=== PATIENT | female | born 1960 | race Caucasian/White ===

== ENCOUNTER 2020-08-17 12:16 | Outpatient (CLI) | payer MEDICARE, SELFPAY ==
--- NOTE | ~2020-08-17 | XR_ITS ---
XR knee LT 2V 08/17/2020 12:45 Indication: Chronic knee pain Procedure: 2 views left knee Comparison: No prior studies for comparison. Findings: There is mild-moderate osteoarthritis of the left knee. No fracture, subluxation or disloca tion. No significant joint effusion. No foreign bodies. Impression: 1: Mild-moderate osteoarthritis of the left knee. Reviewed, dictated and finalized at location B. Impression: 1: Mild-moderate osteoarthritis of the left knee.
--- NOTE | ~2020-08-17 | XR_ITS ---
XR knee RT 2V 08/17/2020 12:45 Indication: Chronic knee pain Procedure: 2 views right knee Comparison: No prior studies for comparison. Findings: There is moderate tricompartment osteoarthritis of the right knee. No fracture or traumatic malalignment. No significant joint effusion. No foreign bodies. Impression: 1: Moderate osteoarthritis of the right knee. Reviewed, dictated and finalized at location B. Impression: 1: Moderate osteoarthritis of the right knee.
== END 2020-08-17 12:17 | disposition home or self-care (01) ==
DX: M17.0 Bilateral primary osteoarthritis of knee (principal)
CPT/HCPCS: 73560

== ENCOUNTER 2021-12-29 22:39 | Inpatient (IN) | payer MEDICARE, MEDICAID, SELFPAY ==
[2021-12-29] VITALS (9 sets, daily range): BP systolic 130–132; BP diastolic 105–108; PULSE 108–115; RESP 20–24; TEMP 36.3; O2SAT 75–100
--- NOTE | ~2021-12-29 | US_ITS ---
EXAMINATION: US abdomen limited DATE: 12/30/2021 10:53 INDICATION: Abnormal liver function tests. TECHNIQUE: Multiple grayscale and Doppler ultrasound images of the abdomen were obtained. COMPARISON: CT abdomen and pelvis 12/29/2021 FINDINGS: The visualized portions of the head and body of the pancreas are normal. The liver is janell l without focal lesion. No liver surface nodularity. There is normal flow in main portal vein. The ga llbladder is absent. The common duct is normal and measures 4 mm. IMPRESSION: 1. No etiology for abnormal liver function tests. Reviewed, dictated and finalized at location A.
--- NOTE | ~2021-12-29 | CT_ITS ---
EXAMINATION: CTA chest PE protocol DATE: 01/09/2022 12:52 INDICATION: Shortness of breath. Suspected pulmonary embolism. TECHNIQUE: Computed tomography angiography (CTA) of the chest was performed with 100 mL Omnipaque-350 intravenous contrast timed to evaluate the pulmonary arteries. Coronal maximum intensity projection 3D-reconstructions were created by the technologist. Automated exposure control and iterative reconst ruction technique were employed. Exam dose: 754.51 mGy-cm total exam DLP. COMPARISON: 01/08/2022 2 view chest FINDINGS: The pulmonary arteries are moderately opacified with contrast material, without evidence of pulmonary embolism. Cardiomegaly. There is trace pericardial fluid. There is aortic and great vessel and coronary artery calcification. No thoracic aortic aneurysm or di ssection. There is mild right hilar and mediastinal lymph node prominence, likely reactive. Scattered small focal right upper lobe infiltrates and more prominent patchy infiltrate and atelectas is in the right lower lobe. Prominent discoid atelectasis, left lower lobe. No pleural effusion. Status post lower anterior cervical spine surgical fusion. There is degenerative change of the thorac ic spine including diffuse idiopathic skeletal hyperostosis. No suspicious osteolytic or osteoblastic lesions are noted. IMPRESSION: Right upper lobe and more prominent right lower lobe infiltrate, bilateral predominantly lower lobe atelectasis, right greater than left No evidence of pulmonary embolism Cardiomegaly Reviewed, dictated and finalized at Location A. Reviewed, dictated and finalized at location A. K MANAGER IMPRESSION: Right upper lobe and more prominent right lower lobe infiltrate, b ilateral predominantly lower lobe atelectasis, right greater than left No evidence of pulmonary embolism Cardiomegaly
--- NOTE | ~2021-12-29 | US_ITS ---
EXAMINATION: US renal BI DATE: 01/17/2022 17:20 INDICATION: Back pain /hematuria TECHNIQUE: Multiple grayscale and Doppler ultrasound images of the kidneys were obtained. COMPARISON: CT abdomen and pelvis 12/29/2021 FINDINGS: The right kidney measures 9.3 x 5.1 x 5.7 cm. The left kidney measures 8.9 x 4.1 x 4.4 cm. The kidney s demonstrate normal parenchymal echogenicity. There is no hydronephrosis. The bladder is decompresse d. IMPRESSION: Unremarkable renal sonogram findings. Reviewed, dictated and finalized at location K. IMPREGNATOR
--- NOTE | ~2021-12-29 | US_ITS ---
EXAMINATION: US right upper quadrant DATE: 01/12/2022 11:05 INDICATION: Abnormal liver function tests. TECHNIQUE: Multiple grayscale and Doppler ultrasound images of the abdomen were obtained. COMPARISON: Chest CT 01/09/2022 FINDINGS: Sensitivity is decreased by obesity. The visualized portion of the pancreas is normal. The liver is normal without focal lesion. No liver surface nodularity. There is normal flow in main heath l vein. The gallbladder is absent. The common duct is normal and measures 8 mm. IMPRESSION: 1. Normal right upper quadrant ultrasound status post cholecystectomy. Reviewed, dictated and finalized at location A. EY CLEANER
--- NOTE | ~2021-12-29 | XR_ITS ---
EXAMINATION: XR chest 1V portable DATE: 12/30/2021 00:12 INDICATION: Shortness of breath. TECHNIQUE: A single frontal view of the chest was obtained. COMPARISON: CT abdomen and pelvis 12/29/2021 FINDINGS: There is mild atelectasis in the lower lung zones. No pleural effusion or pneumothorax. Car diomegaly is noted. There are changes of anterior fusion procedure in cervical spine. IMPRESSION: 1. Mild atelectasis in the lower lung zones. 2. Cardiomegaly. Reviewed, dictated and finalized at location A.
--- NOTE | ~2021-12-29 | XR_ITS ---
EXAM: XR abdomen/kub 1V DATE: 01/01/2022 13:29 HISTORY: Right renal stones . COMPARISON: None available. FINDINGS: Bibasilar atelectasis with possible trace effusion on the right. Cholecystectomy clips. Ri ght nephroureteral stent, proximal coil over the region of the renal pelvis, distal coil over the reg ion of the bladder. Normal bowel gas pattern. No organomegaly. 17 mm right renal pelvis stone. Cluste r of calcifications overlying the right inferior pole measuring up to 8 mm. Degenerative change in th e bilateral hips and spine. IMPRESSION: Right nephroureteral stent, in good position. 17 mm right renal pelvis stone. Additional right inferior pole calculi. Reviewed, dictated and finalized at location K. VERY AGENT IMPRESSION: Right nephroureteral stent, in good position. 17 mm right renal pel vis stone. Additional right inferior pole calculi.
--- NOTE | ~2021-12-29 | XR_ITS ---
EXAMINATION: XR chest 1V portable INDICATION: Shortness of breath TECHNIQUE: Portable AP chest at 0538 hours COMPARISON: 01/03/2022 FINDINGS: Bibasilar airspace opacities persist without significant change. Cardiomegaly is noted. The re is no pneumothorax. Small pleural effusions are suggested. Surgical changes are noted in the lower cervical spine. IMPRESSION: 1. Stable bibasilar airspace opacities, consistent with atelectasis and/or pneumonia and/or small eff usions. 2. Cardiomegaly. Reviewed, dictated and finalized at location B. ICAL MEDICINE TEACHER IMPRESSION: 1. Stable bibasilar airspace opacities, consistent with atelectasis and/or pneu monia and/or small effusions. 2. Cardiomegaly.
--- NOTE | ~2021-12-29 | US_ITS ---
EXAMINATION: US renal BI DATE: 12/30/2021 10:53 INDICATION: Acute renal insufficiency TECHNIQUE: Multiple ultrasound grayscale images of the kidneys were obtained. COMPARISON: CT abdomen and pelvis dated 12/29/2021 FINDINGS: The right kidney measures 10.7 x 5.5 x 6.0 cm. The left kidney measures 10.2 x 5.9 x 5.7 cm. The kidn eys demonstrate normal echogenicity. There is no hydronephrosis in either kidney. No shadowing renal stones identified likely due to patient body habitus as stones were evident in the right kidney on t he prior CT. The bladder is visualized, likely decompressed with Vale catheter reportedly in place.. IMPRESSION: 1. Normal kidneys without hydronephrosis. Of note the right renal stones were present on PET CT from one day prior and which may be obscured in the current study due to body habitus. Reviewed, dictated and finalized at location B. IMPRESSION: 1. Normal kidneys without hydronephrosis. Of note the right renal stones were present on PET CT from one day prior and which may be obscured in the current s tudy due to body habitus.
--- NOTE | ~2021-12-29 | US_ITS ---
EXAMINATION: US venous doppler UE DATE: 01/03/2022 17:28 INDICATION: Edema TECHNIQUE: Grayscale ultrasound images without and with compression and Doppler ultrasound images of the bilateral upper extremity veins were obtained. COMPARISON: None. FINDINGS: The visualized portions of the left internal jugular vein, subclavian vein, axillary vein, brachial v eins, basilic vein, cephalic vein, radial vein, and ulnar vein are patent. Acute thrombus in the right cephalic radial and ulnar veins. The visualized portions of the right int ernal jugular vein, subclavian vein, axillary vein, brachial veins, and basilic vein are patent. IMPRESSION: 1. Acute thrombus in the right cephalic, radial, and ulnar veins Results reported telephonically to Tere Arango RN by Dr. Keller at 5:39 PM on 01/03/2022. Reviewed, dictated and finalized at location K. NERY OPERATOR [employer]OV[employer]
--- NOTE | ~2021-12-29 | XR_ITS ---
EXAMINATION: XR chest 1V portable DATE: 01/03/2022 06:19 INDICATION: Shortness of breath TECHNIQUE: frontal view of the chest was obtained. COMPARISON: Chest radiograph dated 12/30/2021 FINDINGS: Hazy opacities in the right lower lung zone with blunting at the costophrenic angle consistent with s mall posterior layering pleural effusion. More dense opacities at the medial right lower lung zone an d bandlike opacity left lower lung zone most likely associated atelectasis although differential incl udes pneumonia. Mild increased interstitial pattern with bronchial wall thickening which could repres ent pulmonary edema or bronchitis. No pneumothorax or left-sided pleural effusion. Cardiomegaly. Plat e-screw fixation for lower cervical anterior spinal fusion. IMPRESSION: 1. Opacities in the lower lung zones consistent with atelectasis and/or pneumonia and small right ple ural effusion. 2. Cardiomegaly. Reviewed, dictated and finalized at location A. FOUNDER & CEO IMPRESSION: 1. Opacities in the lower lung zones consistent with atelectasis and/or pneumon ia and small right pleural effusion. 2. Cardiomegaly.
--- NOTE | ~2021-12-29 | US_ITS ---
EXAMINATION: US venous doppler [facility] DATE: 01/03/2022 17:28 INDICATION: edema . TECHNIQUE: Grayscale images without and with compression and Doppler images of the bilateral lower ex tremity veins were obtained. COMPARISON: None FINDINGS: The right common femoral vein, profunda (deep) femoral vein, femoral vein, popliteal vein, peroneal v ein, and posterior tibial veins are patent. Acute thrombus in the left posterior tibial and peroneal veins. The left common femoral vein, profund a femoral vein, femoral vein, and popliteal vein are patent. IMPRESSION: 1. Acute DVT in the left posterior tibial and peroneal veins. Results reported telephonically to Tere Arango RN by Dr. Keller at 5:39 PM on 01/03/2022. Reviewed, dictated and finalized at location K. ICAL CODER
--- NOTE | ~2021-12-29 | US_ITS ---
EXAMINATION: US soft tissue abdomen DATE: 01/18/2022 12:38 INDICATION: Right lower quadrant hematoma versus cyst with pain TECHNIQUE: Multiple grayscale and Doppler ultrasound images of the right lower quadrant anterior abdo reginald wall at the region of concern were obtained. COMPARISON: CT abdomen and pelvis dated 12/29/2021 FINDINGS: There is a new 3.7 x 3.2 x 2.0 cm complex mixed anechoic and hypoechoic cystic lesion at the region o f concern. No internal vascular flow or surrounding hyperemia on color Doppler. IMPRESSION: 1. 3.7 x 3.2 x 2.0 cm complex cystic lesion in the subcutaneous tissues at the region of concern. Giv en appearance, recent development within the last 20 days, provided history of Lovenox injection in t his region and lack of surrounding hyperemia or erythema at the overlying skin surface to suggest inf ection would favor a hematoma over abscess. Reviewed, dictated and finalized at location A. MBLER BODY IMPRESSION: 1. 3.7 x 3.2 x 2.0 cm complex cystic lesion in the subcutaneous tissues at the region of concern. Given appearance, recent development within the last 20 days , provided history of Lovenox injection in this region and lack of surrounding hyperemia or erythema at the overlying skin surface to suggest infection would favor a hematoma over abscess.
--- NOTE | ~2021-12-29 | XR_ITS ---
EXAMINATION: XR chest 1V portable DATE: 01/15/2022 05:29 INDICATION: Congestive heart failure TECHNIQUE: frontal view of the chest was obtained. COMPARISON: Chest radiograph dated 01/08/2022 FINDINGS: Cardiomegaly with enlargement of the central pulmonary arteries which can be seen with pulmonary angelic rial hypertension. Persistent mild bilateral perihilar and lower lung predominant airspace opacities which could represent some edema or pneumonia. Linear band of discoid atelectasis in the left lower l oliver zone. No pleural effusion or pneumothorax. Anterior plate-screw fixation for lower cervical anter ior spinal fusion. IMPRESSION: 1. Perihilar and lower lung predominant opacities consistent with pulmonary edema or pneumonia. 2. Cardiomegaly with enlargement of the central pulmonary arteries consistent with pulmonary arterial hypertension. Reviewed, dictated and finalized at location A. PAY REPRESENTATIVE IMPRESSION: 1. Perihilar and lower lung predominant opacities consistent with pulmonary robert ma or pneumonia. 2. Cardiomegaly with enlargement of the central pulmonary arteries consistent w ith pulmonary arterial hypertension.
--- NOTE | ~2021-12-29 | XR_ITS ---
XR chest 2V DATE: 01/08/2022 14:51 INDICATION: Shortness of breath TECHNIQUE: AP and lateral views on 01/08/2022 at 1444 1448 hours COMPARISON: 01/05/2022 portable AP chest FINDINGS: There is cardiomegaly. Is aortic arch calcification, mild aortic unfolding. There is mild pulmonary vascular congestion and redistribution but the pulmonary vascular congestion is diminished since 01/05/2022. Bilateral lower lung infiltrate and/or atelectasis, also improved sin ce 01/05/2022. There is slight blunting of the costophrenic angles which may indicate minimal residua l pleural effusion. No pneumothorax. Osteopenia. Status post anterior cervical spine surgical fusion. Degenerative changes of the thoracic and lumbar spine. Surgical clips, right upper quadrant, probably due to cholecystectomy. IMPRESSION: Cardiomegaly, pulmonary vascular redistribution; the pulmonary vascular congestion and bi lateral infiltrates are improved since 01/05/2022 Reviewed, dictated and finalized at location A. RAL INTERNAL MEDICINE DOCTOR IMPRESSION: Cardiomegaly, pulmonary vascular redistribution; the pulmonary vasc ular congestion and bilateral infiltrates are improved since 01/05/2022
--- NOTE | ~2021-12-29 | CT_ITS ---
EXAMINATION: CT abdomen pelvis wo con DATE: 12/29/2021 23:56 INDICATION: Right abdominal pain. TECHNIQUE: Computed tomography (CT) of the abdomen and pelvis was performed without intravenous contr ast. Automated exposure control and iterative reconstruction technique were employed. The dose-length product was 1619.57 mGy-cm. COMPARISON: None. FINDINGS: The visualized portions of the lung bases demonstrates mild atelectasis. No pleural effusio n. Cardiomegaly is noted. No pericardial effusion. There is a small sliding hiatal hernia. There is d iffuse hepatic steatosis. There is periportal edema in the liver. There are changes of cholecystectom y. The spleen, pancreas, adrenal glands, and left kidney are normal. There are least 3 stones in righ t kidney including an 11 mm stone in the renal pelvis. There is mild right hydronephrosis. There are no dilated loops of bowel. The colon is decompressed. The appendix is not visualized. There is intra- abdominal fat stranding including adjacent to ascending colon. There is body wall fat stranding. Ther e is trace ascites. There is mild periportal lymphadenopathy. There is severe lower lumbar spondylosi s. IMPRESSION: 1. 11 mm stone in right renal pelvis with mild right hydronephrosis. 2. Nonobstructing right kidney stones. 3. Diffuse hepatic steatosis. 4. Periportal edema in the liver. Intra-abdominal and body wall fat stranding is likely edema. Reviewed, dictated and finalized at location A. IMPRESSION: 1. 11 mm stone in right renal pelvis with mild right hydronephrosis. 2. Nonobstructing right kidney stones. 3. Diffuse hepatic steatosis. 4. Periportal edema in the liver. Intra-abdominal and body wall fat stranding i s likely edema.
--- NOTE | ~2021-12-29 | XR_ITS ---
EXAMINATION: XR retrograde pyelo w/stent RT DATE: 12/31/2021 11:30 CDT INDICATION: right stent placement, right RPG . TECHNIQUE: 4 fluoroscopic images of the abdomen and pelvis were obtained during right retrograde pyel ography with stent placement performed by the surgeon. I was not present in the operating room. Fluor oscopy exposure time was 41.8 seconds. DAP 1.31 mGym2. COMPARISON: CT abdomen and pelvis 12/29/2021 FINDINGS: : Cystectomy clips. Contrast fills a moderately dilated right collecting system. Renal ectopy on the right. Proximal stent coil in the renal pelvis and distal coil over the bladder. IMPRESSION: Fluoroscopic documentation of right retrograde pyelography with stent placement. Please refer to the operative note for complete procedural details . Reviewed, dictated and finalized at location K. IMPRESSION: Fluoroscopic documentation of right retrograde pyelography with stent placement . Please refer to the operative note for complete procedural details .
--- NOTE | 2021-12-29 22:43 | ECG_ITS ---
Measurements Intervals [place] Rate: 108 P: 41 IA: 137 QRS: 69 QRSD: 88 T: -17 QT: 308 QTc: 414 Interpretive Statements SINUS TACHYCARDIA POSSIBLE LEFT ATRIAL ENLARGEMENT NONSPECIFIC ST & T-WAVE ABNORMALITY- INFERIOR LEADS BASELINE ARTIFACT- I, II, III, AVR, AVL, AVF, V1-V3 ABNORMAL ECG NO PREVIOUS ECG AVAILABLE FOR COMPARISON Electronically Signed On 12-30-2021 7:02:31 CDT by Fransico Rader D.O.
--- NOTE | 2021-12-29 22:48 | ED.GENADULT ---
HPI - General Adult General Chief complaint: Shortness of Breath/Dyspnea Stated complaint: SOB. HX COPD History of Present Illness HPI narrative: 61-year-old female presenting to the emergency department for evaluation of worsening shortness of breath. Patient states for the last week she has had a worsening generalized fatigue. Patient states that today she developed some right-sided abdominal pain and then tonight she developed some shortness of breath. Patient does have a prior history of COPD. Patient called EMS for the symptoms. EMS did treat the patient with an albuterol nebulizer and patient states that her shortness of breath did not improve. Related Data Allergies Allergy/AdvReac Type Severity Reaction Status Date / Time No Known Allergies Allergy Verified 12/29/21 23:07 Review of Systems Review of Systems: CONSTITUTIONAL: Denies fever, chills, or sweats. EYES: Denies visual changes, redness, or discharge. ENT: Denies rhinorrhea, congestion, sore throat, or otalgia. CARDIOVASCULAR: Denies chest pain, palpitations, or edema. RESPIRATORY: See HPI GASTROINTESTINAL: See HPI GENITOURINARY: Denies dysuria or hematuria. SKIN: Denies rash or itching. MUSCULOSKELETAL: Denies back pain, joint pain, or myalgia. NEUROLOGIC: Denies headache, numbness, or weakness. Exam Narrative: APPEARANCE: Well appearing, no pain, no distress, well-nourished. HEAD: normocephalic, atraumatic. EYES: PERRLA/EOMI, conjunctivae clear. NOSE: Normal no drainage EARS:TMS clear with good light reflex. THROAT: Pharynx clear, no exudate. NECK: Supple. No adenopathy, no masses. RESPIRATORY: Airway patent, respirations nonlabored. Mild expiratory wheeze CARDIOVASCULAR: Regular rate and rhythm without murmurs rubs or gallops. ABDOMINAL: Soft, nondistended, normal bowel sounds, right-sided abdominal pain MUSCULOSKELETAL: Moves all extremities. Strength/ROM intact, No edema, No calf tenderness. NEURO: Alert. Cranial nerves II through XII intact. Grossly intact SKIN: Warm, dry. Normal Color Course Course Emergency Course: Patient was having increased respiratory difficulty on room air and requiring a nonrebreather to maintain oxygenation. Patient was placed on BiPAP and had significant improvement in respiratory status. Patient was hyperkalemic and was treated with Lokelma, albuterol, insulin/dextrose. Patient's x-ray showed pulmonary vascular congestion, patient's BNP was elevated at 17,000 and patient does have lower extremity edema. Patient's transaminases were elevated. CT scan showed evidence of a pancolitis. Patient was started on Levaquin and Flagyl. Case was discussed with the hospitalist and patient was accepted to the IMU. Vital Signs Vital signs: Vital Signs Pulse Oximetry 75 L 12/29/21 22:44 Oxygen Delivery Room Air 12/29/21 22:44 Temperature 97.3 F L 12/29/21 22:45 Pulse Rate 105 H 12/30/21 01:01 Respiratory Rate 18 12/30/21 01:01 Blood Pressure 134/76 12/30/21 01:01 Pulse Oximetry 100 12/30/21 01:01 Oxygen Delivery BiPAP 12/29/21 23:13 Medical Decision Making Vital Signs Vital Signs: Vital Signs Pulse Oximetry 75 L 12/29/21 22:44 Oxygen Delivery Room Air 12/29/21 22:44 Temperature 97.3 F L 12/29/21 22:45 Pulse Rate 105 H 12/30/21 01:01 Respiratory Rate 18 12/30/21 01:01 Blood Pressure 134/76 12/30/21 01:01 Pulse Oximetry 100 12/30/21 01:01 Oxygen Delivery BiPAP 12/29/21 23:13 Lab Data Lab results reviewed: Yes I reviewed the patient's lab results. Result diagrams: 12/29/21 22:54 12/29/21 22:54 Labs: Lab Results 12/29/21 12/29/21 12/29/21 Range/Units 22:54 22:54 22:54 WBC 15.6 H (4.5-10.0) K/mm3 RBC 4.74 (4.2-5.4) M/mm3 Hgb 11.9 L (12.0-15.0) g/dL Hct 41.6 (37.0-47.0) % MCV 87.8 (80-100) fl MCH 25.1 L (26-34) pg MCHC 28.6 L (32-36) g/dl RDW 18.0 H (11.5-14.5) % Plt Count 271
[2021-12-29 23:02] LABS: Hematocrit 41.6 % (37.0-47.0); Hemoglobin 11.9 g/dL (12.0-15.0); Mean Corpuscular HGB Conc 28.6 g/dl (32-36); Mean Corpuscular Hemoglobin 25.1 pg (26-34); Mean Corpuscular Volume 87.8 fl (80-100); Mean Platelet Volume 10.6 fl (7.4-10.4); Platelet Count Result 271 k/mm3 (150-375); Red Blood Count 4.74 M/mm3 (4.2-5.4); White Blood Count 15.6 K/mm3 (4.5-10.0)
[2021-12-29] MEDS: methylPREDNISolone SOD SUCC 125 MG VIAL IV PUSH (23:08)
[2021-12-29] MEDS: ALBUTEROL SULFATE NEB 2.5 MG/3 ML INH 5 MG INHALATION (23:11)
[2021-12-29 23:14] LABS: INR 1.5; Prothrombin Time 17.7 Seconds (11.1-14.7)
[2021-12-29 23:15] LABS: Partial Thromboplastin Time 31.3 SECONDS (22.3-36.8)
[2021-12-29 23:16] LABS: Alveolar/Arterial O2 Gradient 573.6 mmHg; Base Excess ABG 2.1 mEq/l (+/-2.0); Device NON-REBREATHER MASK; Fractional Inspired Oxygen 100 %; HCO3 ABG 27.6 mEq/l (22.0-26.0); Modified Allen's Test Pass; Oxygen Content ABG 17.3 %vol (16.0-22.0); Oxyhemoglobin 94.1 % THb (90.0-100.0); PCO2 ABG 46.7 mmHg (35.0-45.0); PO2 ABG 92.7 mmHg (80.0-100.0); PO2 FiO2 Ratio Arterial Blood 0.93 %; Site Drawn RIGHT RADIAL
[2021-12-29 23:21] LABS: NT Pro B Type Natriuretic Pept 17000 pg/mL (5-100)
[2021-12-29 23:22] LABS: Albumin Level 3.8 g/dL (3.5-5.1); Alkaline Phosphatase 100 U/L (38-126); Anion Gap 11 mmol/L (8-16); Bilirubin,Total 2.4 mg/dL (0.2-1.3); Blood Urea Nitrogen 26 mg/dL (7-17); Calcium 7.9 mg/dL (8.4-10.2); Carbon Dioxide 28 mmol/L (22-30); Chloride 93 mmol/L (98-107); Estimated Glomerular Filt Rate 21; Glucose 137 mg/dL (65-110); Potassium 5.6 mmol/L (3.4-5.0); Sodium 132 mmol/L (137-145)
[2021-12-29 23:33] LABS: Band Neutrophils Percent 6 % (0-6); Eosinophils Absolute Manual 0.31 K/mm3 (0.02-0.5); Eosinophils Percent Manual 2 % (0-4); Hypochromasia 1+ (NORMAL); Lymphocytes Absolute Manual 0.62 K/mm3 (1.1-4.5); Metamyelocytes Percent 2 %; Monocytes Absolute Manual 0.46 K/mm3 (0.1-0.90); Monocytes Percent Manual 3 % (3-9); Myelocytes Percent 1 %; Neutrophils Absolute Manual 13.72 K/mm3 (1.7-7.2); Neutrophils Percent Manual 82 % (46-73); Nucleated Red Blood Cells 4 %; Schistocytes None Seen (NORMAL); Total Cells Counted 100
[2021-12-29 23:34] LABS: Anisocytosis 1+ (NORMAL); Macrocytosis 1+ (NORMAL); Spherocytes 1+ (NORMAL)
[2021-12-29 23:37] LABS: Alanine Aminotransferase 1026 U/L (6-35); Aspartate Amino Transferase 1751 U/L (14-36)
[2021-12-29] MEDS: DEXTROSE 50% 25 GM/50 ML SYRINGE IV PUSH (23:37)
[2021-12-29] MEDS: FUROSEMIDE INJ 40 MG/4 ML VIAL IV PUSH (23:38)
[2021-12-29] MEDS: INSULIN HUMAN REGULAR (*BKC) 100 UNITS/ML IV PUSH (23:38)
[2021-12-29 23:48] LABS: Influenza A QL RT-PCR Negative (Negative); Influenza B QL RT-PCR Negative (Negative); SARS-CoV-2 RNA PCR Negative
--- NOTE | 2021-12-29 23:54 | PC.NURSE ---
Talked to Richard in lab at 23:53 to add on Lip
[2021-12-30] VITALS (74 sets, daily range): BP systolic 78–190; BP diastolic 54–163; PULSE 85–124; RESP 16–29; TEMP 35.8–36.6; O2SAT 90–100; BMI 62.1; BMI 61.9
--- NOTE | 2021-12-30 | ECHO_ITS ---
Patient Info Name: Desiree Castorena Age: 61 years : 1960 Gender: Female Ht: 64 in Wt: 330 lbs BSA: 2.70 m2 HR: 91 bpm BP: 111 / 73 mmHg Heart Rhythm: Sinus Rhythm Technical Quality: Poor Exam Date: 12/30/2021 11:49 AM Exam Location: [facility] Pul[facility] Patient Status: Inpatient Admit Date: 12/30/2021 Staff Ordering Physician: Bill Clark MD Net Trainer: Arielle Mcdowell RDCS Attending Provider: Bill Clark MD Referring Physician: Amber DOOLEY; Exam Type: CA echo dop color flow w con Study Info Indications - CHF Complete two-dimensional, color flow and Doppler transthoracic echocardiogram is performed with contrast to opacify the left ventricle and to improve the deliniation of the left ventricle endocardial borders. Contrast/Agitated Saline Contrast/Ag. Saline: Definity Amount: 3.00 ml Administered By: Arielle Mcdowell RDCS Existing IV Access: Yes IV Access Condition: patent with no signs of infiltration Summary 1. Poor image quality due to obesity / Definity contrast used. 2. Left ventricular systolic function is hyperdynamic, estimated at >70%. 3. The left ventricular diastolic function is grade I diastolic dysfunction. 4. Right ventricular chamber dimension is moderately enlarged. 5. No significant valve dysfunction. Left Ventricle Left ventricular chamber dimension is normal. Left ventricular systolic function is hyperdynamic, estimated at >70%. The left ventricular diastolic function is grade I diastolic dysfunction. Right Ventricle Right ventricular chamber dimension is moderately enlarged. Right ventricular systolic function is reduced. Left Atria Left atrial chamber dimension is normal. Right Atria Right atrial chamber dimension is mildly enlarged. Aortic Valve The aortic valve is not well visualized. There is mild aortic valve sclerosis. Pulmonic Valve The pulmonic valve is not well visualized. Mitral Valve The mitral valve has normal leaflets. Tricuspid Valve The tricuspid valve leaflets are not well visualized. There is mild tricuspid valve regurgitation. Pericardium/Pleural The pericardium appears normal. Aorta The aortic root size at the sinus of Valsalva is normal. Left Ventricular Outflow Tract Name Value Normal LVOT 2D LVOT Diameter 1.76 cm LVOT Doppler LVOT Peak Gradient 4 mmHg LVOT Mean Gradient 2 mmHg LVOT VTI 15.82 cm LVOT VTI/AV VTI Ratio 0.95 LVOT Stroke Volume 38.57 ml LVOT CO 3.24 l/min LVOT CI 1.20 L/min/m2 Pulmonic Valve Name Value Normal RVOT Doppler RVOT Peak Gradient 1 mmHg
[2021-12-30 00:05] LABS: Lipase 17 U/L (23-300)
--- NOTE | 2021-12-30 01:08 | PM.IMHP ---
H&P: HPI History of Present Illness Date/Time: 12/30/21 01:08 Chief Complaint: shortness of breath Meds Home Medications and Allergies Allergies Allergy/AdvReac Type Severity Reaction Status Date / Time No Known Allergies Allergy Verified 12/29/21 23:07 Vital Signs Vital Signs - 24 hr 12/29/21 22:44 12/29/21 22:44 12/29/21 22:45 Temperature 97.3 F L Pulse Rate 115 H Respiratory Rate 24 H Blood Pressure 130/105 H Pulse Oximetry 75 L 75 L Oxygen Delivery Room Air Room Air Room Air 12/29/21 23:11 12/29/21 23:13 12/29/21 23:10 Temperature Pulse Rate 108 H 108 H Respiratory Rate 24 H 24 H 20 Blood Pressure Pulse Oximetry 100 99 Oxygen Delivery BiPAP 12/29/21 23:22 12/29/21 23:30 12/29/21 23:31 Temperature Pulse Rate 109 H 110 H 109 H Respiratory Rate 21 H 21 H 20 Blood Pressure 132/108 H Pulse Oximetry 100 99 98 Oxygen Delivery 12/30/21 00:00 12/30/21 00:01 12/30/21 00:17 Temperature Pulse Rate 112 H 112 H 107 H Respiratory Rate 29 H 26 H 23 H Blood Pressure 115/69 Pulse Oximetry 100 100 99 Oxygen Delivery 12/30/21 00:30 12/30/21 00:31 12/30/21 00:32 Temperature Pulse Rate 104 H 104 H 105 H Respiratory Rate 21 H 20 20 Blood Pressure 127/67 Pulse Oximetry 99 100 99 Oxygen Delivery 12/30/21 00:45 12/30/21 00:47 12/30/21 01:00 Temperature Pulse Rate 104 H 103 H 106 H Respiratory Rate 18 19 18 Blood Pressure 128/74 Pulse Oximetry 98 98 100 Oxygen Delivery 12/30/21 01:01 Temperature Pulse Rate 105 H Respiratory Rate 18 Blood Pressure 134/76 Pulse Oximetry 100 Oxygen Delivery H&P: Results Labs Labs: Short CBC 12/29/21 Range/Units 22:54 WBC 15.6 H (4.5-10.0) K/mm3 Hgb 11.9 L (12.0-15.0) g/dL Hct 41.6 (37.0-47.0) % Plt Count 271 (150-375) k/mm3 BMP 12/29/21 22:54 Sodium 132 L Potassium 5.6 H Chloride 93 L Carbon Dioxide 28 BUN 26 H Creatinine 2.40 H Glucose 137 H Calcium 7.9 L Liver Function 12/29/21 Range/Units 22:54 Total Bilirubin 2.4 H (0.2-1.3) mg/dL AST 1751 H (14-36) U/L ALT 1026 H (6-35) U/L Alkaline Phosphatase 100 (38-126) U/L Albumin 3.8 (3.5-5.1) g/dL Assessment and Plan Assessment and plan (1) Congestive heart failure: Code(s): I50.9 - Heart failure, unspecified Status: Acute Assessment and Plan: admit to IMU fluid restriction to 1500 cc daily aggressive diuresis daily intake and output daily weights Vale in echocardiogram in a.m. daily BMP replace electrolytes as needed cardiology consult (2) Acute hyperkalemia: Code(s): E87.5 - Hyperkalemia Status: Acute Assessment and Plan: patient received sodium zirconium continue to monitor will hold losartan (3) Hypoxia: Code(s): R09.02 - Hypoxemia Status: Acute Assessment and Plan: currently on BiPAP continue to monitor ABG reviewed (4) Pancolitis: Code(s): K51.00 - Ulcerative (chronic) pancolitis without complications Status: Acute Assessment and Plan: started on levofloxacin and Flagyl (5) Transaminitis: Code(s): R74.01 - Elevation of levels of liver transaminase levels Status: Acute Assessment and Plan: likely a combination of fatty liver and congestive liver continue to trend transaminases GI consult right upper quadrant ultrasound in a.m. (6) UTI (urinary tract infection): Code(s): N39.0 - Urinary tract infection, site not specified Status: Acute Assessment and Plan: patient on levofloxacin await cultures (7) Morbid obesity: Code(s): E66.01 - Morbid (severe) obesity due to excess calories Status: Acute Assessment and Plan: lifestyle and diet modifications 1800 calorie consistent diet (8) JT (acute kidney injury): Code(s): N17.9 - Acute kidney failure, unspecified Status: A
[2021-12-30 01:10] LABS: Add Urine Microscopic? YES; Appearance Urine Turbid (Clear); Bilirubin Urine 3+ (Negative); Blood Urine 2+ (Negative); Color Urine Red (Yellow); Glucose Urine UA Trace mg/dL (Negative); Ketones Urine 1+ mg/dL (Negative); Leukocyte Esterase Ur 3+ LEU/UL (Negative); Nitrate Urine Positive (Negative); Protein Urine 3+ mg/dL (Negative)
[2021-12-30 01:13] LABS: Bacteria Urine Trace /hpf; Mucus Urine Heavy /lpf; RBC Urine 21-50 /hpf (0-2); Squamous Epithelial Cell Urine Many /hpf (Few); WBC Urine 51-75 /hpf
[2021-12-30] MEDS: SODIUM ZIRCONIUM CYCLOSILICATE 10 GM POWD.PACK PO (01:35)
[2021-12-30 02:10] LABS: Hepatitis B Surface Antigen Negative (Negative)
[2021-12-30] MEDS: levoFLOXacin 500 MG/D5W 100 ML 500 MG/100 ML BAG 100 MG IVPB (02:11)
[2021-12-30 02:16] LABS: HAV RESULT Negative (Negative); Hepatitis B Core IgM Result Negative (Negative)
[2021-12-30 02:28] LABS: Hepatitis C Virus Antibody Negative (Negative)
[2021-12-30] MEDS: LORazepam INJ (*CRX) 2 MG/ML VIAL 1 MG IV PUSH (03:08)
[2021-12-30] MEDS: metroNIDAZOLE 500 MG/ISO 100ML 500 MG/100 ML BAG 100 MG IVPB ×2 (03:12→17:58)
[2021-12-30] MEDS: ALBUTEROL SULFATE NEB 2.5 MG/3 ML INH INHALATION ×4 (05:22→21:04)
[2021-12-30] MEDS: IPRATROPIUM BR 0.02% INH SOLN 0.5 MG/2.5 ML VIAL INHALATION ×4 (05:22→21:03)
[2021-12-30 06:15] LABS: Glucose Point of Care 150 mg/dl (65-105)
--- NOTE | 2021-12-30 06:16 | PC.NURSE ---
Dr. Clark aware of urine output of 30ML since 129 with last dose of lasix. No orders at this time, plan is to consult Nephrology.
[2021-12-30 06:17] LABS: Basophils Percent Auto 0.1 % (0.2-1.2); Hematocrit 38.6 % (37.0-47.0); Hemoglobin 11.1 g/dL (12.0-15.0); Immature Granulocyte Percent A 0.7 % (0-0.5); Lymphocytes Absolute Auto 0.47 K/mm3 (0.9-3.2); Lymphocytes Percent Auto 3.2 % (18.3-44.2); Mean Corpuscular HGB Conc 28.8 g/dl (32-36); Mean Corpuscular Volume 86.9 fl (80-100); Mean Platelet Volume 10.2 fl (7.4-10.4); Monocytes Absolute Auto 0.3 K/mm3 (0.1-0.6); Monocytes Percent Auto 1.7 % (2.6-8.5); Neutrophils Absolute Auto 13.9 K/mm3 (1.3-6.7); Neutrophils Percent Auto 94.3 % (45.5-73.1); Nucleated Red Blood Cells Absolute Auto 0.1 K/mm3 (0.0-0.012); Nucleated Red Blood Cells Perc 0.8 % (0.0-0.2); Platelet Count Result 180 k/mm3 (150-375); Red Blood Count 4.44 M/mm3 (4.2-5.4); White Blood Count 14.8 K/mm3 (4.5-10.0)
[2021-12-30 06:36] LABS: Anisocytosis 1+ (NORMAL); Hypochromasia 1+ (NORMAL); Platelet Estimate Adequate (Adequate); Poikilocytosis 1+ (NORMAL)
[2021-12-30 07:24] LABS: Albumin Level 3.5 g/dL (3.5-5.1); Alkaline Phosphatase 78 U/L (38-126); Anion Gap 10 mmol/L (8-16); Bilirubin,Total 1.5 mg/dL (0.2-1.3); Blood Urea Nitrogen 30 mg/dL (7-17); Calcium 7.7 mg/dL (8.4-10.2); Carbon Dioxide 31 mmol/L (22-30); Chloride 94 mmol/L (98-107); Estimated Glomerular Filt Rate 21; Glucose 146 mg/dL (65-110); Schistocytes None Seen (NORMAL); Sodium 135 mmol/L (137-145)
[2021-12-30 07:32] LABS: Alanine Aminotransferase 1322 U/L (6-35); Aspartate Amino Transferase 1548 U/L (14-36)
--- NOTE | 2021-12-30 08:30 | P.PNIM_ITS ---
Progress Note: A&P Assessment and Plan (1) Acute respiratory failure with hypoxia and hypercapnia: Code(s): J96.01 - Acute respiratory failure with hypoxia; J96.02 - Acute respiratory failure with hypercapnia Status: Acute Assessment and Plan: * Noted to have a SPO2 of 87 by EMS on 2LNC * Presented wheezy, tripoding, unable to complete sentences, labored breathing * Albuterol treatments given * ABG showed compensated respiratory acidosis on 15L NRB upon arrival * Continued to desat in ED, placed on bipap * Repeat ABG 12/30/21 on 4L showed compensated respiratory acidosis with hypoxia * Could be related to COPD or CHF * Supplemental oxygen, wean to maintain saturation >90% * Apnea link this evening (2) Congestive heart failure: Code(s): I50.9 - Heart failure, unspecified Status: Acute Assessment and Plan: * Presented with shortness of breath * Daily weights * Furosemide 40mg IV BID * 4+ pitting edema bilaterally * Probably an acute on chronic diastolic heart failure * Trend urine output * Urinary catheter for accurate I&Os * BNP 82794 * Echo pending read * Fluid restriction * Trend CMP * Cardiology and nephrology consult thank you for your help * Adjust therapy as indicate (3) COPD (chronic obstructive pulmonary disease): Code(s): J44.9 - Chronic obstructive pulmonary disease, unspecified Status: Acute Assessment and Plan: * Does currently smoke * Chest xray indicates atelectasis * Neb treatments ordered * Supplemental oxygen * Appears to have recently been treated for an exacerbation * CHF could be contributing to cause a COPD exacerbation * IS and pep therapy * Sputum culture * Levaquin and flagyl on board (4) JT (acute kidney injury): Code(s): N17.9 - Acute kidney failure, unspecified Status: Acute Assessment and Plan: * BUN/Cr 30/2.40 * Unknown baseline * Nephro on board * Urine electrolytes ordered and pending * urinary catheter for I&Os * Urine is reddish orange * Trend output * Check a CK (5) Transaminitis: Code(s): R74.01 - Elevation of levels of liver transaminase levels Status: Acute Assessment and Plan: * AST/ALT 1548/1322 * Continue to trend labs * RUQ ultrasound negative, but indicated edema * Hep panel negative * Could be related to fatty liver or congestion (6) Acute hyperkalemia: Code(s): E87.5 - Hyperkalemia Status: Acute Assessment and Plan: * K was 5.6 upon arrival, currently 5.0 * Received one dose of Lokelma in the ed * Continue to trend * Probably related to JT * Hold losartan for now (7) Renal calculi: Code(s): N20.0 - Calculus of kidney Status: Acute Assessment and Plan: * Complaints of right CVA pain * Urology consulted * Renal ultrasound does not show any hydronephrosis * CT did show stone with hydronephrosis * Await further recommendation (8) Pancolitis: Code(s): K51.00 - Ulcerative (chronic) pancolitis without complications Status: Acute Assessment and Plan: * CT of the abd/pelvis indicated fat stranding in the abdomen * Continue Levaquin and Flagyl * Start low fat diet * WBC elevated at 14.8 * Bili elevated at 1.5
--- NOTE | 2021-12-30 08:30 | PM.IMPN ---
Progress Note: A&P Assessment and Plan (1) Acute respiratory failure with hypoxia and hypercapnia: Code(s): J96.01 - Acute respiratory failure with hypoxia; J96.02 - Acute respiratory failure with hypercapnia Status: Acute Assessment and Plan: Noted to have a SPO2 of 87 by EMS on 2LNC Presented wheezy, tripoding, unable to complete sentences, labored breathing Albuterol treatments given ABG showed compensated respiratory acidosis on 15L NRB upon arrival Continued to desat in ED, placed on bipap Repeat ABG 12/30/21 on 4L showed compensated respiratory acidosis with hypoxia Could be related to COPD or CHF Supplemental oxygen, wean to maintain saturation >90% Apnea link this evening (2) Congestive heart failure: Code(s): I50.9 - Heart failure, unspecified Status: Acute Assessment and Plan: Presented with shortness of breath Daily weights Furosemide 40mg IV BID 4+ pitting edema bilaterally Probably an acute on chronic diastolic heart failure Trend urine output Urinary catheter for accurate I&Os BNP 31005 Echo pending read Fluid restriction Trend CMP Cardiology and nephrology consult thank you for your help Adjust therapy as indicate (3) COPD (chronic obstructive pulmonary disease): Code(s): J44.9 - Chronic obstructive pulmonary disease, unspecified Status: Acute Assessment and Plan: Does currently smoke Chest xray indicates atelectasis Neb treatments ordered Supplemental oxygen Appears to have recently been treated for an exacerbation CHF could be contributing to cause a COPD exacerbation IS and pep therapy Sputum culture Levaquin and flagyl on board (4) JT (acute kidney injury): Code(s): N17.9 - Acute kidney failure, unspecified Status: Acute Assessment and Plan: BUN/Cr 30/2.40 Unknown baseline Nephro on board Urine electrolytes ordered and pending urinary catheter for I&Os Urine is reddish orange Trend output Check a CK (5) Transaminitis: Code(s): R74.01 - Elevation of levels of liver transaminase levels Status: Acute Assessment and Plan: AST/ALT 1548/1322 Continue to trend labs RUQ ultrasound negative, but indicated edema Hep panel negative Could be related to fatty liver or congestion (6) Acute hyperkalemia: Code(s): E87.5 - Hyperkalemia Status: Acute Assessment and Plan: K was 5.6 upon arrival, currently 5.0 Received one dose of Lokelma in the ed Continue to trend Probably related to JT Hold losartan for now (7) Renal calculi: Code(s): N20.0 - Calculus of kidney Status: Acute Assessment and Plan: Complaints of right CVA pain Urology consulted Renal ultrasound does not show any hydronephrosis CT did show stone with hydronephrosis Await further recommendation (8) Pancolitis: Code(s): K51.00 - Ulcerative (chronic) pancolitis without complications Status: Acute Assessment and Plan: CT of the abd/pelvis indicated fat stranding in the abdomen Continue Levaquin and Flagyl Start low fat diet WBC elevated at 14.8 Bili elevated at 1.5 Continue to trend labs (9) UTI (urinary tract infection): Code(s): N39.0 - Urinary tract infection, site not specified Status: Acute Assessment and Plan: UA does appear to be highly infectious Continue Levaquin Await urine culture Trend labs WBC elevated at 14.8 Trend urine output (10) Morbid obesity: Code(s): E66.01 - Morbid (severe) obesity due to excess calories Status: Acute Assessment and Plan: Life style changes 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
[2021-12-30] MEDS: FUROSEMIDE INJ 40 MG/4 ML VIAL IV PUSH ×2 (09:14→20:43)
--- NOTE | 2021-12-30 09:20 | PC.NURSE ---
patient placed on 4L NC and taken off bipap machine per Dr. Benavidez. Updated ABG ordered and respiratory called.
[2021-12-30 09:42] LABS: Alveolar/Arterial O2 Gradient 137.2 mmHg; Base Excess ABG 1.8 mEq/l (+/-2.0); Carboxyhemoglobin 0.8 % THb (0-2.0); Fractional Inspired Oxygen 36 %; HCO3 ABG 27.6 mEq/l (22.0-26.0); Methemoglobin ABG 0.2 %THb (0-1.5); Oxygen Content ABG 15.4 %vol (16.0-22.0); Oxygen Saturation ABG 91.8 % (95.0-100.0); Oxyhemoglobin 88.9 % THb (90.0-100.0); PCO2 ABG 47.9 mmHg (35.0-45.0); PO2 ABG 63.9 mmHg (80.0-100.0); PO2 FiO2 Ratio Arterial Blood 1.78 %; Reduced Hemoglobin 10.1 %THb (0-5.0); Total Hemoglobin 12.3 g/dL (12.0-18.0); pH ABG 7.378 (7.350-7.450)
[2021-12-30 09:43] LABS: Device NASAL CANNULA; Modified Allen's Test Pass; Site Drawn RIGHT RADIAL
[2021-12-30] MEDS: PERFLUTREN LIPID MICROSPHERES 1.5 ML VIAL DILUTED TO 10 ML TOTAL VOLUME IV PUSH (12:10)
--- NOTE | 2021-12-30 12:11 | IVDEFINITY ---
Prior to administration of IV Definity the patient was educated on the risks and benefits of the imaging enhancing agent including potential adverse side effects. The patient verbalized understanding. Allergies were verified. No exclusion criteria were identified and at least one of the following inclusion criteria were met: 1) physician request, 2) patient technically difficult to image (per the [place] [employer] guidelines of two or more segments not discernable within the apical view), or 3) questionable left ventricular function. ?
--- NOTE | 2021-12-30 13:15 | PM.CNCAR ---
Assessment and Plan Assessment and plan (1) Morbid obesity: Code(s): E66.01 - Morbid (severe) obesity due to excess calories Status: Acute (2) Hypoxia: Code(s): R09.02 - Hypoxemia Status: Acute Plan This is a massively obese 61-year-old woman with a history of hypertension chronic cigarette smoking and COPD admitted to the hospital with respiratory distress her oxygen saturations were low upon arrival she has been doing much better following BiPAP and bronchodilator treatment. She reports a history of what sounds like sick concern regarding the valvular injury that might have been related to Fen-Phen. She says this was identified or at least discussed on an echocardiogram many years ago. Obviously we have none of the records. Cardiac physical exam while limited and difficult because of obesity is essentially unremarkable. Currently the findings are most consistent with COPD with wheezing and prolonged expiratory phase although she is in much less distress than she was last evening. Will review her echocardiogram and leave any recommendations that would be appropriate with those findings I do not expect this to be a high quality exam given her body habitus. The principal problem here I believe was a COPD exacerbation will defer treatment of this to the primary team Abdifatah Gaytan MD [facility] History of Present Illness History of Present Illness Consult date/time: 12/30/21 13:15 Reason For Visit: Heart failure,hypoxia,hyperkalemia,pancolitis Narrative: This is a 61-year-old woman I am seeing in the emergency room who has been admitted with a variety of complaints the principal which is shortness of breath. She is unknown to me prior to this admission and I do not believe has previously been seen here at this hospital. She is a lady with a prior history of morbid obesity, COPD, chronic cigarette smoking and and unclear history of valvular heart problems. She states that for about 2 weeks or so she has become progressively more and more short of breath was in respiratory extremis and came to the emergency room last evening where her oxygen saturations were in the mid 70s and she was placed on a BiPAP noninvasive ventilator and received bronchodilator treatment in the emergency room. She was sleeping with the head of the bed elevated at about 30? breathing room air when I came in to see her. Upon awakening she is not in any distress at this time. She says that she moved here recently from [place]. When she was in [place] years ago she states she was evaluated by cosmetic surgeon and was told that she might have had a valvular injury to her heart because of Fen-Phen exposure. She was participating in a lawsuit against the manufacture of this medication. She be more than that. She is massively obese and is a chronic cigarette smoker. He does not know of any history of diabetes or dyslipidemia. She says that she does have hypertension. Patient's EKG on arrival shows sinus rhythm with some nonspecific ST segment and T-wave abnormalities. Her chest x-ray is a poor quality image because of her obesity grossly normal cardiac silhouette. An echocardiogram apparently has been done this morning in the emergency room the results of that are unknown to me at the time of this dictation. Her laboratory data demonstrates evidence of some renal insufficiency the chronicity of which is unknown to us as she has no prior records here. According to the ER note she was also having some abdominal pain but she says that was not her principal reason for coming to the hospital. Review of Systems Constitutional: Constitutional: Reports lethargy Eyes: Eyes: Reports no additional eye complaints ENT: Reports system reviewed and no additional complaints, except as documented Cardiovascular: Cardiovascular: Reports no additional cardiovascular complaints Respiratory: Respiratory: Reports dyspnea Gastrointestinal: Gastrointestinal: Report
[2021-12-30 14:07] LABS: Complement C3 73 mg/dL (88-165)
--- NOTE | 2021-12-30 14:20 | PC.NURSE ---
This patient, Desiree Castorena, was received from ED on 12/30/21 at 1350. Patient/family oriented to unit policies and routines
--- NOTE | 2021-12-30 14:47 | PM.CNNEP ---
Assessment and Plan Assessment and plan (1) Abnormal results of kidney function studies: Code(s): R94.4 - Abnormal results of kidney function studies Status: Acute Plan 1. Desiree has an elevated creatinine. It was the same both yesterday and today. Is not clear whether this is an acute issue or if this is chronic. She apparently had a normal creatinine the urine half ago but we will need to get records. She does have hypertension and probably some vascular disease that might lead to chronic kidney disease. She has high body mass index. Consider sleep apnea? If the chronic kidney disease progressed, it might lead to swelling and shortness of breath. On the other hand the patient could have some sort of acute or subacute kidney issue as well. her renal ultrasound does show right hydronephrosis. perhaps she passed stone lodged in the renal pelvis causing her creatinine to rise to 2.0. She does have red cells and white cells in her urine consistent with a UTI and so could have infection behind the stone as well. Will need to have Urology see the patient. The patient has elevated transaminases. This could be indicative of rhabdomyolysis. Will check a CPK The patient could have cardiomyopathy and low ejection fraction causing low blood pressure and elevated creatinine along with fluid overload. the patient could have a glomerulonephritis. This is less likely in this clinical scenario and we need to treat infection 1st anyway. Will start antibiotics. We can get serology in case. Allergic interstitial nephritis would be unlikely because she is not on any new medications. the patient had low blood pressures in the emergency room. She could have ATN from low blood pressure. At this point will get urine electrolytes, CPK, will get urology on board, we will hold the irbesartan, and start antibiotics. 2. The patient has hypertension. She is on 2 medications for this. Her irbesartan has been held. Blood pressure is under pretty good control. 3. The patient has a high body mass index. her pCO2 is elevated. Consider Pickwickian syndrome or Sleep apnea? 4. Pyuria the patient has cultures pending. Will start antibiotics 5. the patient has anemia. Has multiple issues that could contribute to this including elevated creatinine, infection 6. the patient has hyponatremia. We will see how this is tomorrow. It seemed to be correcting. 7. The patient has elevated liver enzymes. Ultrasound the liver was okay. Will check hepatitis studies. History of Present Illness Reason for Consult Consult date: 12/31/21 Chief Complaint Chief complaint: Heart failure,hypoxia,hyperkalemia,pancolitis History of Present Illness Narrative: Desiree is a very pleasant 61-year-old lady who has multiple medical problems including hypertension, arthritis, back pain, reversible airways disease. The patient says that she has been gradually more short of breath for the last couple of months. She has not reached out any doctors about this. The reading is worse with exertion better with sitting. She has a little bit of a cough but not much. No chest pain. The patient also has developed swelling over the last week or so. This used to come and go but is been more consistently there and worse during the week. yesterday the patient was even more short of breath so came to the emergency room. She was evaluated. She was found to be volume overloaded on exam. X-ray showed mild atelectasis in the lower zones plus cardiomegaly. CT showed a kidney stone in the right pelvis with mild right hydro and also other kidney stones nonobstructing on the right, periportal edema, intra-abdominal and body wall fat stranding likely edema, liver ultrasound was okay, renal ultrasound showed normal kidneys. Her liver enzymes are elevated and her creatinine is elevated so renal consultation was requested. She says that she was told sita
--- NOTE | 2021-12-30 15:19 | WPDGICN ---
Assessment and Plan Assessment and plan (1) Transaminitis: Code(s): R74.01 - Elevation of levels of liver transaminase levels Status: Acute Assessment and Plan: AST is 752 ALT 1000. Alkaline phosphatase slightly elevated at 148 and bilirubin is 4.3. She denies any prior history of liver disease, yellow jaundice, hepatitis. She knows what jaundice is because she states her sister suffers from hepatitis C. she has not noticed her urine being darker except for today, after admission. She does not drink alcohol regularly. My guess is that the marked liver enzyme elevation is acute, and probably related primarily to passive congestion and/or ischemic hepatopathy. I do not think she has had any hypotensive episodes though, therefore I would favor the a former scenario. We will monitor her LFTs and liver function such as bilirubin, protime. (2) Pancolitis: Code(s): K51.00 - Ulcerative (chronic) pancolitis without complications Status: Acute Assessment and Plan: I truly do not believe that she has colitis. She has had no diarrhea. Her colon does not look edematous on her CT scan. I do not think she needs any specific antibiotics for colitis. (3) Morbid obesity: Code(s): E66.01 - Morbid (severe) obesity due to excess calories Status: Acute Assessment and Plan: In addition to being chronically overweight, she apparently has developed quite a bit of edema over the last couple weeks. (4) Congestive heart failure: Code(s): I50.9 - Heart failure, unspecified Status: Acute Assessment and Plan: She has been placed on a fluid restriction and is being given diuretics. BNP was over 17,000. (5) Acute respiratory failure with hypoxia and hypercapnia: Code(s): J96.01 - Acute respiratory failure with hypoxia; J96.02 - Acute respiratory failure with hypercapnia Status: Acute Assessment and Plan: she states that her breathing is much better now than it was initially. She is no longer on BiPAP. GI Consult Note Consult date/time: 12/30/21 15:19 HPI: Desiree Castorena is a 61 year old female Who presented to the emergency room with respiratory distress and low oxygen saturations. Was initially treated with bronchodilator and BiPAP. She is also noted to have a great deal of edema. She is extremely obese. I have been asked to see her regarding elevation of her liver enzymes. They are in fact very elevated. There is no prior history of liver disease to her knowledge. She also has been found to have stranding on CT scan that is suggestive of possible colitis a my own examination of that I do not really see what I would call colitis. Review of Systems Review of Systems: All systems reviewed & are unremarkable except as noted in HPI and below [facility] Social History Social History Social History: Patient lives at home with her Smoking packs per day: 1 Smoking cigarettes per day: 20.0 Years smoked: 45 Smoking pack-years: 45.00 Smoking status: Heavy tobacco smoker Alcohol intake: former Drinks per week: 84 Substance use: never Other substance usage details: stopped drinking approx 30 years ago Has the Lack of Transportation Kept You From Medical Appointments or From Getting Medications?: No Within the Past 12 Months, Were You Worried Whether Your Food Would Run Out Before You Got Money to Buy More?: Never True What is Your Housing Situation Today?: I Have Housing Are You Worried That in the Next 2 Months, You May Not Have Your Own Housing to Live In?: No Do You Have Trouble Paying Your Heating Or Electricity Bill?: No Do You Have Trouble Paying For Medicines?: No Are You Currently Unemployed and Looking for Work?: No Highest Level of Education Completed: Trade/Vocational Certificate Do You Have Trouble With Childcare or the Care of a Family Member?: No S
[2021-12-30 15:25] LABS: Basophils Percent Auto 0.1 % (0.2-1.2); Eosinophils Percent Auto 0.1 % (0-4.4); Hematocrit 38.6 % (37.0-47.0); Hemoglobin 11.1 g/dL (12.0-15.0); Immature Granulocyte Absolute 0.15 K/mm3 (0.00-0.031); Immature Granulocyte Percent A 1.1 % (0-0.5); Lymphocytes Absolute Auto 0.33 K/mm3 (0.9-3.2); Lymphocytes Percent Auto 2.3 % (18.3-44.2); Mean Corpuscular HGB Conc 28.8 g/dl (32-36); Mean Corpuscular Hemoglobin 25.1 pg (26-34); Mean Corpuscular Volume 87.1 fl (80-100); Mean Platelet Volume 10.8 fl (7.4-10.4); Monocytes Absolute Auto 0.3 K/mm3 (0.1-0.6); Monocytes Percent Auto 1.8 % (2.6-8.5); Neutrophils Absolute Auto 13.3 K/mm3 (1.3-6.7); Neutrophils Percent Auto 94.6 % (45.5-73.1); Nucleated Red Blood Cells Absolute Auto 0.2 K/mm3 (0.0-0.012); Nucleated Red Blood Cells Perc 1.3 % (0.0-0.2); Platelet Count Result 168 k/mm3 (150-375); Red Blood Count 4.43 M/mm3 (4.2-5.4); Red Cell Distribution Width 17.8 % (11.5-14.5); White Blood Count 14.1 K/mm3 (4.5-10.0)
[2021-12-30 15:39] LABS: Creatine Kinase 34 U/L (30-135)
[2021-12-30 15:52] LABS: Albumin Level 3.6 g/dL (3.5-5.1); Alkaline Phosphatase 82 U/L (38-126); Anion Gap 10 mmol/L (8-16); Aspartate Amino Transferase 699 U/L (14-36); Bilirubin,Total 1.3 mg/dL (0.2-1.3); Blood Urea Nitrogen 36 mg/dL (7-17); Calcium 7.8 mg/dL (8.4-10.2); Carbon Dioxide 30 mmol/L (22-30); Chloride 93 mmol/L (98-107); Estimated CRCL calculation 30 ml/min; Estimated Glomerular Filt Rate 17; Glucose 140 mg/dL (65-110); Potassium 4.8 mmol/L (3.4-5.0); Sodium 133 mmol/L (137-145)
[2021-12-30 15:54] LABS: Magnesium 2.1 mg/dL (1.6-2.3)
[2021-12-30 16:03] LABS: Anisocytosis 1+ (NORMAL); Platelet Estimate Adequate (Adequate); Polychromasia 1+ (NORMAL); Schistocytes None Seen (NORMAL)
[2021-12-30] MEDS: amLODIPine BESYLATE 5 MG TABLET 10 MG PO (16:03)
[2021-12-30 16:04] LABS: Hypochromasia 1+ (NORMAL)
[2021-12-30 16:07] LABS: Alanine Aminotransferase 1164 U/L (6-35)
[2021-12-30 16:24] LABS: Complement C3 68 mg/dL (88-165)
[2021-12-30 16:32] LABS: Erythrocyte Sedimentation Rate 1 mm/hr (0-20)
--- NOTE | 2021-12-30 16:42 | WPDURCON ---
Assessment and Plan Assessment and plan (1) Morbid obesity: Code(s): E66.01 - Morbid (severe) obesity due to excess calories Status: Acute (2) Congestive heart failure: Code(s): I50.9 - Heart failure, unspecified Status: Acute (3) JT (acute kidney injury): Code(s): N17.9 - Acute kidney failure, unspecified Status: Acute (4) Renal calculi: Code(s): N20.0 - Calculus of kidney Status: Acute Assessment and Plan: Patient with incidental findings of 2 right renal calculi which sound like they have been there for several years. These stones appear to be causing no obstruction or, at worst, mild intermittent right obstruction at the UPJ. Given patient's significant cardiopulmonary issues I would prefer not to intervene until things have been optimized. Preferably, at some point we would do elective right ESWL with simultaneous stent placement. If her renal function deteriorates in the immediate future we consider emergent stent placement but, again, I would prefer not to add a 2nd urological procedure if avoidable. Urology Consult Note HPI Date Seen: 12/30/21 Requesting Physician: Bill Clark MD Primary Care Provider: [facility]LE[facility] PHYSICIAN Consult Narrative Narrative: Desiree Castorena is a 61 year old female who is unknown to our practice and has no history of formal urological problems in the past. She does have recollection of incidentally being found to have stones in her right kidney on plain x-rays for other reasons. She never followed up for intervention for those stones. She now presents with acute shortness of breath. She has incidentally been found to have acute kidney injury. Initial CT scan the abdomen pelvis without contrast shows stone in the right lower pole calyx and 1 in her right renal pelvis. On initial CT imaging there was suggestion of scant hydronephrosis but follow-up abdominal and renal ultrasonography fail to show signs of ureteral obstruction. She denies recent fevers chills gross hematuria or significant renal colic like pain. Review of Systems Cardiovascular: Cardiovascular: Denies chest pain, Denies lightheadedness, Denies palpitations and Denies dyspnea Respiratory: Respiratory: Reports dyspnea Gastrointestinal: Gastrointestinal: Denies diarrhea, Denies nausea and Denies vomiting Genitourinary: Genitourinary: Denies hematuria and Denies dysuria Endocrine: Endocrine: Denies palpitations [facility] Social History Social History (Updated 12/30/21 @ 15:38 by KAILA Fregoso) Social History: Patient lives at home with her Smoking packs per day: 1 Smoking cigarettes per day: 20.0 Years smoked: 45 Smoking pack-years: 45.00 Smoking status: Heavy tobacco smoker Alcohol intake: former Drinks per week: 84 Substance use: never Other substance usage details: stopped drinking approx 30 years ago Has the Lack of Transportation Kept You From Medical Appointments or From Getting Medications?: No Within the Past 12 Months, Were You Worried Whether Your Food Would Run Out Before You Got Money to Buy More?: Never True What is Your Housing Situation Today?: I Have Housing Are You Worried That in the Next 2 Months, You May Not Have Your Own Housing to Live In?: No Do You Have Trouble Paying Your Heating Or Electricity Bill?: No Do You Have Trouble Paying For Medicines?: No Are You Currently Unemployed and Looking for Work?: No Highest Level of Education Completed: Trade/Vocational Certificate Do You Have Trouble With Childcare or the Care of a Family Member?: No Spiritual care concerns: No Meds Home Medications and Allergies Home Medications Medication Instructions Recorded Confirmed Type amlodipine 10 mg tablet 10 mg PO DAILY 12/30/21 12/30/21 History gabapentin 300 mg capsule 300 mg PO TID 12/30/21 12/30/21 History hydrocodone 10 mg-acetaminophen 1 tablet PO BID 12/30/21 12/30/21 History
[2021-12-30] MEDS: GABAPENTIN 300 MG CAPSULE PO ×2 (17:22→22:18)
[2021-12-30 17:41] LABS: Hepatitis B Surface Antigen Negative (Negative)
[2021-12-30 17:51] LABS: Creatinine Urine 123.2 mg/dL
[2021-12-30 17:52] LABS: Sodium Urine Random 12 meq/L
[2021-12-30 17:54] LABS: Creatinine Urine 130.4 mg/dL; Total Protein Urine Random 36 mg/dL; Ur Ttl Prot Creatinine Ratio 0.28 mg/mg (0-0.20)
[2021-12-30 17:58] LABS: Hepatitis B Surface Anti Res Negative; Hepatitis C Virus Antibody Negative (Negative)
[2021-12-30] MEDS: ALPRAZolam (*CRX) 0.125 MG TABLET PO (18:14)
--- NOTE | 2021-12-30 23:57 | PCRCNOTE ---
pt on 6 liters NC, apnea link will be done once we titrate oxygen down.
[2021-12-31] VITALS (33 sets, daily range): BP systolic 107–140; BP diastolic 48–69; PULSE 80–95; RESP 13–22; TEMP 35.3–36.8; O2SAT 88–100
[2021-12-31] MEDS: metroNIDAZOLE 500 MG/ISO 100ML 500 MG/100 ML BAG 100 MG IVPB ×3 (00:29→16:57)
[2021-12-31] MEDS: IPRATROPIUM BR 0.02% INH SOLN 0.5 MG/2.5 ML VIAL INHALATION ×5 (01:06→22:10)
[2021-12-31] MEDS: ALBUTEROL SULFATE NEB 2.5 MG/3 ML INH INHALATION ×6 (01:07→22:11)
[2021-12-31] MEDS: ALPRAZolam (*CRX) 0.125 MG TABLET PO ×3 (02:03→09:22)
[2021-12-31 05:12] LABS: INR 1.3; Prothrombin Time 15.7 Seconds (11.1-14.7)
[2021-12-31 05:14] LABS: Albumin Level 3.4 g/dL (3.5-5.1); Anion Gap 11 mmol/L (8-16); Blood Urea Nitrogen 46 mg/dL (7-17); Calcium 7.7 mg/dL (8.4-10.2); Carbon Dioxide 27 mmol/L (22-30); Chloride 94 mmol/L (98-107); Estimated CRCL calculation 29 ml/min; Estimated Glomerular Filt Rate 16; Glucose 141 mg/dL (65-110); Phosphorus 5.8 mg/dL (2.5-4.5); Potassium 5.1 mmol/L (3.4-5.0); Sodium 132 mmol/L (137-145)
[2021-12-31 05:22] LABS: Transferrin 266 mg/dL (206-381)
[2021-12-31 06:35] LABS: Folic Acid 4.3 ng/mL (2.76->20)
[2021-12-31 07:59] LABS: Iron 24 ug/dL (37-170)
[2021-12-31] MEDS: FUROSEMIDE INJ 40 MG/4 ML VIAL IV PUSH (08:08)
[2021-12-31] MEDS: amLODIPine BESYLATE 5 MG TABLET 10 MG PO (08:08)
[2021-12-31 08:09] LABS: Percent Iron Saturation 7 % (20-50)
[2021-12-31] MEDS: GABAPENTIN 300 MG CAPSULE PO ×3 (08:09→16:53)
[2021-12-31 08:30] LABS: Thyroid Stimulating Hormone Reflex 0.552 uIU/mL (0.465-4.68)
--- NOTE | 2021-12-31 08:30 | PM.IMPN ---
Progress Note: A&P Assessment and Plan (1) Acute respiratory failure with hypoxia and hypercapnia: Code(s): J96.01 - Acute respiratory failure with hypoxia; J96.02 - Acute respiratory failure with hypercapnia Status: Acute Assessment and Plan: Noted to have a SPO2 of 87 by EMS on 2LNC Presented wheezy, tripoding, unable to complete sentences, labored breathing Albuterol treatments given ABG showed compensated respiratory acidosis on 15L NRB upon arrival Continued to desat in ED, placed on bipap, Bipap DC'd at this time Repeat ABG 12/30/21 on 4L showed compensated respiratory acidosis with hypoxia Could be related to COPD or CHF Supplemental oxygen, wean to maintain saturation >90% Apnea link ordered and pending Appears to be maintaining on 5LNC (2) Congestive heart failure: Code(s): I50.9 - Heart failure, unspecified Status: Acute Assessment and Plan: Presented with shortness of breath Daily weights Furosemide 40mg IV BID, DC'd for now due to worsening renal function 4+ pitting edema bilaterally Probably an acute on chronic diastolic heart failure Trend urine output Urinary catheter for accurate I&Os BNP 96206 Echo EF of >70% with a grade 1 diastolic dysfunction Fluid restriction 1500ml Daily Trend CMP Cardiology and nephrology consult thank you for your help Adjust therapy as indicate (3) COPD (chronic obstructive pulmonary disease): Code(s): J44.9 - Chronic obstructive pulmonary disease, unspecified Status: Acute Assessment and Plan: Does currently smoke Chest xray indicates atelectasis Neb treatments ordered Supplemental oxygen Appears to have recently been treated for an exacerbation outpatient CHF could be contributing to cause a COPD exacerbation IS and pep therapy Sputum culture ordered Levmartínez and flagyl on board (4) JT (acute kidney injury): Code(s): N17.9 - Acute kidney failure, unspecified Status: Acute Assessment and Plan: BUN/Cr trending up currently 46/2.90 Unknown baseline Nephro on board Urine electrolytes Na 12, Creatinine 130.4, Urea 392 FeUrea 15.9% indicating pre-renal Start IV fluids for now urinary catheter for I&Os Appears judy today Trend output CK 34 (5) Transaminitis: Code(s): R74.01 - Elevation of levels of liver transaminase levels Status: Acute Assessment and Plan: AST/ALT 699/1164 from 12/30/21 Continue to trend labs RUQ ultrasound negative, but indicated edema Hep panel negative Could be related to fatty liver or congestion (6) Acute hyperkalemia: Code(s): E87.5 - Hyperkalemia Status: Acute Assessment and Plan: K was 5.6 upon arrival, currently 5.1 Received one dose of Lokelma in the ed Continue to trend Probably related to JT Hold losartan for now (7) Renal calculi: Code(s): N20.0 - Calculus of kidney Status: Acute Assessment and Plan: Complaints of right CVA pain Urology consulted Renal ultrasound does not show any hydronephrosis CT did show stone with hydronephrosis Stent placement scheduled for today Await further recommendation (8) Pancolitis: Code(s): K51.00 - Ulcerative (chronic) pancolitis without complications Status: Acute Assessment and Plan: CT of the abd/pelvis indicated fat stranding in the abdomen Continue Levaquin and Flagyl NPO for now WBC elevated at and trending up current 15.1 Bili elevated at 1.3 as of 12/30/21 Continue to trend labs (9) UTI (urinary tract infection): Code(s): N39.0 - Urinary tract infection, site not specified Status: Acute Assessment and Plan: UA does appear to be highly infectious Continue Levaquin, ceftriaxone added Await urine culture
--- NOTE | 2021-12-31 08:30 | P.PNIM_ITS ---
Progress Note: A&P Assessment and Plan (1) Acute respiratory failure with hypoxia and hypercapnia: Code(s): J96.01 - Acute respiratory failure with hypoxia; J96.02 - Acute respiratory failure with hypercapnia Status: Acute Assessment and Plan: * Noted to have a SPO2 of 87 by EMS on 2LNC * Presented wheezy, tripoding, unable to complete sentences, labored breathing * Albuterol treatments given * ABG showed compensated respiratory acidosis on 15L NRB upon arrival * Continued to desat in ED, placed on bipap, Bipap DC'd at this time * Repeat ABG 12/30/21 on 4L showed compensated respiratory acidosis with hypoxia * Could be related to COPD or CHF * Supplemental oxygen, wean to maintain saturation >90% * Apnea link ordered and pending * Appears to be maintaining on 5LNC (2) Congestive heart failure: Code(s): I50.9 - Heart failure, unspecified Status: Acute Assessment and Plan: * Presented with shortness of breath * Daily weights * Furosemide 40mg IV BID, DC'd for now due to worsening renal function * 4+ pitting edema bilaterally * Probably an acute on chronic diastolic heart failure * Trend urine output * Urinary catheter for accurate I&Os * BNP 93427 * Echo EF of >70% with a grade 1 diastolic dysfunction * Fluid restriction 1500ml Daily * Trend CMP * Cardiology and nephrology consult thank you for your help * Adjust therapy as indicate (3) COPD (chronic obstructive pulmonary disease): Code(s): J44.9 - Chronic obstructive pulmonary disease, unspecified Status: Acute Assessment and Plan: * Does currently smoke * Chest xray indicates atelectasis * Neb treatments ordered * Supplemental oxygen * Appears to have recently been treated for an exacerbation outpatient * CHF could be contributing to cause a COPD exacerbation * IS and pep therapy * Sputum culture ordered * Levaquin and flagyl on board (4) JT (acute kidney injury): Code(s): N17.9 - Acute kidney failure, unspecified Status: Acute Assessment and Plan: * BUN/Cr trending up currently 46/2.90 * Unknown baseline * Nephro on board * Urine electrolytes Na 12, Creatinine 130.4, Urea 392 * FeUrea 15.9% indicating pre-renal * Start IV fluids for now * urinary catheter for I&Os * Appears judy today * Trend output * CK 34 (5) Transaminitis: Code(s): R74.01 - Elevation of levels of liver transaminase levels Status: Acute Assessment and Plan: * AST/ALT 699/1164 from 12/30/21 * Continue to trend labs * RUQ ultrasound negative, but indicated edema * Hep panel negative * Could be related to fatty liver or congestion (6) Acute hyperkalemia: Code(s): E87.5 - Hyperkalemia Status: Acute Assessment and Plan: * K was 5.6 upon arrival, currently 5.1 * Received one dose of Lokelma in the ed * Continue to trend * Probably related to JT * Hold losartan for now (7) Renal calculi: Code(s): N20.0 - Calculus of kidney Status: Acute Assessment and Plan: * Complaints of right CVA pain * Urology consulted * Renal ultrasound does not show any hydronephrosis * CT did show stone with hydronephrosis * Stent placement scheduled for today * Await further recommendation (8) Ravinder
[2021-12-31 08:46] LABS: Cholesterol 118 mg/dL (0-200); HDL Direct 46 mg/dL; Triglycerides 94 mg/dL (<150)
[2021-12-31 08:53] LABS: LDL Cholesterol Direct 52 mg/dL
[2021-12-31 08:54] LABS: Basophils Percent Auto 0.1 % (0.2-1.2); Hematocrit 37.9 % (37.0-47.0); Hemoglobin 10.8 g/dL (12.0-15.0); Immature Granulocyte Absolute 0.29 K/mm3 (0.00-0.031); Immature Granulocyte Percent A 1.9 % (0-0.5); Lymphocytes Percent Auto 2.7 % (18.3-44.2); Mean Corpuscular HGB Conc 28.5 g/dl (32-36); Mean Corpuscular Hemoglobin 25.7 pg (26-34); Mean Corpuscular Volume 90.2 fl (80-100); Mean Platelet Volume 11.1 fl (7.4-10.4); Monocytes Absolute Auto 0.4 K/mm3 (0.1-0.6); Monocytes Percent Auto 2.5 % (2.6-8.5); Neutrophils Percent Auto 92.8 % (45.5-73.1); Nucleated Red Blood Cells Absolute Auto 0.2 K/mm3 (0.0-0.012); Platelet Count Result 173 k/mm3 (150-375); Red Cell Distribution Width 18.1 % (11.5-14.5); White Blood Count 15.1 K/mm3 (4.5-10.0)
[2021-12-31 09:13] LABS: Urea Random Urine 392 MG/DL
[2021-12-31] MEDS: FERROUS SULFATE 324 MG TABLET PO ×2 (09:22→16:54)
--- NOTE | 2021-12-31 10:26 | WPDGIPROGNO ---
Progress Note: A&P Assessment and Plan (1) Congestive heart failure: Code(s): I50.9 - Heart failure, unspecified Status: Acute Assessment and Plan: Patient admitted with congestive heart failure. markedly elevated BNP. It appears that elevated LFTs are likely on this basis. Continued treatment directed toward CHF advised. (2) Transaminitis: Code(s): R74.01 - Elevation of levels of liver transaminase levels Status: Acute Assessment and Plan: Liver transaminase elevated most likely secondary to passive congestion of the liver. Ischemic liver can cause the same pattern but unlikely in her circumstance. LFTs currently improving with treatment congestive heart failure. Plan to continue monitor LFTs. Follow conservatively at this point. (3) Morbid obesity: Code(s): E66.01 - Morbid (severe) obesity due to excess calories Status: Acute (4) Renal calculi: Code(s): N20.0 - Calculus of kidney Status: Acute Assessment and Plan: Urology service following. It appears patient may have a UTI. (5) Iron deficiency anemia: Code(s): D50.9 - Iron deficiency anemia, unspecified Status: Acute Assessment and Plan: Patient with mild anemia iron deficient indices. Anemia likely has a multifactorial component. Would monitor conservatively at this point. No signs of bleeding. Subjective Date/time seen: 12/31/21 10:26 Patient alert. Remains somewhat short of breath in general does not feel well today. Admitted with congestive heart failure. Increase LFTs identified. These appear to be declining. Review of Systems Review of Systems: Review of systems noncontributory. Exam Narrative: Physical exam reveals patient lying in bed short of breath on supplemental oxygen. HEENT exam reveals no icterus. Lungs reveal bilateral rhonchi. Heart without murmur. Abdomen is obese. Bowel sounds present soft nontender no palpable organomegaly. Objective Data Vital Signs Vital Signs: Vital Signs - 24 hr 12/30/21 11:16 12/30/21 12:53 12/30/21 14:28 Temperature 97.8 F Pulse Rate 96 89 94 Respiratory Rate 20 19 24 H Blood Pressure 149/89 H 143/76 H 143/67 H Pulse Oximetry 96 94 94 Oxygen Delivery Oxygen Flow Rate 12/30/21 15:30 12/30/21 15:40 12/30/21 16:51 Temperature 96.4 F L Pulse Rate 92 92 99 Respiratory Rate 20 20 22 H Blood Pressure 139/69 Pulse Oximetry 94 Oxygen Delivery Oxygen Flow Rate 12/30/21 15:04 12/30/21 16:00 12/30/21 18:00 Temperature Pulse Rate 124 H 97 94 Respiratory Rate Blood Pressure Pulse Oximetry Oxygen Delivery Oxygen Flow Rate 12/30/21 20:00 12/30/21 20:00 12/30/21 23:15 Temperature 97.6 F Pulse Rate 95 95 87 Respiratory Rate 20 20 Blood Pressure 132/74 Pulse Oximetry 95 95 95 Oxygen Delivery Nasal Cannula High Flow Nasal Cannula Oxygen Flow Rate 6 12/30/21 21:04 12/30/21 20:00 12/30/21 22:00 Temperature Pulse Rate 85 97 93 Respiratory Rate 16 Blood Pressure Pulse Oximetry Oxygen Delivery Oxygen Flow Rate 12/31/21 00:00 12/31/21 00:00 12/31/21 01:11 Temperature 97.8 F Pulse Rate 88 88 84 Respiratory Rate 20 20 18 Blood Pressure 126/68 Pulse Oximetry 96 96 Oxygen Delivery Nasal Cannula Oxygen Flow Rate 6 12/31/21 00:00 12/31/21 01:43 12/31/21 04:03 Temperature Pulse Rate 83 91 80 Respiratory Rate 17 Blood Pressure Pulse Oximetry Oxygen Delivery Oxygen Flow Rate 12/31/21 04:00 12/31/21 05:34 12/31/21 04:00 Temperature 97.6 F Pulse Rate 83 83 85 Respiratory Rate 20 Blood Pressure 128/56 L Pulse Oximetry 95 Oxygen Delivery Oxygen Flow Rate 12/31/21 04:00 12/31/21 07:38 12/31/21 08:02 Temperature 96.9 F L Pulse Rate 85 85 85 Respiratory Rate 20 18 20 Blood Pressure 135/69 Pulse Oximetry 95 100 Oxygen Delivery Nasal Cannula Oxygen Flow Rat
--- NOTE | 2021-12-31 10:40 | PC.NURSE ---
Pt to OR via bed
--- NOTE | 2021-12-31 10:49 | WPDANESEPPF ---
Anes - Initial Pre Proc Eval Procedure: Operation Date: 12/31/21 11:00 Proposed Procedures p Cystoscopy, Right Stent Placement, Right Retrograde Pyelogram(Right) - Fred Guzamn MD Date/Time: 12/31/21 10:49 Surgeon: Bill Clark MD Pre Op Diagnosis: Heart failure,hypoxia,hyperkalemia,pancolitis Patient Data Age: 61 Gender: F Height: 1.63 m Weight: 196.1 kg Last Vital Signs Temp 36.1 C L 12/31/21 08:02 Pulse 86 12/31/21 10:00 Resp 20 12/31/21 08:02 BP 135/69 12/31/21 08:02 Pulse Ox 95 12/31/21 10:32 O2 Del Method Nasal Cannula 12/31/21 10:32 O2 Flow Rate 5 12/31/21 10:32 Allergies Allergy/AdvReac Type Severity Reaction Status Date / Time No Known Allergies Allergy Verified 12/29/21 23:07 Home Medications Medication Instructions Recorded Confirmed Type amlodipine 10 mg tablet 10 mg PO DAILY 12/30/21 12/30/21 History gabapentin 300 mg capsule 300 mg PO TID 12/30/21 12/30/21 History hydrocodone 10 mg-acetaminophen 1 tablet PO BID 12/30/21 12/30/21 History 325 mg tablet ipratropium 0.5 mg-albuterol 3 mg 3 ml inhalation QID PRN Shortness 12/30/21 12/30/21 History (2.5 mg base)/3 mL nebulization Of Breath Or Wheezing soln irbesartan 300 mg tablet 300 mg PO DAILY 12/30/21 12/30/21 History Laboratory Tests 12/30/21 12/30/21 12/30/21 06:12 15:15 15:15 WBC 14.1 K/mm3 H K/mm3 (4.5-10.0) RBC 4.43 M/mm3 M/mm3 (4.2-5.4) Hgb 11.1 g/dL L g/dL (12.0-15.0) Hct 38.6 % % (37.0-47.0) MCV 87.1 fl fl (80-100) MCH 25.1 pg L pg (26-34) MCHC 28.8 g/dl L g/dl (32-36) RDW 17.8 % H % (11.5-14.5) Plt Count 168 k/mm3 k/mm3 (150-375) MPV 10.8 fl H fl (7.4-10.4) Immature Gran % (Auto) 1.1 % H % (0-0.5) Neut % (Auto) 94.6 % H % (45.5-73.1) Lymph % (Auto) 2.3 % L % (18.3-44.2) Schuyler % (Auto) 1.8 % L % (2.6-8.5) Eos % (Auto) 0.1 % % (0-4.4) Baso % (Auto) 0.1 % L % (0.2-1.2) Lymph # (Auto) 0.33 K/mm3 L K/mm3 (0.9-3.2) Schuyler # (Auto) 0.3 K/mm3 K/mm3 (0.1-0.6) Eos # (Auto) 0.0 K/mm3 K/mm3 (0-0.3) Baso # (Auto) 0.0 K/mm3 K/mm3 (0.0-0.1) Abs Immat Gran (auto) 0.15 K/mm3 H K/mm3 (0.00-0.031) Absolute Neuts (auto) 13.3 K/mm3 H K/mm3 (1.3-6.7) Absolute Nucleated RBC 0.2 K/mm3 H K/mm3 (0.0-0.012) Nucleated RBC % 1.3 % H % (0.0-0.2) Platelet Estimate Adequate (Adequate) Polychromasia 1+ (NORMAL) Hypochromasia 1+ (NORMAL) Anisocytosis 1+ (NORMAL) Schistocytes None seen (NORMAL) ESR PT INR Sodium 133 mmol/L L mmol/L (137-145) Potassium 4.8 mmol/L mmol/L (3.4-5.0) Chloride 93 mmol/L L mmol/L (98-107) Carbon Dioxide 30 mmol/L mmol/L (22-30) Anion Gap 10 mmol/L mmol/L (8-16) BUN 36 mg/dL H mg/dL (7-17) Creatinine 2.80 mg/dL H mg/dL (0.7-1.0) Estim Creat Clear Calc 30 ml/min ml/min Estimated GFR 17 L (59 - ) Glucose 140 mg/dL H mg/dL (65-110) Calcium 7.8 mg/dL L mg/dL (8.4-10.2) Phosphorus Magnesium Iron TIBC % Saturation Transferrin Ferritin Total Bilirubin 1.3 mg/dL mg/dL (0.2-1.3) AST 699 U/L H U/L (14-36) ALT 1164 U/L H U/L (6-35) Alkaline Phosphatase 82 U/L U/L (38-126) Total Creatine Kinase Total Protein 6.0 g/dL L g/dL (6.3-8.2) Albumin 3.6 g/dL g/dL (3.5-5.1) Triglycerides Cholesterol LDL Cholesterol Direct HDL Direct Vitamin B12 Folate
--- NOTE | 2021-12-31 11:04 | WPDUROPN2 ---
Progress Note: A&P Assessment and Plan (1) Renal calculi: Code(s): N20.0 - Calculus of kidney Status: Acute (2) JT (acute kidney injury): Code(s): N17.9 - Acute kidney failure, unspecified Status: Acute Assessment and Plan: Again, renal function unimproved overnight. I am skeptical that obstructive uropathy is playing much of a role but will go ahead and place a right ureteral stent the eliminate any possibility. She will need a 2nd procedure (either ESWL or ureteroscopy with laser lithotripsy). in the future as definitive management for her to right renal calculi Subjective Subjective Date/Time Seen: 12/31/21 11:04 Anxious but no pain Review of Systems Cardiovascular: Cardiovascular: Denies chest pain, Denies lightheadedness, Denies palpitations and Denies dyspnea Respiratory: Respiratory: Reports dyspnea Gastrointestinal: Gastrointestinal: Denies diarrhea, Denies nausea and Denies vomiting Genitourinary: Genitourinary: Denies hematuria and Denies dysuria Endocrine: Endocrine: Denies palpitations Exam Const: General: no acute distress Resp: Effort & Inspection: normal respiratory effort GI: Inspection: non-distended GI Palp: No abdominal tenderness and No Guarding due to palpation present (GI) Auscultation: normal bowel sounds Objective Data Vital Signs Vital Signs: Vital Signs - 24 hr 12/30/21 11:16 12/30/21 12:53 12/30/21 14:28 Temperature 97.8 F Pulse Rate 96 89 94 Respiratory Rate 20 19 24 H Blood Pressure 149/89 H 143/76 H 143/67 H Pulse Oximetry 96 94 94 Oxygen Delivery Oxygen Flow Rate 12/30/21 15:30 12/30/21 15:40 12/30/21 16:51 Temperature 96.4 F L Pulse Rate 92 92 99 Respiratory Rate 20 20 22 H Blood Pressure 139/69 Pulse Oximetry 94 Oxygen Delivery Oxygen Flow Rate 12/30/21 15:04 12/30/21 16:00 12/30/21 18:00 Temperature Pulse Rate 124 H 97 94 Respiratory Rate Blood Pressure Pulse Oximetry Oxygen Delivery Oxygen Flow Rate 12/30/21 20:00 12/30/21 20:00 12/30/21 23:15 Temperature 97.6 F Pulse Rate 95 95 87 Respiratory Rate 20 20 Blood Pressure 132/74 Pulse Oximetry 95 95 95 Oxygen Delivery Nasal Cannula High Flow Nasal Cannula Oxygen Flow Rate 6 12/30/21 21:04 12/30/21 20:00 12/30/21 22:00 Temperature Pulse Rate 85 97 93 Respiratory Rate 16 Blood Pressure Pulse Oximetry Oxygen Delivery Oxygen Flow Rate 12/31/21 00:00 12/31/21 00:00 12/31/21 01:11 Temperature 97.8 F Pulse Rate 88 88 84 Respiratory Rate 20 20 18 Blood Pressure 126/68 Pulse Oximetry 96 96 Oxygen Delivery Nasal Cannula Oxygen Flow Rate 6 12/31/21 00:00 12/31/21 01:43 12/31/21 04:03 Temperature Pulse Rate 83 91 80 Respiratory Rate 17 Blood Pressure Pulse Oximetry Oxygen Delivery Oxygen Flow Rate 12/31/21 04:00 12/31/21 05:34 12/31/21 04:00 Temperature 97.6 F Pulse Rate 83 83 85 Respiratory Rate 20 Blood Pressure 128/56 L Pulse Oximetry 95 Oxygen Delivery Oxygen Flow Rate 12/31/21 04:00 12/31/21 07:38 12/31/21 08:02 Temperature 96.9 F L Pulse Rate 85 85 85 Respiratory Rate 20 18 20 Blood Pressure 135/69 Pulse Oximetry 95 100 Oxygen Delivery Nasal Cannula Oxygen Flow Rate 6 12/31/21 08:00 12/31/21 08:30 12/31/21 08:00 Temperature Pulse Rate 87 Respiratory Rate Blood Pressure Pulse Oximetry 96 95 Oxygen Delivery Nasal Cannula High Flow Nasal Cannula Oxygen Flow Rate 6 5 12/31/21 10:00 12/31/21 09:00 12/31/21 07:48 Temperature Pulse Rate 86 90 Respiratory Rate 18 Blood Pressure Pulse Oximetry 94 Oxygen Delivery High Flow Nasal Cannula Oxygen Flow Rate 4 12/31/21 10:32 Temperature Pulse Rate Respiratory Rate Blood Pressure Pulse Oximetry 95 Oxygen Delivery Nasal Cannula Oxygen Flow Rate 5 Intake/Output Intake/Output: Intake & Output
--- NOTE | 2021-12-31 11:07 | WPDHPUPDATE1 ---
History and Physical Update Update Date/Time: 12/31/21 11:07 History and Physical has been reviewed, including an updated exam of the patient. There are NO changes in the patient's condition. Risks, benefits, and alternatives have been discussed and questions answered. Patient agrees to proceed with procedure.
[2021-12-31] MEDS: LACTATED RINGERS 1,000 ML 30 ML IV CONT (11:29)
--- NOTE | 2021-12-31 11:57 | W.PM.PROC2 ---
Procedure Note - Detailed Date of Procedure 12/31/21 Pre-op Diagnosis Heart failure,hypoxia,hyperkalemia,pancolitis, right renal calculi Post-op Diagnosis Same Procedure Performed Cystoscopy, right retrograde pyelography and right ureteral stent placement Surgeon Fred Guzman MD Anesthesia General Description of Procedure Patient is brought to the operative suite where she has prepped draped in routine sterile fashion while in a dorsal lithotomy position. Cystoscopy is undertaken with a 19 F rigid cystoscope. Her bladder neck and urethra endoscopically normal, as is her bladder. There was no intravesical foreign body or neoplasm in the mucosa is without hyperemia or neoplasm. She has a single orthotopic ureteral orifice bilaterally. An angiographic catheter was used to obtain a right retrograde pyelogram. Initially I thought there might be a filling defect in the right mid ureter but this turns out to just be an air bubble. With aspiration the defect resolves in the ureter collecting system were otherwise normal with the exception of filling defects in the renal pelvis consistent with her known right renal stones. A 0.035 in glidewire was advanced in the right renal pelvis and a 4.8 F variable length ureteral stent position with the proximal coil in the renal pelvis and distal coil in the bladder. Scopes and wires removed and a 16F urethral catheter was replaced to drainage. Drains Yes Packing No Pathology None sent Complications No immediate complications Condition Stable
[2021-12-31] MEDS: fentaNYL CITRATE INJ (*CRX) 100 MCG/2 ML VIAL 25 MCG IV PUSH ×4 (12:16→12:28)
--- NOTE | 2021-12-31 13:25 | PC.NURSE ---
Pt returned from OR
[2021-12-31] MEDS: SODIUM CHLORIDE 0.9% IV 1,000 ML 75 ML IV CONT (14:52)
--- NOTE | 2021-12-31 17:44 | PC.NURSE ---
This patient, Desiree Castorena, was transferred to [ [id number]] on 12/31/21 at 1744. Personal belongings sent with patient. Report given to [JOSÉ MIGUEL [place] @ [phone] ]. Appropriate documentation sent with patient.
[2021-12-31] MEDS: ALPRAZolam (*CRX) 0.25 MG TABLET PO (20:18)
[2022-01-01] VITALS (18 sets, daily range): BP systolic 102–140; BP diastolic 57–65; PULSE 73–97; RESP 16–20; TEMP 36.2–36.6; O2SAT 91–97
[2022-01-01] MEDS: metroNIDAZOLE 500 MG/ISO 100ML 500 MG/100 ML BAG 100 MG IVPB ×3 (00:53→17:53)
[2022-01-01] MEDS: IPRATROPIUM BR 0.02% INH SOLN 0.5 MG/2.5 ML VIAL INHALATION ×6 (00:53→20:31)
[2022-01-01] MEDS: ALBUTEROL SULFATE NEB 2.5 MG/3 ML INH INHALATION ×5 (00:55→20:31)
[2022-01-01] MEDS: SODIUM CHLORIDE 0.9% IV 1,000 ML 75 ML IV CONT ×2 (05:34→21:11)
[2022-01-01] MEDS: ALPRAZolam (*CRX) 0.25 MG TABLET PO (05:38)
[2022-01-01 06:35] LABS: Basophils Percent Auto 0.1 % (0.2-1.2); Hematocrit 37.4 % (37.0-47.0); Hemoglobin 10.5 g/dL (12.0-15.0); Immature Granulocyte Absolute 0.14 K/mm3 (0.00-0.031); Immature Granulocyte Percent A 1.1 % (0-0.5); Lymphocytes Absolute Auto 0.46 K/mm3 (0.9-3.2); Lymphocytes Percent Auto 3.7 % (18.3-44.2); Mean Corpuscular HGB Conc 28.1 g/dl (32-36); Mean Platelet Volume 11.3 fl (7.4-10.4); Monocytes Absolute Auto 0.5 K/mm3 (0.1-0.6); Monocytes Percent Auto 4.1 % (2.6-8.5); Neutrophils Absolute Auto 11.4 K/mm3 (1.3-6.7); Nucleated Red Blood Cells Absolute Auto 0.2 K/mm3 (0.0-0.012); Nucleated Red Blood Cells Perc 1.2 % (0.0-0.2); Platelet Count Result 160 k/mm3 (150-375); Red Cell Distribution Width 17.7 % (11.5-14.5); White Blood Count 12.6 K/mm3 (4.5-10.0)
[2022-01-01 06:45] LABS: INR 1.3; Prothrombin Time 15.9 Seconds (11.1-14.7)
[2022-01-01 06:48] LABS: Alanine Aminotransferase 625 U/L (6-35); Albumin Level 3.3 g/dL (3.5-5.1); Alkaline Phosphatase 66 U/L (38-126); Anion Gap 12 mmol/L (8-16); Aspartate Amino Transferase 68 U/L (14-36); Bilirubin,Total 0.7 mg/dL (0.2-1.3); Blood Urea Nitrogen 53 mg/dL (7-17); Calcium 7.4 mg/dL (8.4-10.2); Carbon Dioxide 27 mmol/L (22-30); Chloride 94 mmol/L (98-107); Estimated CRCL calculation 34 ml/min; Estimated Glomerular Filt Rate 17; Glucose 100 mg/dL (65-110); Magnesium 2.3 mg/dL (1.6-2.3); Phosphorus 6.2 mg/dL (2.5-4.5); Potassium 4.9 mmol/L (3.4-5.0); Sodium 133 mmol/L (137-145)
--- NOTE | 2022-01-01 08:06 | WPDGIPROGNO ---
Progress Note: A&P Assessment and Plan (1) Transaminitis: Code(s): R74.01 - Elevation of levels of liver transaminase levels Status: Acute Assessment and Plan: LFTs continue to improve. This appears to correlate with treatment of her congestive heart failure. Passive congestion of the liver appears to be etiology for her elevated LFTs at presentation. Continue observation. Monitor LFTs conservatively at this point. (2) Congestive heart failure: Code(s): I50.9 - Heart failure, unspecified Status: Acute (3) Morbid obesity: Code(s): E66.01 - Morbid (severe) obesity due to excess calories Status: Acute Assessment and Plan: Weight loss with calorie restriction increase activity are encouraged. (4) Renal calculi: Code(s): N20.0 - Calculus of kidney Status: Acute Assessment and Plan: Patient admitted with UTI. Ureteral stent placed by Urology yesterday. Subjective Date/time seen: 01/01/22 08:06 Patient continues to denies significant abdominal pain. Had ureteral stents placed yesterday because of kidney stones. Review of Systems Review of Systems: Review of systems noncontributory. Exam Narrative: Physical exam reveals patient relatively comfortable lying in bed. HEENT exam reveals no icterus. Lungs are clear. Heart without murmur. Abdomen is obese soft no localized tenderness. Objective Data Vital Signs Vital Signs: Vital Signs - 24 hr 12/31/21 10:00 12/31/21 10:32 12/31/21 12:06 Temperature 97.6 F Pulse Rate 86 94 Respiratory Rate 21 H Blood Pressure 122/63 Pulse Oximetry 95 94 Oxygen Delivery Nasal Cannula Simple Face Mask Oxygen Flow Rate 5 10 12/31/21 12:20 12/31/21 12:35 12/31/21 12:50 Temperature Pulse Rate 84 84 83 Respiratory Rate 20 16 Blood Pressure 114/63 115/65 107/48 L Pulse Oximetry 93 88 L 90 Oxygen Delivery Simple Face Mask High Flow Therapy with Na High Flow Therapy with Na Oxygen Flow Rate 10 4 5 12/31/21 13:05 12/31/21 13:30 12/31/21 13:54 Temperature 97.9 F 98.2 F Pulse Rate 86 81 81 Respiratory Rate 13 20 16 Blood Pressure 123/60 126/60 140/65 Pulse Oximetry 90 94 99 Oxygen Delivery High Flow Therapy with Na Oxygen Flow Rate 5 12/31/21 14:01 12/31/21 14:00 12/31/21 13:45 Temperature 96.4 F L Pulse Rate 83 83 Respiratory Rate 16 Blood Pressure 130/59 L Pulse Oximetry 88 L 91 Oxygen Delivery High Flow Nasal Cannula Oxygen Flow Rate 5 12/31/21 14:00 12/31/21 14:15 12/31/21 14:30 Temperature 96.3 F L 96.7 F L 96.0 F L Pulse Rate 80 85 86 Respiratory Rate 16 20 20 Blood Pressure 123/58 L 140/60 127/61 Pulse Oximetry 92 93 Oxygen Delivery Oxygen Flow Rate 12/31/21 15:00 12/31/21 16:45 12/31/21 13:45 Temperature 96.6 F L 95.5 F L Pulse Rate 88 86 82 Respiratory Rate 18 22 H 18 Blood Pressure 139/64 128/59 L Pulse Oximetry 91 92 Oxygen Delivery Oxygen Flow Rate 12/31/21 16:00 12/31/21 13:55 12/31/21 22:11 Temperature Pulse Rate 85 86 86 Respiratory Rate 18 20 Blood Pressure Pulse Oximetry 93 Oxygen Delivery Nasal Cannula Oxygen Flow Rate 5 12/31/21 22:11 12/31/21 23:30 01/01/22 00:00 Temperature 97.0 F L Pulse Rate 86 95 82 Respiratory Rate 20 16 Blood Pressure 113/54 L Pulse Oximetry 94 Oxygen Delivery Oxygen Flow Rate 01/01/22 04:00 01/01/22 04:41 12/31/21 22:25 Temperature Pulse Rate 80 81 86 Respiratory Rate 20 18 Blood Pressure Pulse Oximetry Oxygen Delivery Oxygen Flow Rate 01/01/22 01:07 [employer] 01/01/22 00:00 01/01/22 06:00 Temperature 97.8 F 97.4 F L Pulse Rate 84 73 83 Respiratory Rate 18 18 16 Blood Pressure 140/65 130/58 L Pulse Oximetry 97 94 Oxygen Delivery Oxygen Flow Rate Intake/Output Intake/Output: Intake & Output 12/29/21 12/30/21 12/31/21 01/01/22 23:59 23:59 23:59 22:59 Intake Total 470 3978 1550 Outpu
[2022-01-01 08:29] LABS: Platelet Estimate Adequate (Adequate)
[2022-01-01 08:30] LABS: Anisocytosis 1+ (NORMAL); Basophilic Stippling 1+ (NORMAL); Hypochromasia 1+ (NORMAL)
[2022-01-01 08:31] LABS: Schistocytes None Seen (NORMAL)
[2022-01-01] MEDS: amLODIPine BESYLATE 5 MG TABLET 10 MG PO (08:55)
[2022-01-01] MEDS: GABAPENTIN 300 MG CAPSULE PO ×3 (08:55→17:54)
[2022-01-01] MEDS: FERROUS SULFATE 324 MG TABLET PO ×2 (08:55→17:54)
--- NOTE | 2022-01-01 09:30 | PM.IMPN ---
Progress Note: A&P Assessment and Plan (1) Acute respiratory failure with hypoxia and hypercapnia: Code(s): J96.01 - Acute respiratory failure with hypoxia; J96.02 - Acute respiratory failure with hypercapnia Status: Acute Assessment and Plan: Noted to have a SPO2 of 87 by EMS on 2LNC Presented wheezy, tripoding, unable to complete sentences, labored breathing Albuterol treatments given ABG showed compensated respiratory acidosis on 15L NRB upon arrival Continued to desat in ED, placed on bipap, Bipap DC'd at this time Repeat ABG 12/30/21 on 4L showed compensated respiratory acidosis with hypoxia Could be related to COPD or CHF Supplemental oxygen, wean to maintain saturation >90% Apnea link ordered and pending Appears to be maintaining on 5LNC Remains stable (2) Congestive heart failure: Code(s): I50.9 - Heart failure, unspecified Status: Acute Assessment and Plan: Presented with shortness of breath Daily weights, remains stable Furosemide 40mg IV BID, DC'd for now due to worsening renal function 4+ pitting edema bilaterally up to the knee Probably an acute on chronic diastolic heart failure Trend urine output Urinary catheter for accurate I&Os BNP 20836 Echo EF of >70% with a grade 1 diastolic dysfunction Fluid restriction 1500ml Daily Trend CMP Cardiology and nephrology consult thank you for your help Adjust therapy as indicate (3) COPD (chronic obstructive pulmonary disease): Code(s): J44.9 - Chronic obstructive pulmonary disease, unspecified Status: Acute Assessment and Plan: Does currently smoke Chest xray indicates atelectasis Neb treatments ordered Supplemental oxygen, wean to maintain saturations greater than 90% Appears to have recently been treated for an exacerbation outpatient CHF could be contributing to cause a COPD exacerbation IS and pep therapy Sputum culture ordered Levaquin and flagyl on board (4) JT (acute kidney injury): Code(s): N17.9 - Acute kidney failure, unspecified Status: Acute Assessment and Plan: BUN/Cr trending up currently 53/2.80 Unknown baseline Nephro on board Urine electrolytes Na 12, Creatinine 130.4, Urea 392 FeUrea 15.9% indicating pre-renal Continue IV fluids for now urinary catheter for I&Os Appears judy today Trend output CK 34 (5) Transaminitis: Code(s): R74.01 - Elevation of levels of liver transaminase levels Status: Acute Assessment and Plan: AST/ALT 68/625 Continue to trend labs RUQ ultrasound negative, but indicated edema Hep panel negative Could be related to fatty liver or congestion (6) Acute hyperkalemia: Code(s): E87.5 - Hyperkalemia Status: Acute Assessment and Plan: K was 5.6 upon arrival, currently 4.9 Received one dose of Lokelma in the ed Continue to trend Probably related to JT Hold losartan for now (7) Renal calculi: Code(s): N20.0 - Calculus of kidney Status: Acute Assessment and Plan: POD 1 Complaints of right CVA pain Urology consulted Renal ultrasound does not show any hydronephrosis CT did show stone with hydronephrosis Stent placement placed 12/31/21 Await further recommendation (8) Pancolitis: Code(s): K51.00 - Ulcerative (chronic) pancolitis without complications Status: Acute Assessment and Plan: CT of the abd/pelvis indicated fat stranding in the abdomen Continue Levaquin and Flagyl Heart healthy diet WBC elevated at and trending up current Bili elevated at 0.7 Continue to trend labs (9) UTI (urinary tract infection): Code(s): N39.0 - Urinary tract infection, site not specified Status: Acute Assessment and Plan: UA does appear to be highly i
--- NOTE | 2022-01-01 09:30 | P.PNIM_ITS ---
Progress Note: A&P Assessment and Plan (1) Acute respiratory failure with hypoxia and hypercapnia: Code(s): J96.01 - Acute respiratory failure with hypoxia; J96.02 - Acute respiratory failure with hypercapnia Status: Acute Assessment and Plan: * Noted to have a SPO2 of 87 by EMS on 2LNC * Presented wheezy, tripoding, unable to complete sentences, labored breathing * Albuterol treatments given * ABG showed compensated respiratory acidosis on 15L NRB upon arrival * Continued to desat in ED, placed on bipap, Bipap DC'd at this time * Repeat ABG 12/30/21 on 4L showed compensated respiratory acidosis with hypoxia * Could be related to COPD or CHF * Supplemental oxygen, wean to maintain saturation >90% * Apnea link ordered and pending * Appears to be maintaining on 5LNC * Remains stable (2) Congestive heart failure: Code(s): I50.9 - Heart failure, unspecified Status: Acute Assessment and Plan: * Presented with shortness of breath * Daily weights, remains stable * Furosemide 40mg IV BID, DC'd for now due to worsening renal function * 4+ pitting edema bilaterally up to the knee * Probably an acute on chronic diastolic heart failure * Trend urine output * Urinary catheter for accurate I&Os * BNP 12451 * Echo EF of >70% with a grade 1 diastolic dysfunction * Fluid restriction 1500ml Daily * Trend CMP * Cardiology and nephrology consult thank you for your help * Adjust therapy as indicate (3) COPD (chronic obstructive pulmonary disease): Code(s): J44.9 - Chronic obstructive pulmonary disease, unspecified Status: Acute Assessment and Plan: * Does currently smoke * Chest xray indicates atelectasis * Neb treatments ordered * Supplemental oxygen, wean to maintain saturations greater than 90% * Appears to have recently been treated for an exacerbation outpatient * CHF could be contributing to cause a COPD exacerbation * IS and pep therapy * Sputum culture ordered * Levaquin and flagyl on board (4) JT (acute kidney injury): Code(s): N17.9 - Acute kidney failure, unspecified Status: Acute Assessment and Plan: * BUN/Cr trending up currently 53/2.80 * Unknown baseline * Nephro on board * Urine electrolytes Na 12, Creatinine 130.4, Urea 392 * FeUrea 15.9% indicating pre-renal * Continue IV fluids for now * urinary catheter for I&Os * Appears judy today * Trend output * CK 34 (5) Transaminitis: Code(s): R74.01 - Elevation of levels of liver transaminase levels Status: Acute Assessment and Plan: * AST/ALT 68/625 * Continue to trend labs * RUQ ultrasound negative, but indicated edema * Hep panel negative * Could be related to fatty liver or congestion (6) Acute hyperkalemia: Code(s): E87.5 - Hyperkalemia Status: Acute Assessment and Plan: * K was 5.6 upon arrival, currently 4.9 * Received one dose of Lokelma in the ed * Continue to trend * Probably related to JT * Hold losartan for now (7) Renal calculi: Code(s): N20.0 - Calculus of kidney Status: Acute Assessment and Plan: * POD 1 * Complaints of right CVA pain * Urology consulted * Renal ultrasound does not show any hydronephrosis * CT did show stone with hydronephrosis * Stent placement placed 12/31/21 * Aw
[2022-01-01] MEDS: HYDROcodone/acetaminophen (*CRX) 10-325 MG TABLET 1 TAB PO ×2 (10:25→17:53)
--- NOTE | 2022-01-01 10:31 | PM.PNNEP ---
Progress Note: A&P Assessment and Plan (1) Abnormal results of kidney function studies: Code(s): R94.4 - Abnormal results of kidney function studies Status: Acute Assessment and Plan: Desiree has an elevated creatinine. this is stable. She did come in and go with a creatinine of 2.4 then billy to 2.8 on day 1 of admission and has stayed there since. CT showed right hydro. Ultrasound showed no hydro. saw the patient and placed a stent. Urine electrolytes are pre renal. She has 280mg of protein per g of creatinine in the urine UA shows blood and white cells. Urine culture is negative. Blood cultures are negative as well. Echo shows good LV and it is also hyperdynamic. Chest x-ray shows no fluid. Is not clear whether this is an acute issue or if this is chronic. She apparently had a normal creatinine the urine half ago but we will need to get records. She does have hypertension and probably some vascular disease that might lead to chronic kidney disease. She has high body mass index. Consider sleep apnea? Apnea link has been ordered. If the chronic kidney disease progressed, it might lead to swelling and shortness of breath. On the other hand the patient could have some sort of acute or subacute kidney issue as well. UTI could do this. However cultures are negative. She is on antibiotics. Obstruction could do this. A stent has been placed but the creatinine is about the same. The patient has elevated transaminases. Her CK is normal. Echocardiogram shows normal LV function. the patient could have a glomerulonephritis. I looked at the patient's urine. She has ATN casts. He has a granular sediment. No dysmorphic red cells and no RBC casts. This makes him glomerulonephritis less likely. However her complements are low. The rest of the serology is pending. We can wait another day or 2. If she is not improving by then or specially if her creatinine worsens then perhaps a renal biopsy might be warranted. the patient had low blood pressures in the emergency room. She could have ATN from low blood pressure. She does have Shelby brown casts consistent with ATN. Her blood pressure is better since admission. I am going to stop the amlodipine to let it come up a little bit more.. At this point abdomen is stop her amlodipine, recheck her creatinine tomorrow and Sunday. If not better or if worse then consider renal biopsy at that point. (2) Pyuria: Code(s): R82.81 - Pyuria Status: Acute Assessment and Plan: The patient has pyuria and hematuria but cultures are negative. (3) Hypertension: Code(s): I10 - Essential (primary) hypertension Status: Acute Assessment and Plan: The patient has good control the blood pressure. I think we will let the systolic be a little bit higher for better perfusion. (4) High body mass index: Status: Acute Assessment and Plan: Apnea link is pending (5) Iron deficiency anemia: Code(s): D50.9 - Iron deficiency anemia, unspecified Status: Acute Assessment and Plan: she is on iron sulfate (6) Renal calculi: Code(s): N20.0 - Calculus of kidney Status: Acute Assessment and Plan: stent in place. (7) COPD (chronic obstructive pulmonary disease): Code(s): J44.9 - Chronic obstructive pulmonary disease, unspecified Status: Acute Assessment and Plan: Getting supportive care (8) Acute hyperkalemia: Code(s): E87.5 - Hyperkalemia Status: Acute Assessment and Plan: resolved (9) Transaminitis: Code(s): R74.01 - Elevation of levels of liver transaminase levels Status: Acute Assessment and Plan: enzymes improving. Plan .. Subjective Date/time seen: 01/01/22 10:31 Interval history: Patient had a stent placed yesterday. He was an internal stent and she has a Vale cath
[2022-01-01] MEDS: LORazepam (*CRX) 0.5 MG TABLET PO ×2 (11:14→18:45)
--- NOTE | 2022-01-01 12:45 | WPDUROPN2 ---
Progress Note: A&P Assessment and Plan (1) Abnormal results of kidney function studies: Code(s): R94.4 - Abnormal results of kidney function studies Status: Acute (2) Renal calculi: Code(s): N20.0 - Calculus of kidney Status: Acute Assessment and Plan: Tolerating stent well - no much change in creatinine. Eventually, needs either ESWL or URS/LL for right renal stones. Subjective Subjective Date/Time Seen: 01/01/22 12:45 Tolerating stent well Review of Systems Cardiovascular: Cardiovascular: Denies chest pain, Denies lightheadedness, Denies palpitations and Denies dyspnea Respiratory: Respiratory: Denies dyspnea Gastrointestinal: Gastrointestinal: Denies diarrhea, Denies nausea and Denies vomiting Genitourinary: Genitourinary: Denies hematuria and Denies dysuria Endocrine: Endocrine: Denies palpitations Exam Const: General: no acute distress Resp: Effort & Inspection: normal respiratory effort GI: Inspection: non-distended GI Palp: No abdominal tenderness and No Guarding due to palpation present (GI) Auscultation: normal bowel sounds Objective Data Vital Signs Vital Signs: Vital Signs - 24 hr 12/31/21 13:54 12/31/21 14:01 12/31/21 14:00 Temperature 98.2 F Pulse Rate 81 83 Respiratory Rate 16 Blood Pressure 140/65 Pulse Oximetry 99 88 L Oxygen Delivery High Flow Nasal Cannula Oxygen Flow Rate 5 12/31/21 14:00 12/31/21 14:15 12/31/21 14:30 Temperature 96.3 F L 96.7 F L 96.0 F L Pulse Rate 80 85 86 Respiratory Rate 16 20 20 Blood Pressure 123/58 L 140/60 127/61 Pulse Oximetry 92 93 Oxygen Delivery Oxygen Flow Rate 12/31/21 15:00 12/31/21 16:45 12/31/21 16:00 Temperature 96.6 F L 95.5 F L Pulse Rate 88 86 85 Respiratory Rate 18 22 H Blood Pressure 139/64 128/59 L Pulse Oximetry 91 92 Oxygen Delivery Oxygen Flow Rate 12/31/21 13:55 12/31/21 22:11 12/31/21 22:11 Temperature Pulse Rate 86 86 86 Respiratory Rate 18 20 20 Blood Pressure Pulse Oximetry 93 Oxygen Delivery Nasal Cannula Oxygen Flow Rate 5 12/31/21 23:30 01/01/22 00:00 01/01/22 04:00 Temperature 97.0 F L Pulse Rate 95 82 80 Respiratory Rate 16 Blood Pressure 113/54 L Pulse Oximetry 94 Oxygen Delivery Oxygen Flow Rate 01/01/22 04:41 12/31/21 22:25 01/01/22 01:07 [employer] Temperature Pulse Rate 81 86 84 Respiratory Rate 20 18 18 Blood Pressure Pulse Oximetry Oxygen Delivery Oxygen Flow Rate 01/01/22 00:00 01/01/22 06:00 01/01/22 08:05 Temperature 97.8 F 97.4 F L Pulse Rate 73 83 77 Respiratory Rate 18 16 20 Blood Pressure 140/65 130/58 L Pulse Oximetry 97 94 Oxygen Delivery Oxygen Flow Rate 01/01/22 08:15 Temperature Pulse Rate 82 Respiratory Rate 18 Blood Pressure Pulse Oximetry Oxygen Delivery Oxygen Flow Rate Intake/Output Intake/Output: Intake & Output 12/29/21 12/30/21 12/31/21 01/01/22 23:59 23:59 23:59 22:59 Intake Total 470 1850 1890 Output Total 255 400 Balance 215 1450 1890 Meds/Results Medications: Active Medications Generic Name Dose Route Start Last Admin Trade Name Freq PRN Reason Stop Dose Admin Hydrocodone Bitart/Acetaminophen 1 tab 01/01/22 09:51 01/01/22 10:25 Hydrocodone/Acetaminophen (*Crx) 10-325 Mg Tablet PO 1 tab Q6H PRN Administration Pain Rated 4-6 Albuterol 2.5 mg 12/30/21 04:00 01/01/22 08:19 Albuterol Sulfate Neb 2.5 Mg/3 Ml Inh INHALATION 2.5 mg Q4HRT ALENA Administration Fentanyl Citrate 25 mcg 12/31/21 10:53 12/31/21 12:28 Fentanyl Citrate Inj (*Crx) 100 Mcg/2 Ml Vial IV PUSH 25 mcg Q2M PRN Administration Pain Ferrous Sulfate 324 mg 12/31/21 08:00 01/01/22 08:55 Ferrous Sulfate 324 Mg Tablet PO 324 mg BIDWM ALENA Administration Gabapentin 300 mg 12/30/21 17:00 01/01/22 08:55 Gabapentin 300 Mg Capsule PO 300 mg TID ALENA Administration Levofloxacin
--- NOTE | 2022-01-01 14:46 | PC.NURSE ---
providers are aware of sepsis risk and are following case
[2022-01-02] VITALS (26 sets, daily range): BP systolic 101–135; BP diastolic 52–77; PULSE 64–106; RESP 19–20; TEMP 36.1–36.5; O2SAT 77–97
[2022-01-02] MEDS: HYDROcodone/acetaminophen (*CRX) 10-325 MG TABLET 1 TAB PO ×3 (00:22→18:28)
[2022-01-02] MEDS: LORazepam (*CRX) 0.5 MG TABLET PO ×3 (00:22→19:46)
[2022-01-02] MEDS: metroNIDAZOLE 500 MG/ISO 100ML 500 MG/100 ML BAG 100 MG IVPB ×3 (00:26→16:14)
[2022-01-02] MEDS: ALBUTEROL SULFATE NEB 2.5 MG/3 ML INH INHALATION ×6 (04:21→23:45)
[2022-01-02] MEDS: IPRATROPIUM BR 0.02% INH SOLN 0.5 MG/2.5 ML VIAL INHALATION ×6 (04:22→23:45)
[2022-01-02 05:56] LABS: Basophils Percent Auto 0.2 % (0.2-1.2); Eosinophils Percent Auto 0.2 % (0-4.4); Hematocrit 39.4 % (37.0-47.0); Hemoglobin 11.2 g/dL (12.0-15.0); Immature Granulocyte Absolute 0.32 K/mm3 (0.00-0.031); Immature Granulocyte Percent A 2.5 % (0-0.5); Lymphocytes Absolute Auto 0.96 K/mm3 (0.9-3.2); Lymphocytes Percent Auto 7.4 % (18.3-44.2); Mean Corpuscular HGB Conc 28.4 g/dl (32-36); Mean Corpuscular Hemoglobin 25.5 pg (26-34); Mean Corpuscular Volume 89.7 fl (80-100); Mean Platelet Volume 10.3 fl (7.4-10.4); Monocytes Absolute Auto 0.6 K/mm3 (0.1-0.6); Monocytes Percent Auto 4.6 % (2.6-8.5); Neutrophils Absolute Auto 11.1 K/mm3 (1.3-6.7); Neutrophils Percent Auto 85.1 % (45.5-73.1); Nucleated Red Blood Cells Absolute Auto 0.1 K/mm3 (0.0-0.012); Nucleated Red Blood Cells Perc 1.1 % (0.0-0.2); Platelet Count Result 156 k/mm3 (150-375); Red Blood Count 4.39 M/mm3 (4.2-5.4); Red Cell Distribution Width 18.5 % (11.5-14.5)
[2022-01-02 06:35] LABS: Alanine Aminotransferase 473 U/L (6-35); Albumin Level 3.4 g/dL (3.5-5.1); Alkaline Phosphatase 66 U/L (38-126); Anion Gap 13 mmol/L (8-16); Aspartate Amino Transferase 56 U/L (14-36); Blood Urea Nitrogen 59 mg/dL (7-17); Calcium 7.6 mg/dL (8.4-10.2); Carbon Dioxide 26 mmol/L (22-30); Chloride 94 mmol/L (98-107); Estimated CRCL calculation 35 ml/min; Estimated Glomerular Filt Rate 20; Glucose 81 mg/dL (65-110); Magnesium 2.2 mg/dL (1.6-2.3); Phosphorus 6.2 mg/dL (2.5-4.5); Sodium 133 mmol/L (137-145)
[2022-01-02] MEDS: GABAPENTIN 300 MG CAPSULE PO ×3 (08:12→16:11)
[2022-01-02] MEDS: FERROUS SULFATE 324 MG TABLET PO ×2 (08:12→16:11)
--- NOTE | 2022-01-02 09:15 | P.PNIM_ITS ---
Progress Note: A&P Assessment and Plan (1) Acute respiratory failure with hypoxia and hypercapnia: Code(s): J96.01 - Acute respiratory failure with hypoxia; J96.02 - Acute respiratory failure with hypercapnia Status: Acute Assessment and Plan: * Noted to have a SPO2 of 87 by EMS on 2LNC * Presented wheezy, tripoding, unable to complete sentences, labored breathing * Albuterol treatments given * ABG showed compensated respiratory acidosis on 15L NRB upon arrival * Continued to desat in ED, placed on bipap, Bipap DC'd at this time * Repeat ABG 12/30/21 on 4L showed compensated respiratory acidosis with hypoxia * Could be related to COPD or CHF * Supplemental oxygen, wean to maintain saturation >90% * Apnea link ordered and pending, still not done hopefully will get it tonight * Continues on the 5LNC, saturation are upper 90s can probably be turned down * Remains stable (2) Congestive heart failure: Code(s): I50.9 - Heart failure, unspecified Status: Acute Assessment and Plan: * Presented with shortness of breath * Daily weights, remains stable * Consider a trial of Lasix * 4+ pitting edema bilaterally up to the knee * Acute on chronic diastolic heart failure with exacerbation * Trend urine output * Urinary catheter for accurate I&Os * BNP 99763 * Echo EF of >70% with a grade 1 diastolic dysfunction * Fluid restriction 1500ml Daily * Trend CMP * Cardiology and nephrology consult thank you for your help * Adjust therapy as indicate (3) COPD (chronic obstructive pulmonary disease): Code(s): J44.9 - Chronic obstructive pulmonary disease, unspecified Status: Acute Assessment and Plan: * Does currently smoke * Chest xray indicates atelectasis * Neb treatments ordered * Supplemental oxygen, wean to maintain saturations greater than 90% * Appears to have recently been treated for an exacerbation outpatient * CHF could be contributing to cause a COPD exacerbation * IS and pep therapy * Sputum culture ordered * Levaquin and flagyl on board (4) JT (acute kidney injury): Code(s): N17.9 - Acute kidney failure, unspecified Status: Acute Assessment and Plan: * BUN/Cr trending up currently 59/2.50 * Unknown baseline * Nephro on board * Urine electrolytes Na 12, Creatinine 130.4, Urea 392 * FeUrea 15.9% indicating pre-renal * Continue IV fluids for now * urinary catheter for I&Os * Appears judy today * Trend output * CK 34 (5) Transaminitis: Code(s): R74.01 - Elevation of levels of liver transaminase levels Status: Acute Assessment and Plan: * AST/ALT 56/473 * Continue to trend labs * RUQ ultrasound negative, but indicated edema * Hep panel negative * Could be related to fatty liver or congestion (6) Acute hyperkalemia: Code(s): E87.5 - Hyperkalemia Status: Acute Assessment and Plan: * K was 5.6 upon arrival, currently 5.0 * Received one dose of Lokelma in the ed * Continue to trend * Probably related to JT * Hold losartan for now (7) Renal calculi: Code(s): N20.0 - Calculus of kidney Status: Acute Assessment and Plan: * POD 2 * Complaints of right CVA pain * Urology consulted * Renal ultrasound does not show any hydronephrosis * CT did show stone with hydronephr
--- NOTE | 2022-01-02 09:15 | PM.IMPN ---
Progress Note: A&P Assessment and Plan (1) Acute respiratory failure with hypoxia and hypercapnia: Code(s): J96.01 - Acute respiratory failure with hypoxia; J96.02 - Acute respiratory failure with hypercapnia Status: Acute Assessment and Plan: Noted to have a SPO2 of 87 by EMS on 2LNC Presented wheezy, tripoding, unable to complete sentences, labored breathing Albuterol treatments given ABG showed compensated respiratory acidosis on 15L NRB upon arrival Continued to desat in ED, placed on bipap, Bipap DC'd at this time Repeat ABG 12/30/21 on 4L showed compensated respiratory acidosis with hypoxia Could be related to COPD or CHF Supplemental oxygen, wean to maintain saturation >90% Apnea link ordered and pending, still not done hopefully will get it tonight Continues on the 5LNC, saturation are upper 90s can probably be turned down Remains stable (2) Congestive heart failure: Code(s): I50.9 - Heart failure, unspecified Status: Acute Assessment and Plan: Presented with shortness of breath Daily weights, remains stable Consider a trial of Lasix 4+ pitting edema bilaterally up to the knee Acute on chronic diastolic heart failure with exacerbation Trend urine output Urinary catheter for accurate I&Os BNP 69850 Echo EF of >70% with a grade 1 diastolic dysfunction Fluid restriction 1500ml Daily Trend CMP Cardiology and nephrology consult thank you for your help Adjust therapy as indicate (3) COPD (chronic obstructive pulmonary disease): Code(s): J44.9 - Chronic obstructive pulmonary disease, unspecified Status: Acute Assessment and Plan: Does currently smoke Chest xray indicates atelectasis Neb treatments ordered Supplemental oxygen, wean to maintain saturations greater than 90% Appears to have recently been treated for an exacerbation outpatient CHF could be contributing to cause a COPD exacerbation IS and pep therapy Sputum culture ordered Levaquin and flagyl on board (4) JT (acute kidney injury): Code(s): N17.9 - Acute kidney failure, unspecified Status: Acute Assessment and Plan: BUN/Cr trending up currently 59/2.50 Unknown baseline Nephro on board Urine electrolytes Na 12, Creatinine 130.4, Urea 392 FeUrea 15.9% indicating pre-renal Continue IV fluids for now urinary catheter for I&Os Appears judy today Trend output CK 34 (5) Transaminitis: Code(s): R74.01 - Elevation of levels of liver transaminase levels Status: Acute Assessment and Plan: AST/ALT 56/473 Continue to trend labs RUQ ultrasound negative, but indicated edema Hep panel negative Could be related to fatty liver or congestion (6) Acute hyperkalemia: Code(s): E87.5 - Hyperkalemia Status: Acute Assessment and Plan: K was 5.6 upon arrival, currently 5.0 Received one dose of Lokelma in the ed Continue to trend Probably related to JT Hold losartan for now (7) Renal calculi: Code(s): N20.0 - Calculus of kidney Status: Acute Assessment and Plan: POD 2 Complaints of right CVA pain Urology consulted Renal ultrasound does not show any hydronephrosis CT did show stone with hydronephrosis Stent placement placed 12/31/21 Await further recommendation (8) Pancolitis: Code(s): K51.00 - Ulcerative (chronic) pancolitis without complications Status: Acute Assessment and Plan: CT of the abd/pelvis indicated fat stranding in the abdomen Continue Levaquin and Flagyl Heart healthy diet WBC elevated at and trending up current Bili elevated at 1.0 Continue to trend labs (9) UTI (urinary tract infection): Code(s): N39.0 - Urinary tract infection, site not specified Status: Acute
[2022-01-02] MEDS: SODIUM CHLORIDE 0.9% IV 1,000 ML 75 ML IV CONT (12:35)
--- NOTE | 2022-01-02 12:42 | PM.PNNEP ---
Progress Note: A&P Assessment and Plan (1) Abnormal results of kidney function studies: Code(s): R94.4 - Abnormal results of kidney function studies Status: Acute Assessment and Plan: acute versus chronic versus acute on chronic(?) has been relatively stable if not better in the last few days evaluation to date: CT showed right hydronephrosis ultrasound showed no hydronephrosis s/p stent placement by Urology urine electrolytes are pre renal ~ 280mg of proteinuria UA with blood and white cells urine culture as well as blood cultures negative echo shows good LV and it is also hyperdynamic complements low risk factors for kidney disease include hypertension and probably some vascular disease +/- REGINA s/p stent placement by Urology urine sediment (as noted by Dr. Shannon) with muddy brown casts (c/w ATN) with no RBC casts or dysmorphic red cells hence, less likely that a glomerulonephritis is present (but low complements are concerning) follow pending serology -- consider renal biopsy if no improvement in the next few days hold BP medications to allow higher BP (in the hopes this will help with better renal blood flow) follow repeat labs and UOP given breathing today, IV bumex x 1 today (2) Hypertension: Code(s): I10 - Essential (primary) hypertension Status: Acute Assessment and Plan: BP well controlled -- perhaps too well controlled holding BP medications to allow for a higher systolic BP follow trend of hemodynamics (3) Iron deficiency anemia: Code(s): D50.9 - Iron deficiency anemia, unspecified Status: Acute Assessment and Plan: on oral supplementation follow H/H (4) Renal calculi: Code(s): N20.0 - Calculus of kidney Status: Acute Assessment and Plan: seen by Urology stent in place (5) Transaminitis: Code(s): R74.01 - Elevation of levels of liver transaminase levels Status: Acute Assessment and Plan: LFTs seem to be improving follow trend related to previous/relative hypotension? Will continue to follow Subjective Date/time seen: 01/02/22 12:42 Chart reviewed -- assuming care from Dr. Shannon; she states she feels a bit swollen at the time of my visit; denies any shortness of breath but seems to have some conversational dyspnea when seen; renal function stable if not better by AM; no acute distress voiced. Exam Narrative: General: WD/WN female in NAD Heart: normal S1 and S2; no rub Lungs: decreased at bases Abdomen: soft, nontender, nondistended, positive bowel sounds Extremities: no cyanosis or clubbing; trace edema Skin: warm and dry Objective Data Vital Signs Vital Signs: Vital Signs Temp Pulse Resp BP Pulse Ox O2 Del Method O2 Flow Rate 01/02/22 12:42 92 High Flow Nasal Cannula 8 01/02/22 12:41 94 20 01/02/22 11:12 High Flow Therapy with Na 8 01/02/22 08:18 91 High Flow Nasal Cannula 5 01/02/22 09:50 98 20 01/02/22 09:35 91 High Flow Nasal Cannula 8 01/02/22 09:34 84 L High Flow Nasal Cannula 5 01/02/22 09:34 91 20 01/02/22 04:26 36.1 C L 93 20 101/63 97 01/02/22 04:32 81 20 01/02/22 04:22 77 20 01/02/22 04:00 92 01/02/22 00:00 83 01/01/22 20:00 88 01/01/22 20:44 79 20 01/01/22 20:34 94 Nasal Cannula 5 01/01/22 20:33 77 20 01/01/22 19:35 36.2 C L 91 20 102/60 91 Intake/Output Intake/Output: Intake & Output 12/31/21 01/01/22 01/01/22 01/02/22 00:59 00:59 23:59 23:59 Intake Total 2270 Output Total 1125 Balance 1145 Meds/Results Medications: Active Medications Generic Name Dose Route Start Last Admin Trade Name Freq PRN Reason Stop Dose Admin Hydrocodone Bitart/Acetaminophen 1 tab 01/01/22 09:51 01/02/22 18:28 Hydrocodone/Acetaminophen (*Crx) 10-325 Mg Tablet PO 1 tab
--- NOTE | 2022-01-02 12:42 | P.PNNP_ITS ---
Progress Note: A&P Assessment and Plan (1) Abnormal results of kidney function studies: Code(s): R94.4 - Abnormal results of kidney function studies Status: Acute Assessment and Plan: * acute versus chronic versus acute on chronic(?) * has been relatively stable if not better in the last few days * evaluation to date: * CT showed right hydronephrosis * ultrasound showed no hydronephrosis * s/p stent placement by Urology * urine electrolytes are pre renal * ~ 280mg of proteinuria * UA with blood and white cells * urine culture as well as blood cultures negative * echo shows good LV and it is also hyperdynamic * complements low * risk factors for kidney disease include hypertension and probably some vascul ar disease +/- REGINA * s/p stent placement by Urology * urine sediment (as noted by Dr. Shannon) with muddy brown casts (c/w ATN) with no RBC casts or dysmorphic red cells * hence, less likely that a glomerulonephritis is present (but low complements are concerning) * follow pending serology -- consider renal biopsy if no improvement in the next few days * hold BP medications to allow higher BP (in the hopes this will help with better renal blood flow) * follow repeat labs and UOP * given breathing today, IV bumex x 1 today (2) Hypertension: Code(s): I10 - Essential (primary) hypertension Status: Acute Assessment and Plan: * BP well controlled -- perhaps too well controlled * holding BP medications to allow for a higher systolic BP * follow trend of hemodynamics (3) Iron deficiency anemia: Code(s): D50.9 - Iron deficiency anemia, unspecified Status: Acute Assessment and Plan: * on oral supplementation * follow H/H (4) Renal calculi: Code(s): N20.0 - Calculus of kidney Status: Acute Assessment and Plan: * seen by Urology * stent in place (5) Transaminitis: Code(s): R74.01 - Elevation of levels of liver transaminase levels Status: Acute Assessment and Plan: * LFTs seem to be improving * follow trend * related to previous/relative hypotension? Will continue to follow Subjective Date/time seen: 01/02/22 12:42 Chart reviewed -- assuming care from Dr. Shannon; she states she feels a bit swollen at the time of my visit; denies any shortness of breath but seems to have some conversational dyspnea when seen; renal function stable if not better by AM; no acute distress voiced. Exam Narrative: General: WD/WN female in NAD Heart: normal S1 and S2; no rub Lungs: decreased at bases Abdomen: soft, nontender, nondistended, positive bowel sounds Extremities: no cyanosis or clubbing; trace edema Skin: warm and dry Objective Data Vital Signs Vital Signs: Vital Signs Temp Pulse Resp BP Pulse Ox O2 Del Method O2 Flow Rate 01/02/22 12:42 92 High Flow Nasal Cannula 8 01/02/22 12:41 94 20 01/02/22 11:12 High Flow Therapy with Na 8 01/02/22 08:18 91 High Flow Nasal Cannula 5 01/02/22 09:50 98 20 01/02/22 09:35 91 High Flow Nasal Cannula 8 01/02/22 09:34 84 L High Flow Nasal Cannula 5 01/02/22 09:34 91 20 01/02/22 04:26 36.1 C L 93 20 101/63 97 01/02/22 04:32 81 20 01/02/22 04:22 77 20 01/02/22 04
--- NOTE | 2022-01-02 13:17 | PCPTNOTE ---
Attempted PT evaluation, pt refused stating I just don't have enough in me.' Despite PT encouragement pt refused. RN aware.
[2022-01-02 16:19] LABS: Osmolality, Urine 319 mOsm/kg (50-1200)
[2022-01-02] MEDS: BUMETANIDE INJ 2.5 MG/10 ML VIAL 1.5 MG IV PUSH (19:46)
[2022-01-02 23:52] LABS: Alveolar/Arterial O2 Gradient 303.6 mmHg; Base Excess ABG 0.9 mEq/l (+/-2.0); Fractional Inspired Oxygen 60 %; HCO3 ABG 29.9 mEq/l (22.0-26.0); Oxygen Content ABG 14.4 %vol (16.0-22.0); PO2 FiO2 Ratio Arterial Blood 0.78 %; Total Hemoglobin 12.8 g/dL (12.0-18.0)
[2022-01-02 23:53] LABS: pH ABG 7.246 (7.350-7.450)
[2022-01-02 23:55] LABS: Oxygen Saturation ABG 74.1 % (95.0-100.0); PCO2 ABG 70.5 mmHg (35.0-45.0); PO2 ABG 46.7 mmHg (80.0-100.0)
[2022-01-02 23:56] LABS: Device HIGH FLOW NASAL CANN; Modified Allen's Test Pass; Oxyhemoglobin 80.1 % THb (90.0-100.0); Site Drawn RIGHT RADIAL
[2022-01-03] VITALS (28 sets, daily range): BP systolic 115–186; BP diastolic 52–64; PULSE 81–105; RESP 14–91; TEMP 36.3–37.1; O2SAT 90–100
--- NOTE | 2022-01-03 | PCRCNOTE ---
RT called from RN due to pt desat. RN found pt in the 70's, cold, with blue fingers. RT arrived and micah ABG, placed on BIPAP with UPD treatment in line. Dr. Clark called to evaluate pt.
[2022-01-03] MEDS: FUROSEMIDE INJ 40 MG/4 ML VIAL IV PUSH ×3 (00:09→17:09)
[2022-01-03] MEDS: metroNIDAZOLE 500 MG/ISO 100ML 500 MG/100 ML BAG 100 MG IVPB ×2 (00:43→08:15)
--- NOTE | 2022-01-03 01:21 | PC.NURSE ---
This patient, Desiree Castorena, was received from [[id number] ] on 01/03/22 at 0030. Patient/family oriented to unit policies and routines
[2022-01-03] MEDS: traZODone HCL 50 MG TABLET PO (04:13)
[2022-01-03 04:55] LABS: Hematocrit 35.8 % (37.0-47.0); Hemoglobin 10.5 g/dL (12.0-15.0); Immature Platelet Fraction Pct 4.8 % (0.9-11.2); Mean Corpuscular HGB Conc 29.3 g/dl (32-36); Mean Corpuscular Hemoglobin 25.2 pg (26-34); Mean Corpuscular Volume 86.1 fl (80-100); Mean Platelet Volume 10.6 fl (7.4-10.4); Platelet Count Result 125 k/mm3 (150-375); Red Blood Count 4.16 M/mm3 (4.2-5.4); Red Cell Distribution Width 18.2 % (11.5-14.5); White Blood Count 10.7 K/mm3 (4.5-10.0)
[2022-01-03 05:28] LABS: Band Neutrophils Percent 6 % (0-6); Eosinophils Absolute Manual 0.21 K/mm3 (0.02-0.5); Eosinophils Percent Manual 2 % (0-4); Lymphocytes Absolute Manual 1.07 K/mm3 (1.1-4.5); Neutrophils Absolute Manual 9.41 K/mm3 (1.7-7.2); Neutrophils Percent Manual 82 % (46-73); Nucleated Red Blood Cells 1 %; Total Cells Counted 100
[2022-01-03 05:30] LABS: Hypochromasia 1+ (NORMAL); Poikilocytosis 1+ (NORMAL); Schistocytes 1+ (NORMAL)
[2022-01-03 05:31] LABS: Crenated RBC 1+ (NORMAL); Smudge Cells FEW
[2022-01-03 06:37] LABS: Alanine Aminotransferase 301 U/L (6-35); Albumin Level 2.8 g/dL (3.5-5.1); Alkaline Phosphatase 61 U/L (38-126); Anion Gap 7 mmol/L (8-16); Aspartate Amino Transferase 37 U/L (14-36); Bilirubin,Total 0.8 mg/dL (0.2-1.3); Blood Urea Nitrogen 55 mg/dL (7-17); Calcium 7.3 mg/dL (8.4-10.2); Carbon Dioxide 29 mmol/L (22-30); Chloride 96 mmol/L (98-107); Estimated CRCL calculation 41 ml/min; Estimated Glomerular Filt Rate 24; Glucose 90 mg/dL (65-110); Potassium 4.8 mmol/L (3.4-5.0); Sodium 132 mmol/L (137-145)
[2022-01-03] MEDS: ENOXAPARIN 40 MG/0.4 ML SYRINGE SUB-Q (08:14)
[2022-01-03] MEDS: FERROUS SULFATE 324 MG TABLET PO ×2 (08:14→17:08)
[2022-01-03] MEDS: GABAPENTIN 300 MG CAPSULE PO ×2 (08:14→17:09)
--- NOTE | 2022-01-03 08:30 | P.PNIM_ITS ---
Progress Note: A&P Assessment and Plan (1) Acute respiratory failure with hypoxia and hypercapnia: Code(s): J96.01 - Acute respiratory failure with hypoxia; J96.02 - Acute respiratory failure with hypercapnia Status: Acute Assessment and Plan: * Noted to have a SPO2 of 87 by EMS on 2LNC * Presented wheezy, tripoding, unable to complete sentences, labored breathing * Albuterol treatments given * ABG showed compensated respiratory acidosis on 15L NRB upon arrival * Continued to desat in ED, placed on bipap, Bipap resume due to decreased oxygenation increased CO2 * Could be related to COPD or CHF * Supplemental oxygen, wean to maintain saturation >90% * Apnea link ordered and pending, still not done hopefully will get it tonight * Saturation noted to be 77 on 01/02/2022 at 11:00 p.m. * patient placed in IMU for BiPAP support * repeat ABG shows respiratory acidosis with a CO2 of 70.5 and O2 of 46.7 01/02/2022 * repeat ABG ordered * currently on 10 L nasal cannula * Pulmonary consulted * Changed Bipap to AVAPS (2) Congestive heart failure: Code(s): I50.9 - Heart failure, unspecified Status: Acute Assessment and Plan: * Presented with shortness of breath * Daily weights, remains stable * 1 dose of Lasix given last night with good return, 40 mg IV Lasix started b.i.d. * 4+ pitting edema bilaterally up to the knee * Acute on chronic diastolic heart failure with exacerbation * Trend urine output * Urinary catheter for accurate I&Os * BNP 92443 12/30/2021 * Echo EF of >70% with a grade 1 diastolic dysfunction * Fluid restriction 1500ml Daily * Trend CMP * Cardiology and nephrology consult thank you for your help * Adjust therapy as indicate (3) COPD (chronic obstructive pulmonary disease): Code(s): J44.9 - Chronic obstructive pulmonary disease, unspecified Status: Acute Assessment and Plan: * Does currently smoke * Chest xray indicates atelectasis * Neb treatments ordered * Supplemental oxygen, wean to maintain saturations greater than 90% * Appears to have recently been treated for an exacerbation outpatient * CHF could be contributing to cause a COPD exacerbation * IS and pep therapy * Sputum culture ordered * Levaquin and flagyl on board (4) JT (acute kidney injury): Code(s): N17.9 - Acute kidney failure, unspecified Status: Acute Assessment and Plan: * BUN/Cr trending down at 55/2.10 * Unknown baseline * Nephro on board * Urine electrolytes Na 12, Creatinine 130.4, Urea 392 * FeUrea 15.9% indicating pre-renal * IV fluids DC did * urinary catheter for I&Os * Appears judy today * Trend output * CK 34 (5) Transaminitis: Code(s): R74.01 - Elevation of levels of liver transaminase levels Status: Acute Assessment and Plan: * AST/ALT 37/301 * Continue to trend labs * RUQ ultrasound negative, but indicated edema * Hep panel negative * Could be related to fatty liver or congestion * appears to be resolving (6) Acute hyperkalemia: Code(s): E87.5 - Hyperkalemia Status: Acute Assessment and Plan: * K was 5.6 upon arrival, currently 4.8 * Received one dose of Lokelma in the ed * Continue to trend * Probably related to JT * Hold losartan for now (7) Renal calculi: Code(s):
--- NOTE | 2022-01-03 08:30 | PM.IMPN ---
Progress Note: A&P Assessment and Plan (1) Acute respiratory failure with hypoxia and hypercapnia: Code(s): J96.01 - Acute respiratory failure with hypoxia; J96.02 - Acute respiratory failure with hypercapnia Status: Acute Assessment and Plan: Noted to have a SPO2 of 87 by EMS on 2LNC Presented wheezy, tripoding, unable to complete sentences, labored breathing Albuterol treatments given ABG showed compensated respiratory acidosis on 15L NRB upon arrival Continued to desat in ED, placed on bipap, Bipap resume due to decreased oxygenation increased CO2 Could be related to COPD or CHF Supplemental oxygen, wean to maintain saturation >90% Apnea link ordered and pending, still not done hopefully will get it tonight Saturation noted to be 77 on 01/02/2022 at 11:00 p.m. patient placed in IMU for BiPAP support repeat ABG shows respiratory acidosis with a CO2 of 70.5 and O2 of 46.7 01/02/2022 repeat ABG ordered currently on 10 L nasal cannula Pulmonary consulted Changed Bipap to AVAPS (2) Congestive heart failure: Code(s): I50.9 - Heart failure, unspecified Status: Acute Assessment and Plan: Presented with shortness of breath Daily weights, remains stable 1 dose of Lasix given last night with good return, 40 mg IV Lasix started b.i.d. 4+ pitting edema bilaterally up to the knee Acute on chronic diastolic heart failure with exacerbation Trend urine output Urinary catheter for accurate I&Os BNP 63767 12/30/2021 Echo EF of >70% with a grade 1 diastolic dysfunction Fluid restriction 1500ml Daily Trend CMP Cardiology and nephrology consult thank you for your help Adjust therapy as indicate (3) COPD (chronic obstructive pulmonary disease): Code(s): J44.9 - Chronic obstructive pulmonary disease, unspecified Status: Acute Assessment and Plan: Does currently smoke Chest xray indicates atelectasis Neb treatments ordered Supplemental oxygen, wean to maintain saturations greater than 90% Appears to have recently been treated for an exacerbation outpatient CHF could be contributing to cause a COPD exacerbation IS and pep therapy Sputum culture ordered Levaquin and flagyl on board (4) JT (acute kidney injury): Code(s): N17.9 - Acute kidney failure, unspecified Status: Acute Assessment and Plan: BUN/Cr trending down at 55/2.10 Unknown baseline Nephro on board Urine electrolytes Na 12, Creatinine 130.4, Urea 392 FeUrea 15.9% indicating pre-renal IV fluids DC did urinary catheter for I&Os Appears judy today Trend output CK 34 (5) Transaminitis: Code(s): R74.01 - Elevation of levels of liver transaminase levels Status: Acute Assessment and Plan: AST/ALT 37/301 Continue to trend labs RUQ ultrasound negative, but indicated edema Hep panel negative Could be related to fatty liver or congestion appears to be resolving (6) Acute hyperkalemia: Code(s): E87.5 - Hyperkalemia Status: Acute Assessment and Plan: K was 5.6 upon arrival, currently 4.8 Received one dose of Lokelma in the ed Continue to trend Probably related to JT Hold losartan for now (7) Renal calculi: Code(s): N20.0 - Calculus of kidney Status: Acute Assessment and Plan: POD 3 Complaints of right CVA pain Urology consulted Renal ultrasound does not show any hydronephrosis CT did show stone with hydronephrosis Stent placement placed 12/31/21 Await further recommendation (8) Pancolitis: Code(s): K51.00 - Ulcerative (chronic) pancolitis without complications Status: Acute Assessment and Plan: CT of the abd/pelvis indicated fat stranding in the abdomen Continue Levaquin and Flagyl Heart healthy diet WBC elevated at an
[2022-01-03] MEDS: IPRATROPIUM BR 0.02% INH SOLN 0.5 MG/2.5 ML VIAL INHALATION ×4 (08:46→19:36)
[2022-01-03] MEDS: ALBUTEROL SULFATE NEB 2.5 MG/3 ML INH INHALATION ×4 (08:46→19:36)
--- NOTE | 2022-01-03 09:37 | P.PNNP_ITS ---
Progress Note: A&P Assessment and Plan (1) Abnormal results of kidney function studies: Code(s): R94.4 - Abnormal results of kidney function studies Status: Acute Assessment and Plan: * acute versus chronic versus acute on chronic(?) * has been relatively stable if not better in the last few days * evaluation to date: * CT showed right hydronephrosis * ultrasound showed no hydronephrosis * s/p stent placement by Urology * urine electrolytes are pre renal * ~ 280mg of proteinuria * UA with blood and white cells * urine culture as well as blood cultures negative * echo shows good LV and it is also hyperdynamic * complements low * risk factors for kidney disease include hypertension and probably some vascul ar disease +/- REGINA * s/p stent placement by Urology * urine sediment (as noted by Dr. Shannon) with muddy brown casts (c/w ATN) with no RBC casts or dysmorphic red cells * hence, less likely that a glomerulonephritis is present (but low complements are concerning) * follow pending serology * holding BP medications to allow higher BP (in the hopes this will help with better renal blood flow) * seems reasonable to start scheduled diuretics * follow repeat labs and UOP (2) Hypertension: Code(s): I10 - Essential (primary) hypertension Status: Acute Assessment and Plan: * BP well controlled -- perhaps too well controlled (when running in the 100s systolic range) * holding BP medications to allow for a higher systolic BP * follow trend of hemodynamics (3) Iron deficiency anemia: Code(s): D50.9 - Iron deficiency anemia, unspecified Status: Acute Assessment and Plan: * on oral supplementation * follow H/H (4) Renal calculi: Code(s): N20.0 - Calculus of kidney Status: Acute Assessment and Plan: * seen by Urology * stent in place (5) Transaminitis: Code(s): R74.01 - Elevation of levels of liver transaminase levels Status: Acute Assessment and Plan: * LFTs seem to be improving * follow trend * related to previous/relative hypotension? Will continue to follow Subjective Date/time seen: 01/03/22 09:37 Reasonable urine output with IV bumex yesterday with stability if not improvement in renal function/creatinine by AM labs; does not voice shortness of breath but still requiring/needing significant oxygen support; started on scheduled IV lasix today with results of AM CXR noted; overall, states she feels a bit better. Exam Narrative: General: WD/WN female in NAD Heart: normal S1 and S2; no rub Lungs: decreased at bases Abdomen: soft, nontender, nondistended, positive bowel sounds Extremities: no cyanosis or clubbing; 2+ edema Skin: warm and dry Objective Data Vital Signs Vital Signs: Vital Signs Temp Pulse Resp BP Pulse Ox O2 Del Method O2 Flow Rate 01/03/22 08:59 93 18 01/03/22 08:56 91 90 01/03/22 08:55 91 90 High Flow Nasal Cannula 10 01/03/22 08:54 92 20 01/03/22 08:16 37.0 C 90 17 115/58 L 99 01/03/22 05:31 94 22 H 100 BiPAP 01/03/22 05:41 96 01/03/22 04:00 36.3 C L 100 24 H 119/56 L 100 01/03/22 03:58 98 21 H 100 BiPAP 01/03/22 03:58 98 01/03/22 02:00 105 H 01/03/22 00:30 102 H
--- NOTE | 2022-01-03 09:37 | PM.PNNEP ---
Progress Note: A&P Assessment and Plan (1) Abnormal results of kidney function studies: Code(s): R94.4 - Abnormal results of kidney function studies Status: Acute Assessment and Plan: acute versus chronic versus acute on chronic(?) has been relatively stable if not better in the last few days evaluation to date: CT showed right hydronephrosis ultrasound showed no hydronephrosis s/p stent placement by Urology urine electrolytes are pre renal ~ 280mg of proteinuria UA with blood and white cells urine culture as well as blood cultures negative echo shows good LV and it is also hyperdynamic complements low risk factors for kidney disease include hypertension and probably some vascular disease +/- REGINA s/p stent placement by Urology urine sediment (as noted by Dr. Shannon) with muddy brown casts (c/w ATN) with no RBC casts or dysmorphic red cells hence, less likely that a glomerulonephritis is present (but low complements are concerning) follow pending serology holding BP medications to allow higher BP (in the hopes this will help with better renal blood flow) seems reasonable to start scheduled diuretics follow repeat labs and UOP (2) Hypertension: Code(s): I10 - Essential (primary) hypertension Status: Acute Assessment and Plan: BP well controlled -- perhaps too well controlled (when running in the 100s systolic range) holding BP medications to allow for a higher systolic BP follow trend of hemodynamics (3) Iron deficiency anemia: Code(s): D50.9 - Iron deficiency anemia, unspecified Status: Acute Assessment and Plan: on oral supplementation follow H/H (4) Renal calculi: Code(s): N20.0 - Calculus of kidney Status: Acute Assessment and Plan: seen by Urology stent in place (5) Transaminitis: Code(s): R74.01 - Elevation of levels of liver transaminase levels Status: Acute Assessment and Plan: LFTs seem to be improving follow trend related to previous/relative hypotension? Will continue to follow Subjective Date/time seen: 01/03/22 09:37 Reasonable urine output with IV bumex yesterday with stability if not improvement in renal function/creatinine by AM labs; does not voice shortness of breath but still requiring/needing significant oxygen support; started on scheduled IV lasix today with results of AM CXR noted; overall, states she feels a bit better. Exam Narrative: General: WD/WN female in NAD Heart: normal S1 and S2; no rub Lungs: decreased at bases Abdomen: soft, nontender, nondistended, positive bowel sounds Extremities: no cyanosis or clubbing; 2+ edema Skin: warm and dry Objective Data Vital Signs Vital Signs: Vital Signs Temp Pulse Resp BP Pulse Ox O2 Del Method O2 Flow Rate 01/03/22 08:59 93 18 01/03/22 08:56 91 90 01/03/22 08:55 91 90 High Flow Nasal Cannula 10 01/03/22 08:54 92 20 01/03/22 08:16 37.0 C 90 17 115/58 L 99 01/03/22 05:31 94 22 H 100 BiPAP 01/03/22 05:41 96 01/03/22 04:00 36.3 C L 100 24 H 119/56 L 100 01/03/22 03:58 98 21 H 100 BiPAP 01/03/22 03:58 98 01/03/22 02:00 105 H 01/03/22 00:30 102 H 01/03/22 00:00 102 H 21 H 100 BiPAP 01/03/22 00:37 36.9 C 102 H 21 H 121/64 100 01/03/22 00:00 105 H 01/03/22 00:37 104 H 24 H 100 BiPAP 01/02/22 23:45 106 H 19 96 BiPAP 01/02/22 23:45 106 H 19 01/02/22 23:19 36.4 C 91 20 111/59 L 77 L 01/02/22 20:00 91 High Flow Nasal Cannula 8 01/02/22 20:00 99 01/02/22 20:11 97 20 01/02/22 19:55 91 High Flow Nasal Cannula 9 01/02/22 19:55 101 H 20 01/02/22 19:38 36.5 C 102 H 20 135/52 L 91 01/02/22 18:40 92 High Flow Nasal Cannula 8 01/02/22 16:00 100 01/02/22 16:09 100 20 01/02/22 14:00
[2022-01-03 10:58] LABS: Alveolar/Arterial O2 Gradient 295.1 mmHg; Base Excess ABG 5.1 mEq/l (+/-2.0); Fractional Inspired Oxygen 60 %; HCO3 ABG 33.5 mEq/l (22.0-26.0); Oxygen Content ABG 14.6 %vol (16.0-22.0); PO2 ABG 55.5 mmHg (80.0-100.0); PO2 FiO2 Ratio Arterial Blood 0.93 %; Total Hemoglobin 11.9 g/dL (12.0-18.0)
[2022-01-03 11:02] LABS: pH ABG 7.296 (7.350-7.450)
[2022-01-03 11:03] LABS: Oxygen Saturation ABG 84.5 % (95.0-100.0); PCO2 ABG 70.2 mmHg (35.0-45.0)
[2022-01-03 11:04] LABS: Device HIGH FLOW NASAL CANN; Modified Allen's Test Pass; Oxyhemoglobin 87.2 % THb (90.0-100.0); Site Drawn LEFT RADIAL
[2022-01-03 11:23] LABS: Anti Nuclear Antibody Pattern Nuclear, Speckled
--- NOTE | 2022-01-03 11:31 | PCPTNOTE ---
Attempted PT evaluation, pt refused stating I just want to sleep. RN aware. Will follow.
--- NOTE | 2022-01-03 12:53 | PCOTNOTE ---
Per RN, patient on continuous bipap, stated try therapy tomorrow. Will continue plan of care as appropriate.
[2022-01-03 14:41] LABS: Alveolar/Arterial O2 Gradient 300.9 mmHg; Base Excess ABG 3.1 mEq/l (+/-2.0); Carboxyhemoglobin 0.2 % THb (0-2.0); Fractional Inspired Oxygen 60 %; HCO3 ABG 30.6 mEq/l (22.0-26.0); Methemoglobin ABG 0.4 %THb (0-1.5); Oxygen Content ABG 15.1 %vol (16.0-22.0); Oxyhemoglobin 89.3 % THb (90.0-100.0); PO2 ABG 59.6 mmHg (80.0-100.0); PO2 FiO2 Ratio Arterial Blood 0.99 %; Reduced Hemoglobin 10.1 %THb (0-5.0); pH ABG 7.317 (7.350-7.450)
[2022-01-03 14:44] LABS: Device HIGH FLOW NASAL CANN; Modified Allen's Test Pass; PCO2 ABG 61.2 mmHg (35.0-45.0); Site Drawn LEFT RADIAL
[2022-01-03 18:55] LABS: Alanine Aminotransferase 224 U/L (6-35); Alkaline Phosphatase 53 U/L (38-126); Anion Gap 11 mmol/L (8-16); Aspartate Amino Transferase 28 U/L (14-36); Bilirubin,Total 0.7 mg/dL (0.2-1.3); Blood Urea Nitrogen 48 mg/dL (7-17); Calcium 7.3 mg/dL (8.4-10.2); Carbon Dioxide 28 mmol/L (22-30); Chloride 94 mmol/L (98-107); Estimated CRCL calculation 43 ml/min; Estimated Glomerular Filt Rate 25; Glucose 142 mg/dL (65-110); Potassium 4.1 mmol/L (3.4-5.0); Sodium 133 mmol/L (137-145)
[2022-01-03 19:20] LABS: Complement Total CH50 34 U/mL (31-60)
[2022-01-03 19:51] LABS: Hepatitis B Core Ab Total Nonreactive (Nonreactive)
[2022-01-03] MEDS: ENOXAPARIN 80 MG/0.8 ML SYRINGE 150 MG SUB-Q (20:40)
[2022-01-03] MEDS: HYDROcodone/acetaminophen (*CRX) 10-325 MG TABLET 1 TAB PO (23:30)
[2022-01-04] VITALS (18 sets, daily range): BP systolic 130–160; BP diastolic 52–70; PULSE 80–111; RESP 18–24; TEMP 36.1–36.7; O2SAT 87–100
[2022-01-04 06:00] LABS: Alanine Aminotransferase 205 U/L (6-35); Alkaline Phosphatase 55 U/L (38-126); Anion Gap 10 mmol/L (8-16); Aspartate Amino Transferase 25 U/L (14-36); Bilirubin,Total 0.9 mg/dL (0.2-1.3); Blood Urea Nitrogen 46 mg/dL (7-17); Calcium 7.5 mg/dL (8.4-10.2); Carbon Dioxide 31 mmol/L (22-30); Chloride 93 mmol/L (98-107); Estimated CRCL calculation 48 ml/min; Estimated Glomerular Filt Rate 29; Glucose 82 mg/dL (65-110); Potassium 4.2 mmol/L (3.4-5.0); Sodium 134 mmol/L (137-145)
[2022-01-04 06:08] LABS: Basophils Percent Auto 0.2 % (0.2-1.2); Eosinophils Absolute Auto 0.2 K/mm3 (0-0.3); Eosinophils Percent Auto 1.6 % (0-4.4); Hematocrit 37.4 % (37.0-47.0); Hemoglobin 10.7 g/dL (12.0-15.0); Immature Granulocyte Percent A 1.1 % (0-0.5); Lymphocytes Absolute Auto 0.93 K/mm3 (0.9-3.2); Mean Corpuscular HGB Conc 28.6 g/dl (32-36); Mean Corpuscular Hemoglobin 24.7 pg (26-34); Mean Corpuscular Volume 86.4 fl (80-100); Mean Platelet Volume 10.5 fl (7.4-10.4); Monocytes Absolute Auto 0.6 K/mm3 (0.1-0.6); Neutrophils Absolute Auto 7.6 K/mm3 (1.3-6.7); Neutrophils Percent Auto 81.1 % (45.5-73.1); Platelet Count Result 126 k/mm3 (150-375); Red Blood Count 4.33 M/mm3 (4.2-5.4); Red Cell Distribution Width 17.4 % (11.5-14.5); White Blood Count 9.3 K/mm3 (4.5-10.0)
[2022-01-04 07:51] LABS: NT Pro B Type Natriuretic Pept 7090 pg/mL (5-100)
[2022-01-04] MEDS: HYDROcodone/acetaminophen (*CRX) 10-325 MG TABLET 1 TAB PO ×3 (08:04→21:40)
[2022-01-04] MEDS: ENOXAPARIN 80 MG/0.8 ML SYRINGE 150 MG SUB-Q ×2 (08:07→20:22)
[2022-01-04] MEDS: GABAPENTIN 300 MG CAPSULE PO ×3 (08:07→16:27)
[2022-01-04] MEDS: FERROUS SULFATE 324 MG TABLET PO ×2 (08:07→16:27)
[2022-01-04] MEDS: FUROSEMIDE INJ 40 MG/4 ML VIAL IV PUSH ×2 (08:08→16:27)
[2022-01-04] MEDS: ALBUTEROL SULFATE NEB 2.5 MG/3 ML INH INHALATION ×3 (10:00→20:50)
[2022-01-04] MEDS: IPRATROPIUM BR 0.02% INH SOLN 0.5 MG/2.5 ML VIAL INHALATION ×3 (10:00→20:50)
[2022-01-04] MEDS: predniSONE 20 MG TABLET 40 MG PO (10:48)
--- NOTE | 2022-01-04 10:55 | PM.CNPUL ---
Assessment and Plan Assessment and plan (1) Acute respiratory failure with hypoxia and hypercapnia: Code(s): J96.01 - Acute respiratory failure with hypoxia; J96.02 - Acute respiratory failure with hypercapnia Status: Acute Assessment and Plan: Patient presented with hypoxemic respiratory failure with a blood gas of 7.39/47/93 on 100% non-rebreather. She had no evidence of hypercarbic respiratory failure on this blood gas. In addition her admission bicarb was 28. This does not suggest she has chronic hypercarbic respiratory failure from COPD or obesity hypoventilation syndrome. TSH on 12/31/2021 was 0.55 to normal. she was 6 L positive through 01/02/2022, has developed a small right pleural effusion and increased interstitial infiltrates on her chest x-ray. Her BNP is improved but still of elevated at 7090. She has Right ventricular enlargement and decreased right ventricular function consistent with right heart failure and anasarca. Patient currently has hypoxemic respiratory failure in the etiology of this includes fluid overload, small pleural effusion, atelectasis from being bedbound and morbidly obese, COPD exacerbation, narcotic use and possible pulmonary emboli and possible untreated sleep related breathing disorder.. agree with IV Lasix diuresis as tolerated by her cardiac and renal Systems. She is -3.6 L in the last 36 hours And has improved clinically and her oxygen is now down to 7 L nasal cannula. Agree with dress of physical therapy with an attempt to get her out of bed. I will treat her COPD exacerbation as below. Avoid hydrocodone use. Patient is on full-dose Lovenox for her below the knee DVT and I agree with this at this time. I would not perform a CT angiogram of the chest or a perfusion scan. She will need an outpatient polysomnogram. Will follow with you. (2) COPD (chronic obstructive pulmonary disease): Code(s): J44.9 - Chronic obstructive pulmonary disease, unspecified Status: Acute Assessment and Plan: Patient has a 46 pack year tobacco use and is currently smoking and was exposed to secondhand smoke from both parents and her who she currently lives with. She has been diagnosed with COPD and had PFTs many years ago in [place] I do not have those results. At baseline she can walk 20 ft and her last hospitalization was approximately 8 years ago. Today the patient has bilateral expiratory wheezing and I will place her on prednisone 40 mg p.o. q.day. I will continue albuterol and ipratropium nebulizers q.4 hours. Patient is on Levaquin initially for a urinary tract infection and I we continue this. She was started on 12/30 and today is day 6. (3) DVT (deep venous thrombosis): Code(s): I82.409 - Acute embolism and thrombosis of unspecified deep veins of unspecified lower extremity Status: Acute Assessment and Plan: Patient has hypoxemic and hypercarbic respiratory failure with below the knee left posterior tibial and peroneal vein thrombus. The patient may have had a PE. I agree with full-dose Lovenox at this time. will transition her to an DOAC that her insurance will cover when she tolerates full dose Lovenox for 24-48 hours. History of Present Illness History of Present Illness Consult date: 01/04/22 Chief complaint: Heart failure,hypoxia,hyperkalemia,pancolitis Narrative: 01/04/2022: This is a new pulmonary consult for hypoxemic respiratory failure. 61-year-old woman with morbid obesity, current tobacco use at 1 pack per day (46 PY), COPD diagnosed 8 years ago and had PFTs in [place] has been on inhalers since then including Advair, Spiriva and trelegy. she has been exposed to secondhand smoke from both of her parents as well as her who is currently smoking. 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 At baseline she can
--- NOTE | 2022-01-04 12:18 | P.PNNP_ITS ---
Progress Note: A&P Assessment and Plan (1) Abnormal results of kidney function studies: Code(s): R94.4 - Abnormal results of kidney function studies Status: Acute Assessment and Plan: * acute versus chronic versus acute on chronic(?) * renal function improving in the last few days * evaluation to date: * CT showed right hydronephrosis * ultrasound showed no hydronephrosis * s/p stent placement by Urology * urine electrolytes are pre renal * ~ 280mg of proteinuria * UA with blood and white cells * urine culture as well as blood cultures negative * echo shows good LV and it is also hyperdynamic * complements low * risk factors for kidney disease include hypertension and probably some vascular disease +/- REGINA * s/p stent placement by Urology * urine sediment (as noted by Dr. Shannon) with muddy brown casts (c/w ATN) with no RBC casts or dysmorphic red cells * hence, less likely that a glomerulonephritis is present (but low complements are concerning) * follow pending serology * holding BP medications to allow higher BP (in the hopes this will help with better renal blood flow) * follow repeat labs and UOP (2) Acute respiratory failure with hypoxia and hypercapnia: Code(s): J96.01 - Acute respiratory failure with hypoxia; J96.02 - Acute respiratory failure with hypercapnia Status: Acute Assessment and Plan: * multifactorial etiology: * fluid overload * atelectasis due to bedbound status and obesity * COPD exacerbation * narcotic use * pulmonary emboli(?) * undiagnosed REGINA(?) * Pulmonary recommendations noted * continue diuretics (for volume overload) * started on steroid therapy (for COPD along with empiric levaquin) * on anticoagulation for DVTs and possibility of PE * PT/OT as tolerated (3) Hypertension: Code(s): I10 - Essential (primary) hypertension Status: Acute Assessment and Plan: * BP well controlled -- perhaps too well controlled (was running in the 100s systolic range) * holding BP medications to allow for a higher systolic BP * follow trend of hemodynamics (4) Iron deficiency anemia: Code(s): D50.9 - Iron deficiency anemia, unspecified Status: Acute Assessment and Plan: * on oral supplementation * follow H/H (5) Renal calculi: Code(s): N20.0 - Calculus of kidney Status: Acute Assessment and Plan: * seen by Urology * stent in place (6) Transaminitis: Code(s): R74.01 - Elevation of levels of liver transaminase levels Status: Acute Assessment and Plan: * LFTs seem to be improving * follow trend * related to previous/relative hypotension? Will continue to follow Subjective Date/time seen: 01/04/22 12:18 Respiratory status seems stable if not improved at the time of my visit; started on anticoagulation after venous dopplers positive for DVTs; good diuresis with IV lasix with improvement in renal function as well; no other acute events ove rnight or earlier this AM; seen by Pulmonary earlier today. Exam Narrative: General: WD/WN female in NAD Heart: normal S1 and S2; no rub Lungs: decreased at bases with some scant wheezes Abdomen: soft, nontender, nondistended, positive bowel sounds Extremities: no cyanosis or clubbing; 2+ edema Skin: warm and intact Objective Data Vital Signs Vital Signs: Vital Sig
--- NOTE | 2022-01-04 12:18 | PM.PNNEP ---
Progress Note: A&P Assessment and Plan (1) Abnormal results of kidney function studies: Code(s): R94.4 - Abnormal results of kidney function studies Status: Acute Assessment and Plan: acute versus chronic versus acute on chronic(?) renal function improving in the last few days evaluation to date: CT showed right hydronephrosis ultrasound showed no hydronephrosis s/p stent placement by Urology urine electrolytes are pre renal ~ 280mg of proteinuria UA with blood and white cells urine culture as well as blood cultures negative echo shows good LV and it is also hyperdynamic complements low risk factors for kidney disease include hypertension and probably some vascular disease +/- REGINA s/p stent placement by Urology urine sediment (as noted by Dr. Shannon) with muddy brown casts (c/w ATN) with no RBC casts or dysmorphic red cells hence, less likely that a glomerulonephritis is present (but low complements are concerning) follow pending serology holding BP medications to allow higher BP (in the hopes this will help with better renal blood flow) follow repeat labs and UOP (2) Acute respiratory failure with hypoxia and hypercapnia: Code(s): J96.01 - Acute respiratory failure with hypoxia; J96.02 - Acute respiratory failure with hypercapnia Status: Acute Assessment and Plan: multifactorial etiology: fluid overload atelectasis due to bedbound status and obesity COPD exacerbation narcotic use pulmonary emboli(?) undiagnosed REGINA(?) Pulmonary recommendations noted continue diuretics (for volume overload) started on steroid therapy (for COPD along with empiric levaquin) on anticoagulation for DVTs and possibility of PE PT/OT as tolerated (3) Hypertension: Code(s): I10 - Essential (primary) hypertension Status: Acute Assessment and Plan: BP well controlled -- perhaps too well controlled (was running in the 100s systolic range) holding BP medications to allow for a higher systolic BP follow trend of hemodynamics (4) Iron deficiency anemia: Code(s): D50.9 - Iron deficiency anemia, unspecified Status: Acute Assessment and Plan: on oral supplementation follow H/H (5) Renal calculi: Code(s): N20.0 - Calculus of kidney Status: Acute Assessment and Plan: seen by Urology stent in place (6) Transaminitis: Code(s): R74.01 - Elevation of levels of liver transaminase levels Status: Acute Assessment and Plan: LFTs seem to be improving follow trend related to previous/relative hypotension? Will continue to follow Subjective Date/time seen: 01/04/22 12:18 Respiratory status seems stable if not improved at the time of my visit; started on anticoagulation after venous dopplers positive for DVTs; good diuresis with IV lasix with improvement in renal function as well; no other acute events overnight or earlier this AM; seen by Pulmonary earlier today. Exam Narrative: General: WD/WN female in NAD Heart: normal S1 and S2; no rub Lungs: decreased at bases with some scant wheezes Abdomen: soft, nontender, nondistended, positive bowel sounds Extremities: no cyanosis or clubbing; 2+ edema Skin: warm and intact Objective Data Vital Signs Vital Signs: Vital Signs Temp Pulse Resp BP Pulse Ox O2 Del Method O2 Flow Rate 01/04/22 12:00 92 High Flow Nasal Cannula 10 01/04/22 12:00 111 H 01/04/22 12:00 36.4 C 91 20 136/57 L 94 01/04/22 11:00 High Flow Nasal Cannula 8 01/04/22 10:00 88 01/04/22 09:46 95 93 High Flow Nasal Cannula 8 01/04/22 10:00 95 18 01/04/22 08:00 92 High Flow Nasal Cannula 10 01/04/22 08:00 101 H 01/04/22 08:00 36.4 C 92 20 148/70 H 87 L 01/04/22 05:50 90 01/04/22 04:00 36.1 C L 96 18 158/59 H 91 01/04/22 04:00 92 20 100 High Flow Nasal
[2022-01-04] MEDS: MORPHINE SULFATE (*CRX) 2 MG/ML INJ 1 MG IV PUSH (12:37)
--- NOTE | 2022-01-04 17:30 | P.PNIM_ITS ---
Progress Note: A&P Assessment and Plan (1) Acute respiratory failure with hypoxia and hypercapnia: Code(s): J96.01 - Acute respiratory failure with hypoxia; J96.02 - Acute respiratory failure with hypercapnia Status: Acute Assessment and Plan: * rpt ABG and CXR in AM * Pulmonary consulted * Changed Bipap to AVAPS (2) Congestive heart failure: Code(s): I50.9 - Heart failure, unspecified Status: Acute Assessment and Plan: * Presented with shortness of breath * Daily weights, remains stable * 1 dose of Lasix given last night with good return, 40 mg IV Lasix started b.i.d. * 4+ pitting edema bilaterally up to the knee * Acute on chronic diastolic heart failure with exacerbation * Continue to diuresis with IV LASIX (3) COPD (chronic obstructive pulmonary disease): Code(s): J44.9 - Chronic obstructive pulmonary disease, unspecified Status: Acute Assessment and Plan: * Does currently smoke * Chest xray indicates atelectasis * continue neb treatments * Sputum culture ordered * Levaquin iv (4) JT (acute kidney injury): Code(s): N17.9 - Acute kidney failure, unspecified Status: Acute Assessment and Plan: * watch kidney function * Unknown baseline * Nephro on board (5) Transaminitis: Code(s): R74.01 - Elevation of levels of liver transaminase levels Status: Acute Assessment and Plan: * Continue to trend labs * RUQ ultrasound negative, but indicated edema * Hep panel negative * Could be related to fatty liver or congestion * appears to be resolving (6) Acute hyperkalemia: Code(s): E87.5 - Hyperkalemia Status: Acute Assessment and Plan: * K was 5.6 upon arrival, currently 4.8 * Received one dose of Lokelma in the ed * Continue to trend * Probably related to JT * Hold losartan for now (7) Renal calculi: Code(s): N20.0 - Calculus of kidney Status: Acute Assessment and Plan: * Urology consulted * Renal ultrasound does not show any hydronephrosis * CT did show stone with hydronephrosis * Stent placement placed 12/31/21 * (8) Pancolitis: Code(s): K51.00 - Ulcerative (chronic) pancolitis without complications Status: Acute Assessment and Plan: * CT of the abd/pelvis indicated fat stranding in the abdomen * Continue Levaquin (9) UTI (urinary tract infection): Code(s): N39.0 - Urinary tract infection, site not specified Status: Acute Assessment and Plan: * UA does appear to be highly infectious * Continue Levaquin * Urine culture showed no growth * ruled out (10) Morbid obesity: Code(s): E66.01 - Morbid (severe) obesity due to excess calories Status: Acute Assessment and Plan: * Life style changes * Diet modification * airline dispatcher consulted * 1800 calorie diet (11) Iron deficiency anemia: Code(s): D50.9 - Iron deficiency anemia, unspecified Status: Acute Assessment and Plan: * Trend H/H * Transfuse with Hgb <7.0 (12) Anxiety: Cod
--- NOTE | 2022-01-04 17:30 | PM.IMPN ---
Progress Note: A&P Assessment and Plan (1) Acute respiratory failure with hypoxia and hypercapnia: Code(s): J96.01 - Acute respiratory failure with hypoxia; J96.02 - Acute respiratory failure with hypercapnia Status: Acute Assessment and Plan: rpt ABG and CXR in AM Pulmonary consulted Changed Bipap to AVAPS (2) Congestive heart failure: Code(s): I50.9 - Heart failure, unspecified Status: Acute Assessment and Plan: Presented with shortness of breath Daily weights, remains stable 1 dose of Lasix given last night with good return, 40 mg IV Lasix started b.i.d. 4+ pitting edema bilaterally up to the knee Acute on chronic diastolic heart failure with exacerbation Continue to diuresis with IV LASIX (3) COPD (chronic obstructive pulmonary disease): Code(s): J44.9 - Chronic obstructive pulmonary disease, unspecified Status: Acute Assessment and Plan: Does currently smoke Chest xray indicates atelectasis continue neb treatments Sputum culture ordered Levaquin iv (4) JT (acute kidney injury): Code(s): N17.9 - Acute kidney failure, unspecified Status: Acute Assessment and Plan: watch kidney function Unknown baseline Nephro on board (5) Transaminitis: Code(s): R74.01 - Elevation of levels of liver transaminase levels Status: Acute Assessment and Plan: Continue to trend labs RUQ ultrasound negative, but indicated edema Hep panel negative Could be related to fatty liver or congestion appears to be resolving (6) Acute hyperkalemia: Code(s): E87.5 - Hyperkalemia Status: Acute Assessment and Plan: K was 5.6 upon arrival, currently 4.8 Received one dose of Lokelma in the ed Continue to trend Probably related to JT Hold losartan for now (7) Renal calculi: Code(s): N20.0 - Calculus of kidney Status: Acute Assessment and Plan: Urology consulted Renal ultrasound does not show any hydronephrosis CT did show stone with hydronephrosis Stent placement placed 12/31/21 (8) Pancolitis: Code(s): K51.00 - Ulcerative (chronic) pancolitis without complications Status: Acute Assessment and Plan: CT of the abd/pelvis indicated fat stranding in the abdomen Continue Levaquin (9) UTI (urinary tract infection): Code(s): N39.0 - Urinary tract infection, site not specified Status: Acute Assessment and Plan: UA does appear to be highly infectious Continue Levaquin Urine culture showed no growth ruled out (10) Morbid obesity: Code(s): E66.01 - Morbid (severe) obesity due to excess calories Status: Acute Assessment and Plan: Life style changes Diet modification treater helper consulted 1800 calorie diet (11) Iron deficiency anemia: Code(s): D50.9 - Iron deficiency anemia, unspecified Status: Acute Assessment and Plan: Trend H/H Transfuse with Hgb <7.0 (12) Anxiety: Code(s): F41.9 - Anxiety disorder, unspecified Status: Acute Assessment and Plan: Continue Ativan Continue to trend mood Adjust therapy as indicated (13) Pneumonia: Code(s): J18.9 - Pneumonia, unspecified organism Status: Acute Assessment and Plan: chest x-rays shows opacities related to pneumonia continue Levaquin sputum culture still ordered and pending Subjective Date/time seen: 01/04/22 17:30 Interval history: 01/04/22 Patient still needing BIPAP Pt admitted for Pneumonia, Copd exacerbation and CHF exacerbation Seen by Nephrology and Pulmonology. Advised to start physical therapy today continue iv lasix, iv steroids and iv levaquin Rpt ABG in AM hope
[2022-01-05] VITALS (27 sets, daily range): BP systolic 121–164; BP diastolic 52–66; PULSE 66–97; RESP 18–24; TEMP 36.1–37.3; O2SAT 92–100
[2022-01-05] MEDS: ALBUTEROL SULFATE NEB 2.5 MG/3 ML INH INHALATION ×6 (01:05→18:17)
[2022-01-05] MEDS: IPRATROPIUM BR 0.02% INH SOLN 0.5 MG/2.5 ML VIAL INHALATION ×6 (01:05→18:18)
[2022-01-05] MEDS: HYDROcodone/acetaminophen (*CRX) 10-325 MG TABLET 1 TAB PO ×3 (04:37→22:21)
[2022-01-05 05:16] LABS: Alveolar/Arterial O2 Gradient 177.9 mmHg; Base Excess ABG 10.5 mEq/l (+/-2.0); Fractional Inspired Oxygen 45 %; HCO3 ABG 37.2 mEq/l (22.0-26.0); Oxygen Content ABG 16.3 %vol (16.0-22.0); Oxygen Saturation ABG 94.7 % (95.0-100.0); Oxyhemoglobin 94.1 % THb (90.0-100.0); PO2 ABG 74.5 mmHg (80.0-100.0); PO2 FiO2 Ratio Arterial Blood 1.66 %; Total Hemoglobin 12.3 g/dL (12.0-18.0); pH ABG 7.409 (7.350-7.450)
[2022-01-05 05:20] LABS: Modified Allen's Test Pass; PCO2 ABG 60.2 mmHg (35.0-45.0); Site Drawn RIGHT RADIAL
[2022-01-05 05:22] LABS: Device OTHER DEVICE; Non-Invasive Expiratory Pressure 4 CMH2O; Non-Invasive Vent Rate 18 /MIN
--- NOTE | 2022-01-05 07:01 | WPDGIPROGNO ---
Progress Note: A&P Assessment and Plan (1) Transaminitis: Code(s): R74.01 - Elevation of levels of liver transaminase levels Status: Acute Assessment and Plan: Her liver enzymes continue to decrease. ALT is only 1 still elevated but coming down nicely. She has no prior history of liver disease. I asked about family history, she states that her brother has a fatty liver. Her ANDREW was positive. I am therefore obtaining a liver kidney mouse antibody to rule out autoimmune liver disease. She added that her sister has lupus, when I explained to her what they ANDREW indicates. (2) Morbid obesity: Code(s): E66.01 - Morbid (severe) obesity due to excess calories Status: Acute Assessment and Plan: She knows that she needs to lose weight. I told her that a fatty liver a can lead to cirrhosis. The main risk factors are 1. female gender 2. obesity, and 3. diabetes. She does not have a primary care physician in the area it will be looking for 1. I told her that I would need to see her in the office a month or 2 after discharge to recheck her liver enzymes. (3) Pancolitis: Code(s): K51.00 - Ulcerative (chronic) pancolitis without complications Status: Acute Assessment and Plan: In my pain in her never was any evidence of colitis. She has had no diarrhea. The CT scan did not show any edema of the colon at all. Somewhere along the line there was an assumption that she might have colitis because there was some fat stranding in the abdomen, which in retrospect was likely edema. I have discontinued Levaquin. Plan Her clinical course and the drop in her liver enzymes is consistent with the regional diagnosis of passive hepatic congestion. However she does have a fatty liver. Also ANDREW is positive. I told her therefore that she will need to be followed as an outpatient. I will see her in the office For follow-up in a couple months. Subjective Date/time seen: 01/05/22 07:01 She states that she is feeling well but she does not think that she is anywhere close to being ready to be discharged. She denies gastrointestinal complaints. She has not had diarrhea. We discussed the fact that her liver enzymes, which were markedly elevated on admission have come down almost completely to normal. I discussed with her of her fatty liver. She told me that her brother also has fatty liver. Exam Const: General: alert, tired appearing, obese and edematous Nutritional Appearance: obese morbidly obese Orientation/consciousness: patient oriented x3 Resp: Auscultation: diminished lung sounds Cardio: Rhythm: regular rhythm GI: Inspection: Pannus present and obesity GI Palp: Yes Soft to palpation and No Tenderness to palpation present (GI) Neuro: General: patient oriented x3 Objective Data Vital Signs Vital Signs: Vital Signs - 24 hr 01/04/22 08:00 01/04/22 08:00 01/04/22 08:00 Temperature 36.4 C Pulse Rate 92 101 H Respiratory Rate 20 Blood Pressure 148/70 H Pulse Oximetry 87 L 92 Oxygen Delivery High Flow Nasal Cannula Oxygen Flow Rate 10 Fraction of Inspired Oxygen 01/04/22 10:00 01/04/22 09:46 01/04/22 10:00 Temperature Pulse Rate 95 95 88 Respiratory Rate 18 Blood Pressure Pulse Oximetry 93 Oxygen Delivery High Flow Nasal Cannula Oxygen Flow Rate 8 Fraction of Inspired Oxygen 01/04/22 11:00 01/04/22 12:00 01/04/22 12:00 Temperature 36.4 C Pulse Rate 91 111 H Respiratory Rate 20 Blood Pressure 136/57 L Pulse Oximetry 94 Oxygen Delivery High Flow Nasal Cannula Oxygen Flow Rate 8 Fraction of Inspired Oxygen 01/04/22 12:00 01/04/22 10:12 01/04/22 14:25 Temperature Pulse Rate 92 82 Respiratory Rate 18 18 Blood Pressure Pulse Oximetry 92 Oxygen Delivery High Flow Nasal Cannula Oxygen Flow Rate 10 Fraction of Inspired Oxygen 01/04/22 14:35 01/04/22 14:00 01/04/22 15:30 Temper
[2022-01-05 08:03] LABS: Alanine Aminotransferase 155 U/L (6-35); Alkaline Phosphatase 64 U/L (38-126); Anion Gap 7 mmol/L (8-16); Aspartate Amino Transferase 68 U/L (14-36); Blood Urea Nitrogen 38 mg/dL (7-17); Calcium 7.8 mg/dL (8.4-10.2); Carbon Dioxide 28 mmol/L (22-30); Chloride 97 mmol/L (98-107); Estimated CRCL calculation 61 ml/min; Estimated Glomerular Filt Rate 38; Glucose 104 mg/dL (65-110); Potassium 4.6 mmol/L (3.4-5.0); Sodium 132 mmol/L (137-145)
[2022-01-05] MEDS: ENOXAPARIN 80 MG/0.8 ML SYRINGE 150 MG SUB-Q (08:29)
[2022-01-05] MEDS: FERROUS SULFATE 324 MG TABLET PO (08:30)
[2022-01-05] MEDS: predniSONE 20 MG TABLET 40 MG PO (08:30)
[2022-01-05] MEDS: GABAPENTIN 300 MG CAPSULE PO ×3 (08:30→16:19)
[2022-01-05] MEDS: FUROSEMIDE INJ 40 MG/4 ML VIAL IV PUSH ×2 (08:31→16:19)
[2022-01-05 08:47] LABS: Hematocrit 41.3 % (37.0-47.0); Hemoglobin 11.9 g/dL (12.0-15.0); Immature Platelet Fraction Pct 3.1 % (0.9-11.2); Mean Corpuscular HGB Conc 28.8 g/dl (32-36); Mean Corpuscular Hemoglobin 25.1 pg (26-34); Mean Corpuscular Volume 86.9 fl (80-100); Platelet Count Result 157 k/mm3 (150-375); Red Blood Count 4.75 M/mm3 (4.2-5.4)
[2022-01-05] MEDS: MORPHINE SULFATE (*CRX) 2 MG/ML INJ 1 MG IV PUSH (10:11)
--- NOTE | 2022-01-05 11:00 | PM.PNPUL ---
Progress Note: A&P Assessment and Plan (1) Acute respiratory failure with hypoxia and hypercapnia: Code(s): J96.01 - Acute respiratory failure with hypoxia; J96.02 - Acute respiratory failure with hypercapnia Status: Acute Assessment and Plan: Patient presented with hypoxemic respiratory failure with a blood gas of 7.39/47/93 on 100% non-rebreather. She had no evidence of hypercarbic respiratory failure on this blood gas. In addition her admission bicarb was 28. This does not suggest she has chronic hypercarbic respiratory failure from COPD or obesity hypoventilation syndrome. TSH on 12/31/2021 was 0.55 to normal. she was 6 L positive through 01/02/2022, has developed a small right pleural effusion and increased interstitial infiltrates on her chest x-ray. Her BNP is improved but still of elevated at 7090. She has Right ventricular enlargement and decreased right ventricular function consistent with right heart failure and anasarca. Patient currently has hypoxemic respiratory failure in the etiology of this includes fluid overload, small pleural effusion, atelectasis from being bedbound and morbidly obese, COPD exacerbation, narcotic use and possible pulmonary emboli and possible untreated sleep related breathing disorder.. 01/04 agree with IV Lasix diuresis as tolerated by her cardiac and renal Systems. She is -3.6 L in the last 36 hours And has improved clinically and her oxygen is now down to 7 L nasal cannula. Agree with dress of physical therapy with an attempt to get her out of bed. I will treat her COPD exacerbation as below. Avoid hydrocodone use. Patient is on full-dose Lovenox for her below the knee DVT and I agree with this at this time. I would not perform a CT angiogram of the chest or a perfusion scan. She will need an outpatient polysomnogram. 01/05 patient states that her breathing feels normal today. She denies cough, mucus production, blood, hemoptysis or chest pain. Attempted to wear the NIV with AVAPS mode last night and she said it was difficult to wear and she could not sleep. Currently on 6 L nasal cannula with saturations 96%. She diuresed 3.7 L yesterday. She has expiratory wheezes left greater than right today. Oxygenation is slowly improving with diuresis, treatment for possible pulmonary embolism and COPD exacerbation. She does not tolerate noninvasive ventilation and I will discontinue at this time. Discussed with Dr. Handley. Will follow with you. (2) COPD (chronic obstructive pulmonary disease): Code(s): J44.9 - Chronic obstructive pulmonary disease, unspecified Status: Acute Assessment and Plan: Patient has a 46 pack year tobacco use and is currently smoking and was exposed to secondhand smoke from both parents and her who she currently lives with. She has been diagnosed with COPD and had PFTs many years ago in [place] I do not have those results. At baseline she can walk 20 ft and her last hospitalization was approximately 8 years ago. Today the patient has bilateral expiratory wheezing and I will place her on prednisone 40 mg p.o. q.day. I will continue albuterol and ipratropium nebulizers q.4 hours. Patient is on Levaquin initially for a urinary tract infection and I we continue this. She was started on 12/30 and today is day 6. 01/05 Patient with continued wheezes and she is on day 2 a prednisone 40 mg p.o. q.day, will continue albuterol and ipratropium nebulizers q.4 hours. Levaquin was started on 12/30 and she received her last dose on 01/05. (3) DVT (deep venous thrombosis): Code(s): I82.409 - Acute embolism and thrombosis of unspecified deep veins of unspecified lower extremity Status: Acute Assessment and Plan: Patient has hypoxemic and hypercarbic respiratory failure with below the knee left posterior tibial and peroneal vein thrombus. The patient may have had a PE. I agree with full-dose Lo
--- NOTE | 2022-01-05 12:04 | PM.IMPN ---
Progress Note: A&P Assessment and Plan (1) Acute respiratory failure with hypoxia and hypercapnia: Code(s): J96.01 - Acute respiratory failure with hypoxia; J96.02 - Acute respiratory failure with hypercapnia Status: Acute Assessment and Plan: Attempted to wear the NIV with AVAPS mode last night and she said it was difficult to wear and she could not sleep. Currently on 6 L nasal cannula with saturations 96%. She diuresed 3.7 L yesterday. She has expiratory wheezes left greater than right today. discontinue noninvasive ventilation per Pulmonary. Continue IV Lasix (2) COPD (chronic obstructive pulmonary disease): Code(s): J44.9 - Chronic obstructive pulmonary disease, unspecified Status: Acute Assessment and Plan: she is on day 2 a prednisone 40 mg p.o. q.day, will continue albuterol and ipratropium nebulizers q.4 hours. Levaquin was started on 12/30 and she received her last dose on 01/05. (3) DVT (deep venous thrombosis): Code(s): I82.409 - Acute embolism and thrombosis of unspecified deep veins of unspecified lower extremity Status: Acute Assessment and Plan: patient is tolerated full dose Lovenox and at this time I would switch her to a DOAC Subjective Date/time seen: 01/05/22 12:04 patient states her breathing is a little better. Pedal edema has improved Review of Systems Constitutional: Constitutional: Reports no additional constitutional complaints Eyes: Eyes: Reports no additional eye complaints ENT: Reports system reviewed and no additional complaints, except as documented Cardiovascular: Cardiovascular: Reports no additional cardiovascular complaints Respiratory: Respiratory: Reports no additional respiratory complaints Gastrointestinal: Gastrointestinal: Reports no additional gastrointestinal complaints Musculoskeletal: Musculoskeletal: Reports no additional musculoskeletal complaints Neurologic: Reports system reviewed and no additional complaints, except as documented Psychiatric: Psychiatric: Reports no additional psychiatric complaints Endocrine: Endocrine: Reports no additional endocrine complaints Hematologic/Lymphatic: Hematologic/Lymphatic: Reports no additional hematologic/lymphatic complaints Allergic/Immunologic: Allergic/Immunologic: Reports no additional allergic/immunologic complaints Exam Narrative: morbidly obese Const: General: cooperative, healthy appearing and comfortable Orientation/consciousness: oriented to person, oriented to place and oriented to time HENMT: Head: normal to inspection Ears: hearing grossly normal bilaterally Eyes: General: appearance normal, both eyes and all related structures Neck: Neck: normal visual inspection Chest: Chest palpation & inspection: normal inspection of the chest Resp: Effort & Inspection: normal respiratory effort and able to speak in complete sentences Auscultation: no crackles, no rales, no rhonchi, wheezes and diminished lung sounds Cardio: Jugular venous distension: no JVD GI: Inspection: normal to inspection Skin: General skin exam: normal color Neuro: General: oriented to person, oriented to place and oriented to time Extrem: General: abnormal to inspection and edema Psych: Appearance: grossly normal Objective Data Vital Signs Vital Signs: Vital Signs - 24 hr 01/04/22 14:25 01/04/22 14:35 01/04/22 14:00 Temperature Pulse Rate 82 86 93 Respiratory Rate 18 18 Blood Pressure Pulse Oximetry Oxygen Delivery Oxygen Flow Rate Fraction of Inspired Oxygen 01/04/22 15:30 01/04/22 16:00 01/04/22 16:00 Temperature 97 F L Pulse Rate 90 97 Respiratory Rate 24 H Blood Pressure 160/66 H Pulse Oximetry 92 91 Oxygen Delivery High Flow Nasal Cannula Oxygen Flow Rate 10 Fraction of Inspired Oxygen 01/04/22 20:52 01/04/22 20:00 01/04/22 20:00 Temperature 98.0 F Pulse Rate 88 80 Respiratory Rate 22 H
--- NOTE | 2022-01-05 12:30 | PM.PNNEP ---
Progress Note: A&P Assessment and Plan (1) Abnormal results of kidney function studies: Code(s): R94.4 - Abnormal results of kidney function studies Status: Acute Assessment and Plan: acute versus chronic versus acute on chronic(?) renal function improving in the last few days suspect ATN and possibly obstruction as etiology evaluation to date: CT showed right hydronephrosis ultrasound showed no hydronephrosis s/p stent placement by Urology urine electrolytes are pre renal ~ 280mg of proteinuria UA with blood and white cells urine culture as well as blood cultures negative echo shows good LV and it is also hyperdynamic complements low risk factors for kidney disease include hypertension and probably some vascular disease +/- REGINA s/p stent placement by Urology urine sediment (as noted by Dr. Shannon) with muddy brown casts (c/w ATN) with no RBC casts or dysmorphic red cells hence, less likely that a glomerulonephritis is present (but low complements are concerning) follow pending serology follow repeat labs and UOP (2) Acute respiratory failure with hypoxia and hypercapnia: Code(s): J96.01 - Acute respiratory failure with hypoxia; J96.02 - Acute respiratory failure with hypercapnia Status: Acute Assessment and Plan: multifactorial etiology: fluid overload atelectasis due to bedbound status and obesity COPD exacerbation narcotic use pulmonary emboli(?) undiagnosed REGINA(?) Pulmonary recommendations noted continue diuretics (for volume overload) on steroid therapy (for COPD along with empiric levaquin) on anticoagulation for DVTs and possibility of PE PT/OT as tolerated (3) Hypertension: Code(s): I10 - Essential (primary) hypertension Status: Acute Assessment and Plan: BP doing better had been holding BP medications to allow for a higher systolic BP probably okay to slow restart anti-HTN medications as needed follow trend of hemodynamics (4) Iron deficiency anemia: Code(s): D50.9 - Iron deficiency anemia, unspecified Status: Acute Assessment and Plan: on oral supplementation follow H/H (5) Renal calculi: Code(s): N20.0 - Calculus of kidney Status: Acute Assessment and Plan: seen by Urology stent in place (6) Transaminitis: Code(s): R74.01 - Elevation of levels of liver transaminase levels Status: Acute Assessment and Plan: LFTs seem to be improving GI following follow trend Will continue to follow Subjective Date/time seen: 01/05/22 12:30 Respiratory status continues to slowly improve over the last few days; continues to diurese quite well with IV lasix with stability if not improvement in renal function/creatinine; weaned down to 4L oxygen by nasal cannula; still having difficultly tolerating BiPAP therapy at night (with regard to mask); no apparent distress. Exam Narrative: General: WD/WN female in NAD Heart: normal S1 and S2; no rub Lungs: decreased at bases with some scant wheezes Abdomen: soft, nontender, nondistended, positive bowel sounds Extremities: no cyanosis or clubbing; 2+ edema Skin: warm and intact Objective Data Vital Signs Vital Signs: Vital Signs Temp Pulse Resp BP Pulse Ox O2 Del Method O2 Flow Rate 01/05/22 12:00 83 01/05/22 12:00 36.3 C L 88 22 H 164/61 H 93 01/05/22 11:24 97 High Flow Nasal Cannula 4 01/05/22 08:00 83 01/05/22 10:00 85 01/05/22 11:23 93 High Flow Nasal Cannula 4 01/05/22 11:12 77 18 01/05/22 11:05 78 20 01/05/22 08:00 93 High Flow Nasal Cannula 6 01/05/22 08:00 36.1 C L 81 18 154/65 H 97 01/05/22 09:12 High Flow Therapy with Na 7 01/05/22 08:58 96 High Flow Nasal Cannula 6 01/05/22 08:45 83 22 H 01/05/22 05:52 78 01/05/22 05:14 76 24 H 01/05/22 05:00
--- NOTE | 2022-01-05 12:30 | P.PNNP_ITS ---
Progress Note: A&P Assessment and Plan (1) Abnormal results of kidney function studies: Code(s): R94.4 - Abnormal results of kidney function studies Status: Acute Assessment and Plan: * acute versus chronic versus acute on chronic(?) * renal function improving in the last few days * suspect ATN and possibly obstruction as etiology * evaluation to date: * CT showed right hydronephrosis * ultrasound showed no hydronephrosis * s/p stent placement by Urology * urine electrolytes are pre renal * ~ 280mg of proteinuria * UA with blood and white cells * urine culture as well as blood cultures negative * echo shows good LV and it is also hyperdynamic * complements low * risk factors for kidney disease include hypertension and probably some vascular disease +/- REGINA * s/p stent placement by Urology * urine sediment (as noted by Dr. Shannon) with muddy brown casts (c/w ATN) with no RBC casts or dysmorphic red cells * hence, less likely that a glomerulonephritis is present (but low complements are concerning) * follow pending serology * follow repeat labs and UOP (2) Acute respiratory failure with hypoxia and hypercapnia: Code(s): J96.01 - Acute respiratory failure with hypoxia; J96.02 - Acute respiratory failure with hypercapnia Status: Acute Assessment and Plan: * multifactorial etiology: * fluid overload * atelectasis due to bedbound status and obesity * COPD exacerbation * narcotic use * pulmonary emboli(?) * undiagnosed REGINA(?) * Pulmonary recommendations noted * continue diuretics (for volume overload) * on steroid therapy (for COPD along with empiric levaquin) * on anticoagulation for DVTs and possibility of PE * PT/OT as tolerated (3) Hypertension: Code(s): I10 - Essential (primary) hypertension Status: Acute Assessment and Plan: * BP doing better * had been holding BP medications to allow for a higher systolic BP * probably okay to slow restart anti-HTN medications as needed * follow trend of hemodynamics (4) Iron deficiency anemia: Code(s): D50.9 - Iron deficiency anemia, unspecified Status: Acute Assessment and Plan: * on oral supplementation * follow H/H (5) Renal calculi: Code(s): N20.0 - Calculus of kidney Status: Acute Assessment and Plan: * seen by Urology * stent in place (6) Transaminitis: Code(s): R74.01 - Elevation of levels of liver transaminase levels Status: Acute Assessment and Plan: * LFTs seem to be improving * GI following * follow trend Will continue to follow Subjective Date/time seen: 01/05/22 12:30 Respiratory status continues to slowly improve over the last few days; continues to diurese quite well with IV lasix with stability if not improvement in renal function/creatinine; weaned down to 4L oxygen by nasal cannula; still having difficultly tolerating BiPAP therapy at night (with regard to mask); no apparent distress. Exam Narrative: General: WD/WN female in NAD Heart: normal S1 and S2; no rub Lungs: decreased at bases with some scant wheezes Abdomen: soft, nontender, nondistended, positive bowel sounds Extremities: no cyanosis or clubbing; 2+ edema Skin: warm and intact Objective Data Vital Signs Vital Signs: Vital Signs Temp Pulse Resp BP Pulse O
--- NOTE | 2022-01-05 12:39 | PCOTNOTE ---
Attempted to see patient this date, however patient refused stating, Honey, I've already been up today. I'm too tired right now. I just started to close my eyes when you came in. I'm sorry.
[2022-01-05] MEDS: APIXABAN 5 MG TABLET 10 MG PO (20:18)
[2022-01-06] VITALS (20 sets, daily range): BP systolic 137–150; BP diastolic 51–61; PULSE 70–95; RESP 14–20; TEMP 36.4–36.8; O2SAT 90–99
[2022-01-06] MEDS: IPRATROPIUM BR 0.02% INH SOLN 0.5 MG/2.5 ML VIAL INHALATION ×4 (00:58→20:57)
[2022-01-06] MEDS: ALBUTEROL SULFATE NEB 2.5 MG/3 ML INH INHALATION ×4 (00:58→20:57)
[2022-01-06] MEDS: HYDROcodone/acetaminophen (*CRX) 10-325 MG TABLET 1 TAB PO ×4 (04:27→23:55)
--- NOTE | 2022-01-06 05:46 | PCRCNOTE ---
Patient refused 0400 treatment stating she wanted to sleep. Treatments will resume at 0800.
[2022-01-06] MEDS: GABAPENTIN 300 MG CAPSULE PO ×3 (08:32→16:51)
[2022-01-06] MEDS: FERROUS SULFATE 324 MG TABLET PO (08:32)
[2022-01-06] MEDS: predniSONE 20 MG TABLET 40 MG PO (08:32)
[2022-01-06] MEDS: APIXABAN 5 MG TABLET 10 MG PO ×2 (08:33→20:13)
[2022-01-06] MEDS: FUROSEMIDE INJ 40 MG/4 ML VIAL IV PUSH ×2 (08:33→16:51)
--- NOTE | 2022-01-06 08:46 | PCPTNOTE ---
Attempted to see patient for PT, however patient was eating breakfast and asked PT to come back later.
--- NOTE | 2022-01-06 10:34 | PM.IMPN ---
Progress Note: A&P Assessment and Plan (1) Acute respiratory failure with hypoxia and hypercapnia: Code(s): J96.01 - Acute respiratory failure with hypoxia; J96.02 - Acute respiratory failure with hypercapnia Status: Acute Assessment and Plan: Attempted to wear the NIV with AVAPS mode last night and she said it was difficult to wear and she could not sleep. Currently on 6 L nasal cannula with saturations 96%. She diuresed 3.7 L yesterday. She has expiratory wheezes left greater than right today. discontinue noninvasive ventilation per Pulmonary. Continue IV Lasix (2) COPD (chronic obstructive pulmonary disease): Code(s): J44.9 - Chronic obstructive pulmonary disease, unspecified Status: Acute Assessment and Plan: she is on day 3 a prednisone 40 mg p.o. q.day, will continue albuterol and ipratropium nebulizers q.4 hours. Levaquin was started on 12/30 and she received her last dose on 01/05. (3) DVT (deep venous thrombosis): Code(s): I82.409 - Acute embolism and thrombosis of unspecified deep veins of unspecified lower extremity Status: Acute Assessment and Plan: patient is currently on Eliquis. Subjective Date/time seen: 01/06/22 10:34 patient was seen during the morning rounds today. Patient breathing is better. Decreased shortness of breath. No chest pain. No abdominal pain, no nausea, no vomiting. Mood stable. Review of Systems Review of Systems: All systems reviewed & are unremarkable except as noted in HPI and below Constitutional: Constitutional: Reports no additional constitutional complaints Eyes: Eyes: Reports no additional eye complaints ENT: Reports system reviewed and no additional complaints, except as documented and Reports Normal hearing present Cardiovascular: Cardiovascular: Reports no additional cardiovascular complaints Respiratory: Respiratory: Reports no additional respiratory complaints Gastrointestinal: Gastrointestinal: Reports no additional gastrointestinal complaints Musculoskeletal: Musculoskeletal: Reports no additional musculoskeletal complaints Neurologic: Reports system reviewed and no additional complaints, except as documented and Reports Normal hearing present Psychiatric: Psychiatric: Reports no additional psychiatric complaints Endocrine: Endocrine: Reports no additional endocrine complaints Hematologic/Lymphatic: Hematologic/Lymphatic: Reports no additional hematologic/lymphatic complaints Allergic/Immunologic: Allergic/Immunologic: Reports no additional allergic/immunologic complaints Exam Narrative: morbidly obese Const: General: cooperative, healthy appearing, comfortable, no acute distress, well developed, alert, awake, acute distress (anxiety) moderate, anxious, well nourished, obese and overweight Nutritional Appearance: well nourished, obese and overweight Orientation/consciousness: oriented to person, oriented to place, oriented to time and patient oriented x3 Limitations: physical limitations HENMT: Head: normal to inspection Ears: hearing grossly normal bilaterally Face/Nose/Sinus: Normal external nose present Mouth: Yes Normal oral and palatal mucosa present, Yes lip normal and Yes tongue normal Teeth and gingiva: abnormal tooth and associated gingiva and poor dentition Eyes: General: appearance normal, both eyes and all related structures Pupils: Equal, round and reactive pupils present Neck: Neck: normal visual inspection, full ROM, trachea midline and supple Chest: Chest palpation & inspection: normal inspection of the chest Resp: Effort & Inspection: normal respiratory effort and able to speak in complete sentences Auscultation: no crackles, no rales, no rhonchi, wheezes expiratory wheezes and scattered wheezes and diminished lung sounds bilateral Cardio: Jugular venous distension: no JVD Rate: regular rate Rhythm: regular rhythm Heart sounds: S1 normal heart sound present and S2 nor
[2022-01-06] MEDS: LOPERAMIDE HCL 2 MG CAPSULE PO (10:52)
--- NOTE | 2022-01-06 10:52 | PM.PNPUL ---
Progress Note: A&P Assessment and Plan (1) Acute respiratory failure with hypoxia and hypercapnia: Code(s): J96.01 - Acute respiratory failure with hypoxia; J96.02 - Acute respiratory failure with hypercapnia Status: Acute Assessment and Plan: Patient presented with hypoxemic respiratory failure with a blood gas of 7.39/47/93 on 100% non-rebreather. She had no evidence of hypercarbic respiratory failure on this blood gas. In addition her admission bicarb was 28. This does not suggest she has chronic hypercarbic respiratory failure from COPD or obesity hypoventilation syndrome. TSH on 12/31/2021 was 0.55 to normal. she was 6 L positive through 01/02/2022, has developed a small right pleural effusion and increased interstitial infiltrates on her chest x-ray. Her BNP is improved but still of elevated at 7090. She has Right ventricular enlargement and decreased right ventricular function consistent with right heart failure and anasarca. Patient currently has hypoxemic respiratory failure in the etiology of this includes fluid overload, small pleural effusion, atelectasis from being bedbound and morbidly obese, COPD exacerbation, narcotic use and possible pulmonary emboli and possible untreated sleep related breathing disorder.. 01/04 agree with IV Lasix diuresis as tolerated by her cardiac and renal Systems. She is -3.6 L in the last 36 hours And has improved clinically and her oxygen is now down to 7 L nasal cannula. Agree with dress of physical therapy with an attempt to get her out of bed. I will treat her COPD exacerbation as below. Avoid hydrocodone use. Patient is on full-dose Lovenox for her below the knee DVT and I agree with this at this time. I would not perform a CT angiogram of the chest or a perfusion scan. She will need an outpatient polysomnogram. 01/05 patient states that her breathing feels normal today. She denies cough, mucus production, blood, hemoptysis or chest pain. Attempted to wear the NIV with AVAPS mode last night and she said it was difficult to wear and she could not sleep. Currently on 6 L nasal cannula with saturations 96%. She diuresed 3.7 L yesterday. She has expiratory wheezes left greater than right today. Oxygenation is slowly improving with diuresis, treatment for possible pulmonary embolism and COPD exacerbation. She does not tolerate noninvasive ventilation and I will discontinue at this time. 01/06 Oxygenation is slowly improving with diuresis, treatment for possible pulmonary embolism and COPD exacerbation. patient wore 4 L nasal cannula overnight and did well. She has difficulty sleeping in the hospital. She slept better than she did when she attempted to wear the BiPAP. Currently her saturations are 91% on 4 L nasal cannula. She diuresed 1.4 L yesterday, and since admission she is now -2 L. wheezes are improved but persist left greater than white. Discussed with Dr. Macias. Will follow with you. (2) COPD (chronic obstructive pulmonary disease): Code(s): J44.9 - Chronic obstructive pulmonary disease, unspecified Status: Acute Assessment and Plan: Patient has a 46 pack year tobacco use and is currently smoking and was exposed to secondhand smoke from both parents and her who she currently lives with. She has been diagnosed with COPD and had PFTs many years ago in [place] I do not have those results. At baseline she can walk 20 ft and her last hospitalization was approximately 8 years ago. Today the patient has bilateral expiratory wheezing and I will place her on prednisone 40 mg p.o. q.day. I will continue albuterol and ipratropium nebulizers q.4 hours. Patient is on Levaquin initially for a urinary tract infection and I we continue this. She was started on 12/30 and today is day 6. 01/05 Patient with continued wheezes and she is on day 2 a prednisone 40 mg p.o. q.day, will continue albuterol and ipratropium nebulizers
--- NOTE | 2022-01-06 11:54 | PCNWS ---
Weekly nutritional screen. Patient is tolerating current Heart healthy diet with adequate intake at 100% all meals. No true weight loss, noted some changes from diuresis/lasix therapy. No nutritional needs at this time.
--- NOTE | 2022-01-06 12:51 | PC.NURSE ---
On 01/06/22, the student, [Loretta Sommers], provided care and completed [facility] documentation on this patient. I have reviewed the student's documentation and agree with the findings.
--- NOTE | 2022-01-06 13:19 | PCPTNOTE ---
Attempted to see patient for PT, however patient was working with OT at this time.
--- NOTE | 2022-01-06 13:39 | PM.PNNEP ---
Progress Note: A&P Assessment and Plan (1) Abnormal results of kidney function studies: Code(s): R94.4 - Abnormal results of kidney function studies Status: Acute Assessment and Plan: baseline renal function not clear - acute versus acute on chronic versus chronie more likely acute versus acute on chronic renal function improving in the last few days suspect ATN and possibly obstruction as etiology of JT/ARF evaluation to date: CT showed right hydronephrosis ultrasound showed no hydronephrosis s/p stent placement by Urology urine electrolytes are pre renal ~ 280mg of proteinuria UA with blood and white cells urine culture as well as blood cultures negative echo shows good LV and it is also hyperdynamic complements low risk factors for kidney disease include hypertension and probably some vascular disease +/- REGINA s/p stent placement by Urology urine sediment (as noted by Dr. Shannon) with muddy brown casts (c/w ATN) with no RBC casts or dysmorphic red cells hence, less likely that a glomerulonephritis is present (but low complements are concerning) follow pending serology follow repeat labs and UOP (2) Acute respiratory failure with hypoxia and hypercapnia: Code(s): J96.01 - Acute respiratory failure with hypoxia; J96.02 - Acute respiratory failure with hypercapnia Status: Acute Assessment and Plan: multifactorial etiology: fluid overload atelectasis due to bedbound status and obesity COPD exacerbation narcotic use pulmonary emboli(?) undiagnosed REGINA(?) Pulmonary recommendations noted continue diuretics (for volume overload) on steroid therapy (for COPD along with empiric levaquin) on anticoagulation for DVTs and possibility of PE PT/OT as tolerated (3) Hypertension: Code(s): I10 - Essential (primary) hypertension Status: Acute Assessment and Plan: BP doing better had been holding BP medications to allow for a higher systolic BP probably okay to slow restart anti-HTN medications as needed follow trend of hemodynamics (4) Iron deficiency anemia: Code(s): D50.9 - Iron deficiency anemia, unspecified Status: Acute Assessment and Plan: on oral supplementation follow H/H (5) Renal calculi: Code(s): N20.0 - Calculus of kidney Status: Acute Assessment and Plan: seen by Urology stent in place (6) Transaminitis: Code(s): R74.01 - Elevation of levels of liver transaminase levels Status: Acute Assessment and Plan: LFTs seem to be improving GI following follow trend Will continue to follow Subjective Date/time seen: 01/06/22 13:39 Continues to make slow and steady improvement with regard to respiratory status/breathing, renal function, and overall volume status; overall, she states that she feels significantly better; no issues or events overnight or earlier this morning. Exam Narrative: General: WD/WN female in NAD Heart: normal S1 and S2; no rub Lungs: decreased at bases with some scant wheezes Abdomen: soft, nontender, nondistended, positive bowel sounds Extremities: no cyanosis or clubbing; 1+ edema Skin: no rash Objective Data Vital Signs Vital Signs: Vital Signs Temp Pulse Resp BP Pulse Ox O2 Del Method O2 Flow Rate 01/06/22 12:05 93 01/06/22 12:00 36.4 C 95 20 149/56 H 99 01/06/22 10:00 36.4 C 72 20 150/61 H 92 01/06/22 10:59 90 High Flow Nasal Cannula 4 01/06/22 09:18 74 18 01/06/22 09:10 70 18 01/06/22 08:00 78 01/06/22 08:10 78 20 97 High Flow Nasal Cannula 4 01/06/22 04:00 36.8 C 78 20 147/51 H 97 01/06/22 01:06 76 18 01/05/22 23:10 95 High Flow Nasal Cannula 4 01/06/22 00:58 74 18 01/06/22 00:00 36.5 C 82 16 137/53 L 95 01/05/22 20:00 94 High Flow Nasal Cannula 4 01/05/22 20:00 36.7
--- NOTE | 2022-01-06 13:39 | P.PNNP_ITS ---
Progress Note: A&P Assessment and Plan (1) Abnormal results of kidney function studies: Code(s): R94.4 - Abnormal results of kidney function studies Status: Acute Assessment and Plan: * baseline renal function not clear - acute versus acute on chronic versus chronie * more likely acute versus acute on chronic * renal function improving in the last few days * suspect ATN and possibly obstruction as etiology of JT/ARF * evaluation to date: * CT showed right hydronephrosis * ultrasound showed no hydronephrosis * s/p stent placement by Urology * urine electrolytes are pre renal * ~ 280mg of proteinuria * UA with blood and white cells * urine culture as well as blood cultures negative * echo shows good LV and it is also hyperdynamic * complements low * risk factors for kidney disease include hypertension and probably some vascular disease +/- REGINA * s/p stent placement by Urology * urine sediment (as noted by Dr. Shannon) with muddy brown casts (c/w ATN) with no RBC casts or dysmorphic red cells * hence, less likely that a glomerulonephritis is present (but low complements are concerning) * follow pending serology * follow repeat labs and UOP (2) Acute respiratory failure with hypoxia and hypercapnia: Code(s): J96.01 - Acute respiratory failure with hypoxia; J96.02 - Acute respiratory failure with hypercapnia Status: Acute Assessment and Plan: * multifactorial etiology: * fluid overload * atelectasis due to bedbound status and obesity * COPD exacerbation * narcotic use * pulmonary emboli(?) * undiagnosed REGINA(?) * Pulmonary recommendations noted * continue diuretics (for volume overload) * on steroid therapy (for COPD along with empiric levaquin) * on anticoagulation for DVTs and possibility of PE * PT/OT as tolerated (3) Hypertension: Code(s): I10 - Essential (primary) hypertension Status: Acute Assessment and Plan: * BP doing better * had been holding BP medications to allow for a higher systolic BP * probably okay to slow restart anti-HTN medications as needed * follow trend of hemodynamics (4) Iron deficiency anemia: Code(s): D50.9 - Iron deficiency anemia, unspecified Status: Acute Assessment and Plan: * on oral supplementation * follow H/H (5) Renal calculi: Code(s): N20.0 - Calculus of kidney Status: Acute Assessment and Plan: * seen by Urology * stent in place (6) Transaminitis: Code(s): R74.01 - Elevation of levels of liver transaminase levels Status: Acute Assessment and Plan: * LFTs seem to be improving * GI following * follow trend Will continue to follow Subjective Date/time seen: 01/06/22 13:39 Continues to make slow and steady improvement with regard to respiratory status/breathing, renal function, and overall volume status; overall, she states that she feels significantly better; no issues or events overnight or earlier this morning. Exam Narrative: General: WD/WN female in NAD Heart: normal S1 and S2; no rub Lungs: decreased at bases with some scant wheezes Abdomen: soft, nontender, nondistended, positive bowel sounds Extremities: no cyanosis or clubbing; 1+ edema Skin: no rash Objective Data Vital Signs Vital Signs: Vital Signs Temp Pulse
--- NOTE | 2022-01-06 13:49 | PCPTNOTE ---
Attempted to see patient for PT at this time, however patient refused. Patient reported she just got down working with OT and is too pooped to work with PT or do anymore activity.
[2022-01-06 14:38] LABS: Albumin Level 3.3 g/dL (3.5-5.1); Anion Gap 9 mmol/L (8-16); Blood Urea Nitrogen 32 mg/dL (7-17); Carbon Dioxide 36 mmol/L (22-30); Chloride 94 mmol/L (98-107); Estimated CRCL calculation 60 ml/min; Estimated Glomerular Filt Rate 38; Glucose 200 mg/dL (65-110); Phosphorus 2.6 mg/dL (2.5-4.5); Potassium 3.7 mmol/L (3.4-5.0); Sodium 139 mmol/L (137-145)
[2022-01-07] VITALS (18 sets, daily range): BP systolic 143–178; BP diastolic 60–83; PULSE 69–102; RESP 12–22; TEMP 36–36.7; O2SAT 92–96
[2022-01-07] MEDS: MORPHINE SULFATE (*CRX) 2 MG/ML INJ 1 MG IV PUSH (04:43)
[2022-01-07 06:29] LABS: Alanine Aminotransferase 89 U/L (6-35); Albumin Level 3.1 g/dL (3.5-5.1); Alkaline Phosphatase 58 U/L (38-126); Anion Gap 6 mmol/L (8-16); Aspartate Amino Transferase 30 U/L (14-36); Bilirubin,Total 0.7 mg/dL (0.2-1.3); Blood Urea Nitrogen 33 mg/dL (7-17); Carbon Dioxide 39 mmol/L (22-30); Chloride 95 mmol/L (98-107); Estimated CRCL calculation 50 ml/min; Estimated Glomerular Filt Rate 46; Glucose 97 mg/dL (65-110); Potassium 3.8 mmol/L (3.4-5.0); Sodium 140 mmol/L (137-145)
[2022-01-07] MEDS: IPRATROPIUM BR 0.02% INH SOLN 0.5 MG/2.5 ML VIAL INHALATION ×3 (07:56→20:35)
[2022-01-07] MEDS: ALBUTEROL SULFATE NEB 2.5 MG/3 ML INH INHALATION ×3 (07:56→20:35)
--- NOTE | 2022-01-07 08:57 | PM.IMPN ---
Progress Note: A&P Assessment and Plan (1) Acute respiratory failure with hypoxia and hypercapnia: Code(s): J96.01 - Acute respiratory failure with hypoxia; J96.02 - Acute respiratory failure with hypercapnia Status: Acute Assessment and Plan: Multifactorial, likely secondary to COPD exacerbation as well as diastolic heart failure, down to 4 L nasal cannula Echo showed an EF greater than 70% with right ventricular chamber moderately enlarged, no significant valvular disease, no pulmonary hypertension noted Continue IV diuresis, fluid restriction, appreciate pulmonology consultation and management (2) COPD (chronic obstructive pulmonary disease): Code(s): J44.9 - Chronic obstructive pulmonary disease, unspecified Status: Acute Assessment and Plan: Continue steroids per pulmonology, DuoNebs, completed course of Levaquin (3) DVT (deep venous thrombosis): Code(s): I82.409 - Acute embolism and thrombosis of unspecified deep veins of unspecified lower extremity Status: Acute Assessment and Plan: Continue Eliquis (4) Renal calculi: Code(s): N20.0 - Calculus of kidney Status: Acute Assessment and Plan: Stent recently placed by urology on Dec 31, 2021, note from urology states patient may benefit from outpatient ESWL Plan DVT prophylaxis with Eliquis GI prophylaxis not indicated Code status full code Subjective Date/time seen: 01/07/22 08:57 Interval history: No overnight events noted. No chest pain. No nausea, vomiting or diarrhea. No fevers or chills. Still with SOB. Review of Systems Review of Systems: 12 point review of systems was assessed and was negative except as noted in the HPI Exam Narrative: General: No acute distress, alert and oriented per baseline HEENT: Atraumatic, normocephalic, mucous membranes moist CV: Regular rate and rhythm, S1, S2 Lungs: Clear to auscultation bilaterally, no rales or crackles noted, no wheezes, good air entry Abdomen: Soft, nontender, nondistended Extremities: Normal to inspection Skin: No rashes noted, no lesions or wounds seen Psych: Euthymic, normal affect Objective Data Vital Signs Vital Signs: Vital Signs - 24 hr 01/06/22 09:10 01/06/22 09:18 01/06/22 10:59 Temperature Pulse Rate 70 74 Respiratory Rate 18 18 Blood Pressure Pulse Oximetry 90 Oxygen Delivery High Flow Nasal Cannula Oxygen Flow Rate 4 01/06/22 10:00 01/06/22 12:00 01/06/22 12:05 Temperature 97.6 F 97.6 F Pulse Rate 72 95 93 Respiratory Rate 20 20 Blood Pressure 150/61 H 149/56 H Pulse Oximetry 92 99 Oxygen Delivery Oxygen Flow Rate 01/06/22 15:38 01/06/22 15:44 01/06/22 16:01 Temperature Pulse Rate 83 90 86 Respiratory Rate 18 18 Blood Pressure Pulse Oximetry Oxygen Delivery Oxygen Flow Rate 01/06/22 18:00 01/06/22 19:51 01/06/22 20:00 Temperature 97.6 F 97.6 F Pulse Rate 72 82 Respiratory Rate 20 16 Blood Pressure 150/61 H 146/54 H Pulse Oximetry 92 91 91 Oxygen Delivery Nasal Cannula Oxygen Flow Rate 4 01/06/22 20:00 01/06/22 21:00 01/06/22 21:00 Temperature Pulse Rate 79 80 80 Respiratory Rate 14 14 Blood Pressure Pulse Oximetry 98 Oxygen Delivery Nasal Cannula Oxygen Flow Rate 4 01/06/22 21:04 01/06/22 21:04 01/07/22 00:00 Temperature 97.6 F Pulse Rate 78 78 Respiratory Rate 14 20 Blood Pressure 163/61 H Pulse Oximetry 98 93 Oxygen Delivery Oxygen Flow Rate 01/07/22 00:00 01/07/22 03:50 01/07/22 04:00 Temperature 98.1 F Pulse Rate 102 H 95 71 Respiratory Rate 16 Blood Pressure 143/83 H Pulse Oximetry 95 Oxygen Delivery Oxygen Flow Rate 01/07/22 07:56 01/07/22 07:58 01/07/22 08:09 Temperature Pulse Rate 72 72 76 Respiratory Rate 16 16 16 Blood Pressure Pulse Oximetry 95 Oxygen Delivery Nasal Cannula Oxygen Flow Rate 4 01/07/22 08:00 Temper
[2022-01-07] MEDS: HYDROcodone/acetaminophen (*CRX) 10-325 MG TABLET 1 TAB PO ×3 (09:06→21:32)
[2022-01-07] MEDS: FUROSEMIDE INJ 40 MG/4 ML VIAL IV PUSH ×2 (09:09→16:52)
[2022-01-07] MEDS: GABAPENTIN 300 MG CAPSULE PO ×3 (09:09→16:51)
[2022-01-07] MEDS: FERROUS SULFATE 324 MG TABLET PO (09:10)
[2022-01-07] MEDS: APIXABAN 5 MG TABLET 10 MG PO ×2 (09:11→20:31)
[2022-01-07] MEDS: predniSONE 20 MG TABLET 40 MG PO (09:11)
[2022-01-07 11:42] LABS: Basophils Percent Auto 0.1 % (0.2-1.2); Eosinophils Absolute Auto 0.1 K/mm3 (0-0.3); Eosinophils Percent Auto 0.6 % (0-4.4); Hematocrit 41.4 % (37.0-47.0); Immature Granulocyte Percent A 1.3 % (0-0.5); Lymphocytes Absolute Auto 0.42 K/mm3 (0.9-3.2); Lymphocytes Percent Auto 5.3 % (18.3-44.2); Mean Corpuscular Hemoglobin 24.8 pg (26-34); Mean Corpuscular Volume 85.7 fl (80-100); Mean Platelet Volume 9.1 fl (7.4-10.4); Monocytes Absolute Auto 0.4 K/mm3 (0.1-0.6); Neutrophils Percent Auto 87.7 % (45.5-73.1); Platelet Count Result 180 k/mm3 (150-375); Red Blood Count 4.83 M/mm3 (4.2-5.4); Red Cell Distribution Width 16.9 % (11.5-14.5)
[2022-01-07 11:53] LABS: Alanine Aminotransferase 86 U/L (6-35); Albumin Level 3.4 g/dL (3.5-5.1); Alkaline Phosphatase 60 U/L (38-126); Anion Gap 11 mmol/L (8-16); Aspartate Amino Transferase 42 U/L (14-36); Bilirubin,Total 0.7 mg/dL (0.2-1.3); Blood Urea Nitrogen 31 mg/dL (7-17); Calcium 8.2 mg/dL (8.4-10.2); Carbon Dioxide 38 mmol/L (22-30); Chloride 92 mmol/L (98-107); Estimated CRCL calculation 54 ml/min; Estimated Glomerular Filt Rate 50; Glucose 212 mg/dL (65-110); Potassium 3.2 mmol/L (3.4-5.0); Sodium 141 mmol/L (137-145)
--- NOTE | 2022-01-07 12:38 | P.PNNP_ITS ---
Progress Note: A&P Assessment and Plan (1) Abnormal results of kidney function studies: Code(s): R94.4 - Abnormal results of kidney function studies Status: Acute Assessment and Plan: * baseline renal function not clear * more likely acute versus acute on chronic * renal function improving in the last few days * suspect ATN and possibly obstruction as etiology of JT/ARF * evaluation to date: * CT showed right hydronephrosis * ultrasound showed no hydronephrosis * s/p stent placement by Urology * urine electrolytes are pre renal * ~ 280mg of proteinuria * UA with blood and white cells * urine culture as well as blood cultures negative * echo shows good LV and it is also hyperdynamic * complements low * risk factors for kidney disease include hypertension and probably some vascular disease +/- REGINA * s/p stent placement by Urology * urine sediment (as noted by Dr. Shannon) with muddy brown casts (c/w ATN) with no RBC casts or dysmorphic red cells * hence, less likely that a glomerulonephritis is present (but low complements are concerning) * follow pending serology * follow repeat labs and UOP (2) Acute respiratory failure with hypoxia and hypercapnia: Code(s): J96.01 - Acute respiratory failure with hypoxia; J96.02 - Acute respiratory failure with hypercapnia Status: Acute Assessment and Plan: * multifactorial etiology: * fluid overload * atelectasis due to bedbound status and obesity * COPD exacerbation * narcotic use * pulmonary emboli(?) * undiagnosed REGINA(?) * Pulmonary recommendations noted * continue diuretics (for volume overload) * on steroid therapy (for COPD along with empiric levaquin) * on anticoagulation for DVTs and possibility of PE * PT/OT as tolerated (3) Hypertension: Code(s): I10 - Essential (primary) hypertension Status: Acute Assessment and Plan: * BP doing better * had been holding BP medications to allow for a higher systolic BP * probably okay to slow restart anti-HTN medications as needed * follow trend of hemodynamics (4) Iron deficiency anemia: Code(s): D50.9 - Iron deficiency anemia, unspecified Status: Acute Assessment and Plan: * on oral supplementation * follow H/H (5) Renal calculi: Code(s): N20.0 - Calculus of kidney Status: Acute Assessment and Plan: * seen by Urology * stent in place (6) Transaminitis: Code(s): R74.01 - Elevation of levels of liver transaminase levels Status: Acute Assessment and Plan: * LFTs seem to be improving * GI following * follow trend Not much else to add -- will continue follow from a distance. Subjective Date/time seen: 01/07/22 12:38 Continues to do well in general; noted slow and steady improvement in respiratory status/breathing (with ongoing diuresis) as well as renal function/ creatinine; no apparent distress noted; no issues/events overnight or earlier this morning. Exam Narrative: General: WD/WN female in NAD Heart: normal S1 and S2; no rub Lungs: decreased at bases Abdomen: soft, nontender, nondistended, positive bowel sounds Extremities: no cyanosis or clubbing; trace - 1+ edema Skin: no nodules Objective Data Vital Signs Vital Signs: Vital Signs Temp Pulse Resp BP Pulse Ox O2 Del Metho
--- NOTE | 2022-01-07 12:38 | PM.PNNEP ---
Progress Note: A&P Assessment and Plan (1) Abnormal results of kidney function studies: Code(s): R94.4 - Abnormal results of kidney function studies Status: Acute Assessment and Plan: baseline renal function not clear more likely acute versus acute on chronic renal function improving in the last few days suspect ATN and possibly obstruction as etiology of JT/ARF evaluation to date: CT showed right hydronephrosis ultrasound showed no hydronephrosis s/p stent placement by Urology urine electrolytes are pre renal ~ 280mg of proteinuria UA with blood and white cells urine culture as well as blood cultures negative echo shows good LV and it is also hyperdynamic complements low risk factors for kidney disease include hypertension and probably some vascular disease +/- REGINA s/p stent placement by Urology urine sediment (as noted by Dr. Shannon) with muddy brown casts (c/w ATN) with no RBC casts or dysmorphic red cells hence, less likely that a glomerulonephritis is present (but low complements are concerning) follow pending serology follow repeat labs and UOP (2) Acute respiratory failure with hypoxia and hypercapnia: Code(s): J96.01 - Acute respiratory failure with hypoxia; J96.02 - Acute respiratory failure with hypercapnia Status: Acute Assessment and Plan: multifactorial etiology: fluid overload atelectasis due to bedbound status and obesity COPD exacerbation narcotic use pulmonary emboli(?) undiagnosed REGINA(?) Pulmonary recommendations noted continue diuretics (for volume overload) on steroid therapy (for COPD along with empiric levaquin) on anticoagulation for DVTs and possibility of PE PT/OT as tolerated (3) Hypertension: Code(s): I10 - Essential (primary) hypertension Status: Acute Assessment and Plan: BP doing better had been holding BP medications to allow for a higher systolic BP probably okay to slow restart anti-HTN medications as needed follow trend of hemodynamics (4) Iron deficiency anemia: Code(s): D50.9 - Iron deficiency anemia, unspecified Status: Acute Assessment and Plan: on oral supplementation follow H/H (5) Renal calculi: Code(s): N20.0 - Calculus of kidney Status: Acute Assessment and Plan: seen by Urology stent in place (6) Transaminitis: Code(s): R74.01 - Elevation of levels of liver transaminase levels Status: Acute Assessment and Plan: LFTs seem to be improving GI following follow trend Not much else to add -- will continue follow from a distance. Subjective Date/time seen: 01/07/22 12:38 Continues to do well in general; noted slow and steady improvement in respiratory status/breathing (with ongoing diuresis) as well as renal function/creatinine; no apparent distress noted; no issues/events overnight or earlier this morning. Exam Narrative: General: WD/WN female in NAD Heart: normal S1 and S2; no rub Lungs: decreased at bases Abdomen: soft, nontender, nondistended, positive bowel sounds Extremities: no cyanosis or clubbing; trace - 1+ edema Skin: no nodules Objective Data Vital Signs Vital Signs: Vital Signs Temp Pulse Resp BP Pulse Ox O2 Del Method O2 Flow Rate 01/07/22 12:00 84 01/07/22 08:00 69 01/07/22 08:00 36.2 C L 73 12 174/68 H 94 01/07/22 08:09 76 16 01/07/22 07:58 72 16 95 Nasal Cannula 4 01/07/22 07:56 72 16 01/07/22 04:00 71 01/07/22 03:50 36.7 C 95 16 143/83 H 95 01/07/22 00:00 102 H 01/07/22 00:00 36.4 C 78 20 163/61 H 93 01/06/22 21:04 78 14 01/06/22 21:04 98 01/06/22 21:00 80 14 01/06/22 21:00 80 14 98 Nasal Cannula 4 01/06/22 20:00 79 01/06/22 20:00 91 Nasal Cannula 4 01/06/22 19:51 36.4 C 82 16 146/54 H 91 01/06/22
--- NOTE | 2022-01-07 15:26 | PCOTNOTE ---
Unable to see patient today for OT. Will continue plan of care for OT tomorrow.
[2022-01-07] MEDS: LOPERAMIDE HCL 2 MG CAPSULE PO (16:51)
--- NOTE | 2022-01-07 18:17 | PM.PNPUL ---
Progress Note: A&P Assessment and Plan (1) Acute respiratory failure with hypoxia and hypercapnia: Code(s): J96.01 - Acute respiratory failure with hypoxia; J96.02 - Acute respiratory failure with hypercapnia Status: Acute Assessment and Plan: Patient presented with hypoxemic respiratory failure with a blood gas of 7.39/47/93 on 100% non-rebreather.? She had no evidence of hypercarbic respiratory failure on this blood gas.? In addition her admission bicarb was 28.? This does not suggest she has? chronic hypercarbic respiratory failure from COPD or obesity hypoventilation syndrome. ? TSH on 12/31/2021 was 0.55 to normal. She was 6 L positive through 01/02/2022, has developed a small right pleural effusion and increased interstitial infiltrates on her chest x-ray.? Her BNP is improved but still of elevated at 7090.? She has ? Right ventricular enlargement and decreased right ventricular function consistent with right heart failure and anasarca. Patient currently has hypoxemic respiratory failure in the etiology of this includes fluid overload,? small pleural effusion, atelectasis from being bedbound and morbidly obese, COPD exacerbation, narcotic use and possible pulmonary emboli and possible untreated sleep related breathing disorder.. 01/04? agree with IV Lasix diuresis as tolerated by her cardiac and renal Systems.? She is -3.6 L in the last 36 hours ? And has improved clinically and her oxygen is now down to 7 L nasal cannula. ? Agree with dress of? physical therapy with an attempt to get her out of bed.? I will treat her COPD exacerbation as below.? Avoid hydrocodone use.? Patient is on full-dose Lovenox for her below the knee DVT and I agree with this at this time.? I would not perform a CT angiogram of the chest or a perfusion scan. She will need an outpatient polysomnogram. 01/05? patient states that her breathing feels normal today.? She denies cough, mucus production, blood, hemoptysis or chest pain. ? Attempted to wear the NIV with AVAPS mode last night? and she said it was difficult to wear and she could not sleep. ? Currently on 6 L nasal cannula with saturations 96%. ? She diuresed 3.7 L yesterday.? She has expiratory wheezes left greater than right today. ? Oxygenation is slowly improving with diuresis, treatment for possible pulmonary embolism and COPD exacerbation. ??She does not tolerate noninvasive ventilation and I will discontinue at this time. 01/06? Oxygenation is slowly improving with diuresis, treatment for possible pulmonary embolism and COPD exacerbation. patient wore 4 L nasal cannula overnight and did well.? She has difficulty sleeping in the hospital.? She slept better than she did when she attempted to wear the BiPAP.? Currently her saturations are 91% on 4 L nasal cannula. ? She diuresed 1.4 L yesterday,? and since admission she is now -2 L.? wheezes are improved but persist left greater than white. (2) COPD (chronic obstructive pulmonary disease): Code(s): J44.9 - Chronic obstructive pulmonary disease, unspecified Status: Acute Assessment and Plan: Patient has a 46 pack year tobacco use and is currently smoking and was exposed to secondhand smoke from both parents and her who she currently lives with.? She has been diagnosed with COPD and had PFTs many years ago in [place] I do not have those results.? At baseline she can walk 20 ft and her last hospitalization was approximately 8 years ago.? She has bilateral expiratory wheezing; placed on prednisone 40 mg p.o. q.day.? Continue albuterol and ipratropium nebulizers q.4 hours.? Patient is on Levaquin initially for a UTI. She was started on 12/30 and today is day 6. 01/05 ? Patient with continued wheezes and she is on day 2 a prednisone 40 mg p.o. q.day, will continue albuterol and ipratropium nebulizers q.4 hours. ? Levaquin was started on 12/30 and she received her last dose on 01/05. 01/06 Day 3 prednisone 40 Q day, change nebulizers to Q4
[2022-01-07 21:35] LABS: Appearance Urine Clear (Clear); Bilirubin Urine Negative (Negative); Blood Urine 3+ (Negative); Color Urine Yellow (Yellow); Glucose Urine UA Negative (Negative); Ketones Urine Negative (Negative); Leukocyte Esterase Ur Trace LEU/UL (NEGATIVE); Nitrate Urine Negative (Negative); Protein Urine Negative (Negative); Specific Grav Ur 1.015 (1.001-1.035); Urobilinogen Urine 0.2 mg/dL (<2.0)
[2022-01-07 21:39] LABS: Bacteria Urine Trace /hpf; Mucus Urine Rare /lpf; RBC Urine >75 /hpf (0-2); Squamous Epithelial Cell Urine Rare /hpf (Few)
[2022-01-07 21:43] LABS: Add Urine Microscopic? YES
[2022-01-08] VITALS (18 sets, daily range): BP systolic 153–177; BP diastolic 66–76; PULSE 66–86; RESP 16–20; TEMP 36–36.7; O2SAT 94–100
[2022-01-08] MEDS: MORPHINE SULFATE (*CRX) 2 MG/ML INJ 1 MG IV PUSH ×2 (01:30→18:29)
[2022-01-08] MEDS: HYDROcodone/acetaminophen (*CRX) 10-325 MG TABLET 1 TAB PO ×3 (05:26→23:05)
[2022-01-08 05:42] LABS: Eosinophils Percent Auto 0.2 % (0-4.4); Hematocrit 37.9 % (37.0-47.0); Hemoglobin 11.1 g/dL (12.0-15.0); Immature Granulocyte Absolute 0.05 K/mm3 (0.00-0.031); Lymphocytes Absolute Auto 0.46 K/mm3 (0.9-3.2); Lymphocytes Percent Auto 8.8 % (18.3-44.2); Mean Corpuscular HGB Conc 29.3 g/dl (32-36); Mean Corpuscular Hemoglobin 24.9 pg (26-34); Mean Platelet Volume 8.7 fl (7.4-10.4); Monocytes Absolute Auto 0.3 K/mm3 (0.1-0.6); Monocytes Percent Auto 5.6 % (2.6-8.5); Neutrophils Absolute Auto 4.4 K/mm3 (1.3-6.7); Neutrophils Percent Auto 84.4 % (45.5-73.1); Platelet Count Result 176 k/mm3 (150-375); Red Blood Count 4.46 M/mm3 (4.2-5.4); Red Cell Distribution Width 16.6 % (11.5-14.5); White Blood Count 5.2 K/mm3 (4.5-10.0)
[2022-01-08 05:56] LABS: Alanine Aminotransferase 83 U/L (6-35); Albumin Level 3.1 g/dL (3.5-5.1); Alkaline Phosphatase 78 U/L (38-126); Aspartate Amino Transferase 70 U/L (14-36); Bilirubin,Total 0.8 mg/dL (0.2-1.3); Blood Urea Nitrogen 34 mg/dL (7-17); Calcium 7.9 mg/dL (8.4-10.2); Carbon Dioxide > 40 mmol/L (22-30); Chloride 91 mmol/L (98-107); Estimated CRCL calculation 89 ml/min; Estimated Glomerular Filt Rate > 60; Glucose 102 mg/dL (65-110); Potassium 3.5 mmol/L (3.4-5.0); Sodium 142 mmol/L (137-145)
--- NOTE | 2022-01-08 08:17 | PM.IMPN ---
Progress Note: A&P Assessment and Plan (1) Acute respiratory failure with hypoxia and hypercapnia: Code(s): J96.01 - Acute respiratory failure with hypoxia; J96.02 - Acute respiratory failure with hypercapnia Status: Acute Assessment and Plan: Multifactorial, likely secondary to COPD exacerbation as well as diastolic heart failure, down to 4 L nasal cannula Echo showed an EF greater than 70% with right ventricular chamber moderately enlarged, no significant valvular disease, no pulmonary hypertension noted Continue IV diuresis, fluid restriction, appreciate pulmonology consultation and management Check chest x-ray today (2) COPD (chronic obstructive pulmonary disease): Code(s): J44.9 - Chronic obstructive pulmonary disease, unspecified Status: Acute Assessment and Plan: Continue steroids per pulmonology, Masood, completed course of Levaquin (3) DVT (deep venous thrombosis): Code(s): I82.409 - Acute embolism and thrombosis of unspecified deep veins of unspecified lower extremity Status: Acute Assessment and Plan: Continue Eliquis (4) Renal calculi: Code(s): N20.0 - Calculus of kidney Status: Acute Assessment and Plan: Stent recently placed by urology on Dec 31, 2021, note from urology states patient may benefit from outpatient ESWL Plan DVT prophylaxis with Eliquis GI prophylaxis with PPI Code status full code Subjective Date/time seen: 01/08/22 08:17 Interval history: No overnight events noted. No chest pain. No nausea, vomiting or diarrhea. No fevers or chills. Patient states she feels a little better than yesterday, but she is extremely anxious. Patient states she is always anxious, but seems much worse now that she is in the hospital and short of breath. She thinks her breathing is a little better than yesterday, but her legs still feel extremely heavy and swollen. Review of Systems Review of Systems: 12 point review of systems was assessed and was negative except as noted in the HPI Exam Narrative: General: No acute distress, alert and oriented per baseline HEENT: Atraumatic, normocephalic, mucous membranes moist CV: Regular rate and rhythm, S1, S2 Lungs: Moderate air entry, tight wheezes heard throughout, no rhonchi or crackles noted Abdomen: Soft, nontender, nondistended Extremities: 2+ nonpitting edema bilateral lower extremities, appears about the same as yesterday Skin: No rashes noted, no lesions or wounds seen Psych: Euthymic, normal affect Objective Data Vital Signs Vital Signs: Vital Signs - 24 hr 01/07/22 12:00 01/07/22 13:00 01/07/22 16:47 Temperature 96.8 F L Pulse Rate 84 86 77 Respiratory Rate 18 16 Blood Pressure 178/68 H Pulse Oximetry 93 Oxygen Delivery Oxygen Flow Rate 01/07/22 16:49 01/07/22 17:07 01/07/22 16:00 Temperature Pulse Rate 77 74 99 Respiratory Rate 16 16 Blood Pressure Pulse Oximetry 92 Oxygen Delivery Nasal Cannula Oxygen Flow Rate 4 01/07/22 19:07 01/07/22 20:37 01/07/22 20:37 Temperature 96.8 F L Pulse Rate 90 82 82 Respiratory Rate 22 H 18 18 Blood Pressure 159/60 H Pulse Oximetry 96 95 Oxygen Delivery Nasal Cannula Oxygen Flow Rate 4 01/07/22 20:44 01/07/22 20:00 01/07/22 20:00 Temperature 97.8 F Pulse Rate 86 83 83 Respiratory Rate 18 16 Blood Pressure 162/68 H Pulse Oximetry 95 Oxygen Delivery Oxygen Flow Rate 01/07/22 20:30 01/08/22 00:00 01/08/22 00:00 Temperature 97.7 F Pulse Rate 86 84 Respiratory Rate 16 Blood Pressure 153/67 H Pulse Oximetry 95 95 Oxygen Delivery Nasal Cannula Oxygen Flow Rate 4 01/08/22 04:00 01/08/22 04:00 Temperature 97.7 F Pulse Rate 67 77 Respiratory Rate 20 Blood Pressure 177/76 H Pulse Oximetry 98 Oxygen Delivery Oxygen Flow Rate Intake/Output Intake/Output: Intake & Output 01/05/22 01/06/22 01/07/22 01/08/22 23:59 2
[2022-01-08] MEDS: IPRATROPIUM BR 0.02% INH SOLN 0.5 MG/2.5 ML VIAL INHALATION ×4 (08:27→21:13)
[2022-01-08] MEDS: ALBUTEROL SULFATE NEB 2.5 MG/3 ML INH INHALATION ×4 (08:28→21:13)
[2022-01-08] MEDS: FERROUS SULFATE 324 MG TABLET PO (08:53)
[2022-01-08] MEDS: FUROSEMIDE INJ 40 MG/4 ML VIAL IV PUSH ×3 (08:53→18:31)
[2022-01-08] MEDS: GABAPENTIN 300 MG CAPSULE PO ×3 (08:53→18:30)
[2022-01-08] MEDS: APIXABAN 5 MG TABLET 10 MG PO ×2 (08:53→20:34)
[2022-01-08] MEDS: predniSONE 20 MG TABLET 40 MG PO (08:53)
[2022-01-08] MEDS: LORazepam INJ (*CRX) 2 MG/ML VIAL IV PUSH (11:13)
--- NOTE | 2022-01-08 11:41 | PCOTNOTE ---
Attempted to see patient this date, unable to arouse. Patient sound asleep.
--- NOTE | 2022-01-08 11:51 | PCPTNOTE ---
The patient treatment was not able to be completed at this time due to Pt being sound asleep. Unable to arouse Pt for participation. Will plan to continue treatment per plan of care.
[2022-01-08] MEDS: PANTOPRAZOLE 40 MG TABLET PO (14:34)
[2022-01-08] MEDS: LORazepam (*CRX) 0.5 MG TABLET PO (20:34)
[2022-01-09] VITALS (15 sets, daily range): BP systolic 149–161; BP diastolic 62–69; PULSE 69–96; RESP 16–20; TEMP 36.2–36.8; O2SAT 95–99
[2022-01-09] MEDS: LORazepam (*CRX) 0.5 MG TABLET PO ×3 (02:33→19:53)
[2022-01-09 06:43] LABS: Basophils Percent Auto 0.2 % (0.2-1.2); Eosinophils Percent Auto 0.2 % (0-4.4); Hematocrit 39.1 % (37.0-47.0); Hemoglobin 11.2 g/dL (12.0-15.0); Immature Granulocyte Absolute 0.06 K/mm3 (0.00-0.031); Immature Granulocyte Percent A 1.1 % (0-0.5); Lymphocytes Absolute Auto 0.57 K/mm3 (0.9-3.2); Lymphocytes Percent Auto 10.4 % (18.3-44.2); Mean Corpuscular HGB Conc 28.6 g/dl (32-36); Mean Corpuscular Hemoglobin 24.9 pg (26-34); Mean Corpuscular Volume 87.1 fl (80-100); Mean Platelet Volume 9.2 fl (7.4-10.4); Monocytes Absolute Auto 0.4 K/mm3 (0.1-0.6); Monocytes Percent Auto 6.4 % (2.6-8.5); Neutrophils Absolute Auto 4.5 K/mm3 (1.3-6.7); Neutrophils Percent Auto 81.7 % (45.5-73.1); Platelet Count Result 196 k/mm3 (150-375); Red Blood Count 4.49 M/mm3 (4.2-5.4); Red Cell Distribution Width 16.9 % (11.5-14.5); White Blood Count 5.5 K/mm3 (4.5-10.0)
[2022-01-09] MEDS: HYDROcodone/acetaminophen (*CRX) 10-325 MG TABLET 1 TAB PO ×3 (06:43→18:44)
[2022-01-09 06:58] LABS: Alanine Aminotransferase 79 U/L (6-35); Albumin Level 3.3 g/dL (3.5-5.1); Alkaline Phosphatase 75 U/L (38-126); Aspartate Amino Transferase 38 U/L (14-36); Bilirubin,Total 0.8 mg/dL (0.2-1.3); Blood Urea Nitrogen 34 mg/dL (7-17); Calcium 7.7 mg/dL (8.4-10.2); Carbon Dioxide > 40 mmol/L (22-30); Chloride 90 mmol/L (98-107); Estimated CRCL calculation 81 ml/min; Estimated Glomerular Filt Rate 56; Glucose 90 mg/dL (65-110); Potassium 3.2 mmol/L (3.4-5.0); Sodium 139 mmol/L (137-145)
[2022-01-09 07:47] LABS: NT Pro B Type Natriuretic Pept 2270 pg/mL (5-100)
[2022-01-09] MEDS: IPRATROPIUM BR 0.02% INH SOLN 0.5 MG/2.5 ML VIAL INHALATION ×2 (07:49→16:55)
[2022-01-09] MEDS: ALBUTEROL SULFATE NEB 2.5 MG/3 ML INH INHALATION ×2 (07:49→16:55)
[2022-01-09] MEDS: PANTOPRAZOLE 40 MG TABLET PO (08:11)
[2022-01-09] MEDS: APIXABAN 5 MG TABLET 10 MG PO ×2 (08:11→19:53)
[2022-01-09] MEDS: FERROUS SULFATE 324 MG TABLET PO (08:11)
[2022-01-09] MEDS: FUROSEMIDE INJ 40 MG/4 ML VIAL IV PUSH ×2 (08:11→17:27)
[2022-01-09] MEDS: predniSONE 20 MG TABLET 40 MG PO (08:11)
[2022-01-09] MEDS: GABAPENTIN 300 MG CAPSULE PO ×3 (08:11→17:27)
--- NOTE | 2022-01-09 11:13 | PM.IMPN ---
Progress Note: A&P Assessment and Plan (1) Acute respiratory failure with hypoxia and hypercapnia: Code(s): J96.01 - Acute respiratory failure with hypoxia; J96.02 - Acute respiratory failure with hypercapnia Status: Acute Assessment and Plan: Multifactorial, likely secondary to COPD exacerbation as well as diastolic heart failure, down to 3 L nasal cannula Echo showed an EF greater than 70% with right ventricular chamber moderately enlarged, no significant valvular disease, no pulmonary hypertension noted Continue IV diuresis, fluid restriction, appreciate pulmonology consultation and management, decrease lasix dose to 40 mg IV BID from TID today due to mild bump in creatinine Chest x-ray from yesterday was improved (2) COPD (chronic obstructive pulmonary disease): Code(s): J44.9 - Chronic obstructive pulmonary disease, unspecified Status: Acute Assessment and Plan: Continue steroids per pulmonology, om day 6 of prednisone, DuoNebs, completed course of Levaquin (3) DVT (deep venous thrombosis): Code(s): I82.409 - Acute embolism and thrombosis of unspecified deep veins of unspecified lower extremity Status: Acute Assessment and Plan: Continue Eliquis Check CTA to eval for PE (4) Renal calculi: Code(s): N20.0 - Calculus of kidney Status: Acute Assessment and Plan: Stent recently placed by urology on Dec 31, 2021, note from urology states patient may benefit from outpatient ESWL Urine cx NG (5) Hypokalemia: Code(s): E87.6 - Hypokalemia Status: Acute Assessment and Plan: Replete and recheck, likely 2/2 diuresis Plan DVT prophylaxis with Eliquis GI prophylaxis with PPI Code status full code Subjective Date/time seen: 01/09/22 11:13 Interval history: No overnight events noted. No chest pain or shortness of breath. No nausea, vomiting or diarrhea. No fevers or chills. Patient is tearful and anxious and sick of being here. She has noted continued swelling in her ankles that appears to be unchanged with diuresis. Review of Systems Review of Systems: 12 point review of systems was assessed and was negative except as noted in the HPI Exam Narrative: General: No acute distress, alert and oriented per baseline HEENT: Atraumatic, normocephalic, mucous membranes moist CV: Regular rate and rhythm, S1, S2 Lungs: Good air entry, no wheezes Abdomen: Soft, nontender, nondistended Extremities: 2+ nonpitting edema bilateral lower extremities, unchanged Skin: No rashes noted, no lesions or wounds seen Psych: Euthymic, normal affect Objective Data Vital Signs Vital Signs: Vital Signs - 24 hr 01/08/22 12:00 01/08/22 12:15 01/08/22 12:00 Temperature Pulse Rate 67 81 66 Respiratory Rate 20 20 Blood Pressure Pulse Oximetry Oxygen Delivery Oxygen Flow Rate 01/08/22 16:06 01/08/22 16:08 01/08/22 16:00 Temperature 98.1 F Pulse Rate 76 77 79 Respiratory Rate 20 16 Blood Pressure 171/72 H Pulse Oximetry 100 Oxygen Delivery Oxygen Flow Rate 01/08/22 16:18 01/08/22 20:00 01/08/22 21:14 Temperature Pulse Rate 80 73 78 Respiratory Rate 20 20 Blood Pressure Pulse Oximetry Oxygen Delivery Oxygen Flow Rate 01/08/22 21:16 01/08/22 21:26 01/08/22 20:35 Temperature 97.6 F Pulse Rate 80 86 Respiratory Rate 20 18 Blood Pressure 175/66 H Pulse Oximetry 95 97 Oxygen Delivery Nasal Cannula Oxygen Flow Rate 3 01/09/22 00:00 01/09/22 00:40 01/09/22 04:00 Temperature 97.2 F L Pulse Rate 80 78 70 Respiratory Rate 20 Blood Pressure 160/63 H Pulse Oximetry 99 Oxygen Delivery Oxygen Flow Rate 01/09/22 07:49 01/09/22 07:50 01/09/22 05:00 Temperature 97.3 F L Pulse Rate 96 75 Respiratory Rate 20 20 Blood Pressure 152/69 H Pulse Oximetry 95 98 Oxygen Delivery Nasal Cannula Oxygen Flow Rate 3 Intake/Output Intake/O
[2022-01-09 11:45] LABS: Cholesterol 150 mg/dL (0-200); HDL Direct 63 mg/dL; Hemoglobin A1C 5.9 % (<5.7); Triglycerides 113 mg/dL (<150)
[2022-01-09 11:56] LABS: LDL Cholesterol Direct 63 mg/dL
[2022-01-09 12:35] LABS: LKM 1 Antibody <=20.0 U (<=20.0)
--- NOTE | 2022-01-09 13:05 | PM.PNPUL ---
Progress Note: A&P Assessment and Plan (1) Acute respiratory failure with hypoxia and hypercapnia: Code(s): J96.01 - Acute respiratory failure with hypoxia; J96.02 - Acute respiratory failure with hypercapnia Status: Acute Assessment and Plan: Patient presented with hypoxemic respiratory failure with a blood gas of 7.39/47/93 on 100% non-rebreather. She had no evidence of hypercarbic respiratory failure on this blood gas. In addition her admission bicarb was 28. This does not suggest she has chronic hypercarbic respiratory failure from COPD or obesity hypoventilation syndrome. TSH on 12/31/2021 was 0.55 to normal. she was 6 L positive through 01/02/2022, has developed a small right pleural effusion and increased interstitial infiltrates on her chest x-ray. Her BNP is improved but still of elevated at 7090. She has Right ventricular enlargement and decreased right ventricular function consistent with right heart failure and anasarca. Patient currently has hypoxemic respiratory failure in the etiology of this includes fluid overload, small pleural effusion, atelectasis from being bedbound and morbidly obese, COPD exacerbation, narcotic use and possible pulmonary emboli and possible untreated sleep related breathing disorder.. 01/04 agree with IV Lasix diuresis as tolerated by her cardiac and renal Systems. She is -3.6 L in the last 36 hours And has improved clinically and her oxygen is now down to 7 L nasal cannula. Agree with dress of physical therapy with an attempt to get her out of bed. I will treat her COPD exacerbation as below. Avoid hydrocodone use. Patient is on full-dose Lovenox for her below the knee DVT and I agree with this at this time. I would not perform a CT angiogram of the chest or a perfusion scan. She will need an outpatient polysomnogram. 01/05 patient states that her breathing feels normal today. She denies cough, mucus production, blood, hemoptysis or chest pain. Attempted to wear the NIV with AVAPS mode last night and she said it was difficult to wear and she could not sleep. Currently on 6 L nasal cannula with saturations 96%. She diuresed 3.7 L yesterday. She has expiratory wheezes left greater than right today. Oxygenation is slowly improving with diuresis, treatment for possible pulmonary embolism and COPD exacerbation. She does not tolerate noninvasive ventilation and I will discontinue at this time. 01/06 Oxygenation is slowly improving with diuresis, treatment for possible pulmonary embolism and COPD exacerbation. patient wore 4 L nasal cannula overnight and did well. She has difficulty sleeping in the hospital. She slept better than she did when she attempted to wear the BiPAP. Currently her saturations are 91% on 4 L nasal cannula. She diuresed 1.4 L yesterday, and since admission she is now -2 L. wheezes are improved but persist left greater than white. 01/09 Overall patient is improved but still has dyspnea on exertion and intermittent wheezing. Her swelling is worsen her feet but better and her legs. Currently she is on 3 L nasal cannula saturations 95%. Creatinine is 1.0, white blood cell count is 5.5, cumulative diuresis since admission is 5.7 L. her BNP today is 2270 improved from 7090 on 01/04/2022. Discussed with Dr. Hawthorne. Will follow with you. (2) COPD (chronic obstructive pulmonary disease): Code(s): J44.9 - Chronic obstructive pulmonary disease, unspecified Status: Acute Assessment and Plan: Patient has a 46 pack year tobacco use and is currently smoking and was exposed to secondhand smoke from both parents and her who she currently lives with. She has been diagnosed with COPD and had PFTs many years ago in [place] I do not have those results. At baseline she can walk 20 ft and her last hospitalization was approximately 8 years ago. Today the patient has bilateral expiratory wheezing and I will place her o
[2022-01-09] MEDS: POTASSIUM CHLORIDE 20 MEQ TABLET 40 MEQ PO (13:12)
--- NOTE | 2022-01-09 23:51 | PC.NURSE ---
Patient very uncomfortable with el wraps on legs at this time and asked RN to please take them off for the rest of the night.
[2022-01-10] VITALS (16 sets, daily range): BP systolic 140–173; BP diastolic 62–93; PULSE 69–100; RESP 14–20; TEMP 36.4–36.6; O2SAT 91–96
[2022-01-10] MEDS: HYDROcodone/acetaminophen (*CRX) 10-325 MG TABLET 1 TAB PO ×4 (00:45→20:20)
--- NOTE | 2022-01-10 01:18 | PCRCNOTE ---
Window of time for administration has passed. See next scheduled administration.
[2022-01-10] MEDS: LORazepam (*CRX) 0.5 MG TABLET PO ×2 (01:53→20:27)
[2022-01-10 06:05] LABS: Alanine Aminotransferase 82 U/L (6-35); Albumin Level 3.7 g/dL (3.5-5.1); Alkaline Phosphatase 83 U/L (38-126); Aspartate Amino Transferase 39 U/L (14-36); Bilirubin,Total 1.2 mg/dL (0.2-1.3); Blood Urea Nitrogen 30 mg/dL (7-17); Carbon Dioxide > 40 mmol/L (22-30); Chloride 89 mmol/L (98-107); Estimated CRCL calculation 86 ml/min; Estimated Glomerular Filt Rate > 60; Glucose 93 mg/dL (65-110); Potassium 3.8 mmol/L (3.4-5.0); Sodium 142 mmol/L (137-145)
[2022-01-10 06:10] LABS: Eosinophils Percent Auto 0.4 % (0-4.4); Hematocrit 43.6 % (37.0-47.0); Hemoglobin 12.4 g/dL (12.0-15.0); Immature Granulocyte Absolute 0.08 K/mm3 (0.00-0.031); Lymphocytes Absolute Auto 0.97 K/mm3 (0.9-3.2); Lymphocytes Percent Auto 11.9 % (18.3-44.2); Mean Corpuscular HGB Conc 28.4 g/dl (32-36); Mean Corpuscular Hemoglobin 24.7 pg (26-34); Mean Corpuscular Volume 86.9 fl (80-100); Mean Platelet Volume 9.2 fl (7.4-10.4); Monocytes Absolute Auto 0.3 K/mm3 (0.1-0.6); Monocytes Percent Auto 3.8 % (2.6-8.5); Neutrophils Absolute Auto 6.8 K/mm3 (1.3-6.7); Neutrophils Percent Auto 82.9 % (45.5-73.1); Platelet Count Result 225 k/mm3 (150-375); Red Blood Count 5.02 M/mm3 (4.2-5.4); Red Cell Distribution Width 16.8 % (11.5-14.5); White Blood Count 8.2 K/mm3 (4.5-10.0)
[2022-01-10] MEDS: PANTOPRAZOLE 40 MG TABLET PO (08:18)
[2022-01-10] MEDS: GABAPENTIN 300 MG CAPSULE PO ×3 (08:18→17:07)
[2022-01-10] MEDS: FERROUS SULFATE 324 MG TABLET PO (08:18)
[2022-01-10] MEDS: FUROSEMIDE INJ 40 MG/4 ML VIAL IV PUSH (08:18)
[2022-01-10] MEDS: APIXABAN 5 MG TABLET 10 MG PO ×2 (08:19→20:24)
[2022-01-10] MEDS: BUDESONIDE RESPULE NEB 0.5 MG/2 ML AMP INHALATION (09:15)
[2022-01-10] MEDS: ALBUTEROL SULFATE NEB 2.5 MG/3 ML INH INHALATION (09:15)
[2022-01-10] MEDS: IPRATROPIUM BR 0.02% INH SOLN 0.5 MG/2.5 ML VIAL INHALATION (09:15)
--- NOTE | 2022-01-10 10:33 | PM.IMPN ---
Progress Note: A&P Assessment and Plan (1) Acute respiratory failure with hypoxia and hypercapnia: Code(s): J96.01 - Acute respiratory failure with hypoxia; J96.02 - Acute respiratory failure with hypercapnia Status: Acute Assessment and Plan: Multifactorial, likely secondary to COPD exacerbation as well as diastolic heart failure, down to 3 L nasal cannula Echo showed an EF greater than 70% with right ventricular chamber moderately enlarged, no significant valvular disease, no pulmonary hypertension noted Continue IV diuresis, fluid restriction, appreciate pulmonology consultation and management, decrease lasix dose to 40 mg IV daily from BID, then transition to po tomorrow and home O2 eval and d/c soon Chest x-ray from yesterday was improved (2) COPD (chronic obstructive pulmonary disease): Code(s): J44.9 - Chronic obstructive pulmonary disease, unspecified Status: Acute Assessment and Plan: D/c steroids per pulmonology, on day 7 of prednisone, DuoNebs, completed course of Levaquin (3) DVT (deep venous thrombosis): Code(s): I82.409 - Acute embolism and thrombosis of unspecified deep veins of unspecified lower extremity Status: Acute Assessment and Plan: Continue Eliquis CTA negative for PE (4) Renal calculi: Code(s): N20.0 - Calculus of kidney Status: Acute Assessment and Plan: Stent recently placed by urology on Dec 31, 2021, note from urology states patient may benefit from outpatient ESWL Urine cx NG (5) Hypokalemia: Code(s): E87.6 - Hypokalemia Status: Acute Assessment and Plan: Replete and recheck, likely 2/2 diuresis Plan DVT prophylaxis with Eliquis GI prophylaxis with PPI Code status full code Subjective Date/time seen: 01/10/22 10:33 Interval history: No overnight events noted. No chest pain or shortness of breath. No nausea, vomiting or diarrhea. No fevers or chills. Patient feeling much better than yesterday, eager to go home, still on oxygen. Review of Systems Review of Systems: 12 point review of systems was assessed and was negative except as noted in the HPI Exam Narrative: General: No acute distress, alert and oriented per baseline HEENT: Atraumatic, normocephalic, mucous membranes moist CV: Regular rate and rhythm, S1, S2 Lungs: Good air entry, no wheezes Abdomen: Soft, nontender, nondistended Extremities: 2+ nonpitting edema bilateral lower extremities, unchanged Skin: No rashes noted, no lesions or wounds seen Psych: Euthymic, normal affect Objective Data Vital Signs Vital Signs: Vital Signs - 24 hr 01/09/22 14:00 01/09/22 16:55 01/09/22 17:05 Temperature 98.2 F Pulse Rate 88 86 88 Respiratory Rate 20 20 20 Blood Pressure 161/66 H Pulse Oximetry 96 Oxygen Delivery Oxygen Flow Rate 01/09/22 18:00 01/09/22 16:00 01/09/22 20:10 Temperature 98.0 F 98.2 F Pulse Rate 85 93 86 Respiratory Rate 20 16 Blood Pressure 150/64 H 149/62 H Pulse Oximetry 97 95 Oxygen Delivery Oxygen Flow Rate 01/09/22 20:00 01/09/22 19:55 01/10/22 00:02 Temperature 97.9 F Pulse Rate 93 83 Respiratory Rate 20 Blood Pressure 166/74 H Pulse Oximetry 95 95 Oxygen Delivery Nasal Cannula Oxygen Flow Rate 4 01/10/22 00:00 01/10/22 04:00 01/10/22 04:50 Temperature Pulse Rate 86 69 Respiratory Rate Blood Pressure Pulse Oximetry 93 Oxygen Delivery Oxygen Flow Rate 2 01/10/22 05:34 01/10/22 08:00 Temperature 97.6 F Pulse Rate 96 78 Respiratory Rate 16 Blood Pressure 168/93 H Pulse Oximetry 91 Oxygen Delivery Oxygen Flow Rate Intake/Output Intake/Output: Intake & Output 01/07/22 01/08/22 01/09/22 01/10/22 23:59 23:59 23:59 23:59 Intake Total 9497 768 5659 222 Output Total 3200 1500 4350 800 [facility] -[phone] Meds/Results Medications: Active Medications Generic Name Dose Route Start La
[2022-01-10] MEDS: MORPHINE SULFATE (*CRX) 2 MG/ML INJ 1 MG IV PUSH (10:49)
--- NOTE | 2022-01-10 11:08 | PM.PNPUL ---
Progress Note: A&P Assessment and Plan (1) Acute respiratory failure with hypoxia and hypercapnia: Code(s): J96.01 - Acute respiratory failure with hypoxia; J96.02 - Acute respiratory failure with hypercapnia Status: Acute Assessment and Plan: Patient presented with hypoxemic respiratory failure with a blood gas of 7.39/47/93 on 100% non-rebreather. She had no evidence of hypercarbic respiratory failure on this blood gas. In addition her admission bicarb was 28. This does not suggest she has chronic hypercarbic respiratory failure from COPD or obesity hypoventilation syndrome. TSH on 12/31/2021 was 0.55 to normal. she was 6 L positive through 01/02/2022, has developed a small right pleural effusion and increased interstitial infiltrates on her chest x-ray. Her BNP is improved but still of elevated at 7090. She has Right ventricular enlargement and decreased right ventricular function consistent with right heart failure and anasarca. Patient currently has hypoxemic respiratory failure in the etiology of this includes fluid overload, small pleural effusion, atelectasis from being bedbound and morbidly obese, COPD exacerbation, narcotic use and possible pulmonary emboli and possible untreated sleep related breathing disorder.. 01/04 agree with IV Lasix diuresis as tolerated by her cardiac and renal Systems. She is -3.6 L in the last 36 hours And has improved clinically and her oxygen is now down to 7 L nasal cannula. Agree with dress of physical therapy with an attempt to get her out of bed. I will treat her COPD exacerbation as below. Avoid hydrocodone use. Patient is on full-dose Lovenox for her below the knee DVT and I agree with this at this time. I would not perform a CT angiogram of the chest or a perfusion scan. She will need an outpatient polysomnogram. 01/05 patient states that her breathing feels normal today. She denies cough, mucus production, blood, hemoptysis or chest pain. Attempted to wear the NIV with AVAPS mode last night and she said it was difficult to wear and she could not sleep. Currently on 6 L nasal cannula with saturations 96%. She diuresed 3.7 L yesterday. She has expiratory wheezes left greater than right today. Oxygenation is slowly improving with diuresis, treatment for possible pulmonary embolism and COPD exacerbation. She does not tolerate noninvasive ventilation and I will discontinue at this time. 01/06 Oxygenation is slowly improving with diuresis, treatment for possible pulmonary embolism and COPD exacerbation. patient wore 4 L nasal cannula overnight and did well. She has difficulty sleeping in the hospital. She slept better than she did when she attempted to wear the BiPAP. Currently her saturations are 91% on 4 L nasal cannula. She diuresed 1.4 L yesterday, and since admission she is now -2 L. wheezes are improved but persist left greater than white. 01/09 Overall patient is improved but still has dyspnea on exertion and intermittent wheezing. Her swelling is worsen her feet but better and her legs. Currently she is on 3 L nasal cannula saturations 95%. Creatinine is 1.0, white blood cell count is 5.5, cumulative diuresis since admission is 5.7 L. her BNP today is 2270 improved from 7090 on 01/04/2022. 01/10 Patient continues to improve with diuresis, treatment for COPD exacerbation and PE. At rest she says she is breathing normally. Currently she is on 2 L nasal cannula saturations 97%. Creatinine is 0.9, cumulative diuresis is 9.1 L since admission. Her weight has decreased 9.9 kg. Patient had an overnight oximetry on 2 L nasal cannula with average saturation of 93%. Low saturation 86%. Time with saturation less than or equal to 88% was 2 minutes. I will repeat the night on room air. If she remains clinically stable overnight consider discharge in the morning. Discussed with Dr. Hawthorne. Will follow with you. (2) COPD (chronic obstructiv
[2022-01-10 15:23] LABS: Albumin 66 %; Measured Kappa Chains 2.92 mg/dL (<2.00); Measured Lambda Chains 1.05 mg/dL (<2.00); Pro/Creat Ratio 604 mg/g creat (<150); Total Kappa Chains 29.2 mg/24 h; Total Lambda Chains 10.5 mg/24 h
[2022-01-10] MEDS: LOPERAMIDE HCL 2 MG CAPSULE PO ×2 (17:09→20:24)
[2022-01-10] MEDS: FLUTICASONE/SALMETEROL 230-21 MCG INHALER 1 PUFF 2 PUFF INHALATION (21:14)
[2022-01-11] VITALS (20 sets, daily range): BP systolic 130–158; BP diastolic 53–76; PULSE 92–115; RESP 16–20; TEMP 36.4–37; O2SAT 85–96
[2022-01-11] MEDS: HYDROcodone/acetaminophen (*CRX) 10-325 MG TABLET 1 TAB PO ×3 (02:10→22:08)
[2022-01-11] MEDS: LORazepam (*CRX) 0.5 MG TABLET PO ×3 (02:10→22:08)
[2022-01-11] MEDS: LOPERAMIDE HCL 2 MG CAPSULE PO ×2 (03:14→08:18)
--- NOTE | 2022-01-11 04:57 | PC.NURSE ---
Patient with c/o bilateral leg pain whenever awake. Given norco 10/325mg at 2019 with pain 9/10 . Reassessed at 2114 . pain rated 7/10 bilateral legs. Checked on pt, noted to be sleeping most of night. At 0 gave norco for pain bilateral legs 8/10. reassessed at 299, pain rated at 7/10. Patient also nervous with trembling hands and this nurse gave ativan 0.5mg x2 this shift with moderate results Patient specifically requests for both pain medication and, nerve pill .
[2022-01-11 05:32] LABS: Basophils Percent Auto 0.2 % (0.2-1.2); Eosinophils Absolute Auto 0.2 K/mm3 (0-0.3); Eosinophils Percent Auto 2.4 % (0-4.4); Hematocrit 39.1 % (37.0-47.0); Hemoglobin 11.2 g/dL (12.0-15.0); Immature Granulocyte Absolute 0.03 K/mm3 (0.00-0.031); Immature Granulocyte Percent A 0.4 % (0-0.5); Lymphocytes Absolute Auto 1.04 K/mm3 (0.9-3.2); Lymphocytes Percent Auto 12.4 % (18.3-44.2); Mean Corpuscular HGB Conc 28.6 g/dl (32-36); Mean Corpuscular Hemoglobin 24.6 pg (26-34); Mean Corpuscular Volume 85.9 fl (80-100); Monocytes Absolute Auto 0.4 K/mm3 (0.1-0.6); Monocytes Percent Auto 4.5 % (2.6-8.5); Neutrophils Absolute Auto 6.7 K/mm3 (1.3-6.7); Neutrophils Percent Auto 80.1 % (45.5-73.1); Platelet Count Result 184 k/mm3 (150-375); Red Blood Count 4.55 M/mm3 (4.2-5.4); Red Cell Distribution Width 17.1 % (11.5-14.5); White Blood Count 8.4 K/mm3 (4.5-10.0)
[2022-01-11 05:39] LABS: Alanine Aminotransferase 134 U/L (6-35); Albumin Level 3.1 g/dL (3.5-5.1); Alkaline Phosphatase 106 U/L (38-126); Aspartate Amino Transferase 211 U/L (14-36); Bilirubin,Total 2.2 mg/dL (0.2-1.3); Blood Urea Nitrogen 26 mg/dL (7-17); Carbon Dioxide > 40 mmol/L (22-30); Chloride 89 mmol/L (98-107); Estimated CRCL calculation 96 ml/min; Estimated Glomerular Filt Rate > 60; Glucose 88 mg/dL (65-110); Potassium 3.5 mmol/L (3.4-5.0); Sodium 139 mmol/L (137-145)
[2022-01-11] MEDS: FUROSEMIDE INJ 40 MG/4 ML VIAL IV PUSH (08:12)
[2022-01-11] MEDS: FERROUS SULFATE 324 MG TABLET PO (08:13)
[2022-01-11] MEDS: PANTOPRAZOLE 40 MG TABLET PO (08:13)
[2022-01-11] MEDS: GABAPENTIN 300 MG CAPSULE PO ×3 (08:13→16:55)
[2022-01-11] MEDS: APIXABAN 5 MG TABLET 10 MG PO ×2 (08:13→22:08)
--- NOTE | 2022-01-11 08:51 | PM.PNPUL ---
Progress Note: A&P Assessment and Plan (1) Acute respiratory failure with hypoxia and hypercapnia: Code(s): J96.01 - Acute respiratory failure with hypoxia; J96.02 - Acute respiratory failure with hypercapnia Status: Acute Assessment and Plan: Patient presented with hypoxemic respiratory failure with a blood gas of 7.39/47/93 on 100% non-rebreather. She had no evidence of hypercarbic respiratory failure on this blood gas. In addition her admission bicarb was 28. This does not suggest she has chronic hypercarbic respiratory failure from COPD or obesity hypoventilation syndrome. TSH on 12/31/2021 was 0.55 to normal. she was 6 L positive through 01/02/2022, has developed a small right pleural effusion and increased interstitial infiltrates on her chest x-ray. Her BNP is improved but still of elevated at 7090. She has Right ventricular enlargement and decreased right ventricular function consistent with right heart failure and anasarca. Patient currently has hypoxemic respiratory failure in the etiology of this includes fluid overload, small pleural effusion, atelectasis from being bedbound and morbidly obese, COPD exacerbation, narcotic use and possible pulmonary emboli and possible untreated sleep related breathing disorder.. 01/04 agree with IV Lasix diuresis as tolerated by her cardiac and renal Systems. She is -3.6 L in the last 36 hours And has improved clinically and her oxygen is now down to 7 L nasal cannula. Agree with dress of physical therapy with an attempt to get her out of bed. I will treat her COPD exacerbation as below. Avoid hydrocodone use. Patient is on full-dose Lovenox for her below the knee DVT and I agree with this at this time. I would not perform a CT angiogram of the chest or a perfusion scan. She will need an outpatient polysomnogram. 01/05 patient states that her breathing feels normal today. She denies cough, mucus production, blood, hemoptysis or chest pain. Attempted to wear the NIV with AVAPS mode last night and she said it was difficult to wear and she could not sleep. Currently on 6 L nasal cannula with saturations 96%. She diuresed 3.7 L yesterday. She has expiratory wheezes left greater than right today. Oxygenation is slowly improving with diuresis, treatment for possible pulmonary embolism and COPD exacerbation. She does not tolerate noninvasive ventilation and I will discontinue at this time. 01/06 Oxygenation is slowly improving with diuresis, treatment for possible pulmonary embolism and COPD exacerbation. patient wore 4 L nasal cannula overnight and did well. She has difficulty sleeping in the hospital. She slept better than she did when she attempted to wear the BiPAP. Currently her saturations are 91% on 4 L nasal cannula. She diuresed 1.4 L yesterday, and since admission she is now -2 L. wheezes are improved but persist left greater than white. 01/09 Overall patient is improved but still has dyspnea on exertion and intermittent wheezing. Her swelling is worsen her feet but better and her legs. Currently she is on 3 L nasal cannula saturations 95%. Creatinine is 1.0, white blood cell count is 5.5, cumulative diuresis since admission is 5.7 L. her BNP today is 2270 improved from 7090 on 01/04/2022. 01/10 Patient continues to improve with diuresis, treatment for COPD exacerbation and PE. At rest she says she is breathing normally. Currently she is on 2 L nasal cannula saturations 97%. Creatinine is 0.9, cumulative diuresis is 9.1 L since admission. Her weight has decreased 9.9 kg. Patient had an overnight oximetry on 2 L nasal cannula with average saturation of 93%. Low saturation 86%. Time with saturation less than or equal to 88% was 2 minutes. I will repeat the overnight on room air. 01/11 overall patient continues to slowly improve. Patient denies rest shortness of breath. She still has dyspnea on exertion. Her swelling has improved. Dior
--- NOTE | 2022-01-11 08:54 | PM.IMPN ---
Progress Note: A&P Assessment and Plan (1) Acute respiratory failure with hypoxia and hypercapnia: Code(s): J96.01 - Acute respiratory failure with hypoxia; J96.02 - Acute respiratory failure with hypercapnia Status: Acute Assessment and Plan: Multifactorial, likely secondary to COPD exacerbation as well as diastolic heart failure, continues to taper oxygen requirement Echo showed an EF greater than 70% with right ventricular chamber moderately enlarged, no significant valvular disease, no pulmonary hypertension noted Continue IV diuresis, fluid restriction, appreciate pulmonology consultation and management, Continue Lasix 40 mg IV daily. Switch to Lasix oral tomorrow. She is not on Lasix at home Chest x-ray imrpoving. cta chest with no PE, right upper lobe and more prominent right lower lobe infiltrate, bilateral predominantly lower lobe atelectasis, right more than left apnea link on RA: 01/11/2022: spO2 < 88%: 42 mins needed to put back on 2L due to desaturations apnea link on 2L 01/10/2022: SpO2<88%: 2 mins Needs 2 L oxygen at night Home oxygen evaluation (2) COPD (chronic obstructive pulmonary disease): Code(s): J44.9 - Chronic obstructive pulmonary disease, unspecified Status: Acute Assessment and Plan: D/c steroids per pulmonology, DuoNebs, completed course of Levaquin (3) DVT (deep venous thrombosis): Code(s): I82.409 - Acute embolism and thrombosis of unspecified deep veins of unspecified lower extremity Status: Acute Assessment and Plan: venous doppler acute thrombus in the right cephalix, radial and ulnar veins venous doppler with acute dvt in left posterior tibial and peroneal veins Continue Eliquis CTA negative for PE (4) Renal calculi: Code(s): N20.0 - Calculus of kidney Status: Acute Assessment and Plan: Stent recently placed by urology on Dec 31, 2021, note from urology states patient may benefit from outpatient ESWL Urine cx NG (5) Hypokalemia: Code(s): E87.6 - Hypokalemia Status: Acute Assessment and Plan: Replete and recheck, likely 2/2 diuresis Plan JT: cr 2.4 on admission, worsened to 2.9. improved and resovled subsequently. nephrology was consutled durign the hospital stay. DVT prophylaxis with Eliquis GI prophylaxis with PPI Code status full code Subjective Date/time seen: 01/11/22 08:54 Interval history: Patient reports he is feeling better. Feels alert tired otherwise doing okay. Shortness of breath on exertion. Leg swelling has improved. No chest pain. Discussed with Pulmonary. Review of Systems Review of Systems: All systems reviewed & are unremarkable except as noted in HPI and below Exam Narrative: General: No acute distress, alert and oriented per baseline HEENT: Atraumatic, normocephalic, mucous membranes moist CV: Regular rate and rhythm, S1, S2 Lungs: Good air entry, no wheezes Abdomen: Soft, nontender, nondistended Extremities: 2+ nonpitting edema bilateral lower extremities, unchanged Skin: No rashes noted, no lesions or wounds seen Psych: Euthymic, normal affect Objective Data Vital Signs Vital Signs: Vital Signs - 24 hr 01/10/22 10:00 01/10/22 12:00 01/10/22 09:15 Temperature 97.6 F Pulse Rate 91 88 Respiratory Rate 16 Blood Pressure 153/74 H Pulse Oximetry 91 95 Oxygen Delivery Nasal Cannula Oxygen Flow Rate 2 Fraction of Inspired Oxygen 01/10/22 09:15 01/10/22 14:00 01/10/22 16:00 Temperature 97.7 F Pulse Rate 86 82 82 Respiratory Rate 20 16 Blood Pressure 146/64 H Pulse Oximetry 95 Oxygen Delivery Oxygen Flow Rate Fraction of Inspired Oxygen 01/10/22 18:00 01/10/22 20:24 01/10/22 20:00 Temperature 97.7 F 97.6 F Pulse Rate 78 96 96 Respiratory Rate 16 14 14 Blood Pressure 140/62 173/73 H Pulse Oximetry 96 95 95 Oxygen Delivery Nasal Cannula Oxygen Flow Rate 2 Fraction of Inspired Oxygen 4
[2022-01-11] MEDS: FLUTICASONE/SALMETEROL 230-21 MCG INHALER 1 PUFF 2 PUFF INHALATION ×2 (09:23→21:56)
[2022-01-11] MEDS: UMECLIDINIUM BROMIDE 62.5 MCG ELLIPTA 1 PUFF INHALATION (09:23)
--- NOTE | 2022-01-11 10:57 | PCRCNOTE ---
Home O2 eval complete. Home O2 requirements 1lpm with rest, 2lpm with activity. RN notified. Home O2 set up with IV Respiratory
--- NOTE | 2022-01-11 15:00 | PC.NURSE ---
On 01/11/22, the student, [Francoise Pool], provided care and completed [facility] documentation on this patient. I have reviewed the student's documentation and agree with the findings.
[2022-01-11] MEDS: MORPHINE SULFATE (*CRX) 2 MG/ML INJ 1 MG IV PUSH (15:07)
--- NOTE | 2022-01-11 15:18 | HOMEO2EVAL ---
Evaluation was performed at [facility] Home Oxygen Evaluation RC: Home Oxygen (O2) Evaluation Start: 01/11/22 08:31 Freq: ONCE Status: Active Protocol: RPE Activity Type Activity Date Activity User E-sign Co-sign Detail Recorded Client Recorded Date Recorded By Document 01/11/22 09:20 PK [email or web address] 01/11/22 10:57 PKH Document 01/11/22 09:27 [email or web address] 01/11/22 10:57 PKH Document 01/11/22 09:30 [email or web address] 01/11/22 10:57 PKH Document 01/11/22 09:35 [email or web address] 01/11/22 10:57 PKH Document 01/11/22 09:55 [email or web address] [email or web address] 01/11/22 10:57 PKH 01/11/22 01/11/22 01/11/22 09:20 09:27 09:30 Home O2 Evaluation [Oxygen] -Test Phase Resting Resting Exercise -Oxygen Delivery Room Air Nasal Cannula Nasal Cannula -Oxygen Flow Rate (L/min) 1 -Fraction of Inspired Oxygen (%) 1 [Pulse Oximetry] -Pulse Oximetry (90-100 %) 85 L 91 87 L [Pulse Rate] -Pulse Rate (60-100 beats/min) 111 H 108 H 113 H [Exercise] -Ambulation Distance (feet) -Ambulation Distance (meters) [Comments] -Home Oxygen Evaluation Comments [Charges] -Treatment Charges O2 Evaluation - Inpatient 01/11/22 01/11/22 09:35 09:55 Home O2 Evaluation [Oxygen] -Test Phase Exercise Resting -Oxygen Delivery Nasal Cannula Nasal Cannula -Oxygen Flow Rate (L/min) 2 1 -Fraction of Inspired Oxygen (%) [Pulse Oximetry] -Pulse Oximetry (90-100 %) 91 91 [Pulse Rate] -Pulse Rate (60-100 beats/min) 114 H 110 H [Exercise] -Ambulation Distance (feet) 300 -Ambulation Distance (meters) 91.43 [Comments] -Home Oxygen Evaluation Comments Home O2 requirements 1lpm with rest, 2lpm with activity. RN notified. Home O2 will be set up with IV Respiratory. [Charges] -Treatment Charges
[2022-01-12] VITALS (17 sets, daily range): BP systolic 122–168; BP diastolic 48–74; PULSE 78–171; RESP 16–24; TEMP 36.3–37.4; O2SAT 92–97
[2022-01-12] MEDS: LORazepam (*CRX) 0.5 MG TABLET PO ×3 (04:44→23:41)
[2022-01-12] MEDS: MORPHINE SULFATE (*CRX) 2 MG/ML INJ 1 MG IV PUSH ×2 (04:44→17:28)
[2022-01-12] MEDS: METOPROLOL TARTRATE INJ 5 MG/5 ML VIAL (05:04)
--- NOTE | 2022-01-12 05:22 | ECG_ITS ---
Measurements Intervals [place] Rate: 154 P: DC: 0 QRS: 38 QRSD: 106 T: 14 QT: 278 QTc: 445 Interpretive Statements ATRIAL FIBRILLATION WITH RAPID VENTRICULAR RESPONSE DELAYED PRECORDIAL R/S TRANSITION BASELINE ARTIFACT- I, II, III, AVR, AVL, AVF ABNORMAL ECG COMPARED TO ECG 12/29/2021 23:23:00 ATRIAL FIBRILLATION NOW PRESENT Electronically Signed On 01-12-2022 6:49:38 SEEDLING PULLER by Fransico Rader D.O.
[2022-01-12] MEDS: dilTIAZem 100 MG/100 ML 100 MG/100 ML BAG IV CONT (06:23)
[2022-01-12] MEDS: dilTIAZem HCl INJ 25 MG/5 ML VIAL 10 MG IV PUSH (06:39)
--- NOTE | 2022-01-12 06:39 | PC.NURSE ---
patient up to br with walker and sba at 0430 and hr noted to be 150-180 on exertion. patient back to bed and medicated for pain and anxiety. hr sustained for over 150 for 20min. lopressor 5mg ivp per md order. mx showing afib rvr and sustained for another 30 min. stat ekg confirmed rhythm as afib rvr 150. dr shelton to tx to imu and start card gtt. report called to blu mercer and patient tx to room 205 imu.
[2022-01-12 06:48] LABS: Basophils Percent Auto 0.3 % (0.2-1.2); Eosinophils Absolute Auto 0.2 K/mm3 (0-0.3); Eosinophils Percent Auto 2.1 % (0-4.4); Hematocrit 41.8 % (37.0-47.0); Hemoglobin 11.9 g/dL (12.0-15.0); Immature Granulocyte Absolute 0.03 K/mm3 (0.00-0.031); Immature Granulocyte Percent A 0.4 % (0-0.5); Lymphocytes Absolute Auto 1.28 K/mm3 (0.9-3.2); Lymphocytes Percent Auto 17.5 % (18.3-44.2); Mean Corpuscular HGB Conc 28.5 g/dl (32-36); Mean Corpuscular Hemoglobin 25.1 pg (26-34); Mean Platelet Volume 9.4 fl (7.4-10.4); Monocytes Absolute Auto 0.4 K/mm3 (0.1-0.6); Monocytes Percent Auto 5.5 % (2.6-8.5); Neutrophils Absolute Auto 5.4 K/mm3 (1.3-6.7); Neutrophils Percent Auto 74.2 % (45.5-73.1); Platelet Count Result 196 k/mm3 (150-375); Red Blood Count 4.75 M/mm3 (4.2-5.4); White Blood Count 7.3 K/mm3 (4.5-10.0)
--- NOTE | 2022-01-12 06:50 | ECG_ITS ---
Measurements Intervals [place] Rate: 80 P: 46 KS: 137 QRS: 36 QRSD: 95 T: 36 QT: 355 QTc: 411 Interpretive Statements SINUS RHYTHM LEFT ATRIAL ENLARGEMENT MINIMAL Q WAVES- INFERIOR LEADS BORDERLINE ECG COMPARED TO ECG 01/12/2022 05:35:27 SINUS RHYTHM NOW PRESENT Electronically Signed On 01-12-2022 13:14:20 DAIRY TECHNICIAN by Fransico Rader D.O.
[2022-01-12 07:03] LABS: Alanine Aminotransferase 416 U/L (6-35); Albumin Level 3.4 g/dL (3.5-5.1); Alkaline Phosphatase 275 U/L (38-126); Aspartate Amino Transferase 596 U/L (14-36); Bilirubin,Total 5.6 mg/dL (0.2-1.3); Blood Urea Nitrogen 21 mg/dL (7-17); Calcium 8.2 mg/dL (8.4-10.2); Carbon Dioxide > 40 mmol/L (22-30); Chloride 87 mmol/L (98-107); Estimated CRCL calculation 80 ml/min; Estimated Glomerular Filt Rate 56; Glucose 112 mg/dL (65-110); Magnesium 1.8 mg/dL (1.6-2.3); Potassium 3.6 mmol/L (3.4-5.0); Sodium 139 mmol/L (137-145)
[2022-01-12 07:44] LABS: Troponin I 0.026 ng/mL (0.000-0.034)
[2022-01-12] MEDS: FLUTICASONE/SALMETEROL 230-21 MCG INHALER 1 PUFF 2 PUFF INHALATION ×2 (07:59→21:58)
[2022-01-12] MEDS: HYDROcodone/acetaminophen (*CRX) 10-325 MG TABLET 1 TAB PO ×3 (08:56→20:16)
[2022-01-12] MEDS: LORazepam INJ (*CRX) 2 MG/ML VIAL 0.5 MG IV PUSH (10:08)
[2022-01-12] MEDS: GABAPENTIN 300 MG CAPSULE PO ×3 (10:11→17:16)
[2022-01-12] MEDS: FERROUS SULFATE 324 MG TABLET PO (10:11)
[2022-01-12] MEDS: PANTOPRAZOLE 40 MG TABLET PO (10:11)
[2022-01-12] MEDS: FUROSEMIDE INJ 40 MG/4 ML VIAL IV PUSH (10:11)
--- NOTE | 2022-01-12 10:15 | PM.IMPN ---
Progress Note: A&P Assessment and Plan (1) Acute respiratory failure with hypoxia and hypercapnia: Code(s): J96.01 - Acute respiratory failure with hypoxia; J96.02 - Acute respiratory failure with hypercapnia Status: Acute Assessment and Plan: Multifactorial, likely secondary to COPD exacerbation as well as diastolic heart failure, continues to taper oxygen requirement Echo showed an EF greater than 70% with right ventricular chamber moderately enlarged, no significant valvular disease, no pulmonary hypertension noted Continue IV diuresis, fluid restriction, appreciate pulmonology consultation and management, Continue Lasix 40 mg IV daily. Switch to Lasix oral. She is not on Lasix at home Chest x-ray imrpoving. cta chest with no PE, right upper lobe and more prominent right lower lobe infiltrate, bilateral predominantly lower lobe atelectasis, right more than left apnea link on RA: 01/11/2022: spO2 < 88%: 42 mins needed to put back on 2L due to desaturations apnea link on 2L 01/10/2022: SpO2<88%: 2 mins Needs 2 L oxygen at night Home oxygen evaluation required 1l at rest and 2l with activity. may need to repeat this again close to discharge (2) COPD (chronic obstructive pulmonary disease): Code(s): J44.9 - Chronic obstructive pulmonary disease, unspecified Status: Acute Assessment and Plan: D/c steroids per pulmonology, Masood, completed course of Levaquin (3) DVT (deep venous thrombosis): Code(s): I82.409 - Acute embolism and thrombosis of unspecified deep veins of unspecified lower extremity Status: Acute Assessment and Plan: venous doppler acute thrombus in the right cephalix, radial and ulnar veins venous doppler with acute dvt in left posterior tibial and peroneal veins Continue Eliquis CTA negative for PE (4) Renal calculi: Code(s): N20.0 - Calculus of kidney Status: Acute Assessment and Plan: Stent recently placed by urology on Dec 31, 2021, note from urology states patient may benefit from outpatient ESWL Urine cx NG (5) Hypokalemia: Code(s): E87.6 - Hypokalemia Status: Acute Assessment and Plan: Replete and recheck, likely 2/2 diuresis Plan JT: cr 2.4 on admission, worsened to 2.9. improved and resovled subsequently. nephrology was consutled durign the hospital stay. # elevated liver enzymes: unclear eetiolog. will cehck us ruq to fruther evaluate. increased ast and alt, wlll check tylenol level. no hypotension noted, will hold off on diureiss. reccheck and montior. check coag panel DVT prophylaxis with Eliquis GI prophylaxis with PPI Code status full code Subjective Date/time seen: 01/12/22 10:15 Interval history: Overnight patient went into AFib with RVR. She has been started on Cardizem drip. This a.m. she has already converted back to sinus rhythm. She reports no other new problems. She denies any chest pain. Review of Systems Review of Systems: All systems reviewed & are unremarkable except as noted in HPI and below Exam Narrative: General: No acute distress, alert and oriented per baseline HEENT: Atraumatic, normocephalic, mucous membranes moist CV: Regular rate and rhythm, S1, S2 Lungs: Good air entry, no wheezes Abdomen: Soft, nontender, nondistended Extremities: 2+ nonpitting edema bilateral lower extremities, unchanged Skin: No rashes noted, no lesions or wounds seen Psych: Euthymic, normal affect Objective Data Vital Signs Vital Signs: Vital Signs - 24 hr 01/11/22 12:00 01/11/22 14:00 01/11/22 16:00 Temperature 98.0 F Pulse Rate 102 H 102 H 102 H Respiratory Rate 20 Blood Pressure 130/53 L Pulse Oximetry 93 Oxygen Delivery Oxygen Flow Rate 01/11/22 18:24 01/11/22 21:22 01/11/22 20:00 Temperature 97.8 F 98.6 F Pulse Rate 108 H 100 108 H Respiratory Rate 20 16 Blood Pressure 135/54 L 157/76 H Pulse Oximetry 90 91 Oxygen Delivery Oxygen Flow Rate
[2022-01-12] MEDS: UMECLIDINIUM BROMIDE 62.5 MCG ELLIPTA 1 PUFF INHALATION (11:39)
[2022-01-12] MEDS: APIXABAN 5 MG TABLET 10 MG PO (12:42)
[2022-01-12 15:26] LABS: Acetaminophen < 10 ug/mL (10-30); Lipase 17 U/L (23-300)
[2022-01-12 15:40] LABS: INR 1.6; Prothrombin Time 18.2 Seconds (11.1-14.7)
[2022-01-12 17:55] LABS: Hepatitis B Surface Antigen Negative (Negative)
[2022-01-12 18:01] LABS: HAV RESULT Negative (Negative); Hepatitis B Core IgM Result Negative (Negative)
[2022-01-12 18:13] LABS: Hepatitis C Virus Antibody Negative (Negative)
[2022-01-12] MEDS: APIXABAN 5 MG TABLET PO (20:17)
[2022-01-12] MEDS: METOPROLOL TARTRATE 25 MG TABLET PO (21:40)
[2022-01-13] VITALS (17 sets, daily range): BP systolic 139–160; BP diastolic 53–65; PULSE 63–86; RESP 18–24; TEMP 36.4–36.6; O2SAT 86–97
[2022-01-13] MEDS: MORPHINE SULFATE (*CRX) 2 MG/ML INJ 1 MG IV PUSH ×4 (00:36→19:52)
[2022-01-13] MEDS: HYDROcodone/acetaminophen (*CRX) 10-325 MG TABLET 1 TAB PO ×3 (05:09→21:48)
[2022-01-13] MEDS: ALBUTEROL SULFATE NEB 2.5 MG/3 ML INH INHALATION (05:37)
[2022-01-13 05:38] LABS: Basophils Percent Auto 0.5 % (0.2-1.2); Eosinophils Absolute Auto 0.2 K/mm3 (0-0.3); Eosinophils Percent Auto 3.2 % (0-4.4); Hematocrit 33.6 % (37.0-47.0); Hemoglobin 9.6 g/dL (12.0-15.0); Immature Granulocyte Absolute 0.02 K/mm3 (0.00-0.031); Immature Granulocyte Percent A 0.4 % (0-0.5); Lymphocytes Absolute Auto 1.39 K/mm3 (0.9-3.2); Lymphocytes Percent Auto 24.6 % (18.3-44.2); Mean Corpuscular HGB Conc 28.6 g/dl (32-36); Mean Corpuscular Hemoglobin 24.4 pg (26-34); Mean Corpuscular Volume 85.3 fl (80-100); Mean Platelet Volume 9.7 fl (7.4-10.4); Monocytes Absolute Auto 0.5 K/mm3 (0.1-0.6); Monocytes Percent Auto 8.3 % (2.6-8.5); Neutrophils Absolute Auto 3.6 K/mm3 (1.3-6.7); Platelet Count Result 181 k/mm3 (150-375); Red Blood Count 3.94 M/mm3 (4.2-5.4); Red Cell Distribution Width 17.9 % (11.5-14.5); White Blood Count 5.7 K/mm3 (4.5-10.0)
[2022-01-13 06:49] LABS: Alanine Aminotransferase 327 U/L (6-35); Albumin Level 3.1 g/dL (3.5-5.1); Alkaline Phosphatase 262 U/L (38-126); Anion Gap 5 mmol/L (8-16); Aspartate Amino Transferase 274 U/L (14-36); Bilirubin,Total 6.4 mg/dL (0.2-1.3); Blood Urea Nitrogen 22 mg/dL (7-17); Carbon Dioxide 39 mmol/L (22-30); Chloride 91 mmol/L (98-107); Estimated CRCL calculation 86 ml/min; Estimated Glomerular Filt Rate > 60; Glucose 93 mg/dL (65-110); Magnesium 2.1 mg/dL (1.6-2.3); Potassium 3.6 mmol/L (3.4-5.0); Sodium 135 mmol/L (137-145)
[2022-01-13 06:56] LABS: Anisocytosis 1+ (NORMAL); Platelet Estimate Adequate (Adequate)
[2022-01-13 06:59] LABS: Hypochromasia 2+ (NORMAL); Microcytosis 1+ (NORMAL); Schistocytes None Seen (NORMAL)
[2022-01-13] MEDS: UMECLIDINIUM BROMIDE 62.5 MCG ELLIPTA 1 PUFF INHALATION (08:27)
[2022-01-13] MEDS: FLUTICASONE/SALMETEROL 230-21 MCG INHALER 1 PUFF 2 PUFF INHALATION ×2 (08:28→20:31)
[2022-01-13 09:45] LABS: Hematocrit 35.8 % (37.0-47.0); Hemoglobin 10.2 g/dL (12.0-15.0)
[2022-01-13] MEDS: LORazepam (*CRX) 0.5 MG TABLET PO ×2 (10:01→17:59)
[2022-01-13] MEDS: GABAPENTIN 300 MG CAPSULE PO ×3 (10:02→17:59)
[2022-01-13] MEDS: METOPROLOL TARTRATE 25 MG TABLET PO ×2 (10:02→19:51)
[2022-01-13] MEDS: FERROUS SULFATE 324 MG TABLET PO (10:02)
[2022-01-13] MEDS: PANTOPRAZOLE SODIUM IV 40 MG VIAL IV PUSH ×2 (10:02→19:51)
--- NOTE | 2022-01-13 13:40 | PCOTNOTE ---
Attempted to see patient this pm, however patient was returning back to bed with nursing upon entering. Pt reported already completing ADLs this am. Encouraged patient to complete upper extremity exercises and patient refused. Pt became teary eyed and overwhelmed stating, I feel really sick to my stomach right now, and I just want these things off my legs. Critical patient care specialist to notify nurse about removing el wrap. Pt began rapidly clicking pen increasingly teary-eyed. Pt pretty worked up at this time, apologized stating, I'm really sorry.
--- NOTE | 2022-01-13 14:15 | HOMEO2EVAL ---
Evaluation was performed at [facility] Home Oxygen Evaluation RC: Home Oxygen (O2) Evaluation Start: 01/11/22 08:31 Freq: ONCE Status: Active Protocol: RPE Activity Type Activity Date Activity User E-sign Co-sign Detail Recorded Client Recorded Date Recorded By Document 01/11/22 09:20 [email or web address] [email or web address] 01/11/22 10:57 PKH Document 01/11/22 09:27 [email or web address] [email or web address] 01/11/22 10:57 PKH Document 01/11/22 09:30 [email or web address] [email or web address] 01/11/22 10:57 PKH Document 01/11/22 09:35 [email or web address] [email or web address] 01/11/22 10:57 PKH Document 01/11/22 09:55 [email or web address] [email or web address] 01/11/22 10:57 PKH Document 01/13/22 14:00 ISELA [email or web address] 01/13/22 14:15 ISELA Document 01/13/22 14:05 ISELA [email or web address] 01/13/22 14:15 ISELA 01/11/22 01/11/22 01/11/22 09:20 09:27 09:30 Home O2 Evaluation [Oxygen] -Test Phase Resting Resting Exercise -Oxygen Delivery Room Air Nasal Cannula Nasal Cannula -Oxygen Flow Rate (L/min) 1 -Fraction of Inspired Oxygen (%) 1 [Pulse Oximetry] -Pulse Oximetry (90-100 %) 85 L 91 87 L [Pulse Rate] -Pulse Rate (60-100 beats/min) 111 H 108 H 113 H [Exercise] -Ambulation Distance (feet) -Ambulation Distance (meters) [Comments] -Home Oxygen Evaluation Comments [Charges] -Treatment Charges O2 Evaluation - Inpatient 01/11/22 01/11/22 01/13/22 09:35 09:55 14:00 Home O2 Evaluation [Oxygen] -Test Phase Exercise Resting Resting -Oxygen Delivery Nasal Cannula Nasal Cannula Room Air -Oxygen Flow Rate (L/min) 2 1 -Fraction of Inspired Oxygen (%) [Pulse Oximetry] -Pulse Oximetry (90-100 %) 91 91 86 L [Pulse Rate] -Pulse Rate (60-100 beats/min) 114 H 110 H 71 [Exercise] -Ambulation Distance (feet) 300 -Ambulation Distance (meters) 91.43 [Comments] -Home Oxygen Evaluation Comments Home O2 ROOM AIR requirements SATURATION 1lpm with rest, CHECK, FOR 2lpm with REQUALIFICATION activity. RN OF HOME O2 notified. Home O2 will be set up with IV Respiratory. [Charges] -Treatment Charges O2 Evaluation - Inpatient 01/13/22 14:05 Home O2 Evaluation [Oxygen] -Test Phase Resting -Oxygen Delivery Nasal Cannula -Oxygen Flow Rate (L/min) 1 -Fraction of Inspired Oxygen (%) [Pulse Oximetry] -Pulse Oximetry (90-100 %) 90 [Pulse Rate] -Pulse Rate (60-100 beats/min) [Exercise] -Ambulation Distance (feet) -Ambulation Distance (meters) [Comments] -Home Oxygen Evaluation Comments [Charges] -Treatment Charges
--- NOTE | 2022-01-13 14:15 | PCRCNOTE ---
HOME O2 EVAL ROOM AIR SAT CHECK FOR REQUALIFICATION OF HOME O2 IS DONE. PT HAS TANK IN ROOM AND DME IS AWAITING CALL WHEN D/C FOR SET UP. THIS NEW EVALUATION WILL BE VALID UNTIL 1399 ON MONDAY 01/15.
[2022-01-13 14:50] LABS: Protein,total, 24 Hr Ur 440 mg/24h
--- NOTE | 2022-01-13 15:26 | PCPTNOTE ---
Attempted to see patient for PT, however patient refused. Patient reported it has been a rough day and does not want to do therapy. Patient reported she has been up walking to the restroom and back, and did her LE exercises sitting edge of bed.
--- NOTE | 2022-01-13 15:37 | PM.IMPN ---
Progress Note: A&P Assessment and Plan (1) Acute respiratory failure with hypoxia and hypercapnia: Code(s): J96.01 - Acute respiratory failure with hypoxia; J96.02 - Acute respiratory failure with hypercapnia Status: Acute Assessment and Plan: Multifactorial, likely secondary to COPD exacerbation as well as diastolic heart failure, continues to taper oxygen requirement Echo showed an EF greater than 70% with right ventricular chamber moderately enlarged, no significant valvular disease, no pulmonary hypertension noted Continue IV diuresis, fluid restriction, appreciate pulmonology consultation and management, Continue Lasix 40 mg IV daily. Switch to Lasix oral. She is not on Lasix at home Chest x-ray imrpoving. cta chest with no PE, right upper lobe and more prominent right lower lobe infiltrate, bilateral predominantly lower lobe atelectasis, right more than left apnea link on RA: 01/11/2022: spO2 < 88%: 42 mins needed to put back on 2L due to desaturations apnea link on 2L 01/10/2022: SpO2<88%: 2 mins Needs 2 L oxygen at night Home oxygen evaluation required 1l at rest and 2l with activity. may need to repeat this again close to discharge (2) COPD (chronic obstructive pulmonary disease): Code(s): J44.9 - Chronic obstructive pulmonary disease, unspecified Status: Acute Assessment and Plan: D/c steroids per pulmonology, Masood, completed course of Levaquin (3) DVT (deep venous thrombosis): Code(s): I82.409 - Acute embolism and thrombosis of unspecified deep veins of unspecified lower extremity Status: Acute Assessment and Plan: venous doppler acute thrombus in the right cephalix, radial and ulnar veins venous doppler with acute dvt in left posterior tibial and peroneal veins Continue Eliquis CTA negative for PE (4) Renal calculi: Code(s): N20.0 - Calculus of kidney Status: Acute Assessment and Plan: Stent recently placed by urology on Dec 31, 2021, note from urology states patient may benefit from outpatient ESWL Urine cx NG (5) Hypokalemia: Code(s): E87.6 - Hypokalemia Status: Acute Assessment and Plan: Replete and recheck, likely 2/2 diuresis Plan JT: cr 2.4 on admission, worsened to 2.9. improved and resovled subsequently. nephrology was consutled durign the hospital stay. # elevated liver enzymes: unclear eetiolog. right upper quadrant ultrasound negative. No hypotension noted. Hold diuresis. Coagulation panel okay. LFT improving today but hyperbilirubinemia still persist. Will recheck in the morning. # drop in H&H: Recheck was stable. Will hold Eliquis this morning restart 5 mg again in the evening as as she remains stable. No active signs of bleeding set for bruise on right lower abdominal wall. Will order FOBT. Watch for any active bleeding. DVT prophylaxis with Eliquis GI prophylaxis with PPI Code status full code Subjective Date/time seen: 01/13/22 15:37 Interval history: she is back to sinus rhythm. Denies any new complaints. Feels very well. H&H dropped. No signs of bleeding otherwise bruise on her right lower abdomen when she was getting shots earlier this admission. No nausea vomiting Review of Systems Review of Systems: All systems reviewed & are unremarkable except as noted in HPI and below Exam Narrative: General: No acute distress, alert and oriented per baseline HEENT: Atraumatic, normocephalic, mucous membranes moist CV: Regular rate and rhythm, S1, S2 Lungs: Good air entry, no wheezes Abdomen: Soft, nontender, nondistended bruise on right lower abdominal wall Extremities: 2+ nonpitting edema bilateral lower extremities, unchanged Skin: No rashes noted, no lesions or wounds seen Psych: Euthymic, normal affect Objective Data Vital Signs Vital Signs: Vital Signs - 24 hr 01/12/22 16:51 01/12/22 16:00 01/12/22 16:00 Temperature 98.1 F Pulse Rate 93 84 Respiratory Rate 20
--- NOTE | 2022-01-13 17:42 | PC.NURSE ---
Patient had an approximate 20 beat run of Vtach going into VFIB and then back into Sinus Rhythm. MD Notified. Patient to remain IMU status at this time. Will continue to monitor.
[2022-01-13] MEDS: POTASSIUM CHLORIDE 20 MEQ TABLET 40 MEQ PO (17:59)
[2022-01-13] MEDS: APIXABAN 5 MG TABLET PO (19:51)
[2022-01-14] VITALS (11 sets, daily range): BP systolic 138–152; BP diastolic 60–72; PULSE 62–95; RESP 14–18; TEMP 36.2–36.9; O2SAT 92–100
[2022-01-14] MEDS: MORPHINE SULFATE (*CRX) 2 MG/ML INJ 1 MG IV PUSH (01:11)
[2022-01-14] MEDS: LOPERAMIDE HCL 2 MG CAPSULE PO (01:12)
[2022-01-14] MEDS: LORazepam (*CRX) 0.5 MG TABLET PO ×3 (01:12→19:48)
[2022-01-14 04:44] LABS: Basophils Percent Auto 0.5 % (0.2-1.2); Eosinophils Absolute Auto 0.3 K/mm3 (0-0.3); Eosinophils Percent Auto 4.7 % (0-4.4); Immature Granulocyte Absolute 0.02 K/mm3 (0.00-0.031); Immature Granulocyte Percent A 0.3 % (0-0.5); Lymphocytes Absolute Auto 1.26 K/mm3 (0.9-3.2); Lymphocytes Percent Auto 20.6 % (18.3-44.2); Mean Corpuscular HGB Conc 28.6 g/dl (32-36); Mean Corpuscular Hemoglobin 25.4 pg (26-34); Mean Corpuscular Volume 88.8 fl (80-100); Mean Platelet Volume 9.5 fl (7.4-10.4); Monocytes Absolute Auto 0.4 K/mm3 (0.1-0.6); Monocytes Percent Auto 6.4 % (2.6-8.5); Neutrophils Absolute Auto 4.1 K/mm3 (1.3-6.7); Neutrophils Percent Auto 67.5 % (45.5-73.1); Platelet Count Result 201 k/mm3 (150-375); Red Blood Count 3.94 M/mm3 (4.2-5.4); Red Cell Distribution Width 18.1 % (11.5-14.5); White Blood Count 6.1 K/mm3 (4.5-10.0)
[2022-01-14] MEDS: HYDROcodone/acetaminophen (*CRX) 10-325 MG TABLET 1 TAB PO ×4 (04:47→23:31)
[2022-01-14 04:58] LABS: Alanine Aminotransferase 215 U/L (6-35); Albumin Level 3.1 g/dL (3.5-5.1); Alkaline Phosphatase 224 U/L (38-126); Anion Gap 9 mmol/L (8-16); Aspartate Amino Transferase 113 U/L (14-36); Bilirubin,Total 2.2 mg/dL (0.2-1.3); Blood Urea Nitrogen 20 mg/dL (7-17); Calcium 8.3 mg/dL (8.4-10.2); Carbon Dioxide 39 mmol/L (22-30); Chloride 92 mmol/L (98-107); Estimated CRCL calculation 86 ml/min; Estimated Glomerular Filt Rate > 60; Glucose 115 mg/dL (65-110); Magnesium 1.9 mg/dL (1.6-2.3); Potassium 3.9 mmol/L (3.4-5.0); Sodium 140 mmol/L (137-145)
[2022-01-14] MEDS: FLUTICASONE/SALMETEROL 230-21 MCG INHALER 1 PUFF 2 PUFF INHALATION ×2 (07:23→20:26)
[2022-01-14] MEDS: UMECLIDINIUM BROMIDE 62.5 MCG ELLIPTA 1 PUFF INHALATION (07:24)
[2022-01-14] MEDS: FERROUS SULFATE 324 MG TABLET PO (09:02)
[2022-01-14] MEDS: GABAPENTIN 300 MG CAPSULE PO ×3 (09:02→16:54)
[2022-01-14] MEDS: METOPROLOL TARTRATE 25 MG TABLET PO ×2 (09:03→19:48)
[2022-01-14] MEDS: APIXABAN 5 MG TABLET PO ×2 (09:04→19:48)
[2022-01-14] MEDS: PANTOPRAZOLE SODIUM IV 40 MG VIAL IV PUSH ×2 (10:51→19:48)
--- NOTE | 2022-01-14 13:34 | PM.IMPN ---
Progress Note: A&P Assessment and Plan (1) Acute respiratory failure with hypoxia and hypercapnia: Code(s): J96.01 - Acute respiratory failure with hypoxia; J96.02 - Acute respiratory failure with hypercapnia Status: Acute Assessment and Plan: Multifactorial, likely secondary to COPD exacerbation as well as diastolic heart failure, continues to taper oxygen requirement Echo showed an EF greater than 70% with right ventricular chamber moderately enlarged, no significant valvular disease, no pulmonary hypertension noted Continue IV diuresis, fluid restriction, appreciate pulmonology consultation and management, Continue Lasix 40 mg IV daily. Switch to Lasix oral. She is not on Lasix at home Chest x-ray imrpoving. cta chest with no PE, right upper lobe and more prominent right lower lobe infiltrate, bilateral predominantly lower lobe atelectasis, right more than left apnea link on RA: 01/11/2022: spO2 < 88%: 42 mins needed to put back on 2L due to desaturations apnea link on 2L 01/10/2022: SpO2<88%: 2 mins Needs 2 L oxygen at night Home oxygen evaluation required 1l at rest and 2l with activity. may need to repeat this again close to discharge (2) COPD (chronic obstructive pulmonary disease): Code(s): J44.9 - Chronic obstructive pulmonary disease, unspecified Status: Acute Assessment and Plan: D/c steroids per pulmonology, Masood, completed course of Levaquin (3) DVT (deep venous thrombosis): Code(s): I82.409 - Acute embolism and thrombosis of unspecified deep veins of unspecified lower extremity Status: Acute Assessment and Plan: venous doppler acute thrombus in the right cephalix, radial and ulnar veins venous doppler with acute dvt in left posterior tibial and peroneal veins Continue Eliquis CTA negative for PE (4) Renal calculi: Code(s): N20.0 - Calculus of kidney Status: Acute Assessment and Plan: Stent recently placed by urology on Dec 31, 2021, note from urology states patient may benefit from outpatient ESWL Urine cx NG Will do void trial for removal of catheter (5) Hypokalemia: Code(s): E87.6 - Hypokalemia Status: Acute Assessment and Plan: Replete and recheck, likely 2/2 diuresis Plan #JT: cr 2.4 on admission, worsened to 2.9. improved and resovled subsequently. nephrology was consutled durign the hospital stay. # elevated liver enzymes: unclear eetiolog. right upper quadrant ultrasound negative. No hypotension noted. Hold diuresis. Coagulation panel okay. LFT improving today but hyperbilirubinemia still persist. this continues to improve now. # drop in H&H: Recheck was stable. Will hold Eliquis this morning restart 5 mg again in the evening as as she remains stable. No active signs of bleeding set for bruise on right lower abdominal wall. Will order FOBT. Watch for any active bleeding. H&H remained stable in a likely due to hematuria which was transient #DVT prophylaxis with Eliquis #GI prophylaxis with PPI #Code status full code Subjective Date/time seen: 01/14/22 13:34 Interval history: no overnight events. She had couple of telemetry alarms yesterday which was notified of. These all seem to be an artifacts. She feels tired otherwise feels about the same. Shortness of breath on exertion which is about the same as well. Denies any diarrhea Review of Systems Review of Systems: All systems reviewed & are unremarkable except as noted in HPI and below Exam Narrative: General: No acute distress, alert and oriented per baseline HEENT: Atraumatic, normocephalic, mucous membranes moist CV: Regular rate and rhythm, S1, S2 Lungs: Good air entry, no wheezes Abdomen: Soft, nontender, nondistended bruise on right lower abdominal wall Extremities: 2+ nonpitting edema bilateral lower extremities, unchanged Skin: No rashes noted, no lesions or wounds seen Psych: Euthymic, normal affect Objective Stephen
[2022-01-15] VITALS (14 sets, daily range): BP systolic 145–163; BP diastolic 59–64; PULSE 61–101; RESP 12–20; TEMP 36.3–36.8; O2SAT 93–100
[2022-01-15 04:21] LABS: Basophils Percent Auto 0.5 % (0.2-1.2); Eosinophils Absolute Auto 0.3 K/mm3 (0-0.3); Eosinophils Percent Auto 4.6 % (0-4.4); Hematocrit 35.6 % (37.0-47.0); Hemoglobin 10.1 g/dL (12.0-15.0); Immature Granulocyte Absolute 0.03 K/mm3 (0.00-0.031); Immature Granulocyte Percent A 0.5 % (0-0.5); Lymphocytes Absolute Auto 1.48 K/mm3 (0.9-3.2); Lymphocytes Percent Auto 25.4 % (18.3-44.2); Mean Corpuscular HGB Conc 28.4 g/dl (32-36); Mean Corpuscular Hemoglobin 24.5 pg (26-34); Mean Corpuscular Volume 86.4 fl (80-100); Mean Platelet Volume 8.9 fl (7.4-10.4); Monocytes Absolute Auto 0.5 K/mm3 (0.1-0.6); Monocytes Percent Auto 9.3 % (2.6-8.5); Neutrophils Absolute Auto 3.5 K/mm3 (1.3-6.7); Neutrophils Percent Auto 59.7 % (45.5-73.1); Platelet Count Result 211 k/mm3 (150-375); Red Blood Count 4.12 M/mm3 (4.2-5.4); Red Cell Distribution Width 18.2 % (11.5-14.5); White Blood Count 5.8 K/mm3 (4.5-10.0)
[2022-01-15] MEDS: MORPHINE SULFATE (*CRX) 2 MG/ML INJ 1 MG IV PUSH ×2 (04:22→18:07)
[2022-01-15 04:41] LABS: Alanine Aminotransferase 160 U/L (6-35); Albumin Level 3.2 g/dL (3.5-5.1); Alkaline Phosphatase 225 U/L (38-126); Aspartate Amino Transferase 52 U/L (14-36); Bilirubin,Total 1.5 mg/dL (0.2-1.3); Blood Urea Nitrogen 19 mg/dL (7-17); Calcium 8.3 mg/dL (8.4-10.2); Carbon Dioxide > 40 mmol/L (22-30); Chloride 96 mmol/L (98-107); Estimated CRCL calculation 86 ml/min; Estimated Glomerular Filt Rate > 60; Glucose 104 mg/dL (65-110); Magnesium 1.8 mg/dL (1.6-2.3); Potassium 4.2 mmol/L (3.4-5.0); Sodium 141 mmol/L (137-145)
[2022-01-15 04:46] LABS: Anisocytosis 1+ (NORMAL); Hypochromasia 1+ (NORMAL); Platelet Estimate Adequate (Adequate); Schistocytes None Seen (NORMAL)
[2022-01-15 04:47] LABS: Stomatocytes 2+ (NORMAL)
[2022-01-15] MEDS: FERROUS SULFATE 324 MG TABLET PO (08:04)
[2022-01-15] MEDS: APIXABAN 5 MG TABLET PO ×2 (08:04→20:08)
[2022-01-15] MEDS: GABAPENTIN 300 MG CAPSULE PO ×3 (08:05→18:07)
[2022-01-15] MEDS: HYDROcodone/acetaminophen (*CRX) 10-325 MG TABLET 1 TAB PO ×3 (08:05→20:25)
[2022-01-15] MEDS: PANTOPRAZOLE SODIUM IV 40 MG VIAL IV PUSH ×2 (08:05→20:08)
[2022-01-15] MEDS: FLUTICASONE/SALMETEROL 230-21 MCG INHALER 1 PUFF 2 PUFF INHALATION ×2 (08:27→20:54)
[2022-01-15] MEDS: UMECLIDINIUM BROMIDE 62.5 MCG ELLIPTA 1 PUFF INHALATION (08:27)
[2022-01-15] MEDS: METOPROLOL TARTRATE 25 MG TABLET PO ×2 (08:45→20:08)
[2022-01-15] MEDS: LORazepam (*CRX) 0.5 MG TABLET PO ×2 (12:19→20:25)
--- NOTE | 2022-01-15 13:01 | PCOTNOTE ---
Attempted to see pt for Occupational therapy treatment session. Pt declined at this time due to increase fatigue and wanting to take a nap. Pt was educated that therapist will attempt at a later time today, to which pt agreed with.
--- NOTE | 2022-01-15 13:11 | PM.IMPN ---
Progress Note: A&P Assessment and Plan (1) Acute respiratory failure with hypoxia and hypercapnia: Code(s): J96.01 - Acute respiratory failure with hypoxia; J96.02 - Acute respiratory failure with hypercapnia Status: Acute Assessment and Plan: Multifactorial, likely secondary to COPD exacerbation as well as diastolic heart failure, continues to taper oxygen requirement Echo showed an EF greater than 70% with right ventricular chamber moderately enlarged, no significant valvular disease, no pulmonary hypertension noted Continue IV diuresis, fluid restriction, appreciate pulmonology consultation and management, Continue Lasix 40 mg IV daily. Switch to Lasix oral. She is not on Lasix at home Chest x-ray imrpoving. cta chest with no PE, right upper lobe and more prominent right lower lobe infiltrate, bilateral predominantly lower lobe atelectasis, right more than left apnea link on RA: 01/11/2022: spO2 < 88%: 42 mins needed to put back on 2L due to desaturations apnea link on 2L 01/10/2022: SpO2<88%: 2 mins Needs 2 L oxygen at night Home oxygen evaluation required 1l at rest and 2l with activity. may need to repeat this again close to discharge (2) COPD (chronic obstructive pulmonary disease): Code(s): J44.9 - Chronic obstructive pulmonary disease, unspecified Status: Acute Assessment and Plan: D/c steroids per pulmonology, Masood, completed course of Levaquin (3) DVT (deep venous thrombosis): Code(s): I82.409 - Acute embolism and thrombosis of unspecified deep veins of unspecified lower extremity Status: Acute Assessment and Plan: venous doppler acute thrombus in the right cephalix, radial and ulnar veins venous doppler with acute dvt in left posterior tibial and peroneal veins Continue Eliquis CTA negative for PE (4) Renal calculi: Code(s): N20.0 - Calculus of kidney Status: Acute Assessment and Plan: Stent recently placed by urology on Dec 31, 2021, note from urology states patient may benefit from outpatient ESWL Urine cx NG Vale catheter removed (5) Hypokalemia: Code(s): E87.6 - Hypokalemia Status: Acute Assessment and Plan: Replete and recheck, likely 2/2 diuresis Plan #JT: cr 2.4 on admission, worsened to 2.9. improved and resovled subsequently. nephrology was consutled durign the hospital stay. # elevated liver enzymes: unclear eetiolog. right upper quadrant ultrasound negative. No hypotension noted. Hold diuresis. Coagulation panel okay. LFT improving today but hyperbilirubinemia still persist. this continues to improve now. # drop in H&H: Recheck was stable. Will hold Eliquis this morning restart 5 mg again in the evening as as she remains stable. No active signs of bleeding set for bruise on right lower abdominal wall. Will order FOBT. Watch for any active bleeding. H&H remained stable in a likely due to hematuria which was transient #DVT prophylaxis with Eliquis #GI prophylaxis with PPI #Code status full code Subjective Date/time seen: 01/15/22 13:11 Interval history: no overnight events. she feels well. Vale has been removed. Shortness of breath has improved. Denies any cough Review of Systems Review of Systems: All systems reviewed & are unremarkable except as noted in HPI and below Exam Narrative: General: No acute distress, alert and oriented per baseline HEENT: Atraumatic, normocephalic, mucous membranes moist CV: Regular rate and rhythm, S1, S2 Lungs: Good air entry, no wheezes Abdomen: Soft, nontender, nondistended bruise on right lower abdominal wall Extremities: 2+ nonpitting edema bilateral lower extremities, unchanged Skin: No rashes noted, no lesions or wounds seen Psych: Euthymic, normal affect Objective Data Vital Signs Vital Signs: Vital Signs - 24 hr 01/14/22 16:00 01/14/22 16:00 01/14/22 19:48 Temperature 97.4 F L Pulse Rate 63 63 67 Respiratory Rate 16
--- NOTE | 2022-01-15 14:44 | PC.NURSE ---
This patient, Desiree Castorena, was transferred to [[facility] ] on 01/15/22 at 1445. Personal belongings sent with patient. Report given to [Deborah]. Appropriate documentation sent with patient.
--- NOTE | 2022-01-15 15:18 | PC.NURSE ---
This patient, Desiree Castorena, was received from [facility] [id number] on 01/15/22 at 1430. Patient/family oriented to unit policies and routines.
[2022-01-16] VITALS (14 sets, daily range): BP systolic 150–160; BP diastolic 53–97; PULSE 66–85; RESP 16–20; TEMP 36.4–37; O2SAT 92–100
[2022-01-16] MEDS: HYDROcodone/acetaminophen (*CRX) 10-325 MG TABLET 1 TAB PO ×3 (02:17→20:13)
[2022-01-16 06:21] LABS: Basophils Percent Auto 0.6 % (0.2-1.2); Eosinophils Absolute Auto 0.2 K/mm3 (0-0.3); Eosinophils Percent Auto 3.1 % (0-4.4); Hematocrit 33.7 % (37.0-47.0); Hemoglobin 9.5 g/dL (12.0-15.0); Immature Granulocyte Absolute 0.04 K/mm3 (0.00-0.031); Immature Granulocyte Percent A 0.8 % (0-0.5); Lymphocytes Absolute Auto 1.26 K/mm3 (0.9-3.2); Lymphocytes Percent Auto 24.3 % (18.3-44.2); Mean Corpuscular HGB Conc 28.2 g/dl (32-36); Mean Corpuscular Hemoglobin 24.6 pg (26-34); Mean Corpuscular Volume 87.3 fl (80-100); Mean Platelet Volume 9.7 fl (7.4-10.4); Monocytes Absolute Auto 0.6 K/mm3 (0.1-0.6); Monocytes Percent Auto 10.6 % (2.6-8.5); Neutrophils Absolute Auto 3.2 K/mm3 (1.3-6.7); Neutrophils Percent Auto 60.6 % (45.5-73.1); Platelet Count Result 202 k/mm3 (150-375); Red Blood Count 3.86 M/mm3 (4.2-5.4); White Blood Count 5.2 K/mm3 (4.5-10.0)
[2022-01-16 06:23] LABS: Alanine Aminotransferase 121 U/L (6-35); Albumin Level 3.2 g/dL (3.5-5.1); Alkaline Phosphatase 393 U/L (38-126); Anion Gap 4 mmol/L (8-16); Aspartate Amino Transferase 65 U/L (14-36); Bilirubin,Total 2.4 mg/dL (0.2-1.3); Blood Urea Nitrogen 16 mg/dL (7-17); Calcium 7.9 mg/dL (8.4-10.2); Carbon Dioxide 36 mmol/L (22-30); Chloride 98 mmol/L (98-107); Estimated CRCL calculation 86 ml/min; Estimated Glomerular Filt Rate > 60; Glucose 86 mg/dL (65-110); Magnesium 1.7 mg/dL (1.6-2.3); Sodium 138 mmol/L (137-145)
[2022-01-16 06:58] LABS: Anisocytosis 1+ (NORMAL); Platelet Estimate Adequate (Adequate); Schistocytes None Seen (NORMAL)
[2022-01-16] MEDS: GABAPENTIN 300 MG CAPSULE PO ×2 (08:25→16:47)
[2022-01-16] MEDS: PANTOPRAZOLE SODIUM IV 40 MG VIAL IV PUSH ×2 (08:25→20:15)
[2022-01-16] MEDS: METOPROLOL TARTRATE 25 MG TABLET PO ×2 (08:25→20:15)
[2022-01-16] MEDS: FERROUS SULFATE 324 MG TABLET PO (08:25)
[2022-01-16] MEDS: APIXABAN 5 MG TABLET PO ×2 (08:25→20:16)
[2022-01-16] MEDS: FUROSEMIDE INJ 40 MG/4 ML VIAL IV PUSH (08:25)
[2022-01-16] MEDS: LORazepam (*CRX) 0.5 MG TABLET PO ×2 (09:09→17:24)
[2022-01-16] MEDS: UMECLIDINIUM BROMIDE 62.5 MCG ELLIPTA 1 PUFF INHALATION (10:46)
[2022-01-16] MEDS: FLUTICASONE/SALMETEROL 230-21 MCG INHALER 1 PUFF 2 PUFF INHALATION ×2 (10:46→20:39)
--- NOTE | 2022-01-16 10:51 | PCOTNOTE ---
Attempted re-evaluation on patient today at 10:50. Patient refused stating she is exhausted and not up for engaging with therapist.
--- NOTE | 2022-01-16 11:29 | PCNWS ---
Weekly nutritional screen. Patient is tolerating current heart healthy diet with adequate intake at 100% most all meals. Wt shifts noted, ptis on a 1500ml fluid restriction and lasix therapy. No nutritional concerns at this time.
[2022-01-16] MEDS: MORPHINE SULFATE (*CRX) 2 MG/ML INJ 1 MG IV PUSH ×2 (11:44→16:52)
--- NOTE | 2022-01-16 12:27 | PM.IMPN ---
Progress Note: A&P Assessment and Plan (1) Acute respiratory failure with hypoxia and hypercapnia: Code(s): J96.01 - Acute respiratory failure with hypoxia; J96.02 - Acute respiratory failure with hypercapnia Status: Acute Assessment and Plan: Multifactorial, likely secondary to COPD exacerbation as well as diastolic heart failure, continues to taper oxygen requirement Echo showed an EF greater than 70% with right ventricular chamber moderately enlarged, no significant valvular disease, no pulmonary hypertension noted Continue IV diuresis, fluid restriction, appreciate pulmonology consultation and management, Continue Lasix 40 mg IV daily. Switch to Lasix oral. She is not on Lasix at home Chest x-ray imrpoving. cta chest with no PE, right upper lobe and more prominent right lower lobe infiltrate, bilateral predominantly lower lobe atelectasis, right more than left apnea link on RA: 01/11/2022: spO2 < 88%: 42 mins needed to put back on 2L due to desaturations apnea link on 2L 01/10/2022: SpO2<88%: 2 mins Needs 2 L oxygen at night Home oxygen evaluation required 1l at rest and 2l with activity. may need to repeat this again close to discharge (2) COPD (chronic obstructive pulmonary disease): Code(s): J44.9 - Chronic obstructive pulmonary disease, unspecified Status: Acute Assessment and Plan: D/c steroids per pulmonology, Masood, completed course of Levaquin (3) DVT (deep venous thrombosis): Code(s): I82.409 - Acute embolism and thrombosis of unspecified deep veins of unspecified lower extremity Status: Acute Assessment and Plan: venous doppler acute thrombus in the right cephalix, radial and ulnar veins venous doppler with acute dvt in left posterior tibial and peroneal veins Continue Eliquis CTA negative for PE (4) Renal calculi: Code(s): N20.0 - Calculus of kidney Status: Acute Assessment and Plan: Stent recently placed by urology on Dec 31, 2021, note from urology states patient may benefit from outpatient ESWL Urine cx NG Vale catheter removed (5) Hypokalemia: Code(s): E87.6 - Hypokalemia Status: Acute Assessment and Plan: Replete and recheck, likely 2/2 diuresis Plan #JT: cr 2.4 on admission, worsened to 2.9. improved and resovled subsequently. nephrology was consutled durign the hospital stay. # elevated liver enzymes: unclear eetiolog. right upper quadrant ultrasound negative. No hypotension noted. Hold diuresis. Coagulation panel okay. LFT improving today but hyperbilirubinemia still persist. this continues to improve now. # drop in H&H: Recheck was stable. Will hold Eliquis this morning restart 5 mg again in the evening as as she remains stable. No active signs of bleeding set for bruise on right lower abdominal wall. Will order FOBT. Watch for any active bleeding. H&H remained stable in a likely due to hematuria which was transientAnd now resolved #DVT prophylaxis with Eliquis #GI prophylaxis with PPI #Code status full code Subjective Date/time seen: 01/16/22 12:27 Interval history: no overnight events. she reports he has worn out. She is peeing quite a bit. Denies any burning urination. Shortness of breath on exertion which is about the same. Review of Systems Review of Systems: All systems reviewed & are unremarkable except as noted in HPI and below Exam Narrative: General: No acute distress, alert and oriented per baseline HEENT: Atraumatic, normocephalic, mucous membranes moist CV: Regular rate and rhythm, S1, S2 Lungs: Good air entry, no wheezes Abdomen: Soft, nontender, nondistended bruise on right lower abdominal wall Extremities: 2+ nonpitting edema bilateral lower extremities, unchanged Skin: No rashes noted, no lesions or wounds seen Psych: Euthymic, normal affect Objective Data Vital Signs Vital Signs: Vital Signs - 24 hr 01/15/22 14:45 01/15/22 15:11 01/15/22 14:30
[2022-01-17] VITALS (17 sets, daily range): BP systolic 136–154; BP diastolic 48–82; PULSE 60–98; RESP 16–22; TEMP 36.1–37; O2SAT 87–100
[2022-01-17] MEDS: HYDROcodone/acetaminophen (*CRX) 10-325 MG TABLET 1 TAB PO ×3 (02:17→14:56)
[2022-01-17] MEDS: LORazepam (*CRX) 0.5 MG TABLET PO ×3 (02:18→20:24)
[2022-01-17 06:35] LABS: Basophils Percent Auto 0.3 % (0.2-1.2); Eosinophils Absolute Auto 0.1 K/mm3 (0-0.3); Eosinophils Percent Auto 2.5 % (0-4.4); Hematocrit 32.9 % (37.0-47.0); Hemoglobin 9.4 g/dL (12.0-15.0); Immature Granulocyte Absolute 0.02 K/mm3 (0.00-0.031); Immature Granulocyte Percent A 0.6 % (0-0.5); Lymphocytes Absolute Auto 1.23 K/mm3 (0.9-3.2); Lymphocytes Percent Auto 33.9 % (18.3-44.2); Mean Corpuscular HGB Conc 28.6 g/dl (32-36); Mean Corpuscular Hemoglobin 25.1 pg (26-34); Mean Corpuscular Volume 87.7 fl (80-100); Mean Platelet Volume 9.1 fl (7.4-10.4); Monocytes Absolute Auto 0.5 K/mm3 (0.1-0.6); Monocytes Percent Auto 13.2 % (2.6-8.5); Neutrophils Absolute Auto 1.8 K/mm3 (1.3-6.7); Neutrophils Percent Auto 49.5 % (45.5-73.1); Platelet Count Result 173 k/mm3 (150-375); Red Blood Count 3.75 M/mm3 (4.2-5.4); Red Cell Distribution Width 19.3 % (11.5-14.5); White Blood Count 3.6 K/mm3 (4.5-10.0)
[2022-01-17 06:49] LABS: Alanine Aminotransferase 92 U/L (6-35); Albumin Level 3.2 g/dL (3.5-5.1); Alkaline Phosphatase 350 U/L (38-126); Anion Gap 7 mmol/L (8-16); Aspartate Amino Transferase 63 U/L (14-36); Bilirubin,Total 1.4 mg/dL (0.2-1.3); Blood Urea Nitrogen 17 mg/dL (7-17); Calcium 7.9 mg/dL (8.4-10.2); Carbon Dioxide 38 mmol/L (22-30); Chloride 93 mmol/L (98-107); Estimated CRCL calculation 86 ml/min; Estimated Glomerular Filt Rate > 60; Glucose 89 mg/dL (65-110); Magnesium 1.8 mg/dL (1.6-2.3); Potassium 3.9 mmol/L (3.4-5.0); Sodium 138 mmol/L (137-145)
[2022-01-17 07:49] LABS: Hypochromasia 1+ (NORMAL); Platelet Estimate Adequate (Adequate)
[2022-01-17 07:50] LABS: Schistocytes None Seen (NORMAL); Stomatocytes 2+ (NORMAL)
[2022-01-17] MEDS: FUROSEMIDE 40 MG TABLET PO (08:39)
[2022-01-17] MEDS: METOPROLOL TARTRATE 25 MG TABLET PO ×2 (08:39→20:26)
[2022-01-17] MEDS: GABAPENTIN 300 MG CAPSULE PO ×3 (08:39→16:58)
[2022-01-17] MEDS: PANTOPRAZOLE SODIUM IV 40 MG VIAL IV PUSH ×2 (08:39→20:27)
[2022-01-17] MEDS: APIXABAN 5 MG TABLET PO ×2 (08:39→20:27)
[2022-01-17] MEDS: FERROUS SULFATE 324 MG TABLET PO (08:39)
[2022-01-17] MEDS: UMECLIDINIUM BROMIDE 62.5 MCG ELLIPTA 1 PUFF INHALATION (09:18)
[2022-01-17] MEDS: FLUTICASONE/SALMETEROL 230-21 MCG INHALER 1 PUFF 2 PUFF INHALATION ×2 (09:18→20:54)
[2022-01-17 13:48] LABS: Appearance Urine Slightly Cloudy (Clear); Bilirubin Urine Negative (Negative); Blood Urine 2+ (Negative); Color Urine Yellow (Yellow); Glucose Urine UA Negative (Negative); Ketones Urine Negative (Negative); Leukocyte Esterase Ur 3+ LEU/UL (Negative); Nitrate Urine Positive (Negative); Protein Urine 1+ mg/dL (Negative); Specific Grav Ur 1.015 (1.001-1.035); Urobilinogen Urine 0.2 mg/dL (<2.0); pH Urine 6.5 (5.0-9.0)
[2022-01-17 14:22] LABS: Add Urine Microscopic? YES; Bacteria Urine Trace /hpf; RBC Urine 51-75 /hpf (0-2); Squamous Epithelial Cell Urine Rare /hpf (Few); WBC Clumps Urine Present /HPF; WBC Urine >75 /hpf
--- NOTE | 2022-01-17 14:46 | PCRCNOTE ---
HOME O2 EVAL REPEATED DUE TO ORDER. 2 L AT REST AND WITH EXERTION. SET UP WITH [facility]. TANK IN ROOM FOR DISCHARGE HOME. CONTACT [facility] [phone] IF NEEDED
--- NOTE | 2022-01-17 15:43 | PCPTNOTE ---
The patient treatment was not able to be completed on this date due to patient refusing to participate in Physical Therapy. Patient stated that she was too tired because she has not been sleeping well and has been getting up and down to walk to/from the bathroom. RN notified. Will plan to continue treatment per plan of care.
--- NOTE | 2022-01-17 16:25 | PM.IMPN ---
Progress Note: A&P Assessment and Plan (1) Acute respiratory failure with hypoxia and hypercapnia: Code(s): J96.01 - Acute respiratory failure with hypoxia; J96.02 - Acute respiratory failure with hypercapnia Status: Acute Assessment and Plan: Multifactorial, likely secondary to COPD exacerbation as well as diastolic heart failure, continues to taper oxygen requirement Echo showed an EF greater than 70% with right ventricular chamber moderately enlarged, no significant valvular disease, no pulmonary hypertension noted Continue IV diuresis, fluid restriction, appreciate pulmonology consultation and management, Continue Lasix 40 mg IV daily. Switch to Lasix oral. She is not on Lasix at home Chest x-ray imrpoving. cta chest with no PE, right upper lobe and more prominent right lower lobe infiltrate, bilateral predominantly lower lobe atelectasis, right more than left apnea link on RA: 01/11/2022: spO2 < 88%: 42 mins needed to put back on 2L due to desaturations apnea link on 2L 01/10/2022: SpO2<88%: 2 mins Needs 2 L oxygen at night Home oxygen evaluation required 1l at rest and 2l with activity. Will need to repeat this again close to discharge (2) COPD (chronic obstructive pulmonary disease): Code(s): J44.9 - Chronic obstructive pulmonary disease, unspecified Status: Acute Assessment and Plan: D/c steroids per pulmonology, Masood, completed course of Levaquin (3) DVT (deep venous thrombosis): Code(s): I82.409 - Acute embolism and thrombosis of unspecified deep veins of unspecified lower extremity Status: Acute Assessment and Plan: venous doppler acute thrombus in the right cephalix, radial and ulnar veins venous doppler with acute dvt in left posterior tibial and peroneal veins Continue Eliquis CTA negative for PE (4) Renal calculi: Code(s): N20.0 - Calculus of kidney Status: Acute Assessment and Plan: Stent recently placed by urology on Dec 31, 2021, note from urology states patient may benefit from outpatient ESWL Urine cx NG Vale catheter removed reappearance of urinary symptoms UA done 01/17/2022 with findings of UTI. Start ceftriaxone Since recent stent placement will await for urine culture will also get renal ultrasound Await culture since she recently had stent placed (5) Hypokalemia: Code(s): E87.6 - Hypokalemia Status: Acute Assessment and Plan: Replete and recheck, likely 2/2 diuresis Plan #JT: cr 2.4 on admission, worsened to 2.9. improved and resovled subsequently. nephrology was consulted durign the hospital stay. # elevated liver enzymes: unclear eetiolog. right upper quadrant ultrasound negative. No hypotension noted. Hold diuresis. Coagulation panel okay. LFT improving today but hyperbilirubinemia still persist. this continues to improve now. # drop in H&H: Recheck was stable. Will hold Eliquis this morning restart 5 mg again in the evening as as she remains stable. No active signs of bleeding set for bruise on right lower abdominal wall. Will order FOBT. Watch for any active bleeding. H&H remained stable in a likely due to hematuria which was transientAnd now resolved #DVT prophylaxis with Eliquis #GI prophylaxis with PPI #Code status full code Subjective Date/time seen: 01/17/22 16:25 Interval history: No overnight events. Reports lower abdominal discomfort with frequency of urination. There is no burning. Denies any blood in urine. No fever chills. Review of Systems Review of Systems: All systems reviewed & are unremarkable except as noted in HPI and below Exam Narrative: General: No acute distress, alert and oriented per baseline HEENT: Atraumatic, normocephalic, mucous membranes moist CV: Regular rate and rhythm, S1, S2 Lungs: Good air entry, no wheezes Abdomen: Soft, nontender, nondistended bruise on right lower abdominal wall Extremities: 2+ nonpitting edema bilateral l
[2022-01-17] MEDS: MORPHINE SULFATE (*CRX) 2 MG/ML INJ 1 MG IV PUSH ×2 (16:58→20:24)
[2022-01-18] VITALS (11 sets, daily range): BP systolic 124–167; BP diastolic 54–82; PULSE 57–80; RESP 18–20; TEMP 36.1–36.8; O2SAT 92–97
[2022-01-18] MEDS: MORPHINE SULFATE (*CRX) 2 MG/ML INJ 1 MG IV PUSH (03:52)
[2022-01-18 07:29] LABS: Basophils Percent Auto 0.5 % (0.2-1.2); Eosinophils Absolute Auto 0.2 K/mm3 (0-0.3); Eosinophils Percent Auto 3.5 % (0-4.4); Hematocrit 33.3 % (37.0-47.0); Hemoglobin 9.6 g/dL (12.0-15.0); Immature Granulocyte Absolute 0.04 K/mm3 (0.00-0.031); Immature Granulocyte Percent A 0.9 % (0-0.5); Lymphocytes Absolute Auto 1.44 K/mm3 (0.9-3.2); Lymphocytes Percent Auto 33.8 % (18.3-44.2); Mean Corpuscular HGB Conc 28.8 g/dl (32-36); Mean Corpuscular Hemoglobin 25.3 pg (26-34); Mean Corpuscular Volume 87.6 fl (80-100); Mean Platelet Volume 9.8 fl (7.4-10.4); Monocytes Absolute Auto 0.4 K/mm3 (0.1-0.6); Monocytes Percent Auto 9.2 % (2.6-8.5); Neutrophils Absolute Auto 2.2 K/mm3 (1.3-6.7); Neutrophils Percent Auto 52.1 % (45.5-73.1); Platelet Count Result 198 k/mm3 (150-375); Red Cell Distribution Width 19.4 % (11.5-14.5); White Blood Count 4.3 K/mm3 (4.5-10.0)
[2022-01-18 07:37] LABS: Alanine Aminotransferase 80 U/L (6-35); Albumin Level 3.3 g/dL (3.5-5.1); Alkaline Phosphatase 354 U/L (38-126); Anion Gap 6 mmol/L (8-16); Aspartate Amino Transferase 58 U/L (14-36); Bilirubin,Total 1.1 mg/dL (0.2-1.3); Blood Urea Nitrogen 17 mg/dL (7-17); Calcium 7.5 mg/dL (8.4-10.2); Carbon Dioxide 36 mmol/L (22-30); Chloride 95 mmol/L (98-107); Estimated CRCL calculation 85 ml/min; Estimated Glomerular Filt Rate > 60; Glucose 89 mg/dL (65-110); Magnesium 1.8 mg/dL (1.6-2.3); Potassium 3.9 mmol/L (3.4-5.0); Sodium 137 mmol/L (137-145)
[2022-01-18 08:05] LABS: Hypochromasia 1+ (NORMAL); Platelet Estimate Adequate (Adequate); Schistocytes None Seen (NORMAL)
[2022-01-18] MEDS: UMECLIDINIUM BROMIDE 62.5 MCG ELLIPTA 1 PUFF INHALATION (09:23)
[2022-01-18] MEDS: FLUTICASONE/SALMETEROL 230-21 MCG INHALER 1 PUFF 2 PUFF INHALATION ×2 (09:23→20:50)
[2022-01-18 10:23] LABS: IFOB Positive Control Positive; Immunochemical Fecal Occult Bl Positive (N)
[2022-01-18] MEDS: FUROSEMIDE 40 MG TABLET PO (10:29)
[2022-01-18] MEDS: FERROUS SULFATE 324 MG TABLET PO (10:29)
[2022-01-18] MEDS: METOPROLOL TARTRATE 25 MG TABLET PO ×2 (10:29→21:45)
[2022-01-18] MEDS: PANTOPRAZOLE SODIUM IV 40 MG VIAL IV PUSH ×2 (10:29→21:45)
[2022-01-18] MEDS: GABAPENTIN 300 MG CAPSULE PO ×3 (10:29→17:48)
[2022-01-18] MEDS: HYDROcodone/acetaminophen (*CRX) 10-325 MG TABLET 1 TAB PO ×2 (10:35→17:44)
[2022-01-18] MEDS: LORazepam (*CRX) 0.5 MG TABLET PO ×2 (10:36→22:55)
[2022-01-18] MEDS: APIXABAN 5 MG TABLET PO ×2 (14:19→21:45)
--- NOTE | 2022-01-18 16:03 | PM.IMPN ---
Progress Note: A&P Assessment and Plan (1) Acute respiratory failure with hypoxia and hypercapnia: Code(s): J96.01 - Acute respiratory failure with hypoxia; J96.02 - Acute respiratory failure with hypercapnia Status: Acute Assessment and Plan: Multifactorial, likely secondary to COPD exacerbation as well as diastolic heart failure, continues to taper oxygen requirement Echo showed an EF greater than 70% with right ventricular chamber moderately enlarged, no significant valvular disease, no pulmonary hypertension noted Continue IV diuresis, fluid restriction, appreciate pulmonology consultation and management, Continue Lasix 40 mg IV daily. Switch to Lasix oral. She is not on Lasix at home Chest x-ray imrpoving. cta chest with no PE, right upper lobe and more prominent right lower lobe infiltrate, bilateral predominantly lower lobe atelectasis, right more than left apnea link on RA: 01/11/2022: spO2 < 88%: 42 mins needed to put back on 2L due to desaturations apnea link on 2L 01/10/2022: SpO2<88%: 2 mins Needs 2 L oxygen at night Home oxygen evaluation required 1l at rest and 2l with activity. Will need to repeat this again close to discharge 01/18/2022 interval history: patient with pneumonia, being treated with ceftriaxone, blood culture no growth so far, patient clinicall symptoms are improving, patient is now on 2L NC, today patient has a lump along RLQ of abdomen, US showed most likey hematoma, will continue to monitor. this is to certify patient in the hospital per 20 for continued medical problem with pneumonia. (2) COPD (chronic obstructive pulmonary disease): Code(s): J44.9 - Chronic obstructive pulmonary disease, unspecified Status: Acute Assessment and Plan: D/c steroids per pulmonology, DuoNebs, completed course of Levaquin (3) DVT (deep venous thrombosis): Code(s): I82.409 - Acute embolism and thrombosis of unspecified deep veins of unspecified lower extremity Status: Acute Assessment and Plan: venous doppler acute thrombus in the right cephalix, radial and ulnar veins venous doppler with acute dvt in left posterior tibial and peroneal veins Continue Eliquis CTA negative for PE (4) Renal calculi: Code(s): N20.0 - Calculus of kidney Status: Acute Assessment and Plan: Stent recently placed by urology on Dec 31, 2021, note from urology states patient may benefit from outpatient ESWL Urine cx NG Vale catheter removed reappearance of urinary symptoms UA done 01/17/2022 with findings of UTI. Start ceftriaxone Since recent stent placement will await for urine culture will also get renal ultrasound Await culture since she recently had stent placed (5) Hypokalemia: Code(s): E87.6 - Hypokalemia Status: Acute Assessment and Plan: Replete and recheck, likely 2/2 diuresis Plan #JT: cr 2.4 on admission, worsened to 2.9. improved and resovled subsequently. nephrology was consulted durign the hospital stay. # elevated liver enzymes: unclear eetiolog. right upper quadrant ultrasound negative. No hypotension noted. Hold diuresis. Coagulation panel okay. LFT improving today but hyperbilirubinemia still persist. this continues to improve now. # drop in H&H: Recheck was stable. Will hold Eliquis this morning restart 5 mg again in the evening as as she remains stable. No active signs of bleeding set for bruise on right lower abdominal wall. Will order FOBT. Watch for any active bleeding. H&H remained stable in a likely due to hematuria which was transientAnd now resolved #DVT prophylaxis with Eliquis #GI prophylaxis with PPI #Code status full code Subjective Date/time seen: 01/18/22 16:03 Multifactorial, likely secondary to COPD exacerbation as well as diastolic heart failure, continues to taper oxygen requirement Echo showed an EF greater than 70% with right ventricular chamber moderately enlarged, no significant lia
[2022-01-19] VITALS (10 sets, daily range): BP systolic 138–147; BP diastolic 52–62; PULSE 54–65; RESP 18–20; TEMP 35.9–36.8; O2SAT 95–99
[2022-01-19] MEDS: HYDROcodone/acetaminophen (*CRX) 10-325 MG TABLET 1 TAB PO ×3 (00:29→20:34)
[2022-01-19] MEDS: LOPERAMIDE HCL 2 MG CAPSULE PO ×2 (09:32→11:36)
[2022-01-19] MEDS: PANTOPRAZOLE SODIUM IV 40 MG VIAL IV PUSH ×2 (09:32→20:34)
[2022-01-19] MEDS: GABAPENTIN 300 MG CAPSULE PO ×3 (09:32→17:09)
[2022-01-19] MEDS: APIXABAN 5 MG TABLET PO ×2 (09:32→20:35)
[2022-01-19] MEDS: METOPROLOL TARTRATE 25 MG TABLET PO ×2 (09:32→20:35)
[2022-01-19] MEDS: FERROUS SULFATE 324 MG TABLET PO (09:33)
[2022-01-19] MEDS: FUROSEMIDE 40 MG TABLET PO (09:33)
[2022-01-19] MEDS: LORazepam (*CRX) 0.5 MG TABLET PO ×2 (10:29→20:34)
--- NOTE | 2022-01-19 11:12 | PM.IMPN ---
Progress Note: A&P Assessment and Plan (1) Acute respiratory failure with hypoxia and hypercapnia: Code(s): J96.01 - Acute respiratory failure with hypoxia; J96.02 - Acute respiratory failure with hypercapnia Status: Acute Assessment and Plan: Multifactorial, likely secondary to COPD exacerbation as well as diastolic heart failure, continues to taper oxygen requirement Echo showed an EF greater than 70% with right ventricular chamber moderately enlarged, no significant valvular disease, no pulmonary hypertension noted Continue IV diuresis, fluid restriction, appreciate pulmonology consultation and management, Continue Lasix 40 mg IV daily. Switch to Lasix oral. She is not on Lasix at home Chest x-ray imrpoving. cta chest with no PE, right upper lobe and more prominent right lower lobe infiltrate, bilateral predominantly lower lobe atelectasis, right more than left apnea link on RA: 01/11/2022: spO2 < 88%: 42 mins needed to put back on 2L due to desaturations apnea link on 2L 01/10/2022: SpO2<88%: 2 mins Needs 2 L oxygen at night Home oxygen evaluation required 1l at rest and 2l with activity. Will need to repeat this again close to discharge 01/19/2022 interval history: patient with SOB, 2/2 pneumonia, exacerbation of COPD and as well as CHF, being treated with lasix 40mg PO, and bronchodilators, urine culture is growing E coli ESBL resistent to several abx including ceftriaxone, will the abx, and start patient on Cefepime, blood culture no growth so far, patient clinical symptoms are improving, patient is now on 2L NC, today patient has a lump along RLQ of abdomen, US showed most likey hematoma, will continue to monitor. this is to certify patient in the hospital per 20 for continued medical problem with pneumonia. (2) COPD (chronic obstructive pulmonary disease): Code(s): J44.9 - Chronic obstructive pulmonary disease, unspecified Status: Acute Assessment and Plan: D/c steroids per pulmonology, Masood, completed course of Levaquin (3) DVT (deep venous thrombosis): Code(s): I82.409 - Acute embolism and thrombosis of unspecified deep veins of unspecified lower extremity Status: Acute Assessment and Plan: venous doppler acute thrombus in the right cephalix, radial and ulnar veins venous doppler with acute dvt in left posterior tibial and peroneal veins Continue Eliquis CTA negative for PE (4) Renal calculi: Code(s): N20.0 - Calculus of kidney Status: Acute Assessment and Plan: Stent recently placed by urology on Dec 31, 2021, note from urology states patient may benefit from outpatient ESWL Urine cx NG Vale catheter removed reappearance of urinary symptoms UA done 01/17/2022 with findings of UTI. Start ceftriaxone Since recent stent placement will await for urine culture will also get renal ultrasound Await culture since she recently had stent placed (5) Hypokalemia: Code(s): E87.6 - Hypokalemia Status: Acute Assessment and Plan: Replete and recheck, likely 2/2 diuresis Plan #JT: cr 2.4 on admission, worsened to 2.9. improved and resovled subsequently. nephrology was consulted durign the hospital stay. # elevated liver enzymes: unclear eetiolog. right upper quadrant ultrasound negative. No hypotension noted. Hold diuresis. Coagulation panel okay. LFT improving today but hyperbilirubinemia still persist. this continues to improve now. # drop in H&H: Recheck was stable. Will hold Eliquis this morning restart 5 mg again in the evening as as she remains stable. No active signs of bleeding set for bruise on right lower abdominal wall. Will order FOBT. Watch for any active bleeding. H&H remained stable in a likely due to hematuria which was transientAnd now resolved #DVT prophylaxis with Eliquis #GI prophylaxis with PPI #Code status full code Subjective Date/time seen: 01/19/22 11:13 Multifactorial, likely seconda
--- NOTE | 2022-01-19 14:31 | PCRCNOTE ---
Window of time for administration has passed. See next scheduled administration.
[2022-01-19] MEDS: MORPHINE SULFATE (*CRX) 2 MG/ML INJ 1 MG IV PUSH (15:09)
[2022-01-19] MEDS: FLUTICASONE/SALMETEROL 230-21 MCG INHALER 1 PUFF 2 PUFF INHALATION (20:01)
[2022-01-20] VITALS (8 sets, daily range): BP systolic 129–151; BP diastolic 48–70; PULSE 58–65; RESP 14–18; TEMP 35.8–36.1; O2SAT 94–100
[2022-01-20] MEDS: HYDROcodone/acetaminophen (*CRX) 10-325 MG TABLET 1 TAB PO ×3 (05:40→18:35)
[2022-01-20 05:51] LABS: Hematocrit 33.5 % (37.0-47.0); Hemoglobin 9.7 g/dL (12.0-15.0); Mean Corpuscular Volume 86.3 fl (80-100); Mean Platelet Volume 9.2 fl (7.4-10.4); Platelet Count Result 165 k/mm3 (150-375); Red Blood Count 3.88 M/mm3 (4.2-5.4); Red Cell Distribution Width 19.3 % (11.5-14.5); White Blood Count 2.7 K/mm3 (4.5-10.0)
[2022-01-20 06:16] LABS: Anion Gap 8 mmol/L (8-16); Blood Urea Nitrogen 13 mg/dL (7-17); Calcium 7.6 mg/dL (8.4-10.2); Carbon Dioxide 35 mmol/L (22-30); Chloride 98 mmol/L (98-107); Estimated CRCL calculation 82 ml/min; Estimated Glomerular Filt Rate > 60; Glucose 84 mg/dL (65-110); Magnesium 1.7 mg/dL (1.6-2.3); Potassium 3.2 mmol/L (3.4-5.0); Sodium 141 mmol/L (137-145)
[2022-01-20] MEDS: FERROUS SULFATE 324 MG TABLET PO (09:02)
[2022-01-20] MEDS: GABAPENTIN 300 MG CAPSULE PO ×3 (09:02→18:01)
[2022-01-20] MEDS: FUROSEMIDE 40 MG TABLET PO (09:03)
[2022-01-20] MEDS: METOPROLOL TARTRATE 25 MG TABLET PO ×2 (09:03→21:28)
[2022-01-20] MEDS: PANTOPRAZOLE SODIUM IV 40 MG VIAL IV PUSH ×2 (09:03→21:28)
[2022-01-20] MEDS: APIXABAN 5 MG TABLET PO ×2 (09:03→21:28)
[2022-01-20] MEDS: LORazepam (*CRX) 0.5 MG TABLET PO ×3 (09:10→21:45)
[2022-01-20] MEDS: MORPHINE SULFATE (*CRX) 2 MG/ML INJ 1 MG IV PUSH ×2 (09:17→21:44)
[2022-01-20] MEDS: UMECLIDINIUM BROMIDE 62.5 MCG ELLIPTA 1 PUFF INHALATION (10:19)
[2022-01-20] MEDS: FLUTICASONE/SALMETEROL 230-21 MCG INHALER 1 PUFF 2 PUFF INHALATION ×2 (10:20→20:13)
--- NOTE | 2022-01-20 11:57 | PCOTNOTE ---
Attempted to see patient for OT. Patient agreeable to walking to bathroom to urinate, but declined any other functional activity, ADLs, or UE exercises. Patient on 2L O2, SPO2 86% post transfer to bathroom and back to bed. Patient cued to PLB and assisted back into bed.
[2022-01-21] VITALS (7 sets, daily range): BP systolic 130–150; BP diastolic 63–98; PULSE 55–70; RESP 17–20; TEMP 35.5–35.8; O2SAT 94–99
[2022-01-21] MEDS: HYDROcodone/acetaminophen (*CRX) 10-325 MG TABLET 1 TAB PO ×3 (00:08→16:08)
[2022-01-21 06:36] LABS: Hematocrit 35.7 % (37.0-47.0); Hemoglobin 10.3 g/dL (12.0-15.0); Mean Corpuscular HGB Conc 28.9 g/dl (32-36); Mean Corpuscular Hemoglobin 25.5 pg (26-34); Mean Corpuscular Volume 88.4 fl (80-100); Mean Platelet Volume 9.5 fl (7.4-10.4); Platelet Count Result 171 k/mm3 (150-375); Red Blood Count 4.04 M/mm3 (4.2-5.4); Red Cell Distribution Width 19.7 % (11.5-14.5); White Blood Count 2.6 K/mm3 (4.5-10.0)
[2022-01-21 06:54] LABS: Anion Gap 8 mmol/L (8-16); Blood Urea Nitrogen 12 mg/dL (7-17); Calcium 7.6 mg/dL (8.4-10.2); Carbon Dioxide 36 mmol/L (22-30); Chloride 96 mmol/L (98-107); Estimated CRCL calculation 91 ml/min; Estimated Glomerular Filt Rate > 60; Glucose 82 mg/dL (65-110); Magnesium 1.8 mg/dL (1.6-2.3); Potassium 3.4 mmol/L (3.4-5.0); Sodium 140 mmol/L (137-145)
[2022-01-21] MEDS: FLUTICASONE/SALMETEROL 230-21 MCG INHALER 1 PUFF 2 PUFF INHALATION ×2 (08:04→22:16)
[2022-01-21] MEDS: UMECLIDINIUM BROMIDE 62.5 MCG ELLIPTA 1 PUFF INHALATION (08:05)
[2022-01-21] MEDS: FUROSEMIDE 40 MG TABLET PO (08:08)
[2022-01-21] MEDS: APIXABAN 5 MG TABLET PO ×2 (08:08→20:48)
[2022-01-21] MEDS: METOPROLOL TARTRATE 25 MG TABLET PO ×2 (08:08→20:49)
[2022-01-21] MEDS: GABAPENTIN 300 MG CAPSULE PO ×3 (08:08→16:08)
[2022-01-21] MEDS: FERROUS SULFATE 324 MG TABLET PO (08:08)
[2022-01-21] MEDS: PANTOPRAZOLE SODIUM IV 40 MG VIAL IV PUSH ×2 (08:09→20:48)
[2022-01-21] MEDS: POTASSIUM CHLORIDE 20 MEQ TABLET 40 MEQ PO (08:52)
[2022-01-21] MEDS: LORazepam (*CRX) 0.5 MG TABLET PO ×3 (09:42→22:15)
[2022-01-21] MEDS: ACETAMINOPHEN 325 MG TABLET 650 MG PO ×2 (09:42→21:02)
--- NOTE | 2022-01-21 12:14 | P.PNIM_ITS ---
Progress Note: A&P Assessment and Plan (1) Acute respiratory failure with hypoxia and hypercapnia: Code(s): J96.01 - Acute respiratory failure with hypoxia; J96.02 - Acute respiratory failure with hypercapnia Status: Acute Assessment and Plan: Multifactorial, likely secondary to COPD exacerbation as well as diastolic heart failure, continues to taper oxygen requirement Echo showed an EF greater than 70% with right ventricular chamber moderately enlarged, no significant valvular disease, no pulmonary hypertension noted Continue IV diuresis, fluid restriction, appreciate pulmonology consultation and management, Continue Lasix 40 mg IV daily. Switch to Lasix oral. She is not on Lasix at home Chest x-ray imrpoving. cta chest with no PE, right upper lobe and more prominent right lower lobe infiltrate, bilateral predominantly lower lobe atelectasis, right more than left apnea link on RA: 01/11/2022: spO2 < 88%: 42 mins needed to put back on 2L due to desaturations apnea link on 2L 01/10/2022: SpO2<88%: 2 mins Needs 2 L oxygen at night Home oxygen evaluation required 1l at rest and 2l with activity. Will need to repeat this again close to discharge 01/21/2022 interval history: patient with SOB, 2/2 pneumonia, exacerbation of COPD and as well as CHF, being treated with lasix 40mg PO, and bronchodilators, urine culture is growing E coli ESBL resistent to several abx including ceftriaxone, will stop the abx, and start patient on Cefepime 04/04 blood culture no growth so far, patient clinical symptoms are improving, patient is now on 2L NC, on 01/18 patient had a lump along RLQ of abdomen, US showed most likey hematoma 2/2 SQ injection for lovenox, will continue to monitor. this is to certify patient in the hospital per 20 for continued medical problem with pneumonia. (2) COPD (chronic obstructive pulmonary disease): Code(s): J44.9 - Chronic obstructive pulmonary disease, unspecified Status: Acute Assessment and Plan: D/c steroids per pulmonologyMasood, completed course of Levaquin (3) DVT (deep venous thrombosis): Code(s): I82.409 - Acute embolism and thrombosis of unspecified deep veins of unspecified lower extremity Status: Acute Assessment and Plan: venous doppler acute thrombus in the right cephalix, radial and ulnar veins venous doppler with acute dvt in left posterior tibial and peroneal veins Continue Eliquis CTA negative for PE (4) Renal calculi: Code(s): N20.0 - Calculus of kidney Status: Acute Assessment and Plan: Stent recently placed by urology on Dec 31, 2021, note from urology states patient may benefit from outpatient ESWL Urine cx NG Vale catheter removed reappearance of urinary symptoms UA done 01/17/2022 with findings of UTI. Start ceftriaxone Since recent stent placement will await for urine culture will also get renal ultrasound Await culture since she recently had stent placed (5) Hypokalemia: Code(s): E87.6 - Hypokalemia Status: Acute Assessment and Plan: Replete and recheck, likely 2/2 diuresis Plan #JT: cr 2.4 on admission, worsened to 2.9. improved and resovled subsequently. nephrology was consulted durign the hospital stay. # elevated liver enzymes: unclear eetiolog. right upper quadrant ultrasound negative. No hypotension noted. Hold diuresis. Coagulation panel okay. LFT improving today but hyperbilirubinemia still persist. this continues to improve now. # drop in H&H: Recheck was stable. Will hold Eliquis this morning restart 5 mg again in the evening as as she remains stable. No
--- NOTE | 2022-01-21 15:14 | PCPTNOTE ---
Patient refused treatment this session due to having too much pain. The pt stated that she can not do it today because her side is bothering her too much. After the pt was educated on the importance of participation in therapy she stated, Trust me I am would do it if I could, I am not here to waste anyone's time.
[2022-01-22] VITALS (8 sets, daily range): BP systolic 148–162; BP diastolic 58–81; PULSE 58–76; RESP 16–20; TEMP 35.6–36.6; O2SAT 90–97
[2022-01-22 07:36] LABS: Anion Gap 6 mmol/L (8-16); Blood Urea Nitrogen 12 mg/dL (7-17); Calcium 7.8 mg/dL (8.4-10.2); Carbon Dioxide 31 mmol/L (22-30); Chloride 100 mmol/L (98-107); Estimated CRCL calculation 104 ml/min; Estimated Glomerular Filt Rate > 60; Glucose 88 mg/dL (65-110); Magnesium 1.8 mg/dL (1.6-2.3); Potassium 3.7 mmol/L (3.4-5.0); Sodium 137 mmol/L (137-145)
[2022-01-22] MEDS: FERROUS SULFATE 324 MG TABLET PO (09:19)
[2022-01-22] MEDS: GABAPENTIN 300 MG CAPSULE PO ×3 (09:20→18:09)
[2022-01-22] MEDS: HYDROcodone/acetaminophen (*CRX) 10-325 MG TABLET 1 TAB PO ×2 (09:20→21:54)
[2022-01-22] MEDS: FUROSEMIDE 40 MG TABLET PO (09:20)
[2022-01-22] MEDS: METOPROLOL TARTRATE 25 MG TABLET PO ×2 (09:20→21:54)
[2022-01-22] MEDS: APIXABAN 5 MG TABLET PO ×2 (09:20→21:54)
[2022-01-22] MEDS: PANTOPRAZOLE SODIUM IV 40 MG VIAL IV PUSH ×2 (09:21→21:55)
[2022-01-22] MEDS: FLUTICASONE/SALMETEROL 230-21 MCG INHALER 1 PUFF 2 PUFF INHALATION ×2 (09:21→20:51)
[2022-01-22] MEDS: LOPERAMIDE HCL 2 MG CAPSULE PO (09:22)
[2022-01-22] MEDS: UMECLIDINIUM BROMIDE 62.5 MCG ELLIPTA 1 PUFF INHALATION (09:25)
[2022-01-22] MEDS: LORazepam (*CRX) 0.5 MG TABLET PO ×3 (09:34→21:54)
[2022-01-22 11:50] LABS: Hematocrit 36.2 % (37.0-47.0); Hemoglobin 10.8 g/dL (12.0-15.0); Mean Corpuscular HGB Conc 29.8 g/dl (32-36); Mean Corpuscular Hemoglobin 25.6 pg (26-34); Mean Corpuscular Volume 85.8 fl (80-100); Platelet Count Result 163 k/mm3 (150-375); Red Blood Count 4.22 M/mm3 (4.2-5.4); Red Cell Distribution Width 19.4 % (11.5-14.5); White Blood Count 3.2 K/mm3 (4.5-10.0)
--- NOTE | 2022-01-22 12:34 | PM.IMPN ---
Progress Note: A&P Assessment and Plan (1) Acute respiratory failure with hypoxia and hypercapnia: Code(s): J96.01 - Acute respiratory failure with hypoxia; J96.02 - Acute respiratory failure with hypercapnia Status: Acute Assessment and Plan: Multifactorial, likely secondary to COPD exacerbation as well as diastolic heart failure, continues to taper oxygen requirement Echo showed an EF greater than 70% with right ventricular chamber moderately enlarged, no significant valvular disease, no pulmonary hypertension noted Continue IV diuresis, fluid restriction, appreciate pulmonology consultation and management, Continue Lasix 40 mg IV daily. Switch to Lasix oral. She is not on Lasix at home Chest x-ray imrpoving. cta chest with no PE, right upper lobe and more prominent right lower lobe infiltrate, bilateral predominantly lower lobe atelectasis, right more than left apnea link on RA: 01/11/2022: spO2 < 88%: 42 mins needed to put back on 2L due to desaturations apnea link on 2L 01/10/2022: SpO2<88%: 2 mins Needs 2 L oxygen at night Home oxygen evaluation required 1l at rest and 2l with activity. Will need to repeat this again close to discharge 01/22/2022 interval history: patient with SOB, 2/2 pneumonia, exacerbation of COPD and as well as CHF, being treated with lasix 40mg PO, and bronchodilators, urine culture is growing E coli ESBL resistent to several abx including ceftriaxone, will stop the abx, and start patient on Cefepime 05/02 blood culture no growth so far, patient clinical symptoms are improving, patient is now on 2L NC, on 01/18 patient had a lump along RLQ of abdomen, US showed most likey hematoma 2/2 SQ injection for lovenox, will continue to monitor. this is to certify patient in the hospital per 20 for continued medical problem with pneumonia. (2) COPD (chronic obstructive pulmonary disease): Code(s): J44.9 - Chronic obstructive pulmonary disease, unspecified Status: Acute Assessment and Plan: D/c steroids per pulmonologyMasood, completed course of Levaquin (3) DVT (deep venous thrombosis): Code(s): I82.409 - Acute embolism and thrombosis of unspecified deep veins of unspecified lower extremity Status: Acute Assessment and Plan: venous doppler acute thrombus in the right cephalix, radial and ulnar veins venous doppler with acute dvt in left posterior tibial and peroneal veins Continue Eliquis CTA negative for PE (4) Renal calculi: Code(s): N20.0 - Calculus of kidney Status: Acute Assessment and Plan: Stent recently placed by urology on Dec 31, 2021, note from urology states patient may benefit from outpatient ESWL Urine cx NG Vale catheter removed reappearance of urinary symptoms UA done 01/17/2022 with findings of UTI. Start ceftriaxone Since recent stent placement will await for urine culture will also get renal ultrasound Await culture since she recently had stent placed (5) Hypokalemia: Code(s): E87.6 - Hypokalemia Status: Acute Assessment and Plan: Replete and recheck, likely 2/2 diuresis Plan #JT: cr 2.4 on admission, worsened to 2.9. improved and resovled subsequently. nephrology was consulted durign the hospital stay. # elevated liver enzymes: unclear eetiolog. right upper quadrant ultrasound negative. No hypotension noted. Hold diuresis. Coagulation panel okay. LFT improving today but hyperbilirubinemia still persist. this continues to improve now. # drop in H&H: Recheck was stable. Will hold Eliquis this morning restart 5 mg again in the evening as as she remains stable. No active signs of bleeding set for bruise on right lower abdominal wall. Will order FOBT. Watch for any active bleeding. H&H remained stable in a likely due to hematuria which was transientAnd now resolved #DVT prophylaxis with Eliquis #GI prophylaxis with PPI #Code status full code Subjective Date/time seen: 01/22/22
--- NOTE | 2022-01-22 14:33 | PCOTNOTE ---
Attempted to see pt for occupational therapy treatment. Pt declined to participate in therapy session, stating I don't feel the point for any of this...I am walking to the bathroom without the walker, going to the bathroom, and took a shower on my own today . Pt declined to perform any standing balance/strengthening exercises stating I don't think I need that. RN was made aware of pt's statement and agrees with everything pt has stated. RAILROADER also informed therapist that pt completed showering today seated with SBA, grooming seated/standing SBA, toileting SBA, bed mobility I. Pt and Therapist reviewed pt's OT goals and states I have met all of them...I don't want therapy anymore. BOOKER/L will discuss pt's current progress with OTR about possible discharge from Occupational Therapy.
--- NOTE | 2022-01-22 18:17 | PC.NURSE ---
Patient has scheduled norco BID at 0900 and 1700. Patient wants 1700 dose between 2000 and 2100 to help manage her pain throughout the night as she sleeps. Will let overnight stocker nurse know in report to give scheduled medication later.
[2022-01-22] MEDS: TOLNAFTATE 1% POWDER 45 GM BTL 1 APPLIC TOPICAL (21:55)
[2022-01-23] VITALS (7 sets, daily range): BP systolic 117–140; BP diastolic 42–98; PULSE 56–80; RESP 14–18; TEMP 35.8–36.6; O2SAT 92–95
[2022-01-23] MEDS: LORazepam (*CRX) 0.5 MG TABLET PO ×4 (05:16→23:33)
[2022-01-23 07:17] LABS: Hematocrit 34.4 % (37.0-47.0); Hemoglobin 10.1 g/dL (12.0-15.0); Mean Corpuscular HGB Conc 29.4 g/dl (32-36); Mean Corpuscular Hemoglobin 24.6 pg (26-34); Mean Corpuscular Volume 83.7 fl (80-100); Platelet Count Result 159 k/mm3 (150-375); Red Blood Count 4.11 M/mm3 (4.2-5.4); Red Cell Distribution Width 19.6 % (11.5-14.5); White Blood Count 2.8 K/mm3 (4.5-10.0)
[2022-01-23 07:34] LABS: Anion Gap 6 mmol/L (8-16); Blood Urea Nitrogen 11 mg/dL (7-17); Calcium 7.9 mg/dL (8.4-10.2); Carbon Dioxide 37 mmol/L (22-30); Chloride 96 mmol/L (98-107); Estimated CRCL calculation 94 ml/min; Estimated Glomerular Filt Rate > 60; Glucose 87 mg/dL (65-110); Magnesium 1.7 mg/dL (1.6-2.3); Potassium 3.3 mmol/L (3.4-5.0); Sodium 139 mmol/L (137-145)
[2022-01-23] MEDS: FLUTICASONE/SALMETEROL 230-21 MCG INHALER 1 PUFF 2 PUFF INHALATION (08:38)
[2022-01-23] MEDS: UMECLIDINIUM BROMIDE 62.5 MCG ELLIPTA 1 PUFF INHALATION (08:38)
[2022-01-23] MEDS: HYDROcodone/acetaminophen (*CRX) 10-325 MG TABLET 1 TAB PO ×2 (09:50→21:31)
[2022-01-23] MEDS: POTASSIUM CHLORIDE 20 MEQ TABLET 40 MEQ PO (09:50)
[2022-01-23] MEDS: GABAPENTIN 300 MG CAPSULE PO ×3 (09:51→17:00)
[2022-01-23] MEDS: PANTOPRAZOLE SODIUM IV 40 MG VIAL IV PUSH ×2 (09:51→21:34)
[2022-01-23] MEDS: FUROSEMIDE 40 MG TABLET PO (09:51)
[2022-01-23] MEDS: APIXABAN 5 MG TABLET PO ×2 (09:52→21:34)
[2022-01-23] MEDS: METOPROLOL TARTRATE 25 MG TABLET PO ×2 (09:52→21:32)
[2022-01-23] MEDS: FERROUS SULFATE 324 MG TABLET PO (09:52)
--- NOTE | 2022-01-23 10:05 | PCNFU ---
Nutrition Follow-Up Complete: Goal: PO intake 75% of meals. Pt is meeting goal. Continue with current goal. Pt current nutrition is Regular, 1500ml fluid restriction. Nutrition recommendation: Continue with current plan of care. Last recorded weight is 148.6 kg - down from 169kg, on lasix therapy and fluid restriction Bowel Motility: +BM 01/21 Labs Reviewed: hgb:10.1, HCT:34.4, K:3.3 Meds Noted: Eliquis, lasix, zofran, protonix Skin: WNL Additional Notes: Pt continues on a regular diet, intake good at 75-100% of meals. Noted weight shift, also on lasix therapy and a fluid restriction. Agree with diet orders, Monitor intake, wt, labs. Follow up in 7 days.
[2022-01-23] MEDS: LOPERAMIDE HCL 2 MG CAPSULE PO (11:33)
--- NOTE | 2022-01-23 16:29 | P.PNIM_ITS ---
Progress Note: A&P Assessment and Plan (1) Acute respiratory failure with hypoxia and hypercapnia: Code(s): J96.01 - Acute respiratory failure with hypoxia; J96.02 - Acute respiratory failure with hypercapnia Status: Acute Assessment and Plan: Multifactorial, likely secondary to COPD exacerbation as well as diastolic heart failure, continues to taper oxygen requirement Echo showed an EF greater than 70% with right ventricular chamber moderately enlarged, no significant valvular disease, no pulmonary hypertension noted Continue IV diuresis, fluid restriction, appreciate pulmonology consultation and management, Continue Lasix 40 mg IV daily. Switch to Lasix oral. She is not on Lasix at home Chest x-ray imrpoving. cta chest with no PE, right upper lobe and more prominent right lower lobe infiltrate, bilateral predominantly lower lobe atelectasis, right more than left apnea link on RA: 01/11/2022: spO2 < 88%: 42 mins needed to put back on 2L due to desaturations apnea link on 2L 01/10/2022: SpO2<88%: 2 mins Needs 2 L oxygen at night Home oxygen evaluation required 1l at rest and 2l with activity. Will need to repeat this again close to discharge 01/23/2022 interval history: patient with SOB, 2/2 pneumonia, exacerbation of COPD and as well as CHF, being treated with lasix 40mg PO, and bronchodilators, urine culture is growing E coli ESBL resistent to several abx including ceftriaxone, stopped the abx, and started patient on Cefepime 06/02 blood culture no growth so far, sputum is growing Streptococcus aureus pansensitive and not MRSA, patient clinical symptoms are improving, patient is now on 2L NC, on 01/18 patient had a lump along RLQ of abdomen, US showed most likey hematoma 2/2 SQ injection for lovenox, will continue to monitor. this is to certify patient in the hospital per 20 for continued medical problem with pneumonia. (2) COPD (chronic obstructive pulmonary disease): Code(s): J44.9 - Chronic obstructive pulmonary disease, unspecified Status: Acute Assessment and Plan: D/c steroids per pulmonology, Masood, completed course of Levaquin (3) DVT (deep venous thrombosis): Code(s): I82.409 - Acute embolism and thrombosis of unspecified deep veins of unspecified lower extremity Status: Acute Assessment and Plan: venous doppler acute thrombus in the right cephalix, radial and ulnar veins venous doppler with acute dvt in left posterior tibial and peroneal veins Continue Eliquis CTA negative for PE (4) Renal calculi: Code(s): N20.0 - Calculus of kidney Status: Acute Assessment and Plan: Stent recently placed by urology on Dec 31, 2021, note from urology states patient may benefit from outpatient ESWL Urine cx NG Vale catheter removed reappearance of urinary symptoms UA done 01/17/2022 with findings of UTI. Start ceftriaxone Since recent stent placement will await for urine culture will also get renal ultrasound Await culture since she recently had stent placed (5) Hypokalemia: Code(s): E87.6 - Hypokalemia Status: Acute Assessment and Plan: Replete and recheck, likely 2/2 diuresis Plan #JT: cr 2.4 on admission, worsened to 2.9. improved and resovled subsequently. nephrology was consulted durign the hospital stay. # elevated liver enzymes: unclear eetiolog. right upper quadrant ultrasound negative. No hypotension noted. Hold diuresis. Coagulation panel okay. LFT improving today but hyperbilirubinemia still persist. this continues to improve now. # drop in H&H: Recheck was stable. Will hold Eliquis this morning restart
[2022-01-23] MEDS: TOLNAFTATE 1% POWDER 45 GM BTL 1 APPLIC TOPICAL ×2 (17:02→21:30)
--- NOTE | 2022-01-23 22:55 | PCRCNOTE ---
Window of time for administration has passed. See next scheduled administration.
--- NOTE | 2022-01-23 22:55 | PCRCNOTE ---
Window of time for administration has passed. See next scheduled administration.
[2022-01-24] VITALS (8 sets, daily range): BP systolic 138–152; BP diastolic 58–76; PULSE 53–66; RESP 16–24; TEMP 35.6–35.7; O2SAT 90–98
[2022-01-24] MEDS: LORazepam (*CRX) 0.5 MG TABLET PO ×4 (05:32→23:47)
[2022-01-24 06:47] LABS: Hematocrit 35.4 % (37.0-47.0); Hemoglobin 10.6 g/dL (12.0-15.0); Mean Corpuscular HGB Conc 29.9 g/dl (32-36); Mean Corpuscular Hemoglobin 25.3 pg (26-34); Mean Corpuscular Volume 84.5 fl (80-100); Mean Platelet Volume 9.2 fl (7.4-10.4); Platelet Count Result 169 k/mm3 (150-375); Red Blood Count 4.19 M/mm3 (4.2-5.4); Red Cell Distribution Width 19.9 % (11.5-14.5); White Blood Count 2.9 K/mm3 (4.5-10.0)
[2022-01-24 07:08] LABS: Anion Gap 7 mmol/L (8-16); Blood Urea Nitrogen 12 mg/dL (7-17); Calcium 8.1 mg/dL (8.4-10.2); Carbon Dioxide 35 mmol/L (22-30); Chloride 98 mmol/L (98-107); Estimated CRCL calculation 93 ml/min; Estimated Glomerular Filt Rate > 60; Glucose 91 mg/dL (65-110); Magnesium 1.7 mg/dL (1.6-2.3); Potassium 3.3 mmol/L (3.4-5.0); Sodium 140 mmol/L (137-145)
[2022-01-24] MEDS: POTASSIUM CHLORIDE 20 MEQ TABLET 40 MEQ PO (09:39)
[2022-01-24] MEDS: APIXABAN 5 MG TABLET PO ×2 (09:40→20:22)
[2022-01-24] MEDS: FUROSEMIDE 40 MG TABLET PO (09:40)
[2022-01-24] MEDS: GABAPENTIN 300 MG CAPSULE PO ×3 (09:40→18:06)
[2022-01-24] MEDS: FERROUS SULFATE 324 MG TABLET PO (09:40)
[2022-01-24] MEDS: HYDROcodone/acetaminophen (*CRX) 10-325 MG TABLET 1 TAB PO ×2 (09:40→20:22)
[2022-01-24] MEDS: PANTOPRAZOLE SODIUM IV 40 MG VIAL IV PUSH ×2 (09:40→20:22)
[2022-01-24] MEDS: METOPROLOL TARTRATE 25 MG TABLET PO ×2 (09:40→20:23)
[2022-01-24] MEDS: TOLNAFTATE 1% POWDER 45 GM BTL 1 APPLIC TOPICAL ×2 (09:41→20:23)
--- NOTE | 2022-01-24 10:52 | PCRCNOTE ---
Window of time for administration has passed. See next scheduled administration.
--- NOTE | 2022-01-24 15:58 | PM.IMPN ---
Progress Note: A&P Assessment and Plan (1) Acute respiratory failure with hypoxia and hypercapnia: Code(s): J96.01 - Acute respiratory failure with hypoxia; J96.02 - Acute respiratory failure with hypercapnia Status: Acute Assessment and Plan: Multifactorial, likely secondary to COPD exacerbation as well as diastolic heart failure, continues to taper oxygen requirement Echo showed an EF greater than 70% with right ventricular chamber moderately enlarged, no significant valvular disease, no pulmonary hypertension noted Continue IV diuresis, fluid restriction, appreciate pulmonology consultation and management, Continue Lasix 40 mg IV daily. Switch to Lasix oral. She is not on Lasix at home Chest x-ray imrpoving. cta chest with no PE, right upper lobe and more prominent right lower lobe infiltrate, bilateral predominantly lower lobe atelectasis, right more than left apnea link on RA: 01/11/2022: spO2 < 88%: 42 mins needed to put back on 2L due to desaturations apnea link on 2L 01/10/2022: SpO2<88%: 2 mins Needs 2 L oxygen at night Home oxygen evaluation required 1l at rest and 2l with activity. Will need to repeat this again close to discharge 01/24/2022 interval history: patient with SOB, 2/2 pneumonia, exacerbation of COPD and as well as CHF, being treated with lasix 40mg PO, and bronchodilators, urine culture is growing E coli ESBL resistent to several abx including ceftriaxone, stopped the abx, and started patient on Cefepime 07/02 blood culture no growth so far, sputum is growing Streptococcus aureus pansensitive and not MRSA, patient clinical symptoms are improving, patient is now on 2L NC, on 01/18 patient had a lump along RLQ of abdomen, US showed most likey hematoma 2/2 SQ injection for lovenox, will continue to monitor. this is to certify patient in the hospital per 20 for continued medical problem with pneumonia. (2) COPD (chronic obstructive pulmonary disease): Code(s): J44.9 - Chronic obstructive pulmonary disease, unspecified Status: Acute Assessment and Plan: D/c steroids per pulmonology, Masood, completed course of Levaquin (3) DVT (deep venous thrombosis): Code(s): I82.409 - Acute embolism and thrombosis of unspecified deep veins of unspecified lower extremity Status: Acute Assessment and Plan: venous doppler acute thrombus in the right cephalix, radial and ulnar veins venous doppler with acute dvt in left posterior tibial and peroneal veins Continue Eliquis CTA negative for PE (4) Renal calculi: Code(s): N20.0 - Calculus of kidney Status: Acute Assessment and Plan: Stent recently placed by urology on Dec 31, 2021, note from urology states patient may benefit from outpatient ESWL Urine cx NG Vale catheter removed reappearance of urinary symptoms UA done 01/17/2022 with findings of UTI. Start ceftriaxone Since recent stent placement will await for urine culture will also get renal ultrasound Await culture since she recently had stent placed (5) Hypokalemia: Code(s): E87.6 - Hypokalemia Status: Acute Assessment and Plan: Replete and recheck, likely 2/2 diuresis Plan #JT: cr 2.4 on admission, worsened to 2.9. improved and resovled subsequently. nephrology was consulted durign the hospital stay. # elevated liver enzymes: unclear eetiolog. right upper quadrant ultrasound negative. No hypotension noted. Hold diuresis. Coagulation panel okay. LFT improving today but hyperbilirubinemia still persist. this continues to improve now. # drop in H&H: Recheck was stable. Will hold Eliquis this morning restart 5 mg again in the evening as as she remains stable. No active signs of bleeding set for bruise on right lower abdominal wall. Will order FOBT. Watch for any active bleeding. H&H remained stable in a likely due to hematuria which was transientAnd now resolved #DVT prophylaxis with Eliquis #GI prophylaxis with PPI #
[2022-01-24] MEDS: LOPERAMIDE HCL 2 MG CAPSULE PO (17:53)
[2022-01-24] MEDS: ALBUTEROL SULFATE NEB 2.5 MG/3 ML INH INHALATION (18:00)
--- NOTE | 2022-01-25 00:34 | PCRCNOTE ---
Window of time for administration has passed. See next scheduled administration.
[2022-01-25 06:00] VITALS: BP 143/60; PULSE 53; RESP 15; TEMP 35.7; O2SAT 98
[2022-01-25 06:29] LABS: Anion Gap 5 mmol/L (8-16); Blood Urea Nitrogen 13 mg/dL (7-17); Calcium 8.4 mg/dL (8.4-10.2); Carbon Dioxide 34 mmol/L (22-30); Chloride 98 mmol/L (98-107); Estimated CRCL calculation 93 ml/min; Estimated Glomerular Filt Rate > 60; Glucose 85 mg/dL (65-110); Magnesium 1.8 mg/dL (1.6-2.3); Potassium 3.4 mmol/L (3.4-5.0); Sodium 137 mmol/L (137-145)
[2022-01-25 06:35] LABS: Hematocrit 36.3 % (37.0-47.0); Hemoglobin 10.6 g/dL (12.0-15.0); Mean Corpuscular HGB Conc 29.2 g/dl (32-36); Mean Corpuscular Hemoglobin 24.9 pg (26-34); Mean Corpuscular Volume 85.2 fl (80-100); Mean Platelet Volume 9.6 fl (7.4-10.4); Platelet Count Result 202 k/mm3 (150-375); Red Blood Count 4.26 M/mm3 (4.2-5.4); Red Cell Distribution Width 20.1 % (11.5-14.5); White Blood Count 3.7 K/mm3 (4.5-10.0)
[2022-01-25] MEDS: LORazepam (*CRX) 0.5 MG TABLET PO ×3 (07:02→18:57)
[2022-01-25] MEDS: FERROUS SULFATE 324 MG TABLET PO (08:02)
[2022-01-25] MEDS: FUROSEMIDE 40 MG TABLET PO (08:02)
[2022-01-25] MEDS: GABAPENTIN 300 MG CAPSULE PO ×3 (08:02→17:23)
[2022-01-25 08:03] VITALS: PULSE 56
[2022-01-25] MEDS: METOPROLOL TARTRATE 25 MG TABLET PO ×2 (08:03→21:26)
[2022-01-25] MEDS: APIXABAN 5 MG TABLET PO ×2 (08:03→21:26)
[2022-01-25] MEDS: HYDROcodone/acetaminophen (*CRX) 10-325 MG TABLET 1 TAB PO ×2 (08:06→21:26)
[2022-01-25] MEDS: FLUTICASONE/SALMETEROL 230-21 MCG INHALER 1 PUFF 2 PUFF INHALATION ×2 (09:20→21:47)
[2022-01-25] MEDS: UMECLIDINIUM BROMIDE 62.5 MCG ELLIPTA 1 PUFF INHALATION (09:30)
[2022-01-25] MEDS: TOLNAFTATE 1% POWDER 45 GM BTL 1 APPLIC TOPICAL ×2 (09:45→21:27)
[2022-01-25] MEDS: PANTOPRAZOLE 40 MG TABLET PO ×2 (09:45→21:26)
[2022-01-25 14:00] VITALS: BP 130/59; PULSE 55; RESP 15; TEMP 36.4; O2SAT 97
[2022-01-25] MEDS: LOPERAMIDE HCL 2 MG CAPSULE PO (15:43)
--- NOTE | 2022-01-25 16:47 | PM.IMPN ---
Progress Note: A&P Assessment and Plan (1) Acute respiratory failure with hypoxia and hypercapnia: Code(s): J96.01 - Acute respiratory failure with hypoxia; J96.02 - Acute respiratory failure with hypercapnia Status: Acute Assessment and Plan: Multifactorial, likely secondary to COPD exacerbation as well as diastolic heart failure, continues to taper oxygen requirement Echo showed an EF greater than 70% with right ventricular chamber moderately enlarged, no significant valvular disease, no pulmonary hypertension noted Continue IV diuresis, fluid restriction, appreciate pulmonology consultation and management, Continue Lasix 40 mg IV daily. Switch to Lasix oral. She is not on Lasix at home Chest x-ray imrpoving. cta chest with no PE, right upper lobe and more prominent right lower lobe infiltrate, bilateral predominantly lower lobe atelectasis, right more than left apnea link on RA: 01/11/2022: spO2 < 88%: 42 mins needed to put back on 2L due to desaturations apnea link on 2L 01/10/2022: SpO2<88%: 2 mins Needs 2 L oxygen at night Home oxygen evaluation required 1l at rest and 2l with activity. Will need to repeat this again close to discharge 01/24/2022 interval history: patient with SOB, 2/2 pneumonia, exacerbation of COPD and as well as CHF, being treated with lasix 40mg PO, and bronchodilators, urine culture is growing E coli ESBL resistent to several abx including ceftriaxone, stopped the abx, and started patient on Cefepime 07/02 blood culture no growth so far, sputum is growing Streptococcus aureus pansensitive and not MRSA, patient clinical symptoms are improving, patient is now on 2L NC, on 01/18 patient had a lump along RLQ of abdomen, US showed most likey hematoma 2/2 SQ injection for lovenox, will continue to monitor. this is to certify patient in the hospital per 20 for continued medical problem with pneumonia. 01/25/2022 improved will recheck apnea link on room air to be evaluated oxygen needs at night for discharge Last home oxygen evaluation was done on 01/17/2022 needs to be redone at the time of discharge (2) COPD (chronic obstructive pulmonary disease): Code(s): J44.9 - Chronic obstructive pulmonary disease, unspecified Status: Acute Assessment and Plan: D/c steroids per pulmonology, Masood, completed course of Levaquin (3) DVT (deep venous thrombosis): Code(s): I82.409 - Acute embolism and thrombosis of unspecified deep veins of unspecified lower extremity Status: Acute Assessment and Plan: venous doppler acute thrombus in the right cephalix, radial and ulnar veins venous doppler with acute dvt in left posterior tibial and peroneal veins Continue Eliquis CTA negative for PE (4) Renal calculi: Code(s): N20.0 - Calculus of kidney Status: Acute Assessment and Plan: Stent recently placed by urology on Dec 31, 2021, note from urology states patient may benefit from outpatient ESWL Urine cx NG Vale catheter removed reappearance of urinary symptoms UA done 01/17/2022 with findings of UTI. Start ceftriaxone Since recent stent placement urine culture grew ESBL E coli started on cefepime. Complete course on 01/26/2022 (5) Hypokalemia: Code(s): E87.6 - Hypokalemia Status: Acute Assessment and Plan: Replete and recheck, likely 2/2 diuresis Plan #JT: cr 2.4 on admission, worsened to 2.9. improved and resovled subsequently. nephrology was consulted durign the hospital stay. # elevated liver enzymes: unclear eetiolog. right upper quadrant ultrasound negative. No hypotension noted. Hold diuresis. Coagulation panel okay. LFT improved # drop in H&H: during the hospital stay but now stable remains on Eliquis #DVT prophylaxis with Eliquis #GI prophylaxis with PPI #Code status full code Subjective Date/time seen: 01/25/22 16:47 Interval history: no overnight event. Feeling well. Right lower abdomen wall still
[2022-01-25 22:00] VITALS: BP 161/66; PULSE 61; RESP 18; TEMP 36.1; O2SAT 94
[2022-01-26] VITALS (7 sets, daily range): BP systolic 133–163; BP diastolic 58–70; PULSE 53–61; RESP 15–18; TEMP 35.6–36.2; O2SAT 93–99
[2022-01-26] MEDS: LORazepam (*CRX) 0.5 MG TABLET PO ×4 (00:19→20:27)
[2022-01-26 07:02] LABS: Hematocrit 34.9 % (37.0-47.0); Hemoglobin 10.4 g/dL (12.0-15.0); Mean Corpuscular HGB Conc 29.8 g/dl (32-36); Mean Corpuscular Hemoglobin 25.9 pg (26-34); Mean Platelet Volume 9.9 fl (7.4-10.4); Platelet Count Result 219 k/mm3 (150-375); Red Blood Count 4.01 M/mm3 (4.2-5.4); Red Cell Distribution Width 20.4 % (11.5-14.5); White Blood Count 4.2 K/mm3 (4.5-10.0)
[2022-01-26 07:13] LABS: Anion Gap 3 mmol/L (8-16); Blood Urea Nitrogen 14 mg/dL (7-17); Calcium 8.3 mg/dL (8.4-10.2); Carbon Dioxide 35 mmol/L (22-30); Chloride 99 mmol/L (98-107); Estimated CRCL calculation 104 ml/min; Estimated Glomerular Filt Rate > 60; Glucose 87 mg/dL (65-110); Magnesium 1.7 mg/dL (1.6-2.3); Potassium 3.2 mmol/L (3.4-5.0); Sodium 137 mmol/L (137-145)
[2022-01-26] MEDS: POTASSIUM CHLORIDE 20 MEQ TABLET 40 MEQ PO (09:56)
[2022-01-26] MEDS: APIXABAN 5 MG TABLET PO ×2 (09:56→20:28)
[2022-01-26] MEDS: PANTOPRAZOLE 40 MG TABLET PO ×2 (09:56→20:31)
[2022-01-26] MEDS: GABAPENTIN 300 MG CAPSULE PO ×3 (09:56→17:19)
[2022-01-26] MEDS: METOPROLOL TARTRATE 25 MG TABLET PO ×2 (09:56→20:30)
[2022-01-26] MEDS: FERROUS SULFATE 324 MG TABLET PO (09:56)
[2022-01-26] MEDS: FUROSEMIDE 40 MG TABLET PO (09:56)
[2022-01-26] MEDS: TOLNAFTATE 1% POWDER 45 GM BTL 1 APPLIC TOPICAL ×2 (09:57→20:32)
[2022-01-26] MEDS: FLUTICASONE/SALMETEROL 230-21 MCG INHALER 1 PUFF 2 PUFF INHALATION ×2 (10:01→22:20)
[2022-01-26] MEDS: UMECLIDINIUM BROMIDE 62.5 MCG ELLIPTA 1 PUFF INHALATION (10:01)
[2022-01-26] MEDS: HYDROcodone/acetaminophen (*CRX) 10-325 MG TABLET 1 TAB PO ×2 (10:01→20:27)
--- NOTE | 2022-01-26 17:50 | PM.IMPN ---
Progress Note: A&P Assessment and Plan (1) Acute respiratory failure with hypoxia and hypercapnia: Code(s): J96.01 - Acute respiratory failure with hypoxia; J96.02 - Acute respiratory failure with hypercapnia Status: Acute Assessment and Plan: Multifactorial, likely secondary to COPD exacerbation as well as diastolic heart failure, continues to taper oxygen requirement Echo showed an EF greater than 70% with right ventricular chamber moderately enlarged, no significant valvular disease, no pulmonary hypertension noted Continue IV diuresis, fluid restriction, appreciate pulmonology consultation and management, Continue Lasix 40 mg IV daily. Switch to Lasix oral. She is not on Lasix at home Chest x-ray imrpoving. cta chest with no PE, right upper lobe and more prominent right lower lobe infiltrate, bilateral predominantly lower lobe atelectasis, right more than left apnea link on RA: 01/11/2022: spO2 < 88%: 42 mins needed to put back on 2L due to desaturations apnea link on 2L 01/10/2022: SpO2<88%: 2 mins Needs 2 L oxygen at night Home oxygen evaluation required 1l at rest and 2l with activity. Will need to repeat this again close to discharge 01/24/2022 interval history: patient with SOB, 2/2 pneumonia, exacerbation of COPD and as well as CHF, being treated with lasix 40mg PO, and bronchodilators, urine culture is growing E coli ESBL resistent to several abx including ceftriaxone, stopped the abx, and started patient on Cefepime 07/02 blood culture no growth so far, sputum is growing Streptococcus aureus pansensitive and not MRSA, patient clinical symptoms are improving, patient is now on 2L NC, on 01/18 patient had a lump along RLQ of abdomen, US showed most likey hematoma 2/2 SQ injection for lovenox, will continue to monitor. this is to certify patient in the hospital per 20 for continued medical problem with pneumonia. 01/25/2022 improved will recheck apnea link on room air to be evaluated oxygen needs at night for discharge Last home oxygen evaluation was done on 01/17/2022 needs to be redone at the time of discharge Reorder home oxygen evaluation (2) COPD (chronic obstructive pulmonary disease): Code(s): J44.9 - Chronic obstructive pulmonary disease, unspecified Status: Acute Assessment and Plan: D/c steroids per pulmonology, Masood, completed course of Levaquin (3) DVT (deep venous thrombosis): Code(s): I82.409 - Acute embolism and thrombosis of unspecified deep veins of unspecified lower extremity Status: Acute Assessment and Plan: venous doppler acute thrombus in the right cephalix, radial and ulnar veins venous doppler with acute dvt in left posterior tibial and peroneal veins Continue Eliquis CTA negative for PE (4) Renal calculi: Code(s): N20.0 - Calculus of kidney Status: Acute Assessment and Plan: Stent recently placed by urology on Dec 31, 2021, note from urology states patient may benefit from outpatient ESWL Urine cx NG Vale catheter removed reappearance of urinary symptoms UA done 01/17/2022 with findings of UTI. Start ceftriaxone Since recent stent placement urine culture grew ESBL E coli started on cefepime. Completes course on 01/26/2022Late night plan for discharge in a.m. (5) Hypokalemia: Code(s): E87.6 - Hypokalemia Status: Acute Assessment and Plan: Replete and recheck, likely 2/2 diuresis Plan #JT: cr 2.4 on admission, worsened to 2.9. improved and resovled subsequently. nephrology was consulted durign the hospital stay. # elevated liver enzymes: unclear eetiolog. right upper quadrant ultrasound negative. No hypotension noted. Hold diuresis. Coagulation panel okay. LFT improved # drop in H&H: during the hospital stay but now stable remains on Eliquis #DVT prophylaxis with Eliquis #GI prophylaxis with PPI #Code status full code Subjective Date/time seen: 01/26/22 17:50 Interval histor
[2022-01-27] VITALS (9 sets, daily range): BP systolic 154; BP diastolic 58; PULSE 57–86; RESP 16–18; TEMP 35.5; O2SAT 87–93
[2022-01-27] MEDS: LORazepam (*CRX) 0.5 MG TABLET PO (04:42)
[2022-01-27] MEDS: METOPROLOL TARTRATE 25 MG TABLET PO (08:41)
[2022-01-27] MEDS: FERROUS SULFATE 324 MG TABLET PO (08:41)
[2022-01-27] MEDS: HYDROcodone/acetaminophen (*CRX) 10-325 MG TABLET 1 TAB PO (08:41)
[2022-01-27] MEDS: FUROSEMIDE 40 MG TABLET PO (08:41)
[2022-01-27] MEDS: GABAPENTIN 300 MG CAPSULE PO ×2 (08:41→12:11)
[2022-01-27] MEDS: APIXABAN 5 MG TABLET PO (08:41)
[2022-01-27] MEDS: TOLNAFTATE 1% POWDER 45 GM BTL 1 APPLIC TOPICAL (08:41)
[2022-01-27] MEDS: PANTOPRAZOLE 40 MG TABLET PO (08:41)
[2022-01-27] MEDS: FLUTICASONE/SALMETEROL 230-21 MCG INHALER 1 PUFF 2 PUFF INHALATION (09:20)
[2022-01-27] MEDS: UMECLIDINIUM BROMIDE 62.5 MCG ELLIPTA 1 PUFF INHALATION (09:20)
--- NOTE | 2022-01-27 09:54 | HOMEO2EVAL ---
Evaluation was performed at [facility] Home Oxygen Evaluation RC: Home Oxygen (O2) Evaluation Start: 01/11/22 08:31 Freq: ONCE Status: Complete Protocol: RPE Activity Type Activity Date Activity User E-sign Co-sign Detail Recorded Client Recorded Date Recorded By Document 01/11/22 09:20 [email or web address] 01/11/22 10:57 PKH Document 01/11/22 09:27 [email or web address] 01/11/22 10:57 PKH Document 01/11/22 09:30 [email or web address] 01/11/22 10:57 PKH Document 01/11/22 09:35 [email or web address] 01/11/22 10:57 PKH Document 01/11/22 09:55 [email or web address] 01/11/22 10:57 PKH Document 01/13/22 14:00 [email or web address] [email or web address] 01/13/22 14:15 ISELA Document 01/13/22 14:05 [email or web address] [email or web address] 01/13/22 14:15 ISELA 01/11/22 01/11/22 01/11/22 09:20 09:27 09:30 Home O2 Evaluation [Oxygen] -Test Phase Resting Resting Exercise -Oxygen Delivery Room Air Nasal Cannula Nasal Cannula -Oxygen Flow Rate (L/min) 1 -Fraction of Inspired Oxygen (%) 1 [Pulse Oximetry] -Pulse Oximetry (90-100 %) 85 L 91 87 L [Pulse Rate] -Pulse Rate (60-100 beats/min) 111 H 108 H 113 H [Exercise] -Ambulation Distance (feet) -Ambulation Distance (meters) [Comments] -Home Oxygen Evaluation Comments [Charges] -Treatment Charges O2 Evaluation - Inpatient 01/11/22 01/11/22 01/13/22 09:35 09:55 14:00 Home O2 Evaluation [Oxygen] -Test Phase Exercise Resting Resting -Oxygen Delivery Nasal Cannula Nasal Cannula Room Air -Oxygen Flow Rate (L/min) 2 1 -Fraction of Inspired Oxygen (%) [Pulse Oximetry] -Pulse Oximetry (90-100 %) 91 91 86 L [Pulse Rate] -Pulse Rate (60-100 beats/min) 114 H 110 H 71 [Exercise] -Ambulation Distance (feet) 300 -Ambulation Distance (meters) 91.43 [Comments] -Home Oxygen Evaluation Comments Home O2 ROOM AIR requirements SATURATION 1lpm with rest, CHECK, FOR 2lpm with REQUALIFICATION activity. RN OF HOME O2 notified. Home O2 will be set up with IV Respiratory. [Charges] -Treatment Charges O2 Evaluation - Inpatient 01/13/22 14:05 Home O2 Evaluation [Oxygen] -Test Phase Resting -Oxygen Delivery Nasal Cannula -Oxygen Flow Rate (L/min) 1 -Fraction of Inspired Oxygen (%) [Pulse Oximetry] -Pulse Oximetry (90-100 %) 90 [Pulse Rate] -Pulse Rate (60-100 beats/min) [Exercise] -Ambulation Distance (feet) -Ambulation Distance (meters) [Comments] -Home Oxygen Evaluation Comments [Charges] -Treatment Charges RC: Home Oxygen (O2) Evaluation Start: 01/17/22 07:55 Freq: ONCE Status: Complete Protocol: RPE Activity Type Activity Date Activity User E-sign Co-sign Detail Recorded Client Recorded Date Recorded By Document 01/17/22 14:00 [email or web address] 01/17/22 14:40 ISELA Document 01/17/22 14:02 [email or web address] 01/17/22 14:40 ISELA Document 01/17/22 14:03 [email or web address] [email or web address] 01/17/22 14:40 ISELA Document 01/17/22 14:10 [email or web address] [email or web address] 01/17/22 14:40 ISELA Document 01/17/22 14:15 [email or web address] [email or web address] 01/17/22 14:40 ISELA 01/17/22 01/17/22 01/17/22 14:00 14:02 14:03 Home O2 Evaluation [Oxygen] -Test Phase Resting Resting Resting -Oxygen Delivery Room Air Nasal Cannula Nasal Cannula -Oxygen Flow Rate (L/min) 1 2 [Pulse Oximetry] -Pulse Oximetry (90-100 %) 87 L 87 L 92 [Pulse Rate] -Pulse Rate (60-100 beats/min) 81 98 [Comments] -Home Oxygen Evaluation Comments 2 LITERS AT REST AND WITH ACTIVITY/ EXERTION [Charges] -Treatment Charges O2 Evaluation - Inpatient 01/17/22 01/17/22 14:10 14:15 Home O2 Evaluation [Oxygen] -Test Phase Exercise Resting -Oxygen Delivery Nasal Cannula Nasal Cannula -Oxygen Fl
--- NOTE | 2022-01-27 11:09 | PM.DS ---
DS: Admitting Diagnosis Discharge Date 01/27/2022 Admitting Diagnosis shortness of breath DS: Discharge Diagnosis Discharge Diagnosis (1) Acute respiratory failure with hypoxia and hypercapnia: Code(s): J96.01 - Acute respiratory failure with hypoxia; J96.02 - Acute respiratory failure with hypercapnia Status: Acute (2) COPD (chronic obstructive pulmonary disease): Code(s): J44.9 - Chronic obstructive pulmonary disease, unspecified Status: Acute (3) DVT (deep venous thrombosis): Code(s): I82.409 - Acute embolism and thrombosis of unspecified deep veins of unspecified lower extremity Status: Acute (4) Renal calculi: Code(s): N20.0 - Calculus of kidney Status: Acute (5) Hypokalemia: Code(s): E87.6 - Hypokalemia Status: Acute DS: Summary Hospital Course Hospital Course: # Acute respiratory failure with hypoxia and hypercapnia: Multifactorial, likely secondary to COPD exacerbation as well as acute on chronic diastolic heart failure, required oxygen supplementation. Continue to improve throughout the hospital stay. Echo showed an EF greater than 70% with right ventricular chamber moderately enlarged, no significant valvular disease, no pulmonary hypertension noted She was started on IV diuresis also treated with antibiotics for pneumonia. Pulmonary was consulted during hospital stay. cta chest with no PE,? right upper lobe and more prominent right lower lobe infiltrate, bilateral predominantly lower lobe atelectasis, right more than left apnea link on RA: 01/11/2022: spO2 < 88%: 42 mins needed to put back on 2L due to desaturations apnea link on 2L 01/10/2022: SpO2<88%: 2 mins She needed to L oxygen at night. Apnea link was repeated again on room air close to discharge and qualify to be on 2 L oxygen Home oxygen evaluation done at the time of discharge required her to be on 2 L oxygen exertion sputum culture grew Staph aureus pansensitive and was treated with antibiotics # COPD: initially treated with steroids which was tapered off during the hospital stay. Follow-up with Pulmonary # DVT: venous doppler acute thrombus in the right cephalix, radial and ulnar veins venous doppler with acute dvt? in left posterior tibial and peroneal veins She was started on Eliquis and with continued on Eliquis. H&H was monitored throughout the hospital stay which remains stable CTA negative for PE # renal calculi: Stent recently placed by urology on Dec 31, 2021, note from urology states patient may benefit from outpatient ESWL Urine cx NG ?Vale catheter removed During the hospital stay she had reappearance of urinary symptoms. UA done on 01/17/2022 with findings of UTI. Urine culture grew ESBL E coli was treated with cefepime. She finished a course of antibiotic during the hospital stay. # hypokalemia: Replete and recheck, likely 2/2 diuresis # JT: cr 2.4 on admission, worsened to 2.9. improved and resovled subsequently. nephrology was consulted durign the hospital stay. resolved # elevated liver enzymes: unclear etiology. right upper quadrant ultrasound negative.? No hypotension noted.? Hold diuresis.? Coagulation panel okay.? LFT ? improved # DVT prophylaxis with Eliquis # GI prophylaxis with PPI # Code status full code Time Spent with Patient Time attestation: Total time spent providing and/or coordinating discharge services: Exam Narrative: General: No acute distress, alert and oriented per baseline HEENT: Atraumatic, normocephalic, mucous membranes moist CV: Regular rate and rhythm, S1, S2 Lungs: Good air entry, no wheezes Abdomen: Soft, nontender, nondistended bruise on right lower abdominal wall Extremities: trace edema bilateral lower extremities, no cyanosis or clubbing Skin: No rashes noted, no lesions or wounds seen Psych: Euthymic, normal affect DS: Data Data Completed and Pending Completed studies during hospitalization: Exam Type: ?
--- NOTE | 2022-02-02 04:38 | PM.IMHP ---
H&P: HPI History of Present Illness Date/Time: 02/02/22 04:38 Chief Complaint: sob Narrative: This is a 61-year-old woman with a history of hypertension chronic cigarette smoking and COPD,morbid obesity admitted to the hospital with respiratory distress her oxygen saturations were low upon arrival she has been doing much better following BiPAP and bronchodilator treatment.? 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 She says this was identified or at least discussed on an echocardiogram many years ago.? Obviously we have none of the records.? Cardiac physical exam while limited and difficult because of obesity is essentially unremarkable.? Currently the findings are most consistent with COPD with wheezing and prolonged expiratory phase although she is in much less distress than she was last evening.? Will review her echocardiogram and leave any recommendations that would be appropriate with those findings I do not expect this to be a high quality exam given her body habitus.? The principal problem here I believe was a COPD exacerbation will defer treatment of this to the primary team Review of Systems Review of Systems: All systems reviewed & are unremarkable except as noted in HPI and below Constitutional: Constitutional: Reports no additional constitutional complaints Eyes: Eyes: Reports no additional eye complaints ENT: Reports system reviewed and no additional complaints, except as documented and Reports Normal hearing present Cardiovascular: Cardiovascular: Reports no additional cardiovascular complaints Respiratory: Respiratory: Reports no additional respiratory complaints Gastrointestinal: Gastrointestinal: Reports no additional gastrointestinal complaints Musculoskeletal: Musculoskeletal: Reports no additional musculoskeletal complaints Neurologic: Reports system reviewed and no additional complaints, except as documented and Reports Normal hearing present Psychiatric: Psychiatric: Reports no additional psychiatric complaints Endocrine: Endocrine: Reports no additional endocrine complaints Hematologic/Lymphatic: Hematologic/Lymphatic: Reports no additional hematologic/lymphatic complaints Allergic/Immunologic: Allergic/Immunologic: Reports no additional allergic/immunologic complaints [facility] Past Medical History Medical History (Updated 01/09/22 @ 11:27 by Glenny Hawthorne DO) Abnormal results of kidney function studies High body mass index Hypertension Pyuria Social History Social History (Updated 12/30/21 @ 15:38 by KAILA Fregoso) Social History: Patient lives at home with her Smoking packs per day: 1 Smoking cigarettes per day: 20.0 Years smoked: 45 Smoking pack-years: 45.00 Smoking status: Heavy tobacco smoker Alcohol intake: former Drinks per week: 84 Substance use: never Other substance usage details: stopped drinking approx 30 years ago Lack of Transportation: No Lack of Food: Never True Current Housing: I Have Housing Concerned About Future Housing: No Difficulty Paying Gas/Electric Bills: No Difficulty Paying for Meds: No Currently Unemployed: No Education: Trade/Vocational Certificate Difficulty w/ Childcare or Family Care: No Spiritual care concerns: No Meds Home Medications and Allergies Home Medications Medication Instructions Recorded Confirmed Type gabapentin 300 mg capsule 300 mg PO TID 12/30/21 12/30/21 History hydrocodone 10 mg-acetaminophen 1 tablet PO BID 12/30/21 12/30/21 History 325 mg tablet ipratropium 0.5 mg-albuterol 3 mg 3 ml inhalation QID PRN Shortness 12/30/21 12/30/21 History (2.5 mg base)/3 mL nebulization Of Breath Or Wheezing soln irbesartan 300 mg tablet 300 mg PO DAILY 12/30/21 12/30/21 History albuterol sulfate 90 mcg/actuation 2 puff inhalation QID PRN 01/27/22 Rx aerosol inhaler shortness of breath or
== END 2022-01-27 12:35 | disposition home or self-care (01) | DRG 987 ==
LOC: ANHED 12-30 01:25 → ANHIMU 12-30 03:24 → ANH2MED 12-31 17:17 → ANHIMU 01-03 00:11 → ANH2MED 01-03 02:38 → ANHIMU 01-03 02:38 → ANH2MED 01-05 17:13 → ANHIMU 01-12 06:11 → ANH3MEDSUR 01-15 14:37
PROVIDERS: Family Medicine; Internal Medicine; Internal Medicine Gastroenterology; Internal Medicine Nephrology; Internal Medicine Pulmonary Disease; Nurse Practitioner; Student in an Organized Health Care Education/Training Program; Urology; Admitting Provider Internal Medicine; Emergency Provider Emergency Medicine; Visit Provider Internal Medicine
PROC: 0T768DZ Dilation of Right Ureter with Intraluminal Device, Via Natural or Artificial Opening Endoscopic (ICD-10-PCS; CPT 52352; principal; 2021-12-31 11:00)
DX: I11.0 Hypertensive heart disease with heart failure (principal); I50.33 Acute on chronic diastolic (congestive) heart failure; J96.01 Acute respiratory failure with hypoxia; J96.02 Acute respiratory failure with hypercapnia; N17.0 Acute kidney failure with tubular necrosis; J44.0 Chronic obstructive pulmonary disease with (acute) lower respiratory infection; J15.211 Pneumonia due to Methicillin susceptible Staphylococcus aureus; J44.1 Chronic obstructive pulmonary disease with (acute) exacerbation; K51.00 Ulcerative (chronic) pancolitis without complications; Z68.43 Body mass index [BMI] 50.0-59.9, adult; N13.2 Hydronephrosis with renal and ureteral calculous obstruction; Z20.822 Contact with and (suspected) exposure to COVID-19; I82.442 Acute embolism and thrombosis of left tibial vein; I82.452 Acute embolism and thrombosis of left peroneal vein; N39.0 Urinary tract infection, site not specified; B96.20 Unspecified Escherichia coli [E. coli] as the cause of diseases classified elsewhere; Z16.12 Extended spectrum beta lactamase (ESBL) resistance; I82.611 Acute embolism and thrombosis of superficial veins of right upper extremity; I82.621 Acute embolism and thrombosis of deep veins of right upper extremity; E87.5 Hyperkalemia; R74.01 Elevation of levels of liver transaminase levels; E66.01 Morbid (severe) obesity due to excess calories; F17.210 Nicotine dependence, cigarettes, uncomplicated; D50.9 Iron deficiency anemia, unspecified; F41.9 Anxiety disorder, unspecified; F40.240 Claustrophobia
CPT/HCPCS: 36415; 36600; 71045; 71046; 71275; 74018; 74176; 74420; 76705; 76775; 80048; 80053; 80061; 80069; 80074; 80307; 81001; 82274; 82375; 82550; 82570; 82607; 82728; 82746; 82805; 82948; 83036; 83050; 83540; 83550; 83690; 83735; 83880; 83935; 84100; 84156; 84300; 84443; 84466; 84484; 84540; 85014; 85018; 85025; 85027; 85055; 85610; 85652; 85730; 86038; 86039; 86160; 86162; 86334; 86335; 86376; 86704; 86706; 86803; 87040; 87070; 87077; 87086; 87088; 87147; 87186; 87205; 87340; 87502; 93005; 93970; 94002; 94003; 94618; 94640; 94762; 96365; 96367; 96375; 97110; 97116; 97161; 97165; 97530; 97535; 99285; A9270; C1758; C1769; C1887; C2617; C8929; C9113; G0378; J0692; J0696; J1650; J1815; J1940; J1956; J2060; J2250; J2270; J2405; J2704; J2930; J3010; J7030; J7120; J7512; Q9957; Q9967; U0003; U0005

== ENCOUNTER 2022-02-07 12:47 | Outpatient (CLI) | payer MEDICARE, MEDICAID, SELFPAY ==
[2022-02-07 13:49] LABS: INR 1.3; Prothrombin Time 15.4 Seconds (11.1-14.7)
== END 2022-02-07 12:48 | disposition home or self-care (01) ==
PROVIDERS: Visit Provider Urology
DX: N20.0 Calculus of kidney (principal); Z01.818 Encounter for other preprocedural examination
CPT/HCPCS: 36415; 85610; 85730

== ENCOUNTER 2022-03-16 07:50 | Outpatient (CLI) | payer MEDICARE, MEDICAID, SELFPAY ==
[2022-03-16 09:00] VITALS: PULSE 78; O2SAT 94
[2022-03-16 09:05] VITALS: PULSE 89; O2SAT 88
[2022-03-16 09:06] VITALS: PULSE 84; O2SAT 92
[2022-03-16 09:15] VITALS: PULSE 78; O2SAT 93
--- NOTE | 2022-03-16 09:16 | HOMEO2EVAL ---
Evaluation was performed at [facility] Home Oxygen Evaluation RC: Home Oxygen (O2) Evaluation Start: 03/16/22 09:14 Freq: Status: Active Protocol: RPE Activity Type Activity Date Activity User E-sign Co-sign Detail Recorded Client Recorded Date Recorded By Document 03/16/22 09:00 [email or web address] [email or web address] 03/16/22 09:16 ISELA Document 03/16/22 09:05 [email or web address] [email or web address] 03/16/22 09:16 ISELA Document 03/16/22 09:06 [email or web address] [email or web address] 03/16/22 09:16 ISELA Document 03/16/22 09:15 [email or web address] [email or web address] 03/16/22 09:16 ISELA 03/16/22 03/16/22 03/16/22 09:00 09:05 09:06 Home O2 Evaluation [Oxygen] -Test Phase Resting Exercise Exercise -Oxygen Delivery Room Air Room Air Nasal Cannula -Oxygen Flow Rate (L/min) 2 [Pulse Oximetry] -Pulse Oximetry (90-100 %) 94 88 L 92 [Pulse Rate] -Pulse Rate (60-100 beats/min) 78 89 84 [Comments] -Home Oxygen Evaluation Comments 2 Liters O2 with activity [Charges] -Treatment Charges O2 Evaluation - Outpatient 03/16/22 09:15 Home O2 Evaluation [Oxygen] -Test Phase Resting -Oxygen Delivery Room Air -Oxygen Flow Rate (L/min) [Pulse Oximetry] -Pulse Oximetry (90-100 %) 93 [Pulse Rate] -Pulse Rate (60-100 beats/min) 78 [Comments] -Home Oxygen Evaluation Comments [Charges] -Treatment Charges
--- NOTE | 2022-03-16 14:13 | WPDPFTINT ---
PFT Procedure Performed PFT Procedure Performed Spirometry with Pre/Post Bronchodilator Plethysmography (Lung Vol) Diffusing Cap (DLCO) Flow Vol Loop PFT Interpretation This is a pulmonary function test with pre and post-bronchodilator spirometry, plethysmography and diffusing capacity. The test was performed and results interpreted in accordance with the 2019 and 2005 ATS/ERS Task Force guidelines respectively using the Global Lung Function Initiative-2012 reference equations. Patient demonstrated good effort and cooperation. Reproducibility criteria were met. The quality of the pre bronchodilator spirometry maneuver was Grade C and post bronchodilator spirometry maneuver was Grade A. Findings: Spirometry: The contour the inspiratory and expiratory flow tracing are normal. The pre bronchodilator FVC is 1.78 L, 57% predicted. The pre bronchodilator FEV1 is 1.58 L, 63% predicted. The pre bronchodilator FEV1: FVC ratio was 88%. The post bronchodilator FVC is 2.02 L, representing a 13% increase. The post bronchodilator FEV1 is 1.61 L, representing a 2% increase. The post bronchodilator FEV1: FVC ratio was 80%. Plethysmography: The total lung capacity is 3.71 L, 73% predicted. the functional residual capacity is 1.87, 65% predicted. The residual volume is 1.74 L, 86% predicted. Diffusion capacity: The diffusing capacity unadjusted for hemoglobin and carboxyhemoglobin is 10.7, 50% predicted. The diffusing capacity adjusted for alveolar volume is 3.61, 82% predicted. Impression: There is a moderately restrictive ventilatory abnormality. The spirometry is normal without evidence of an obstructive abnormality. There is significant improvement after inhaling a single dose of albuterol. The diffusing capacity unadjusted for hemoglobin and carboxyhemoglobin is moderately decreased and normalizes when adjusted for alveolar volume. There are no prior studies for comparison
== END 2022-03-16 07:51 | disposition home or self-care (01) ==
LOC: ANHPFT 07:52
PROVIDERS: PCP Family Medicine; Visit Provider Internal Medicine Pulmonary Disease
DX: J44.9 Chronic obstructive pulmonary disease, unspecified (principal); R06.00 Dyspnea, unspecified; R94.2 Abnormal results of pulmonary function studies
CPT/HCPCS: 94060; 94618; 94726; 94729

== ENCOUNTER 2022-08-02 15:20 | Outpatient (CLI) | payer MEDICARE, MEDICAID, SELFPAY ==
--- NOTE | ~2022-08-02 | XR_ITS ---
XR chest 2V DATE: 08/02/2022 15:55 INDICATION: Chronic obstructive pulmonary disease TECHNIQUE: AP and lateral views COMPARISON: 01/15/2022 portable AP chest at 0515 hours FINDINGS: Status post lower anterior cervical spine fusion. There is degenerative spurring and minimal dextro scoliosis of the thoracic spine. Cardiomegaly. Aortic arch calcification. There is pulmonary vascular congestion and redistribution, prominence of minor fissure and minimal bl unting of the costophrenic angle suggesting small pleural effusions. Some Amadeo B-lines are suggeste d. IMPRESSION: Congestive heart failure, mild pulmonary interstitial and subpleural edema Reviewed, dictated and finalized at location [] IMPRESSION: Congestive heart failure, mild pulmonary interstitial and subpleura l edema
[2022-08-02 16:45] LABS: Hematocrit 49.3 % (37.0-47.0); Hemoglobin 14.4 g/dL (12.0-15.0); Mean Corpuscular HGB Conc 29.2 g/dl (32-36); Mean Corpuscular Hemoglobin 26.8 pg (26-34); Mean Corpuscular Volume 91.6 fl (80-100); Platelet Count Result 211 k/mm3 (150-375); Red Blood Count 5.38 M/mm3 (4.2-5.4); Red Cell Distribution Width 19.2 % (11.5-14.5); White Blood Count 5.4 K/mm3 (4.5-10.0)
[2022-08-02 17:05] LABS: NT Pro B Type Natriuretic Pept 7230 pg/mL (19.9-100)
[2022-08-02 17:32] LABS: Alanine Aminotransferase 13 U/L (6-35); Albumin Level 3.2 g/dL (3.5-5.1); Alkaline Phosphatase 84 U/L (38-126); Aspartate Amino Transferase 21 U/L (14-36); Bilirubin,Total 1.2 mg/dL (0.2-1.3); Blood Urea Nitrogen 16 mg/dL (7-17); Calcium 7.8 mg/dL (8.4-10.2); Carbon Dioxide > 40 mmol/L (22-30); Chloride 96 mmol/L (98-107); Estimated Glomerular Filt Rate > 60; Glucose 76 mg/dL (65-110); Potassium 2.5 mmol/L (3.4-5.0); Sodium 139 mmol/L (137-145)
== END 2022-08-02 15:21 | disposition home or self-care (01) ==
PROVIDERS: PCP Family Medicine; Visit Provider Physician Assistant Medical
DX: I50.9 Heart failure, unspecified (principal); I50.1 Left ventricular failure, unspecified; R53.83 Other fatigue; E78.2 Mixed hyperlipidemia; J44.1 Chronic obstructive pulmonary disease with (acute) exacerbation
CPT/HCPCS: 36415; 71046; 80053; 83880; 85027

== ENCOUNTER 2022-08-02 18:13 | Inpatient (IN) | payer MEDICARE, MEDICAID, SELFPAY ==
[2022-08-02] VITALS (24 sets, daily range): BP systolic 135–223; BP diastolic 46–105; PULSE 72–104; RESP 16–26; TEMP 36.5–37.2; O2SAT 90–100; BMI 56.9
--- NOTE | ~2022-08-02 | US_ITS ---
EXAMINATION: US venous doppler UE LT DATE: 08/02/2022 20:44 INDICATION: Left upper extremity pain TECHNIQUE: Grayscale ultrasound images without and with compression and Doppler ultrasound images of the left upper extremity veins were obtained. COMPARISON: 01/03/2022 FINDINGS: The left internal jugular vein, subclavian vein, axillary vein, brachial veins, basilic vein, cephali c vein, radial vein, and ulnar vein are patent. IMPRESSION: 1. No evidence of deep venous thrombosis. Reviewed, dictated and finalized at location F.
--- NOTE | ~2022-08-02 | US_ITS ---
EXAMINATION: US venous doppler [facility] DATE: 08/02/2022 20:43 INDICATION: Bilateral lower limb pain and swelling TECHNIQUE: Seymour scale images without and with compression and Doppler images of the bilateral lower e xtremity veins were obtained. COMPARISON: 01/03/2022 FINDINGS: The bilateral peroneal veins are not evaluated due to body habitus. The right common femoral vein, profunda femoral vein, femoral vein, popliteal vein, posterior tibial veins, and greater saphenous vein are patent. The left common femoral vein, profunda femoral vein, femoral vein, popliteal vein, posterior tibial v eins, and greater saphenous vein are patent. IMPRESSION: 1. Patent bilateral lower extremity veins. No evidence of deep venous thrombosis. Bilateral peroneal veins not visualized due to body habitus. Reviewed, dictated and finalized at location F. IMPRESSION: 1. Patent bilateral lower extremity veins. No evidence of deep venous thrombosi s. Bilateral peroneal veins not visualized due to body habitus.
--- NOTE | 2022-08-02 18:21 | ED.GENADULT ---
HPI - General Adult General Chief complaint: Weakness <ISABEL Marie Last Filed: 08/03/22 02:58> Stated complaint: sob <ISABEL Marie Last Filed: 08/03/22 02:58> Time Seen by Provider: 08/02/22 18:19 <ISABEL Marie Last Filed: 08/03/22 02:58> Source: patient and old records reviewed <ISABEL Marie Last Filed: 08/03/22 02:58> Mode of arrival: EMS <ISABEL Marie Filed: 08/03/22 02:58> Limitations: no limitations <ISABEL Marie Filed: 08/03/22 02:58> History of Present Illness HPI narrative: Patient is a 61-year-old female, with PMH of CHF/COPD, who presents to the ED via EMS with report of shortness of breath. Patient reports she has been feeling unwell for the last 1 week. She complains of progressively worsening shortness of breath, increased with exertion. She complains of pain all over, productive cough, pain in her lower extremities, swelling in her lower extremities, and intermittent daily brief episodes of midsternal chest pain. Patient states she has had a hard time performing ADLs this week and has required help from her with simple activities. She did have a fall over the last week and c/o pain to her L upper arm/axillary region with painful nodules. Patient was seen by her primary care doctor today and had outpatient blood work performed and was referred to the ED due to likely CHF exacerbation. Patient denies any current chest pain, fevers, nausea, vomiting. Patient chronically wears 2 L nasal cannula with exertion, but has required this [id number] for the last few days. She has gone up to 2.5 L at times. <ISABEL Marie Last Filed: 08/03/22 02:58> Related Data Home medications: Home Medications Medication Instructions Recorded Confirmed gabapentin 300 mg capsule 300 mg PO TID 12/30/21 08/02/22 hydrocodone 10 mg-acetaminophen 1 tablet PO Q8H PRN Moderate Pain 12/30/21 08/02/22 325 mg tablet (Scale Score 5-6) ipratropium 0.5 mg-albuterol 3 mg 3 ml inhalation QID PRN Shortness 12/30/21 08/02/22 (2.5 mg base)/3 mL nebulization Of Breath Or Wheezing soln irbesartan 300 mg tablet 300 mg PO QAM 12/30/21 08/02/22 furosemide 40 mg tablet 40 mg PO QAM 02/06/22 08/02/22 <ISABEL Marie Last Filed: 08/03/22 02:58> Allergies/adverse reactions: Allergies Allergy/AdvReac Type Severity Reaction Status Date / Time sertraline AdvReac Severe loopy, Verified 08/02/22 13:46 tremors <ISABEL Marie Last Filed: 08/03/22 02:58> Review of Systems Review of Systems: CONSTITUTIONAL: Denies fever, chills, or sweats. ENT: See HPI. CARDIOVASCULAR: See HPI. RESPIRATORY: See HPI. GASTROINTESTINAL: Denies abdominal pain, nausea, vomiting, or diarrhea. GENITOURINARY: Denies dysuria or hematuria. SKIN: Denies rash or itching. MUSCULOSKELETAL: See HPI. <ISABEL Marie Last Filed: 08/03/22 02:58> All systems reviewed & are unremarkable except as noted in HPI and below <ISABEL Marie Last Filed: 08/03/22 02:58> [facility] Past Medical History Medical History: Medical History Abnormal results of kidney function studies Anxiety COPD (chronic obstructive pulmonary disease) DVT (deep venous thrombosis) High body mass index Hypertension Pyuria <ISABEL Marie Last Filed: 08/03/22 02:58> Family History Family History: Family History Other Alcoholism Deep vein thrombophlebitis of right leg Diabetes mellitus Heart disease Hypertension <ISABEL Marie Last Filed: 08/03/22 02:58> Social History Social History: Social History Social History: Patient lives at home with her S
--- NOTE | 2022-08-02 18:24 | ECG_ITS ---
Measurements Intervals [place] Rate: 97 P: 43 NH: 163 QRS: 90 QRSD: 92 T: 84 QT: 299 QTc: 380 Interpretive Statements SINUS RHYTHM LEFT ATRIAL ENLARGEMENT [-0.15mV P WAVE IN V1/V2] NONSPECIFIC ST & T-WAVE ABNORMALITY BASELINE ARTIFACT PRESENT, WHICH LIMITS INTERPRETATION COMPARED TO ECG 01/12/2022 12:53:58 NO SIGNIFICANT CHANGES Electronically Signed On 08-03-2022 10:45:38 CDT by Soledad Christy M.D.
[2022-08-02 18:42] LABS: Alveolar/Arterial O2 Gradient 68.3 mmHg; Base Excess ABG 9.4 mEq/l (+/-2.0); Fractional Inspired Oxygen 28 %; HCO3 ABG 36.5 mEq/l (22.0-26.0); Methemoglobin ABG 0.4 %THb (0-1.5); Oxygen Content ABG 18.7 %vol (16.0-22.0); Oxygen Saturation ABG 91.5 % (95.0-100.0); PCO2 ABG 58.7 mmHg (35.0-45.0); PO2 ABG 62.1 mmHg (80.0-100.0); PO2 FiO2 Ratio Arterial Blood 2.22 %; Reduced Hemoglobin 8.4 %THb (0-5.0); Total Hemoglobin 15.6 g/dL (12.0-18.0); pH ABG 7.411 (7.350-7.450)
[2022-08-02 18:43] LABS: Device NASAL CANNULA; Oxyhemoglobin 85.2 % THb (90.0-100.0); Site Drawn LEFT BRACHIAL
[2022-08-02 18:53] LABS: INR 1.1; Prothrombin Time 14.4 Seconds (11.1-14.7)
[2022-08-02 18:54] LABS: Partial Thromboplastin Time 33.6 SECONDS (22.3-36.8)
[2022-08-02 19:00] LABS: Troponin I < 0.012 ng/mL (0.000-0.034)
[2022-08-02] MEDS: FUROSEMIDE INJ 40 MG/4 ML VIAL IV PUSH (19:24)
[2022-08-02] MEDS: METOPROLOL TARTRATE 25 MG TABLET PO ×2 (19:24→23:46)
[2022-08-02] MEDS: ONDANSETRON INJ 4 MG/2 ML VIAL IV PUSH (19:25)
[2022-08-02] MEDS: MORPHINE SULFATE (*CRX) 4 MG/ML INJ IV PUSH (19:28)
[2022-08-02] MEDS: LEVALBUTEROL NEB 1.25 MG/3 ML 2.5 MG INHALATION (19:40)
[2022-08-02] MEDS: IPRATROPIUM BR 0.02% INH SOLN 0.5 MG/2.5 ML VIAL 1.5 MG INHALATION (19:41)
[2022-08-02] MEDS: IRBESARTAN 150 MG TABLET 300 MG PO (19:46)
[2022-08-02 20:03] LABS: Influenza A QL RT-PCR Negative (Negative); Influenza B QL RT-PCR Negative (Negative); SARS-CoV-2 RNA PCR Negative (Negative)
[2022-08-02] MEDS: hydrALAZINE HCL 20 MG/ML VIAL 10 MG IV PUSH (20:09)
--- NOTE | 2022-08-02 20:36 | PM.IMHP ---
H&P: HPI History of Present Illness Date/Time: 08/02/22 20:36 Chief Complaint: Shortness of breath Narrative: This is a 61-year-old female with past medical history significant for congestive heart failure, COPD, hypertension, morbid obesity, COPD. Patient presents to the emergency room due to 1 week duration of shortness of breath with exertion, PND, orthopnea worsening bilateral lower extremity edema, patient has been sleeping in a recliner, wheezing, cough, productive of clear phlegm. Preliminary workup was significant for a BNP of worse 7000, patient is requiring supplemental oxygen 2 L by nasal cannula XR chest 2V DATE: 08/02/2022 15:55 INDICATION: Chronic obstructive pulmonary disease? TECHNIQUE: AP and lateral views? COMPARISON: 01/15/2022 portable AP chest at 0515 hours? FINDINGS: Status post lower anterior cervical spine fusion. There is degenerative spurring and minimal dextro scoliosis of the thoracic spine. Cardiomegaly. Aortic arch calcification. There is pulmonary vascular congestion and redistribution, prominence of minor fissure and minimal blunting of the costophrenic angle suggesting small pleural effusions. Some Amadeo B-lines are suggested. IMPRESSION: Congestive heart failure, mild pulmonary interstitial and subpleural edema? EXAMINATION: US venous doppler LE BI DATE: 08/02/2022 20:43 INDICATION: Bilateral lower limb pain and swelling TECHNIQUE: Seymour scale images without and with compression and Doppler images of the bilateral lower extremity veins were obtained. COMPARISON: 01/03/2022 FINDINGS: The bilateral peroneal veins are not evaluated due to body habitus. The right common femoral vein, profunda femoral vein, femoral vein, popliteal vein,? posterior tibial veins, and greater saphenous vein are patent. The left common femoral vein, profunda femoral vein, femoral vein, popliteal vein, posterior tibial veins, and greater saphenous vein are patent. IMPRESSION: 1. Patent bilateral lower extremity veins. No evidence of deep venous thrombosis. Bilateral peroneal veins not visualized due to body habitus. Review of Systems Review of Systems: Shortness of breath bilateral lower extremity swelling Constitutional: Constitutional: Denies chills, Reports fatigue, Denies fever(s) and Reports other (Decreased stamina) Eyes: Eyes: Denies change in vision ENT: Denies dysphagia and Denies odynophagia Cardiovascular: Cardiovascular: Denies chest pain, Reports leg edema, Denies radiating jaw, neck or arm pain, Denies palpitations, Reports orthopnea and Reports paroxysmal nocturnal dyspnea Respiratory: Respiratory: Reports cough and Reports wheezing Gastrointestinal: Gastrointestinal: Denies abdominal pain, Denies dyspepsia, Denies heartburn, Denies diarrhea, Denies nausea and Denies vomiting Genitourinary: Genitourinary: Denies dysuria Musculoskeletal: Musculoskeletal: Reports myalgias Integumentary/Breasts: Skin/Breast: Denies rash Neurologic: Denies focal weakness and Denies Sensory deficit (Neuro) Psychiatric: Psychiatric: Reports no additional psychiatric complaints and Reports as per HPI Endocrine: Endocrine: Denies cold intolerance, Denies flushing, Denies heat intolerance, Denies polyphagia, Denies polydipsia and Denies palpitations Hematologic/Lymphatic: Hematologic/Lymphatic: Reports no additional hematologic/lymphatic complaints and Reports as per HPI Allergic/Immunologic: Allergic/Immunologic: Reports no additional allergic/immunologic complaints and Reports as per HPI PMFSH Past Medical History Medical History (Updated 08/03/22 @ 01:59 by Bill Clark MD) Abnormal results of kidney function studies Anxiety COPD (chronic obstructive pulmonary disease) DVT (deep venous thrombosis) High body mass index Hypertension Pyuria Family History Family History Other Alcoholism Deep vein thrombophlebitis of ri
[2022-08-02] MEDS: POTASSIUM CHLORIDE 20 MEQ TABLET 40 MEQ PO (21:14)
[2022-08-02] MEDS: POTASSIUM CHLORIDE INJ 40 MEQ in SODIUM CHLORIDE 0.9% IV 500 ML 130 MEQ IVPB (21:15)
--- NOTE | 2022-08-02 22:01 | ADMGEN ---
This patient, Desiree Castorena, was admitted to IMU Room 203-01. Patient/family oriented to hospital policies and general routines including ID bracelet, bed and alarms, visiting hours, pain management, procedures, bathroom and other care routines, personal items, smoking policy, room service/diet, and visiting hours. Information on how to activate the Rapid Response Team has been discussed. Patient/Family are encouraged to report perceived risks to care and to ask questions if they do not understand what they are told or what they should do.
[2022-08-02] MEDS: HYDROcodone/acetaminophen (*CRX) 10-325 MG TABLET 1 TAB PO (23:47)
[2022-08-02] MEDS: GABAPENTIN 300 MG CAPSULE PO (23:47)
[2022-08-02] MEDS: APIXABAN 5 MG TABLET PO (23:47)
[2022-08-03] VITALS (20 sets, daily range): BP systolic 120–147; BP diastolic 46–76; PULSE 56–98; RESP 20–22; TEMP 36–36.7; O2SAT 94–100
--- NOTE | 2022-08-03 | ECHO_ITS ---
Patient Info Name: Desiree Castorena Age: 61 years : 1960 Gender: Female Ht: 64 in Wt: 313 lbs BSA: 2.62 m2 HR: 68 bpm BP: 135 / 55 mmHg Heart Rhythm: Sinus Rhythm Technical Quality: Poor Exam Date: 08/03/2022 11:03 AM Exam Location: [facility] Patient Status: Outpatient Admit Date: 08/02/2022 Staff Ordering Physician: Bill Clark MD Clinical Research Monitor: Richard Wood RDCS Attending Provider: Bill Clark MD Referring Physician: Amber DOOLEY; Exam Type: CA echo dop color flow w con Study Info Indications - CHF Complete two-dimensional, color flow and Doppler transthoracic echocardiogram is performed with contrast to opacify the left ventricle and to improve the deliniation of the left ventricle endocardial borders. Contrast/Agitated Saline Contrast/Ag. Saline: Definity Amount: 3.00 ml Reason for Poor Study: poor echocardiographic windows Summary 1. Technically suboptimal study due to poor sonographic images. 2. Definity contrast administered improved wall motion interpretation. 3. Left ventricular chamber dimension is normal. 4. Left ventricular systolic function is normal, estimated at 60-65%. 5. The left ventricular diastolic function is grade I diastolic dysfunction. 6. E/e' 18 is elevated. 7. Left atrial chamber dimension is mildly enlarged. 8. Right atrial chamber dimension is mildly enlarged. 9. No pulmonary hypertension, estimated pulmonary arterial systolic pressure is 13 mmHg. Left Ventricle Technically suboptimal study due to poor sonographic images. Definity contrast administered improved wall motion interpretation. E/e' 18 is elevated. Left ventricular chamber dimension is normal. Left ventricular systolic function is normal, estimated at 60-65%. The left ventricular diastolic function is grade I diastolic dysfunction. Right Ventricle Right ventricular chamber dimension is not well visualized. Left Atria Left atrial chamber dimension is mildly enlarged. Right Atria Right atrial chamber dimension is mildly enlarged. Aortic Valve The aortic valve is probable trileaflet. There is no aortic valve stenosis. There is no aortic valve regurgitation. Pulmonic Valve There is no pulmonic regurgitation. Mitral Valve There is no mitral valve stenosis. There is no mitral valve regurgitation. Tricuspid Valve There is no tricuspid valve regurgitation. No pulmonary hypertension, estimated pulmonary arterial systolic pressure is 13 mmHg. Pericardium/Pleural There is no pericardial effusion. Inferior Vena Cava Normal inferior vena cava with >50% collapse upon inspiration consistent with normal right atrial pressure, 5 mmHg. Aorta The aortic root size at the sinus of Valsalva is normal. Left Ventricular Outflow Tract Name Value Normal LVOT 2D LVOT Diameter 2.12 cm LVOT Doppler LVOT Peak Gradient 10 mmHg LVOT Mean Gradient 5 mmHg LVOT VTI 32.97 cm LVOT VTI/AV VTI Ratio 1.03 LVOT Stroke Volume 116.69 ml LVOT CO 6.81 l/min L
[2022-08-03] MEDS: HYDROcodone/acetaminophen (*CRX) 10-325 MG TABLET 1 TAB PO ×3 (07:43→23:51)
[2022-08-03] MEDS: METOPROLOL TARTRATE 25 MG TABLET PO ×2 (07:53→20:56)
[2022-08-03] MEDS: PANTOPRAZOLE 40 MG TABLET PO (07:53)
[2022-08-03] MEDS: IRBESARTAN 150 MG TABLET 300 MG PO (07:54)
[2022-08-03] MEDS: APIXABAN 5 MG TABLET PO ×2 (07:54→20:56)
[2022-08-03] MEDS: GABAPENTIN 300 MG CAPSULE PO ×3 (07:54→16:12)
[2022-08-03] MEDS: FUROSEMIDE INJ 40 MG/4 ML VIAL IV PUSH ×2 (07:54→20:56)
[2022-08-03] MEDS: UMECLIDINIUM BROMIDE 62.5 MCG ELLIPTA 1 PUFF INHALATION (08:03)
[2022-08-03] MEDS: FLUTICASONE/SALMETEROL 230-21 MCG INHALER 1 PUFF 2 PUFF INHALATION (08:03)
[2022-08-03 08:06] LABS: Hematocrit 48.1 % (37.0-47.0); Hemoglobin 13.8 g/dL (12.0-15.0); Mean Corpuscular HGB Conc 28.7 g/dl (32-36); Mean Corpuscular Hemoglobin 27.4 pg (26-34); Mean Corpuscular Volume 95.4 fl (80-100); Mean Platelet Volume 9.4 fl (7.4-10.4); Platelet Count Result 193 k/mm3 (150-375); Red Blood Count 5.04 M/mm3 (4.2-5.4); Red Cell Distribution Width 19.3 % (11.5-14.5); White Blood Count 6.1 K/mm3 (4.5-10.0)
[2022-08-03 08:27] LABS: Alanine Aminotransferase 13 U/L (6-35); Alkaline Phosphatase 81 U/L (38-126); Aspartate Amino Transferase 19 U/L (14-36); Bilirubin,Total 0.9 mg/dL (0.2-1.3); Blood Urea Nitrogen 17 mg/dL (7-17); Calcium 7.5 mg/dL (8.4-10.2); Carbon Dioxide > 40 mmol/L (22-30); Chloride 97 mmol/L (98-107); Estimated CRCL calculation 94 ml/min; Estimated Glomerular Filt Rate > 60; Glucose 86 mg/dL (65-110); Magnesium 1.9 mg/dL (1.6-2.3); Potassium 3.4 mmol/L (3.4-5.0); Sodium 141 mmol/L (137-145)
[2022-08-03] MEDS: PERFLUTREN LIPID MICROSPHERES 1.5 ML VIAL DILUTED TO 10 ML TOTAL VOLUME IV PUSH (11:45)
[2022-08-03] MEDS: POTASSIUM CHLORIDE 20 MEQ TABLET 40 MEQ PO (12:26)
--- NOTE | 2022-08-03 17:51 | WPDPN ---
Progress Note: A&P Assessment and Plan (1) Acute CHF (congestive heart failure): Qualifiers: Heart failure type: unspecified Qualified Code(s): I50.9 - Heart failure, unspecified Code(s): I50.9 - Heart failure, unspecified Status: Acute Assessment and Plan: Admit to IMU Aggressive diuresis Echocardiogram in a.m. Vale catheter Strict intake and output daily Daily weights 08/03/2022 interval history: 67-year-old morbidly obese patient with history of congestive heart failure presented with complaints of shortness of breath and lower extremity edema, patient states she had been taking her medication as prescribed and denies taking any excessive salt, however patient is not very ambulatory at home, patient is being diuresed, to further evaluate patient had a cardiac echo is showed preserved LV with ejection fraction of 60% and grade 1 diastolic dysfunction most likely patient has had acute on chronic diastolic congestive heart failure, will continue to diurese the, restrict 2 g salt daily and have PT OT evaluate the patient. (2) Acute on chronic respiratory failure with hypoxia and hypercapnia: Code(s): J96.21 - Acute and chronic respiratory failure with hypoxia; J96.22 - Acute and chronic respiratory failure with hypercapnia Status: Deleted Assessment and Plan: Currently on 2 L of oxygen by nasal cannula Try and keep oxygen saturation 98% (3) COPD (chronic obstructive pulmonary disease): Code(s): J44.9 - Chronic obstructive pulmonary disease, unspecified Status: Acute Assessment and Plan: Continue home meds Continue to monitor (4) Morbid obesity with BMI of 50.0-59.9, adult: Code(s): E66.01 - Morbid (severe) obesity due to excess calories; Z68.43 - Body mass index [BMI] 50.0-59.9, adult Status: Acute Assessment and Plan: Lifestyle and diet modifications 80 100 calorie restricted diet Subjective Date/time seen: 08/03/22 17:51 Interval history: Shortness of breath HPI-Narrative: This is a 61-year-old female with past medical history significant for congestive heart failure, COPD, hypertension, morbid obesity, COPD.? Patient presents to the emergency room due to 1 week duration of shortness of breath with exertion, PND, orthopnea worsening bilateral lower extremity edema, patient has been sleeping in a recliner, wheezing, cough,? productive of clear phlegm.? Preliminary workup was significant for a BNP of worse 7000, patient is requiring supplemental oxygen 2 L by nasal cannula 08/03/2022 interval history: 67-year-old morbidly obese patient with history of congestive heart failure presented with complaints of shortness of breath and lower extremity edema, patient states she had been taking her medication as prescribed and denies taking any excessive salt, however patient is not very ambulatory at home, patient is being diuresed, to further evaluate patient had a cardiac echo is showed preserved LV with ejection fraction of 60% and grade 1 diastolic dysfunction most likely patient has had acute on chronic diastolic congestive heart failure, will continue to diurese the, restrict 2 g salt daily and have PT OT evaluate the patient. Review of Systems Review of Systems: Shortness of breath bilateral lower extremity swelling Objective Data Vital Signs Vital Signs: Vital Signs - 24 hr 08/02/22 18:16 08/02/22 18:20 08/02/22 19:24 Temperature 98.9 F Pulse Rate 104 H 81 Respiratory Rate 19 Blood Pressure 199/84 H Pulse Oximetry 92 Oxygen Delivery Room Air Oxygen Flow Rate 08/02/22 19:30 08/02/22 19:42 08/02/22 18:24 Temperature Pulse Rate 80 85 97 Respiratory Rate 16 20 18 Blood Pressure 201/88 H Pulse Oximetry 96 90 Oxygen Delivery Oxygen Flow Rate 08/02/22 18:37 08/02/22 18:46 08/02/22 19:02 Temperature Pulse Rate 90 86 83 Respiratory Rate 17 20 18 Blood Pressure Pulse Oximetry 95 95 9
--- NOTE | 2022-08-03 17:53 | PC.NURSE ---
At bedside with patient, discussed fall risk precautions, patient refusing to use bedpan. Patient admitted she has had multiple recent falls at home.
--- NOTE | 2022-08-03 18:32 | PC.NURSE ---
Patient tolerated pain management well. Reviewed fall precautions due to patient history of falls.
[2022-08-04] VITALS (11 sets, daily range): BP systolic 128–167; BP diastolic 56–92; PULSE 66–82; RESP 18–20; TEMP 36.3–37.1; O2SAT 91–98
[2022-08-04 04:37] LABS: Hematocrit 49.8 % (37.0-47.0); Mean Corpuscular HGB Conc 28.1 g/dl (32-36); Mean Corpuscular Hemoglobin 27.5 pg (26-34); Mean Corpuscular Volume 97.8 fl (80-100); Mean Platelet Volume 9.7 fl (7.4-10.4); Platelet Count Result 218 k/mm3 (150-375); Red Blood Count 5.09 M/mm3 (4.2-5.4); Red Cell Distribution Width 19.7 % (11.5-14.5); White Blood Count 7.1 K/mm3 (4.5-10.0)
[2022-08-04 04:59] LABS: Blood Urea Nitrogen 17 mg/dL (7-17); Calcium 7.5 mg/dL (8.4-10.2); Carbon Dioxide > 40 mmol/L (22-30); Chloride 96 mmol/L (98-107); Estimated CRCL calculation 77 ml/min; Estimated Glomerular Filt Rate 56; Glucose 105 mg/dL (65-110); Potassium 3.3 mmol/L (3.4-5.0); Sodium 141 mmol/L (137-145)
[2022-08-04] MEDS: FLUTICASONE/SALMETEROL 230-21 MCG INHALER 1 PUFF 2 PUFF INHALATION (08:00)
[2022-08-04] MEDS: UMECLIDINIUM BROMIDE 62.5 MCG ELLIPTA 1 PUFF INHALATION (08:00)
[2022-08-04] MEDS: HYDROcodone/acetaminophen (*CRX) 10-325 MG TABLET 1 TAB PO ×2 (09:00→17:32)
[2022-08-04] MEDS: GABAPENTIN 300 MG CAPSULE PO ×3 (09:01→16:28)
[2022-08-04] MEDS: PANTOPRAZOLE 40 MG TABLET PO (09:01)
[2022-08-04] MEDS: METOPROLOL TARTRATE 25 MG TABLET PO ×2 (09:01→20:44)
[2022-08-04] MEDS: IRBESARTAN 150 MG TABLET 300 MG PO (09:01)
[2022-08-04] MEDS: FUROSEMIDE INJ 40 MG/4 ML VIAL IV PUSH ×2 (09:02→20:43)
[2022-08-04] MEDS: APIXABAN 5 MG TABLET PO ×2 (09:02→20:43)
[2022-08-04] MEDS: POTASSIUM CHLORIDE 20 MEQ TABLET 40 MEQ PO (11:48)
--- NOTE | 2022-08-04 12:38 | PCPTNOTE ---
On 08/04/22, the student, [Dunia Mar], provided care and completed [facility] documentation on this patient. I have reviewed the student's documentation and agree with the findings.
--- NOTE | 2022-08-04 15:05 | PC.NURSE ---
Received from [facility] / via bed.
--- NOTE | 2022-08-04 15:10 | PC.NURSE ---
This patient, Desiree Castorena, was transferred to [facility] on 08/04/22 at 1500. Personal belongings sent with patient. Report given to Raven VALDEZ. Appropriate documentation sent with patient.
--- NOTE | 2022-08-04 15:17 | WPDPN ---
Progress Note: A&P Assessment and Plan (1) Acute CHF (congestive heart failure): Qualifiers: Heart failure type: unspecified Qualified Code(s): I50.9 - Heart failure, unspecified Code(s): I50.9 - Heart failure, unspecified Status: Acute Assessment and Plan: Admit to IMU Aggressive diuresis Echocardiogram in a.m. Vale catheter Strict intake and output daily Daily weights 08/04/2022 interval history: 67-year-old morbidly obese patient with history of congestive heart failure presented with complaints of shortness of breath and lower extremity edema, patient states she had been taking her medication as prescribed and denies taking any excessive salt, however patient is not very ambulatory at home, patient is being diuresed, to further evaluate patient had a cardiac echo is showed preserved LV with ejection fraction of 60% and grade 1 diastolic dysfunction most likely patient has had acute on chronic diastolic congestive heart failure, today patient states feeling better compared to when she arrived, currently patient working with physical therapy and ambulating in the room, will continue to diurese the, restrict 2 g salt daily and have PT OT evaluate the patient. (2) Acute on chronic respiratory failure with hypoxia and hypercapnia: Code(s): J96.21 - Acute and chronic respiratory failure with hypoxia; J96.22 - Acute and chronic respiratory failure with hypercapnia Status: Deleted Assessment and Plan: Currently on 2 L of oxygen by nasal cannula Try and keep oxygen saturation 98% (3) COPD (chronic obstructive pulmonary disease): Code(s): J44.9 - Chronic obstructive pulmonary disease, unspecified Status: Acute Assessment and Plan: Continue home meds Continue to monitor (4) Morbid obesity with BMI of 50.0-59.9, adult: Code(s): E66.01 - Morbid (severe) obesity due to excess calories; Z68.43 - Body mass index [BMI] 50.0-59.9, adult Status: Acute Assessment and Plan: Lifestyle and diet modifications 80 100 calorie restricted diet Subjective Date/time seen: 08/04/22 15:17 Interval history: Shortness of breath HPI-Narrative: This is a 61-year-old female with past medical history significant for congestive heart failure, COPD, hypertension, morbid obesity, COPD.? Patient presents to the emergency room due to 1 week duration of shortness of breath with exertion, PND, orthopnea worsening bilateral lower extremity edema, patient has been sleeping in a recliner, wheezing, cough,? productive of clear phlegm.? Preliminary workup was significant for a BNP of worse 7000, patient is requiring supplemental oxygen 2 L by nasal cannula 08/04/2022 interval history: 67-year-old morbidly obese patient with history of congestive heart failure presented with complaints of shortness of breath and lower extremity edema, patient states she had been taking her medication as prescribed and denies taking any excessive salt, however patient is not very ambulatory at home, patient is being diuresed, to further evaluate patient had a cardiac echo is showed preserved LV with ejection fraction of 60% and grade 1 diastolic dysfunction most likely patient has had acute on chronic diastolic congestive heart failure, today patient states feeling better compared to when she arrived, currently patient working with physical therapy and ambulating in the room, will continue to diurese the, restrict 2 g salt daily and have PT OT evaluate the patient. Review of Systems Review of Systems: Shortness of breath bilateral lower extremity swelling Objective Data Vital Signs Vital Signs: Vital Signs - 24 hr 08/03/22 16:24 08/03/22 16:00 08/03/22 19:37 Temperature 96.9 F L 97.3 F L Pulse Rate 63 63 63 Respiratory Rate 22 H 20 Blood Pressure 131/52 L 133/50 L Pulse Oximetry 97 95 Oxygen Delivery Oxygen Flow Rate 08/03/22 20:56 08/03/22 20:00 08/03/22 20:00 Temperatu
[2022-08-05] VITALS (8 sets, daily range): BP systolic 109–133; BP diastolic 57–62; PULSE 65–78; RESP 16–22; TEMP 36–36.7; O2SAT 90–95
[2022-08-05] MEDS: diphenhydrAMINE HCl CAP 25 MG CAPSULE 50 MG PO (00:48)
[2022-08-05] MEDS: HYDROcodone/acetaminophen (*CRX) 10-325 MG TABLET 1 TAB PO ×3 (04:26→20:40)
[2022-08-05 06:26] LABS: Hematocrit 44.9 % (37.0-47.0); Hemoglobin 12.7 g/dL (12.0-15.0); Mean Corpuscular HGB Conc 28.3 g/dl (32-36); Mean Corpuscular Hemoglobin 27.5 pg (26-34); Mean Corpuscular Volume 97.2 fl (80-100); Mean Platelet Volume 9.7 fl (7.4-10.4); Platelet Count Result 150 k/mm3 (150-375); Red Blood Count 4.62 M/mm3 (4.2-5.4); Red Cell Distribution Width 19.5 % (11.5-14.5); White Blood Count 5.8 K/mm3 (4.5-10.0)
[2022-08-05 06:39] LABS: Blood Urea Nitrogen 23 mg/dL (7-17); Calcium 7.4 mg/dL (8.4-10.2); Carbon Dioxide > 40 mmol/L (22-30); Chloride 97 mmol/L (98-107); Estimated CRCL calculation 56 ml/min; Estimated Glomerular Filt Rate 38; Glucose 100 mg/dL (65-110); Magnesium 1.8 mg/dL (1.6-2.3); Potassium 3.7 mmol/L (3.4-5.0); Sodium 139 mmol/L (137-145)
[2022-08-05] MEDS: UMECLIDINIUM BROMIDE 62.5 MCG ELLIPTA 1 PUFF INHALATION (08:30)
[2022-08-05] MEDS: FLUTICASONE/SALMETEROL 230-21 MCG INHALER 1 PUFF 2 PUFF INHALATION (08:30)
[2022-08-05] MEDS: METOPROLOL TARTRATE 25 MG TABLET PO ×2 (08:45→20:38)
[2022-08-05] MEDS: IRBESARTAN 150 MG TABLET 300 MG PO (08:46)
[2022-08-05] MEDS: APIXABAN 5 MG TABLET PO ×2 (08:46→20:38)
[2022-08-05] MEDS: PANTOPRAZOLE 40 MG TABLET PO (08:46)
[2022-08-05] MEDS: GABAPENTIN 300 MG CAPSULE PO ×3 (08:46→20:38)
[2022-08-05] MEDS: FUROSEMIDE 40 MG TABLET PO (08:46)
--- NOTE | 2022-08-05 09:18 | WPDPN ---
Progress Note: A&P Assessment and Plan (1) Acute CHF (congestive heart failure): Qualifiers: Heart failure type: unspecified Qualified Code(s): I50.9 - Heart failure, unspecified Code(s): I50.9 - Heart failure, unspecified Status: Acute Assessment and Plan: Admit to IMU Aggressive diuresis Echocardiogram in a.m. Vale catheter Strict intake and output daily Daily weights 08/05/2022 interval history: 67-year-old morbidly obese patient with history of congestive heart failure presented with complaints of shortness of breath and lower extremity edema, patient states she had been taking her medication as prescribed and denies taking any excessive salt, however patient is not very ambulatory at home, patient is being diuresed, to further evaluate patient had a cardiac echo is showed preserved LV with ejection fraction of 60% and grade 1 diastolic dysfunction most likely patient has had acute on chronic diastolic congestive heart failure, today patient states feeling better compared to when she arrived and not as edematous, her BUN and Scr are rising will stop IV lasix and resume her home dose of Lasix 40mg PO qd, currently patient working with respiratory therapy, , will continue to diurese the, restrict 2 g salt daily and have PT OT evaluate the patient. (2) Acute on chronic respiratory failure with hypoxia and hypercapnia: Code(s): J96.21 - Acute and chronic respiratory failure with hypoxia; J96.22 - Acute and chronic respiratory failure with hypercapnia Status: Deleted Assessment and Plan: Currently on 2 L of oxygen by nasal cannula Try and keep oxygen saturation 98% (3) COPD (chronic obstructive pulmonary disease): Code(s): J44.9 - Chronic obstructive pulmonary disease, unspecified Status: Acute Assessment and Plan: Continue home meds Continue to monitor (4) Morbid obesity with BMI of 50.0-59.9, adult: Code(s): E66.01 - Morbid (severe) obesity due to excess calories; Z68.43 - Body mass index [BMI] 50.0-59.9, adult Status: Acute Assessment and Plan: Lifestyle and diet modifications 80 100 calorie restricted diet Subjective Date/time seen: 08/05/22 09:18 Interval history: Shortness of breath HPI-Narrative: This is a 61-year-old female with past medical history significant for congestive heart failure, COPD, hypertension, morbid obesity, COPD.? Patient presents to the emergency room due to 1 week duration of shortness of breath with exertion, PND, orthopnea worsening bilateral lower extremity edema, patient has been sleeping in a recliner, wheezing, cough,? productive of clear phlegm.? Preliminary workup was significant for a BNP of worse 7000, patient is requiring supplemental oxygen 2 L by nasal cannula 08/05/2022 interval history: 67-year-old morbidly obese patient with history of congestive heart failure presented with complaints of shortness of breath and lower extremity edema, patient states she had been taking her medication as prescribed and denies taking any excessive salt, however patient is not very ambulatory at home, patient is being diuresed, to further evaluate patient had a cardiac echo is showed preserved LV with ejection fraction of 60% and grade 1 diastolic dysfunction most likely patient has had acute on chronic diastolic congestive heart failure, today patient states feeling better compared to when she arrived and not as edematous, her BUN and Scr are rising will stop IV lasix and resume her home dose of Lasix 40mg PO qd, currently patient working with respiratory therapy, , will continue to diurese the, restrict 2 g salt daily and have PT OT evaluate the patient. Objective Data Vital Signs Vital Signs: Vital Signs - 24 hr 08/04/22 10:34 08/04/22 14:14 08/04/22 15:15 Temperature Pulse Rate Respiratory Rate Blood Pressure Pulse Oximetry 93 Oxygen Delivery Nasal Cannula Nasal Cannula Nasal Cannula Oxygen F
--- NOTE | 2022-08-05 11:14 | WPDNEURCNPN ---
Assessment and Plan Assessment and plan (1) Myoclonus: Code(s): G25.3 - Myoclonus Status: Acute (2) Anxiety: Code(s): F41.9 - Anxiety disorder, unspecified Status: Acute (3) Acute CHF (congestive heart failure): Qualifiers: Heart failure type: unspecified Qualified Code(s): I50.9 - Heart failure, unspecified Code(s): I50.9 - Heart failure, unspecified Status: Acute Plan Desiree Castorena is a 61 year old female with a history of heart failure, COPD, HTN, obesity presenting due to CHF exacerbation. Neurology consulted for upper extremity tremors that seem to have gotten worse during this admission. I do not see a rest tremor or significant kinetic tremor on my exam. She did have several beats of negative myoclonus with her arms outstretched. she has been taking gabapentin 300mg TID -- which is not a significant dose, and her renal function is appropriate as well. Would still be worth reducing the gabapentin as it is associated with the development of negative myoclonus. - Reduce Gabapentin to 300mg BID - Will check TSH - She does not need any additional medications to treat the movements Consult date: 08/05/22 Reason for consult: Tremor HPI: Desiree Castorena is a 61 year old female with a history of heart failure, COPD, HTN, obesity presenting due to CHF exacerbation. Patient presented to [facility] ED on 08/02 due to concerns for shortness of breath, orthopnea, and worsening lower extremity edema. In the ED when she was evaluated, her BNP was elevated to 7000. She was subsequently admitted for management of CHF exacerbation with diuresis and salt restriction. Neurology is being consulted due to concerns for tremors. She is not on any current treatment for tremor. Patient reports that she first started experiencing tremor in her hands in December 2021 while she was admitted. She mentioned that she was treated with something for her nerves which she means anxiety, but does not remember the name of the medication. On the discharge summary from this admission there are no anxiety medications listed, but she had already been taking Gabapentin 300mg TID. Patient reports that the anxiety medication did help her tremor for several months, but she stopped taking the medication about a month ago since the tremor started to come back. She says that the tremor is only in her hands. It has gotten worse since she has been in the hospital. She denies any tremor elsewhere. She is still able to feed herslef and use utencils. Review of Systems Constitutional: Constitutional: Denies chills, Denies fever(s) and Denies weight loss Eyes: Eyes: Denies diplopia and Denies loss of vision ENT: Denies dizziness, Denies hearing loss and Denies tinnitus Cardiovascular: Cardiovascular: Denies chest pain, Denies syncope, Reports leg edema and Reports dyspnea Respiratory: Respiratory: Reports cough, Reports dyspnea and Reports wheezing Gastrointestinal: Gastrointestinal: Denies abdominal pain, Denies change in bowel habits and Denies vomiting Genitourinary: Genitourinary: Denies urinary incontinence Musculoskeletal: Musculoskeletal: Denies arthralgias and Denies joint swelling Integumentary/Breasts: Skin/Breast: Denies new lesions and Denies rash Neurologic: Reports as per HPI, Denies dizziness, Denies syncope and Denies loss of vision Psychiatric: Psychiatric: Reports anxiety and Denies depression Endocrine: Endocrine: Denies cold intolerance and Denies heat intolerance Hematologic/Lymphatic: Hematologic/Lymphatic: Denies easy bleeding and Denies easy bruising Allergic/Immunologic: Allergic/Immunologic: Denies no additional allergic/immunologic complaints and Denies wheezing PMFSH Past Medical History Medical History Abnormal results of kidney function studies Anxiety COPD (chronic obstructive pulmonary disease) DVT (deep venous thrombosis) High
[2022-08-06 05:27] VITALS: BP 112/53; PULSE 72; RESP 20; TEMP 36.9; O2SAT 92
[2022-08-06 05:33] LABS: Hematocrit 45.9 % (37.0-47.0); Hemoglobin 12.9 g/dL (12.0-15.0); Mean Corpuscular HGB Conc 28.1 g/dl (32-36); Mean Corpuscular Hemoglobin 27.1 pg (26-34); Mean Corpuscular Volume 96.4 fl (80-100); Mean Platelet Volume 9.7 fl (7.4-10.4); Platelet Count Result 149 k/mm3 (150-375); Red Blood Count 4.76 M/mm3 (4.2-5.4); Red Cell Distribution Width 19.3 % (11.5-14.5); White Blood Count 6.4 K/mm3 (4.5-10.0)
[2022-08-06] MEDS: HYDROcodone/acetaminophen (*CRX) 10-325 MG TABLET 1 TAB PO (05:33)
[2022-08-06 05:51] LABS: Blood Urea Nitrogen 25 mg/dL (7-17); Calcium 7.7 mg/dL (8.4-10.2); Carbon Dioxide > 40 mmol/L (22-30); Chloride 97 mmol/L (98-107); Estimated CRCL calculation 70 ml/min; Estimated Glomerular Filt Rate 50; Glucose 100 mg/dL (65-110); Magnesium 1.8 mg/dL (1.6-2.3); Potassium 3.6 mmol/L (3.4-5.0); Sodium 140 mmol/L (137-145)
[2022-08-06 08:16] VITALS: PULSE 63
[2022-08-06] MEDS: GABAPENTIN 300 MG CAPSULE PO (08:16)
[2022-08-06] MEDS: METOPROLOL TARTRATE 25 MG TABLET PO (08:16)
[2022-08-06] MEDS: IRBESARTAN 150 MG TABLET 300 MG PO (08:18)
[2022-08-06] MEDS: PANTOPRAZOLE 40 MG TABLET PO (08:19)
[2022-08-06] MEDS: APIXABAN 5 MG TABLET PO (08:19)
[2022-08-06] MEDS: FUROSEMIDE 40 MG TABLET PO (08:19)
[2022-08-06 08:23] VITALS: BP 120/56
[2022-08-06 08:25] VITALS: O2SAT 94
[2022-08-06] MEDS: UMECLIDINIUM BROMIDE 62.5 MCG ELLIPTA 1 PUFF INHALATION (08:55)
[2022-08-06] MEDS: FLUTICASONE/SALMETEROL 230-21 MCG INHALER 1 PUFF 2 PUFF INHALATION (08:55)
[2022-08-06] MEDS: LOPERAMIDE HCL 2 MG CAPSULE PO (10:24)
--- NOTE | 2022-08-06 10:27 | PM.DS ---
DS: Admitting Diagnosis Discharge Date 08/06/2022 Admitting Diagnosis Shortness of breath DS: Discharge Diagnosis Discharge Diagnosis (1) Acute CHF (congestive heart failure): Qualifiers: Heart failure type: unspecified Qualified Code(s): I50.9 - Heart failure, unspecified Code(s): I50.9 - Heart failure, unspecified Status: Acute Assessment and Plan: Admit to IMU Aggressive diuresis Echocardiogram in a.m. Vale catheter Strict intake and output daily Daily weights 08/05/2022 interval history: 67-year-old morbidly obese patient with history of congestive heart failure presented with complaints of shortness of breath and lower extremity edema, patient states she had been taking her medication as prescribed and denies taking any excessive salt, however patient is not very ambulatory at home, patient is being diuresed, to further evaluate patient had a cardiac echo is showed preserved LV with ejection fraction of 60% and grade 1 diastolic dysfunction most likely patient has had acute on chronic diastolic congestive heart failure, today patient states feeling better compared to when she arrived and not as edematous, her BUN and Scr are rising will stop IV lasix and resume her home dose of Lasix 40mg PO qd, currently patient working with respiratory therapy, , will continue to diurese the, restrict 2 g salt daily and have PT OT evaluate the patient. (2) Acute on chronic respiratory failure with hypoxia and hypercapnia: Code(s): J96.21 - Acute and chronic respiratory failure with hypoxia; J96.22 - Acute and chronic respiratory failure with hypercapnia Status: Deleted Assessment and Plan: Currently on 2 L of oxygen by nasal cannula Try and keep oxygen saturation 98% (3) COPD (chronic obstructive pulmonary disease): Code(s): J44.9 - Chronic obstructive pulmonary disease, unspecified Status: Acute Assessment and Plan: Continue home meds Continue to monitor (4) Morbid obesity with BMI of 50.0-59.9, adult: Code(s): E66.01 - Morbid (severe) obesity due to excess calories; Z68.43 - Body mass index [BMI] 50.0-59.9, adult Status: Acute Assessment and Plan: Lifestyle and diet modifications 80 100 calorie restricted diet DS: Summary Hospital Course Reason for hospitalization: Shortness of breath Narrative: This is a 61-year-old female with past medical history significant for congestive heart failure, COPD, hypertension, morbid obesity, COPD.? Patient presents to the emergency room due to 1 week duration of shortness of breath with exertion, PND, orthopnea worsening bilateral lower extremity edema, patient has been sleeping in a recliner, wheezing, cough,? productive of clear phlegm.? Preliminary workup was significant for a BNP of worse 7000, patient is requiring supplemental oxygen 2 L by nasal cannula Hospital Course: ?67-year-old morbidly obese patient with history of congestive heart failure presented with complaints of shortness of breath and lower extremity edema, patient states she had been taking her medication as prescribed and denies taking any excessive salt, however patient is not very ambulatory at home, patient is being diuresed, to further evaluate patient had a cardiac echo is showed preserved LV with ejection fraction of 60% and grade 1 diastolic dysfunction most likely patient has had acute on chronic diastolic congestive heart failure, today patient states feeling better compared to when she arrived and not as edematous, her BUN and Scr are rising will stop IV lasix and resume her home dose of Lasix 40mg PO qd,? currently patient working with respiratory therapy, , will continue to diurese the, restrict 2 g salt daily and have PT OT evaluate the patient. Patient clinically symptoms have improved is not a short of breath, there was a concern tremor patient was seen neurologist suspect secondary to gabapentin 300 mg t.i.d. and recommended to reduce it
== END 2022-08-06 11:45 | disposition home or self-care (01) | DRG 291 ==
LOC: ANHED 20:41 → ANHIMU 21:00 → ANH2MED 08-04 15:01
PROVIDERS: Student in an Organized Health Care Education/Training Program; Admitting Provider Internal Medicine; Emergency Provider Physician Assistant; PCP Family Medicine; Visit Provider Family Medicine
DX: I11.0 Hypertensive heart disease with heart failure (principal); I50.33 Acute on chronic diastolic (congestive) heart failure; J96.21 Acute and chronic respiratory failure with hypoxia; J96.22 Acute and chronic respiratory failure with hypercapnia; Z68.43 Body mass index [BMI] 50.0-59.9, adult; E66.01 Morbid (severe) obesity due to excess calories; F41.9 Anxiety disorder, unspecified; F17.210 Nicotine dependence, cigarettes, uncomplicated; G25.3 Myoclonus; J44.9 Chronic obstructive pulmonary disease, unspecified; Z99.81 Dependence on supplemental oxygen; Z86.718 Personal history of other venous thrombosis and embolism; Z20.822 Contact with and (suspected) exposure to COVID-19
CPT/HCPCS: 36415; 36600; 71046; 80048; 80053; 82375; 82805; 83050; 83735; 83880; 84443; 84484; 85027; 85610; 85730; 87636; 93005; 93970; 93971; 94640; 96365; 96366; 96375; 96376; 97110; 97161; 97165; 97530; 99285; A9270; C8929; G0378; J0360; J1940; J2270; J2405; J3480; J7040; Q9957

== ENCOUNTER 2022-12-21 19:02 | Inpatient (IN) | payer MEDICARE, MEDICAID, SELFPAY ==
--- NOTE | ~2022-12-21 | CT_ITS ---
EXAMINATION: CT abdomen pelvis w con INDICATION: Right flank and right lower quadrant pain TECHNIQUE: Computed tomographic images of the abdomen and pelvis were obtained after the administrati on of 100 cc of Omnipaque 350 intravenous contrast. The dose-length product (DLP) was 1470.20 mGy-cm. Automated exposure control and iterative reconstruction technique were employed. COMPARISON: 12/29/2021 FINDINGS: Cardiomegaly is noted. There is mild atelectasis and pulmonary edema of the visualized lung bases. A more focal airspace opacity is seen in the lingula. There is calcified coronary artery athe rosclerosis. The liver is diffusely low in attenuation when compared with the spleen, consistent with hepatic steatosis. Changes of cholecystectomy are noted. The spleen, pancreas, and adrenal glands ar e normal. A right internal ureteral stent is in expected position. There is a 10 mm stone in the righ t renal pelvis adjacent to the coiled portion of the stent. There is mild right hydronephrosis. A 6 m m stone is seen in the right kidney lower pole. There is mild enlargement of the right kidney compare d to the left. There is calcified atherosclerosis of the aorta and many of the other arteries. There is chronic mild periportal lymphadenopathy, likely reactive. There is severe lower lumbar spondylosis . IMPRESSION: 1. Right internal ureteral stent in expected position with 10 mm stone of the right renal pelvis and stones of the right kidney lower pole. Mild hydronephrosis of the right kidney with possible superimp osed pyelonephritis. 2. Diffuse hepatic steatosis. 3. Cardiomegaly with mild pulmonary edema in the visualized lung bases. 4. Lingular airspace opacities, possible pneumonia. Reviewed, dictated and finalized at location F. IMPRESSION: 1. Right internal ureteral stent in expected position with 10 mm stone of the r ight renal pelvis and stones of the right kidney lower pole. Mild hydronephrosi s of the right kidney with possible superimposed pyelonephritis. 2. Diffuse hepatic steatosis. 3. Cardiomegaly with mild pulmonary edema in the visualized lung bases. 4. Lingular airspace opacities, possible pneumonia.
--- NOTE | ~2022-12-21 | XR_ITS ---
XR chest 2V DATE: 12/23/2022 10:26 INDICATION: Worsening cough TECHNIQUE: AP and lateral views COMPARISON: 12/21/2022 portable AP chest FINDINGS: There is cardiomegaly. There is pulmonary vascular congestion and redistribution and promin ence of the fissures, bilateral pulmonary interstitial prominence including Amadeo B-lines. The findi ngs are consistent with congestive heart failure and pulmonary interstitial and subpleural edema, inc reased in severity since 12/21/2022. Diffuse osteopenia. Status post lower anterior cervical spine surgical fusion. IMPRESSION: Increased congestive changes since 12/21/2022 Reviewed, dictated and finalized at location A.
--- NOTE | ~2022-12-21 | XR_ITS ---
EXAMINATION: XR chest 1V portable INDICATION: Epigastric pain TECHNIQUE: Portable AP chest at 2058 hours COMPARISON: 08/02/2022 FINDINGS: Cardiomegaly is noted. There are minimal bibasilar airspace opacities. No pleural effusion or pneumothorax. Surgical changes are noted in the lower cervical spine. IMPRESSION: 1. Cardiomegaly. 2. Bibasilar airspace opacity, consistent with atelectasis versus pneumonia. Reviewed, dictated and finalized at location F.
[2022-12-21 19:26] VITALS: BP 149/95; PULSE 91; RESP 20; TEMP 36.4; O2SAT 97
--- NOTE | 2022-12-21 20:50 | ECG_ITS ---
Measurements Intervals [place] Rate: 81 P: 40 WV: 144 QRS: 47 QRSD: 98 T: 51 QT: 364 QTc: 423 Interpretive Statements SINUS RHYTHM WITH OCCASIONAL SUPRAVENTRICULAR PREMATURE COMPLEXES POSSIBLE LEFT ATRIAL ENLARGEMENT [-0.1mV P WAVE IN V1/V2] BORDERLINE ECG COMPARED TO ECG 08/02/2022 18:22:58 NO SIGNIFICANT CHANGES Electronically Signed On 12-22-2022 7:32:40 CDT by Abdifatah Gaytan M.D.
--- NOTE | 2022-12-21 20:52 | ED.NAVMDI ---
HPI - Nausea/Vomiting/Diarrhea General Chief complaint: Nausea/Vomiting/Diarrhea <Hamida Avendano PA-C - Last Filed: 12/22/22 00:03> Stated complaint: vomiting x 7 days <ISABEL Lynn Last Filed: 12/22/22 00:03> Time Seen by Provider: 12/21/22 20:23 <ISABEL Lynn Last Filed: 12/22/22 00:03> History of Present Illness HPI Narrative: 62-year-old female with a history of reported ureteric lithiasis, CHF, COPD, DVT currently anticoagulated with Eliquis, on baseline 3.5 nasal cannula reports for evaluation for right-sided abdominal pain and flank pain x5 days. Patient states she is concerned that it is a kidney stone. She reports associated urinary frequency and hematuria as well as nausea and vomiting. She states she has had decreased p.o. intake because every time she tries to eat she dry heaves. She denies fever but does report body aches and chills. Denies chest pain, dysuria, diarrhea or constipation, obstipation. She does have shortness of breath but states this is unchanged from her baseline. <ISABEL Lynn Last Filed: 12/22/22 00:03> Related Data Home medications: Home Medications Medication Instructions Recorded Confirmed hydrocodone 10 mg-acetaminophen 1 tablet PO Q8H PRN Pain (Scale 12/30/21 12/22/22 325 mg tablet Score 4-6) ipratropium 0.5 mg-albuterol 3 mg 3 ml inhalation QID PRN Shortness 12/30/21 12/22/22 (2.5 mg base)/3 mL nebulization Of Breath Or Wheezing soln furosemide 40 mg tablet 40 mg PO QAM 02/06/22 12/22/22 <ISABEL Lynn Last Filed: 12/22/22 00:03> Allergies/Adverse reactions: Allergies Allergy/AdvReac Type Severity Reaction Status Date / Time sertraline AdvReac Severe loopy, Verified 12/21/22 19:35 tremors <ISABEL Lynn Last Filed: 12/22/22 00:03> Review of Systems Review of Systems: CONSTITUTIONAL: Denies fever, chills EYES: Denies visual changes, redness, or discharge. ENT: Denies rhinorrhea, congestion, sore throat, or otalgia. CARDIOVASCULAR: Denies chest pain, palpitations, or edema. RESPIRATORY: See HPI GASTROINTESTINAL: See HPI GENITOURINARY: See HPI SKIN: Denies rash or itching. MUSCULOSKELETAL: See HPI NEUROLOGIC: Denies headache, numbness, dizziness, or weakness. PSYCHIATRIC: Denies anxiety or depression. <Hamida Avendano PA-C - Last Filed: 12/22/22 00:03> [facility] Past Medical History Medical History: Medical History Abnormal results of kidney function studies Anxiety COPD (chronic obstructive pulmonary disease) DVT (deep venous thrombosis) High body mass index Hypertension Pyuria <Hamida Avendano PA-C - Last Filed: 12/22/22 00:03> Family History Family History: Family History Other Alcoholism Deep vein thrombophlebitis of right leg Diabetes mellitus Heart disease Hypertension <Hamida Avendano PA-C - Last Filed: 12/22/22 00:03> Social History Social History: Social History Social History: Patient lives at home with her Smoking packs per day: 1 Smoking cigarettes per day: 20.0 Years smoked: 40 Smoking pack-years: 40.00 Smoking status: Former smoker Tobacco type: cigarettes Smoking end date: 12/27/21 Alcohol intake: never Drinks per week: 84 Substance use: never Substance use type: does not use Other substance usage details: stopped drinking approx 30 years ago Lack of Transportation: No Lack of Food: Never True Current Housing: I Have Housing Concerned About Future Housing: No Difficulty Paying Gas/Electric Bills: No Difficulty Paying for Meds: No Currently Unemployed: No Education: High School Diploma/GED Difficulty w/ Childcare or Family Care: No Living arrangements: with family Additional lima
[2022-12-21 21:13] LABS: Basophils Percent Auto 0.3 % (0.2-1.2); Eosinophils Absolute Auto 0.1 K/mm3 (0-0.3); Eosinophils Percent Auto 0.5 % (0-4.4); Hematocrit 29.7 % (37.0-47.0); Hemoglobin 8.9 g/dL (12.0-15.0); Immature Granulocyte Absolute 0.06 K/mm3 (0.00-0.031); Immature Granulocyte Percent A 0.6 % (0-0.5); Lymphocytes Absolute Auto 0.74 K/mm3 (0.9-3.2); Lymphocytes Percent Auto 7.8 % (18.3-44.2); Mean Corpuscular Hemoglobin 27.3 pg (26-34); Mean Corpuscular Volume 91.1 fl (80-100); Mean Platelet Volume 9.8 fl (7.4-10.4); Monocytes Absolute Auto 0.6 K/mm3 (0.1-0.6); Monocytes Percent Auto 5.9 % (2.6-8.5); Neutrophils Percent Auto 84.9 % (45.5-73.1); Platelet Count Result 225 k/mm3 (150-375); Red Blood Count 3.26 M/mm3 (4.2-5.4); Red Cell Distribution Width 13.9 % (11.5-14.5); White Blood Count 9.5 K/mm3 (4.5-10.0)
[2022-12-21] MEDS: SODIUM CHLORIDE 0.9% IV 1,000 ML 999 ML IV CONT (21:20)
[2022-12-21 21:21] VITALS: BP 187/68; PULSE 85; RESP 20; O2SAT 100
[2022-12-21] MEDS: ONDANSETRON INJ 4 MG/2 ML VIAL IV PUSH (21:21)
[2022-12-21] MEDS: MORPHINE SULFATE (*CRX) 4 MG/ML INJ IV PUSH (21:21)
[2022-12-21 21:23] LABS: Appearance Urine Turbid (Clear); Bacteria Urine 4+ /hpf; Bilirubin Urine 1+ (Negative); Blood Urine 3+ (Negative); Color Urine Dark Yellow (Yellow); Glucose Urine UA Negative (Negative); Ketones Urine 1+ mg/dL (Negative); Leukocyte Esterase Ur 3+ LEU/UL (Negative); Mucus Urine Present /lpf; Nitrate Urine Positive (Negative); Protein Urine 2+ mg/dL (Negative); RBC Urine >100 /hpf (0-2); Specific Grav Ur 1.013 (1.001-1.035); Squamous Epithelial Cell Urine Moderate /hpf (Few); WBC Urine 51-100 /hpf; pH Urine 7.5 (5.0-9.0)
[2022-12-21 21:26] LABS: Alanine Aminotransferase 7 U/L (6-35); Albumin Level 3.6 g/dL (3.5-5.1); Alkaline Phosphatase 115 U/L (38-126); Aspartate Amino Transferase 15 U/L (14-36); Bilirubin,Total 1.3 mg/dL (0.2-1.3); Blood Urea Nitrogen 11 mg/dL (7-17); Calcium 8.3 mg/dL (8.4-10.2); Carbon Dioxide > 40 mmol/L (22-30); Chloride 90 mmol/L (98-107); Estimated CRCL calculation 101 ml/min; Estimated Glomerular Filt Rate > 60; Glucose 92 mg/dL (65-110); Lipase 13 U/L (23-300); Potassium 3.3 mmol/L (3.4-5.0); Sodium 135 mmol/L (137-145)
[2022-12-21 21:31] LABS: Add Urine Microscopic? YES
[2022-12-21 22:42] VITALS: BP 178/84; PULSE 93; RESP 21; O2SAT 93
[2022-12-21] MEDS: HYDROmorphone HCL INJ (*CRX) 1 MG/ML SYR 0.5 MG IV PUSH (22:42)
[2022-12-21 23:30] VITALS: O2SAT 98
[2022-12-21 23:36] LABS: Magnesium 1.9 mg/dL (1.6-2.3)
[2022-12-22] VITALS (12 sets, daily range): BP systolic 157–201; BP diastolic 65–94; PULSE 68–105; RESP 15–20; TEMP 36.5–36.9; O2SAT 96–99
--- NOTE | 2022-12-22 | PM.IMHP ---
H&P: HPI History of Present Illness Date/Time: 12/22/22 00:00 Chief Complaint: N/V Narrative: EXAMINATION: XR chest 1V portable INDICATION: Epigastric pain TECHNIQUE: Portable AP chest at 2058 hours COMPARISON: 08/02/2022 FINDINGS: Cardiomegaly is noted. There are minimal bibasilar airspace opacities. No pleural effusion or pneumothorax. Surgical changes are noted in the lower cervical spine. IMPRESSION: 1. Cardiomegaly. 2. Bibasilar airspace opacity, consistent with atelectasis versus pneumonia. EXAMINATION: CT abdomen pelvis w con INDICATION: Right flank and right lower quadrant pain TECHNIQUE: Computed tomographic images of the abdomen and pelvis were obtained after the administration of 100 cc of Omnipaque 350 intravenous contrast. The dose-length product (DLP) was 1470.20 mGy-cm. Automated exposure control and iterative reconstruction technique were employed. COMPARISON: 12/29/2021 FINDINGS: Cardiomegaly is noted. There is mild atelectasis and pulmonary edema of the visualized lung bases. A more focal airspace opacity is seen in the lingula. There is calcified coronary artery atherosclerosis. The liver is diffusely low in attenuation when compared with the spleen, consistent with hepatic steatosis. Changes of cholecystectomy are noted. The spleen, pancreas, and adrenal glands are normal. A right internal ureteral stent is in expected position. There is a 10 mm stone in the right renal pelvis adjacent to the coiled portion of the stent. There is mild right hydronephrosis. A 6 mm stone is seen in the right kidney lower pole. There is mild enlargement of the right kidney compared to the left. There is calcified atherosclerosis of the aorta and many of the other arteries. There is chronic mild periportal lymphadenopathy, likely reactive. There is severe lower lumbar spondylosis. IMPRESSION: 1. Right internal ureteral stent in expected position with 10 mm stone of the right renal pelvis and stones of the right kidney lower pole. Mild hydronephrosis of the right kidney with possible superimposed pyelonephritis. 2. Diffuse hepatic steatosis. 3. Cardiomegaly with mild pulmonary edema in the visualized lung bases. 4. Lingular airspace opacities, possible pneumonia. Review of Systems Review of Systems: Poor per orally intake, nausea, vomiting poor appetite, generalized malaise, chills, generalized weakness. Constitutional: Constitutional: Reports chills, Reports fatigue, Reports malaise, Reports poor appetite and Reports weakness Eyes: Eyes: Denies change in vision ENT: Denies dysphagia and Denies odynophagia Cardiovascular: Cardiovascular: Denies chest pain, Denies radiating jaw, neck or arm pain and Denies palpitations Respiratory: Respiratory: Denies chest congestion, Denies cough and Denies excessive phlegm production Gastrointestinal: Gastrointestinal: Denies abdominal pain, Denies dyspepsia, Denies heartburn, Denies diarrhea, Reports nausea and Reports vomiting Genitourinary: Genitourinary: Denies dysuria and Denies flank pain Musculoskeletal: Musculoskeletal: Reports myalgias and Reports muscle weakness Integumentary/Breasts: Skin/Breast: Denies rash Neurologic: Denies focal weakness and Denies Sensory deficit (Neuro) Psychiatric: Psychiatric: Reports no additional psychiatric complaints and Reports as per HPI Endocrine: Endocrine: Denies cold intolerance, Denies fatigue, Denies flushing, Denies heat intolerance, Denies polyphagia, Denies polydipsia and Denies palpitations Hematologic/Lymphatic: Hematologic/Lymphatic: Reports no additional hematologic/lymphatic complaints and Reports as per HPI Allergic/Immunologic: Allergic/Immunologic: Reports no additional allergic/immunologic complaints and Reports as per HPI [facility] Past Medical History Medical History Abnormal results of kidney function studies Anxiety COPD (chronic obstructive pulmonary disease)
[2022-12-22] MEDS: HYDROmorphone HCL INJ (*CRX) 1 MG/ML SYR IV PUSH (00:44)
[2022-12-22 01:19] LABS: Lactic Acid Reflex 0.9 mmol/L (0.7-2.0)
[2022-12-22] MEDS: POTASSIUM CHLORIDE 20 MEQ PACKET (FOR LIQUID) PO (01:26)
[2022-12-22] MEDS: AZITHROMYCIN 500 MG/NS 250 ML 500 MG/250 ML BAG 250 MG IVPB (01:32)
[2022-12-22] MEDS: hydrALAZINE HCL 20 MG/ML VIAL 10 MG IV PUSH (02:24)
[2022-12-22] MEDS: ONDANSETRON INJ 4 MG/2 ML VIAL IV PUSH (02:25)
--- NOTE | 2022-12-22 02:53 | ADMGEN ---
This patient, Desiree Castorena, was admitted to Medical Room 248-. Patient/family oriented to hospital policies and general routines including ID bracelet, bed and alarms, visiting hours, pain management, procedures, bathroom and other care routines, personal items, smoking policy, room service/diet, and visiting hours. Information on how to activate the Rapid Response Team has been discussed. Patient/Family are encouraged to report perceived risks to care and to ask questions if they do not understand what they are told or what they should do.
[2022-12-22] MEDS: HYDROmorphone HCL INJ (*CRX) 1 MG/ML SYR 0.5 MG IV PUSH ×3 (03:57→20:47)
--- NOTE | 2022-12-22 07:17 | WPDURCON ---
Assessment and Plan Assessment and plan (1) Pyelonephritis: Code(s): N12 - Tubulo-interstitial nephritis, not specified as acute or chronic Status: Acute (2) Right renal stone: Code(s): N20.0 - Calculus of kidney Status: Acute Assessment and Plan: Treat current infection. Will arrange Right ESWL/stent exchange in approx. 2 weeks - pt. in agreement. Urology Consult Note HPI Date Seen: 12/22/22 Requesting Physician: Bill Clark MD Primary Care Provider: Maria G Lantigua MD Consult Narrative Narrative: Desiree Castorena is a 62 year old female who I got to know in December 2021 when she presented with a 10 mm right renal pelvic stone with urinary tract infection. Ureteral stent was placed. She had definitive therapy with right ESWL scheduled but subsequently canceled and forgot to reschedule. She now presents with the size of an upper urinary tract infection. Review of Systems Review of Systems: All systems reviewed & are unremarkable except as noted in HPI and below PMFSH Past Medical History Medical History Abnormal results of kidney function studies Anxiety COPD (chronic obstructive pulmonary disease) DVT (deep venous thrombosis) High body mass index Hypertension Pyuria Family History Family History Other Alcoholism Deep vein thrombophlebitis of right leg Diabetes mellitus Heart disease Hypertension Social History Social History Social History: Patient lives at home with her Smoking packs per day: 1 Smoking cigarettes per day: 20.0 Years smoked: 40 Smoking pack-years: 40.00 Smoking status: Former smoker Tobacco type: cigarettes Smoking end date: 12/27/21 Alcohol intake: never Drinks per week: 84 Substance use: never Substance use type: does not use Other substance usage details: stopped drinking approx 30 years ago Lack of Transportation: No Lack of Food: Never True Current Housing: I Have Housing Concerned About Future Housing: No Difficulty Paying Gas/Electric Bills: No Difficulty Paying for Meds: No Currently Unemployed: No Education: High School Diploma/GED Difficulty w/ Childcare or Family Care: No Living arrangements: with family Additional living arrangements comments: [facility] Spiritual care concerns: No Meds Home Medications and Allergies Home Medications Medication Instructions Recorded Confirmed Type hydrocodone 10 mg-acetaminophen 1 tablet PO Q8H PRN Pain (Scale 12/30/21 12/22/22 History 325 mg tablet Score 4-6) ipratropium 0.5 mg-albuterol 3 mg 3 ml inhalation QID PRN Shortness 12/30/21 12/22/22 History (2.5 mg base)/3 mL nebulization Of Breath Or Wheezing soln metoprolol tartrate 25 mg tablet 25 mg PO Q12HR #60 tabs 01/27/22 12/22/22 Rx pantoprazole 40 mg tablet,delayed 40 mg PO DAILY #30 tabs 01/27/22 12/22/22 Rx release furosemide 40 mg tablet 40 mg PO QAM 02/06/22 12/22/22 History umeclidinium 62.5 mcg/actuation 1 inh inhalation QAM #30 ea 02/23/22 12/22/22 Rx blister powder for inhalation (Incruse Ellipta) apixaban 5 mg tablet (Eliquis) 5 mg PO Q12HR #60 tabs 05/07/22 12/22/22 Rx fluticasone propionate 230 2 puff inhalation QAM #12 grams 05/21/22 12/22/22 Rx mcg-salmeterol 21 mcg/actuation HFA inhaler (Advair HFA) albuterol sulfate 90 mcg/actuation 2 puff inhalation QID PRN 09/08/22 12/22/22 Rx aerosol inhaler shortness of breath or wheezing #8.5 grams Allergies Allergy/AdvReac Type Severity Reaction Status Date / Time sertraline AdvReac Severe loopy, Verified 12/21/22 19:35 tremors Vital Signs Vital Signs - 24 hr 12/21/22 19:26 12/21/22 21:21 12/21/22 22:42 Temperature 97.5 F L Pulse Rate 91 85 93 Respiratory Rate 20 20 21 H Blood Pres
--- NOTE | 2022-12-22 07:34 | P.PNIM_ITS ---
Progress Note: A&P Assessment and Plan (1) Pyelonephritis: Code(s): N12 - Tubulo-interstitial nephritis, not specified as acute or chronic Status: Acute Assessment and Plan: 12/21/22: * Admit to regular medical floor * Patient started on broad-spectrum antibiotics * Await cultures 12/22/22: * CT of abdomen pelvis with contrast revealing right internal urethral stent in expected position with 10 mm stone of the right renal pelvis and stones of the right kidney lower pole, hydronephrosis of the right kidney with possible superimposed pyelonephritis, lingular airspace opacities representing possible pneumonia * Continue with azithromycin and Rocephin * Blood in urine cultures pending * WBC 9.5 today * Urology consulted and following, recommendations is to treat the current infection and will need to follow up and about 2 weeks for stent exchange. (2) Acute kidney injury superimposed on CKD: Code(s): N17.9 - Acute kidney failure, unspecified; N18.9 - Chronic kidney disease, unspecified Status: Acute Assessment and Plan: 12/21/22: * Likely pre renal azotemia * Will hold Lasix 12/22/22: * BUN 13, creatinine 1.20 * Will restart Lasix (3) Lingular pneumonia: Code(s): J18.9 - Pneumonia, unspecified organism Status: Acute Assessment and Plan: 12/21/22: * On broad-spectrum antibiotics * Cultures in progress 12/22/22: * CT of the abdomen and pelvis showed going possible pneumonia * Chest x-ray showing bibasilar airspace obesity, consistent with atelectasis versus pneumonia * Continue antibiotics * Blood in urine culture pending * Patient is currently on 3.5 L nasal cannula which is her baseline * Patient currently on breathing treatments (4) COPD (chronic obstructive pulmonary disease): Code(s): J44.9 - Chronic obstructive pulmonary disease, unspecified Status: Acute Assessment and Plan: 12/21/22: * Continue home meds * Not actively wheezing * Continue to monitor 12/22/22: * No change to current treatment plan (5) Morbid obesity with BMI of 50.0-59.9, adult: Code(s): E66.01 - Morbid (severe) obesity due to excess calories; Z68.43 - Body mass i ndex [BMI] 50.0-59.9, adult Status: Acute Assessment and Plan: 12/21/22 * 1800 calorie restricted diet 12/22/22: * 141.57kg, BMI : 53.6 Time Spent With Patient Time with patient: Greater than 35 minutes Subjective Date/time seen: 12/22/22 07:34 Interval history: 12/22/22: Interval History: This is a 62-year-old female who presented to the hospital on 12/21/2022 with right-sided abdominal pain and flank pain x5 days. She has history of a urethral stent. Patient was concerned about kidney stone. Hospital workup included a CT of the abdomen pelvis with contrast which shown a right internal urethral stent in expected position with 10 mm stone of the right renal pelvis and stones of the right kidney lower pole, mild hydronephrosis of the right kidney with possible superimposed pyelonephritis, lingular airspace opacities concerning for pneumonia. Chest x-ray was also done which revealed bibasilar airspace obesity consistent with atelectasis versus pneumonia. Blood in urine cultures were obtained and are pending. Urology was consulted and following. On examination today patient is alert and oriented x4, blood pressure ranging 169/72 to 201/94, she remains afebrile, she remains on her 3.5 L nasal cannula which is her baseline. Patient reports 9/10 pain in the right lower quadrant and flank. Labs today revealed
--- NOTE | 2022-12-22 07:34 | PM.IMPN ---
Progress Note: A&P Assessment and Plan (1) Pyelonephritis: Code(s): N12 - Tubulo-interstitial nephritis, not specified as acute or chronic Status: Acute Assessment and Plan: 12/21/22: Admit to regular medical floor Patient started on broad-spectrum antibiotics Await cultures 12/22/22: CT of abdomen pelvis with contrast revealing right internal urethral stent in expected position with 10 mm stone of the right renal pelvis and stones of the right kidney lower pole, hydronephrosis of the right kidney with possible superimposed pyelonephritis, lingular airspace opacities representing possible pneumonia Continue with azithromycin and Rocephin Blood in urine cultures pending WBC 9.5 today Urology consulted and following, recommendations is to treat the current infection and will need to follow up and about 2 weeks for stent exchange. (2) Acute kidney injury superimposed on CKD: Code(s): N17.9 - Acute kidney failure, unspecified; N18.9 - Chronic kidney disease, unspecified Status: Acute Assessment and Plan: 12/21/22: Likely pre renal azotemia Will hold Lasix 12/22/22: BUN 13, creatinine 1.20 Will restart Lasix (3) Lingular pneumonia: Code(s): J18.9 - Pneumonia, unspecified organism Status: Acute Assessment and Plan: 12/21/22: On broad-spectrum antibiotics Cultures in progress 12/22/22: CT of the abdomen and pelvis showed going possible pneumonia Chest x-ray showing bibasilar airspace obesity, consistent with atelectasis versus pneumonia Continue antibiotics Blood in urine culture pending Patient is currently on 3.5 L nasal cannula which is her baseline Patient currently on breathing treatments (4) COPD (chronic obstructive pulmonary disease): Code(s): J44.9 - Chronic obstructive pulmonary disease, unspecified Status: Acute Assessment and Plan: 12/21/22: Continue home meds Not actively wheezing Continue to monitor 12/22/22: No change to current treatment plan (5) Morbid obesity with BMI of 50.0-59.9, adult: Code(s): E66.01 - Morbid (severe) obesity due to excess calories; Z68.43 - Body mass index [BMI] 50.0-59.9, adult Status: Acute Assessment and Plan: 12/21/22 1800 calorie restricted diet 10/27/23: 141.57kg, BMI : 53.6 Time Spent With Patient Time with patient: Greater than 35 minutes Subjective Date/time seen: 12/22/22 07:34 Interval history: 12/22/22: Interval History: This is a 62-year-old female who presented to the hospital on 12/21/2022 with right-sided abdominal pain and flank pain x5 days. She has history of a urethral stent. Patient was concerned about kidney stone. Hospital workup included a CT of the abdomen pelvis with contrast which shown a right internal urethral stent in expected position with 10 mm stone of the right renal pelvis and stones of the right kidney lower pole, mild hydronephrosis of the right kidney with possible superimposed pyelonephritis, lingular airspace opacities concerning for pneumonia. Chest x-ray was also done which revealed bibasilar airspace obesity consistent with atelectasis versus pneumonia. Blood in urine cultures were obtained and are pending. Urology was consulted and following. On examination today patient is alert and oriented x4, blood pressure ranging 169/72 to 201/94, she remains afebrile, she remains on her 3.5 L nasal cannula which is her baseline. Patient reports 9/10 pain in the right lower quadrant and flank. Labs today revealed white blood cell count 9.5, hemoglobin 8.9, hematocrit 29.7, sodium 135, potassium 3.3, chloride 90, bicarb level was greater than 40, magnesium 1.9, blood sugars ranging 92-100, BUN 11, creatinine 0.7, liver enzymes are normal. Patient has no new complaints today. Review of Systems Review of Systems: All systems reviewed & are unremarkable except as noted in HPI and below Constitutional: Constitutional: Repor
[2022-12-22] MEDS: APIXABAN 5 MG TABLET PO ×2 (08:28→20:46)
[2022-12-22] MEDS: PANTOPRAZOLE 40 MG TABLET PO (08:28)
[2022-12-22] MEDS: FUROSEMIDE 40 MG TABLET PO (08:28)
[2022-12-22] MEDS: METOPROLOL TARTRATE 25 MG TABLET PO ×2 (08:28→20:46)
[2022-12-22] MEDS: POTASSIUM CHLORIDE 20 MEQ ER TABLET 40 MEQ PO (09:00)
[2022-12-22] MEDS: UMECLIDINIUM BROMIDE 62.5 MCG ELLIPTA 1 PUFF INHALATION (11:51)
[2022-12-22] MEDS: HYDROcodone/acetaminophen (*CRX) 10-325 MG TABLET 1 TAB PO (13:29)
--- NOTE | 2022-12-22 14:14 | PC.NURSE ---
On 12/22/22, the student, [Jennifer Sharp], provided care and completed [facility] documentation on this patient. I have reviewed the student's documentation and agree with the findings.
[2022-12-22] MEDS: HYDROcodone/acetaminophen (*CRX) 10-325 MG TABLET PO (17:26)
[2022-12-22 20:38] LABS: Basophils Percent Auto 0.4 % (0.2-1.2); Eosinophils Absolute Auto 0.2 K/mm3 (0-0.3); Eosinophils Percent Auto 2.4 % (0-4.4); Hematocrit 28.5 % (37.0-47.0); Hemoglobin 8.5 g/dL (12.0-15.0); Immature Granulocyte Absolute 0.07 K/mm3 (0.00-0.031); Immature Granulocyte Percent A 0.7 % (0-0.5); Lymphocytes Percent Auto 9.6 % (18.3-44.2); Mean Corpuscular HGB Conc 29.8 g/dl (32-36); Mean Corpuscular Hemoglobin 27.3 pg (26-34); Mean Corpuscular Volume 91.6 fl (80-100); Mean Platelet Volume 9.1 fl (7.4-10.4); Monocytes Absolute Auto 0.7 K/mm3 (0.1-0.6); Monocytes Percent Auto 7.6 % (2.6-8.5); Neutrophils Absolute Auto 7.4 K/mm3 (1.3-6.7); Neutrophils Percent Auto 79.3 % (45.5-73.1); Platelet Count Result 209 k/mm3 (150-375); Red Blood Count 3.11 M/mm3 (4.2-5.4); Red Cell Distribution Width 14.3 % (11.5-14.5); White Blood Count 9.4 K/mm3 (4.5-10.0)
[2022-12-22] MEDS: MIRTAZAPINE 7.5 MG TABLET PO (20:46)
[2022-12-23] VITALS (8 sets, daily range): BP systolic 158–180; BP diastolic 50–70; PULSE 58–66; RESP 16–18; TEMP 36.5–36.8; O2SAT 96–99
[2022-12-23] MEDS: AZITHROMYCIN 500 MG/NS 250 ML 500 MG/250 ML BAG 250 MG IVPB (01:30)
[2022-12-23] MEDS: ONDANSETRON INJ 4 MG/2 ML VIAL IV PUSH (02:53)
[2022-12-23] MEDS: HYDROcodone/acetaminophen (*CRX) 10-325 MG TABLET PO ×4 (03:25→21:28)
[2022-12-23] MEDS: UMECLIDINIUM BROMIDE 62.5 MCG ELLIPTA 1 PUFF INHALATION (08:01)
[2022-12-23] MEDS: FLUTICASONE/SALMETEROL 230-21 MCG INHALER 1 PUFF 2 PUFF INHALATION (08:02)
--- NOTE | 2022-12-23 09:30 | PM.IMPN ---
Progress Note: A&P Assessment and Plan (1) Bacteremia: Code(s): R78.81 - Bacteremia Status: Acute Assessment and Plan: Blood cultures showing Gram-positive cocci in 1 of 2 cultures -patient has pyelonephritis and pneumonia but urine culture is growing ecoli -will add vancomycin to her ceftriaxone and azithromycin as pt has had a positive sputum for staph a in the past -increase ceftriaxone to 2gm due to bacteremia -send urine antigens (2) Pyelonephritis: Code(s): N12 - Tubulo-interstitial nephritis, not specified as acute or chronic Status: Acute Assessment and Plan: CT of abdomen pelvis with contrast revealing right internal urethral stent in expected position with 10 mm stone of the right renal pelvis and stones of the right kidney lower pole, hydronephrosis of the right kidney with possible superimposed pyelonephritis, lingular airspace opacities representing possible pneumonia Continue with azithromycin and Rocephin and no vanc Urine cx growing ecoli WBC 7.8 today Urology consulted and following, recommendations is to treat the current infection and will need to follow up and about 2 weeks for stent exchange remove castle (3) Acute kidney injury superimposed on CKD: Code(s): N17.9 - Acute kidney failure, unspecified; N18.9 - Chronic kidney disease, unspecified Status: Acute Assessment and Plan: Resolved (4) Lingular pneumonia: Code(s): J18.9 - Pneumonia, unspecified organism Status: Acute Assessment and Plan: Pt has worsening symptoms of PNA -Will order repeat CXR -Continue ceftriaxone, azithromycin and add vanc due to blood culture and hx of staph a in her sputum -Order sputum culture and urine antigens as well as covid test -pt on her baseline o2 requirement 3.5 L (5) COPD (chronic obstructive pulmonary disease): Code(s): J44.9 - Chronic obstructive pulmonary disease, unspecified Status: Acute Assessment and Plan: Continue home meds Not actively wheezing Continue to monitor repeat CXR (6) Morbid obesity with BMI of 50.0-59.9, adult: Code(s): E66.01 - Morbid (severe) obesity due to excess calories; Z68.43 - Body mass index [BMI] 50.0-59.9, adult Status: Acute Assessment and Plan: chronic (7) Anemia: Code(s): D64.9 - Anemia, unspecified Status: Acute Assessment and Plan: New diagnosis of anemia on labs since july -Order anemia lab and stool sample (+ last year) -no evidence of bleeding on exam, abd CT, or hx (denies dark stool or vaginal bleeding) -pt on eliquis for hx of dvt, continue with that cautiously for now as hgb appears stable -pt never has had a colonscopy -f/u with PCP (8) Chest pain: Code(s): R07.9 - Chest pain, unspecified Status: Acute Assessment and Plan: appears mks as it is reproducable and worse with cough -heating pad -IS -monitor Plan eliquis for dvt prophylaxis Time Spent With Patient Time: 40 min Time with patient: 25 - 35 minutes Subjective Date/time seen: 12/23/22 09:30 Interval history: Pt is a 62-year-old female here for pyelonephritis. Patient was seen today and states she still has pain on the right lower abdomen that wraps around her back. She also mentions that she is having a wet cough that started a couple days ago. She states that about 5 days ago she started having fevers and sweats and now she has this cough. She also mentions chest pain to the left chest that is reproducible and worse when she coughs. She said she never leaves where she lives but when out last Sunday and thinks she got sick from that. She has also been experiencing nausea and vomiting but nothing since she was here. She was unaware that she was anemic. She has never had a colonoscopy and she denies menstrual bleeding. She is on anticoagulation due to a DVT in the past Review of Systems
[2022-12-23 09:42] LABS: Hematocrit 30.4 % (37.0-47.0); Hemoglobin 8.8 g/dL (12.0-15.0); Mean Corpuscular HGB Conc 28.9 g/dl (32-36); Mean Corpuscular Hemoglobin 27.3 pg (26-34); Mean Corpuscular Volume 94.4 fl (80-100); Mean Platelet Volume 9.6 fl (7.4-10.4); Platelet Count Result 238 k/mm3 (150-375); Red Blood Count 3.22 M/mm3 (4.2-5.4); Red Cell Distribution Width 14.4 % (11.5-14.5); White Blood Count 7.8 K/mm3 (4.5-10.0)
[2022-12-23] MEDS: FUROSEMIDE 40 MG TABLET PO (10:03)
[2022-12-23] MEDS: APIXABAN 5 MG TABLET PO ×2 (10:03→21:30)
[2022-12-23] MEDS: METOPROLOL TARTRATE 25 MG TABLET PO ×2 (10:03→21:29)
[2022-12-23] MEDS: PANTOPRAZOLE 40 MG TABLET PO (10:03)
[2022-12-23 10:09] LABS: Blood Urea Nitrogen 12 mg/dL (7-17); Calcium 8.3 mg/dL (8.4-10.2); Carbon Dioxide > 40 mmol/L (22-30); Chloride 91 mmol/L (98-107); Estimated CRCL calculation 80 ml/min; Estimated Glomerular Filt Rate > 60; Glucose 94 mg/dL (65-110); Potassium 3.5 mmol/L (3.4-5.0); Sodium 136 mmol/L (137-145)
[2022-12-23 10:17] LABS: Iron 35 ug/dL (37-170)
[2022-12-23 10:28] LABS: Percent Iron Saturation 14 % (20-50)
[2022-12-23 10:51] LABS: Magnesium 1.9 mg/dL (1.6-2.3)
[2022-12-23 11:08] LABS: Transferrin 178 mg/dL (206-381)
[2022-12-23] MEDS: cefTRIAXone 2 GM/NS 100 ML 2 GM/100 ML BAG IVPB (11:15)
[2022-12-23] MEDS: VANCOMYCIN 1,250 MG/NS 250 ML 1,250 MG/250 ML BAG 166.67 MG IVPB ×2 (12:06→13:54)
[2022-12-23 12:08] LABS: Folic Acid 5.4 ng/mL (2.76->20)
[2022-12-23 15:23] LABS: SARS-CoV-2 RNA PCR Negative (Negative)
[2022-12-23 16:02] LABS: MRSA (PCR) NOT DETECTED (NOT DETECTE)
[2022-12-23] MEDS: MIRTAZAPINE 7.5 MG TABLET PO (21:30)
[2022-12-24] VITALS (8 sets, daily range): BP systolic 145–180; BP diastolic 60–72; PULSE 54–90; RESP 16–18; TEMP 36.4–36.6; O2SAT 95–100
[2022-12-24] MEDS: AZITHROMYCIN 500 MG/NS 250 ML 500 MG/250 ML BAG 250 MG IVPB (02:00)
[2022-12-24] MEDS: HYDROcodone/acetaminophen (*CRX) 10-325 MG TABLET PO ×3 (03:04→17:20)
[2022-12-24 06:38] LABS: Hemoglobin 8.4 g/dL (12.0-15.0); Mean Corpuscular Hemoglobin 27.2 pg (26-34); Mean Corpuscular Volume 93.9 fl (80-100); Mean Platelet Volume 9.6 fl (7.4-10.4); Platelet Count Result 251 k/mm3 (150-375); Red Blood Count 3.09 M/mm3 (4.2-5.4); Red Cell Distribution Width 14.4 % (11.5-14.5); White Blood Count 5.9 K/mm3 (4.5-10.0)
[2022-12-24 06:56] LABS: Blood Urea Nitrogen 12 mg/dL (7-17); Carbon Dioxide > 40 mmol/L (22-30); Chloride 91 mmol/L (98-107); Estimated CRCL calculation 90 ml/min; Estimated Glomerular Filt Rate > 60; Glucose 89 mg/dL (65-110); Potassium 3.2 mmol/L (3.4-5.0); Sodium 135 mmol/L (137-145)
[2022-12-24] MEDS: UMECLIDINIUM BROMIDE 62.5 MCG ELLIPTA 1 PUFF INHALATION (08:15)
[2022-12-24] MEDS: FLUTICASONE/SALMETEROL 230-21 MCG INHALER 1 PUFF 2 PUFF INHALATION (08:16)
[2022-12-24] MEDS: METOPROLOL TARTRATE 25 MG TABLET PO ×2 (08:54→20:33)
[2022-12-24] MEDS: APIXABAN 5 MG TABLET PO ×2 (08:54→20:33)
[2022-12-24] MEDS: FUROSEMIDE 40 MG TABLET PO (08:54)
[2022-12-24] MEDS: CYANOCOBALAMIN 1,000 MCG TABLET 1000 MCG PO (08:54)
[2022-12-24] MEDS: PANTOPRAZOLE 40 MG TABLET PO (08:54)
--- NOTE | 2022-12-24 09:43 | PM.IMPN ---
Progress Note: A&P Assessment and Plan (1) Bacteremia: Code(s): R78.81 - Bacteremia Status: Acute Assessment and Plan: Blood cultures showing Gram-positive cocci in 1 of 2 cultures -patient has pyelonephritis and pneumonia but urine culture is growing ecoli -vancomycin added to her ceftriaxone and azithromycin as pt has had a positive sputum for staph a in the past -ceftriaxone increased to 2gm due to bacteremia -send urine antigens - pending (2) Pyelonephritis: Code(s): N12 - Tubulo-interstitial nephritis, not specified as acute or chronic Status: Acute Assessment and Plan: CT of abdomen pelvis with contrast revealing right internal urethral stent in expected position with 10 mm stone of the right renal pelvis and stones of the right kidney lower pole, hydronephrosis of the right kidney with possible superimposed pyelonephritis, lingular airspace opacities representing possible pneumonia Continue with azithromycin and Rocephin Urine cx growing ecoli WBC 5.9, continues to trend down Urology consulted and following, recommendations is to treat the current infection and will need to follow up and about 2 weeks for stent exchange remove castle (3) Acute kidney injury superimposed on CKD: Code(s): N17.9 - Acute kidney failure, unspecified; N18.9 - Chronic kidney disease, unspecified Status: Acute Assessment and Plan: Resolved (4) Lingular pneumonia: Code(s): J18.9 - Pneumonia, unspecified organism Status: Acute Assessment and Plan: Pt has worsening symptoms of PNA -CXR 12/23/22 shows increased congestion, CHF, pulmonary edema findings -Continue ceftriaxone, azithromycin and vanc due to blood culture and hx of staph a in her sputum -Order sputum culture and urine antigens - pending - covid test negative -pt on her baseline o2 requirement 3.5 L (5) COPD (chronic obstructive pulmonary disease): Code(s): J44.9 - Chronic obstructive pulmonary disease, unspecified Status: Acute Assessment and Plan: Continue home meds mild wheezing on exam, but denies dyspnea Continue to monitor CXR 12/23 shows increased congestion (6) Morbid obesity with BMI of 50.0-59.9, adult: Code(s): E66.01 - Morbid (severe) obesity due to excess calories; Z68.43 - Body mass index [BMI] 50.0-59.9, adult Status: Acute Assessment and Plan: chronic (7) Anemia: Code(s): D64.9 - Anemia, unspecified Status: Acute Assessment and Plan: New diagnosis of anemia on labs since july -Order anemia lab and stool sample - pending, not yet collected -no evidence of bleeding on exam, abd CT, or hx (denies dark stool or vaginal bleeding) -pt on eliquis for hx of dvt, continue with that cautiously for now as hgb appears stable -pt never has had a colonscopy -f/u with PCP (8) Chest pain: Code(s): R07.9 - Chest pain, unspecified Status: Acute Assessment and Plan: appears mks as it is reproducable and worse with cough -heating pad -IS -monitor Plan eliquis for dvt prophylaxis Subjective Date/time seen: 12/24/22 09:43 Interval history: Pt is a 62-year-old female here for pyelonephritis. Patient reports her pain is improving, but still has pain on the right lower abdomen that wraps around her back at times. Her cough sounds productive, but she has not yet coughed anything up. Her chest pain to the left chest is improving, and still reproducible worsening when she coughs. She wants to know how to better her immune system to protect herself when she goes out in public. We discussed importance of vitamin D, vitamin C, and zinc. Denies N/V, chills or fever. We discussed her anemia and encouraged her to have a colonoscopy outpatient. She has never had a colonoscopy and she denies menstrual bleeding. She is on anticoagulation due to a DVT in the past. She continues on her home
[2022-12-24] MEDS: POTASSIUM CHLORIDE 20 MEQ PACKET (FOR LIQUID) 40 MEQ PO (09:55)
[2022-12-24 11:59] LABS: Glucose Point of Care 109 mg/dl (65-105)
[2022-12-24] MEDS: cefTRIAXone 2 GM/NS 100 ML 2 GM/100 ML BAG IVPB (12:15)
[2022-12-24] MEDS: ACETAMINOPHEN 325 MG TABLET 650 MG PO (20:33)
[2022-12-24] MEDS: MIRTAZAPINE 7.5 MG TABLET PO (20:33)
[2022-12-24 23:03] LABS: Vancomycin Trough 25.2 ug/mL (10.0-20.0)
[2022-12-25] MEDS: AZITHROMYCIN 500 MG/NS 250 ML 500 MG/250 ML BAG 250 MG IVPB (00:02)
[2022-12-25 05:31] VITALS: BP 187/73; PULSE 66; RESP 18; TEMP 36.5; O2SAT 99
[2022-12-25] MEDS: HYDROcodone/acetaminophen (*CRX) 10-325 MG TABLET PO ×2 (05:45→12:29)
[2022-12-25 06:05] LABS: Hemoglobin 8.6 g/dL (12.0-15.0); Mean Corpuscular HGB Conc 29.7 g/dl (32-36); Mean Corpuscular Hemoglobin 27.3 pg (26-34); Mean Corpuscular Volume 92.1 fl (80-100); Mean Platelet Volume 9.5 fl (7.4-10.4); Platelet Count Result 279 k/mm3 (150-375); Red Blood Count 3.15 M/mm3 (4.2-5.4); Red Cell Distribution Width 14.2 % (11.5-14.5); White Blood Count 5.5 K/mm3 (4.5-10.0)
[2022-12-25 06:27] LABS: Blood Urea Nitrogen 11 mg/dL (7-17); Calcium 8.1 mg/dL (8.4-10.2); Carbon Dioxide > 40 mmol/L (22-30); Chloride 91 mmol/L (98-107); Estimated CRCL calculation 90 ml/min; Estimated Glomerular Filt Rate > 60; Glucose 89 mg/dL (65-110); Potassium 3.3 mmol/L (3.4-5.0); Sodium 137 mmol/L (137-145)
[2022-12-25] MEDS: UMECLIDINIUM BROMIDE 62.5 MCG ELLIPTA 1 PUFF INHALATION (08:19)
[2022-12-25] MEDS: FLUTICASONE/SALMETEROL 230-21 MCG INHALER 1 PUFF 2 PUFF INHALATION (08:20)
[2022-12-25 08:22] VITALS: O2SAT 96
[2022-12-25 08:50] VITALS: PULSE 66; RESP 18; O2SAT 96
[2022-12-25 09:11] VITALS: PULSE 100
[2022-12-25] MEDS: CYANOCOBALAMIN 1,000 MCG TABLET 1000 MCG PO (09:11)
[2022-12-25] MEDS: PANTOPRAZOLE 40 MG TABLET PO (09:11)
[2022-12-25] MEDS: APIXABAN 5 MG TABLET PO (09:11)
[2022-12-25] MEDS: FUROSEMIDE 40 MG TABLET PO (09:11)
[2022-12-25] MEDS: METOPROLOL TARTRATE 25 MG TABLET PO (09:11)
[2022-12-25] MEDS: cefTRIAXone 2 GM/NS 100 ML 2 GM/100 ML BAG IVPB (11:22)
[2022-12-25] MEDS: VANCOMYCIN 1,000 MG/NS 250 ML 1,000 MG/250 ML BAG 250 MG IVPB (12:14)
[2022-12-25] MEDS: POTASSIUM CHLORIDE 20 MEQ PACKET (FOR LIQUID) 40 MEQ PO (12:28)
[2022-12-25] MEDS: LOPERAMIDE HCL 2 MG CAPSULE PO (12:33)
[2022-12-25 13:39] VITALS: BP 148/61; PULSE 32; RESP 18; TEMP 36.8; O2SAT 92
[2022-12-25 13:55] VITALS: BP 141/43; PULSE 67; RESP 18; TEMP 36.8; O2SAT 100
--- NOTE | 2022-12-25 13:58 | PM.DS ---
DS: Admitting Diagnosis Discharge Date 12/25/22 Admitting Diagnosis pyelonephritis DS: Discharge Diagnosis Discharge Diagnosis (1) Bacteremia: Code(s): R78.81 - Bacteremia Status: Acute Assessment and Plan: Blood cultures showing Gram-positive cocci in 1 of 2 cultures -patient has pyelonephritis and pneumonia but urine culture is growing ecoli -will send home with azithromycin PO for 2 more days and Levaquin for 4 days -will f/u with BC (2) Pyelonephritis: Code(s): N12 - Tubulo-interstitial nephritis, not specified as acute or chronic Status: Acute Assessment and Plan: CT of abdomen pelvis with contrast revealing right internal urethral stent in expected position with 10 mm stone of the right renal pelvis and stones of the right kidney lower pole, hydronephrosis of the right kidney with possible superimposed pyelonephritis, lingular airspace opacities representing possible pneumonia Will send home on Levaquin for 4 days Urine cx growing ecoli WBC stable Urology consulted and following, recommendations is to treat the current infection and will need to follow up and about 2 weeks for stent exchange castle removed and ambulating to bathroom on her own (3) Acute kidney injury superimposed on CKD: Code(s): N17.9 - Acute kidney failure, unspecified; N18.9 - Chronic kidney disease, unspecified Status: Acute Assessment and Plan: Resolved (4) Lingular pneumonia: Code(s): J18.9 - Pneumonia, unspecified organism Status: Acute Assessment and Plan: Pt has worsening symptoms of PNA -CXR 12/23/22 shows increased congestion, CHF, pulmonary edema findings -sent home on azithromycin and levaquin -Order sputum culture and urine antigens - pending - covid test negative -will resume baseline O2 requirement 3.5 L (5) COPD (chronic obstructive pulmonary disease): Code(s): J44.9 - Chronic obstructive pulmonary disease, unspecified Status: Acute Assessment and Plan: Continue home meds mild wheezing on exam, but denies dyspnea Continue home management and O2 CXR 12/23 shows increased congestion (6) Morbid obesity with BMI of 50.0-59.9, adult: Code(s): E66.01 - Morbid (severe) obesity due to excess calories; Z68.43 - Body mass index [BMI] 50.0-59.9, adult Status: Acute Assessment and Plan: chronic (7) Anemia: Code(s): D64.9 - Anemia, unspecified Status: Acute Assessment and Plan: New diagnosis of anemia on labs since july -no evidence of bleeding on exam, abd CT, or hx (denies dark stool or vaginal bleeding) -pt on eliquis for hx of dvt, continue with that cautiously for now as hgb appears stable -pt never has had a colonscopy -f/u with PCP (8) Chest pain: Code(s): R07.9 - Chest pain, unspecified Status: Acute Assessment and Plan: appears mks as it is reproducable and worse with cough -heating pad -IS Plan eliquis for dvt prophylaxis DS: Summary Hospital Course Hospital Course: Pt is a 62-year-old female admitted for pyelonephritis, progressing to bacteremia. BC still pending, will follow up if need to tailor AB. She reports her pain is improving, but still has pain on the right lower abdomen that wraps around her back at times. Her cough sounds productive, but still no sputum. She is being treated for pneumonia coverage, will send home on Levaquin for 4 days. She wants to know how to better her immune system to protect herself when she goes out in public. We discussed importance of vitamin D, vitamin C, and zinc. Denies N/V, chills or fever. We discussed her anemia and encouraged her to have a colonoscopy outpatient. She has never had a colonoscopy and she denies menstrual bleeding. She is on anticoagulation due to a DVT in the past. She continues on her home 3/5 L of O2. PO KCL given for low potassium, likely due to diarrhea. Sta
--- NOTE | 2022-12-25 14:30 | PC.NURSE ---
Patient care, assessment and medications performed by Sneha Mock/[facility] Student Nurse under supervision of director of emergency nursing or staff. All charting and medications reviewed by this tech writer and agree with same. Patient has been discharged home a this time. All care and treatment reported to manager staffing.
[2022-12-26 21:37] LABS: Pneumococcal Antigen Urine Not Detected (Not Detected)
[2022-12-28 06:02] LABS: Legionella pneumophila Ag Ur Not Detected (Not Detected)
--- NOTE | 2022-12-28 06:53 | PC.NURSE ---
blood cx are negative.
== END 2022-12-25 14:30 | disposition home or self-care (01) | DRG 689 ==
LOC: ANHED 12-22 00:03 → ANH2MED 12-22 01:12
PROVIDERS: Nurse Practitioner Acute Care; Physician Assistant; Admitting Provider Internal Medicine; Emergency Provider Physician Assistant; PCP Family Medicine; Visit Provider Nurse Practitioner
DX: N13.6 Pyonephrosis (principal); J18.9 Pneumonia, unspecified organism; J44.0 Chronic obstructive pulmonary disease with (acute) lower respiratory infection; Z68.43 Body mass index [BMI] 50.0-59.9, adult; R78.81 Bacteremia; N17.9 Acute kidney failure, unspecified; B96.20 Unspecified Escherichia coli [E. coli] as the cause of diseases classified elsewhere; B95.7 Other staphylococcus as the cause of diseases classified elsewhere; R07.9 Chest pain, unspecified; D64.9 Anemia, unspecified; E66.01 Morbid (severe) obesity due to excess calories; I12.9 Hypertensive chronic kidney disease with stage 1 through stage 4 chronic kidney disease, or unspecified chronic kidney disease; N18.9 Chronic kidney disease, unspecified; N20.0 Calculus of kidney; Z20.822 Contact with and (suspected) exposure to COVID-19; Z99.81 Dependence on supplemental oxygen; Z86.718 Personal history of other venous thrombosis and embolism; Z79.01 Long term (current) use of anticoagulants; Z87.891 Personal history of nicotine dependence
CPT/HCPCS: 36415; 71045; 71046; 74177; 80048; 80053; 80202; 81001; 82607; 82728; 82746; 82948; 83540; 83550; 83605; 83690; 83735; 84443; 84466; 85025; 85027; 87040; 87077; 87086; 87147; 87181; 87186; 87449; 87635; 87641; 87899; 93005; 94640; 96361; 96365; 96367; 96375; 96376; 97161; 97165; 99285; A9270; G0378; J0360; J0456; J0696; J1170; J2270; J2405; J3370; J7030; Q9967

== ENCOUNTER 2023-01-08 12:58 | Outpatient (CLI) | payer MEDICARE, MEDICAID, SELFPAY ==
[2023-01-08 14:10] LABS: INR 1.1; Prothrombin Time 14.3 Seconds (11.1-14.7)
[2023-01-08 14:11] LABS: Partial Thromboplastin Time 42.4 SECONDS (22.3-36.8)
== END 2023-01-08 12:59 | disposition home or self-care (01) ==
PROVIDERS: PCP Family Medicine; Visit Provider Urology
DX: N20.0 Calculus of kidney (principal); Z79.01 Long term (current) use of anticoagulants
CPT/HCPCS: 36415; 85610; 85730; 87077; 87086; 87186

== ENCOUNTER 2023-01-22 11:25 | Outpatient (CLI) | payer MEDICARE, MEDICAID, SELFPAY ==
[2023-01-22 12:02] LABS: INR 0.9; Prothrombin Time 12.8 Seconds (11.1-14.7)
== END 2023-01-22 11:26 | disposition home or self-care (01) ==
LOC: ANHSURGERY 11:30
PROVIDERS: PCP Family Medicine; Visit Provider Urology
DX: N20.0 Calculus of kidney (principal); R82.79 Other abnormal findings on microbiological examination of urine
CPT/HCPCS: 36415; 85610; 85730; 87086; 87088

== ENCOUNTER → 2023-01-26 01:08 | Day surgery (SDC) | payer MEDICARE, MEDICAID, SELFPAY ==
[2023-01-04 10:55] VITALS: BMI 53.7
--- NOTE | 2023-01-04 11:06 | PC.NURSE ---
Report to the Outpatient Waiting Room, entrance under the green pavilion located off [facility], at time _0600_ on date _01/12/23_. Planned Procedure Time: _0730_. Time changes happen often and if your time is changed the preop area will call you the afternoon before. - You and your visitor will be asked to self-screen and do not enter if you have any COVID symptoms. - A mask is optional within the hospital at this time. Patients may have clear liquids (water, carbonated beverages, clear teas, apple juice) until 3 hours prior to surgery with a maximum of 20 ounces. - No food from midnight until time of surgery - Infants may have breast milk until 4 hours before surgery, infant formula 6 hours prior to surgery. - Children will be allowed to drink immediately following surgery. If applicable, please bring a bottle or sippy cup to assist with drinking. Juice, water, soda, and popsicles are readily available. For infants on formula, please bring formula the day of surgery. Pacifiers are allowed. Take the following medications with a SIP of water the morning of surgery: _METORPOLOL, INHALERS, PAIN MEDICATION IF NEEDED DO NOT STOP ANY OF YOUR OTHER PRESCRIPTION MEDICATIONS PRIOR TO SURGERY ?EXCEPT THE FOLLOWING Medications to discontinue per physician ____VITAMINS/SUPPLIMENTS, ELIQUIS PER OFFICE 01/09/23 Date to take last dose___01/09/23 Please no make-up, nail panamanian, hairspray, perfume, deodorant, or body powder the day of surgery. No jewelry (including any body piercings) or valuables the day of surgery, leave them at home. Please take a shower or bath the night before, or the morning of, surgery with an antibacterial soap. Wear comfortable, loose fitting clothing. Children are encouraged to wear pajamas. - Jewelry must be removed prior to entering the operating room. Rings and piercings that are not removed may be cut off. - The hospital will not accept responsibility for valuables. - Please leave all valuables, including medications, at home the day of surgery. If you are going home after surgery, a licensed ambulance driver must drive you home. - NO public transportation without another adult if you receive anesthesia. - We recommend that an adult stay with you for 24 hours following discharge. - We also recommend that you do not drive, make important decision, drink alcoholic beverages, or take any drugs that were not prescribed by your health care provider for at least 24 hours after your discharge time. For Pediatric surgeries, we recommend two adults accompany the child home. Follow any additional instructions given to you from your surgeon. If you or anyone in your household have experienced Covid symptoms in the past week, please notify your surgeon or the nurse liaison at the phone number below for possible testing. Telephone instructions given to _PATIENT and asked if any additional questions and then verbalized understanding. Patient advised to call surgeon office or pre surgery nurse liaison [phone] if any additional questions.
--- NOTE | 2023-01-10 07:20 | PM.HPGS ---
History of Present Illness History of Present Illness Consent: Risks, benefits, and alternatives have been discussed and questions answered. Patient agrees to proceed with procedure. Chief complaint: right renal stones Narrative: Desiree Castorena is a 62 year old female who had a right ureteral stent placed for a 10 mm right renal stone in December 2021. She was instructed to follow-up to arrange for right ESWL but, admittedly, for got to do so. the stent has not been an irritant. After discussion of options she has a agreeable to proceeding with right ESWL and right ureteral stent exchange. She is aware the risk including, but not limited to, hematuria, perinephric hematoma and need for additional procedures. Review of Systems Review of Systems: All systems reviewed & are unremarkable except as noted in HPI and below PMFSH Past Medical History Medical History Abnormal results of kidney function studies Anxiety COPD (chronic obstructive pulmonary disease) DVT (deep venous thrombosis) High body mass index Hypertension Pyuria Family History Family History Other Alcoholism Deep vein thrombophlebitis of right leg Diabetes mellitus Heart disease Hypertension Social History Social History Social History: Patient lives at home with her Smoking packs per day: 1 Smoking cigarettes per day: 20.0 Years smoked: 35 Smoking pack-years: 35.00 Smoking status: Former smoker Tobacco type: cigarettes Smoking end date: 12/27/21 Additional smoking assessment comments: RECENTLY QUIT Alcohol intake: former Drinks per week: 84 Substance use: former Substance use type: marijuana 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 Lack of Transportation: No Lack of Food: Never True Current Housing: I Have Housing Concerned About Future Housing: No Difficulty Paying Gas/Electric Bills: No Difficulty Paying for Meds: No Currently Unemployed: No Education: High School Diploma/GED Difficulty w/ Childcare or Family Care: No Living arrangements: with family Additional living arrangements comments: SPOUSE Spiritual care concerns: No Meds Home Medications and Allergies Home Medications Medication Instructions Recorded Confirmed Type hydrocodone 10 mg-acetaminophen 1 tablet PO Q8H PRN Pain (Scale 12/30/21 01/04/23 History 325 mg tablet Score 4-6) ipratropium 0.5 mg-albuterol 3 mg 3 ml inhalation QID PRN Shortness 12/30/21 01/04/23 History (2.5 mg base)/3 mL nebulization Of Breath Or Wheezing soln metoprolol tartrate 25 mg tablet 25 mg PO Q12HR #60 tabs 01/27/22 01/04/23 Rx pantoprazole 40 mg tablet,delayed 40 mg PO DAILY #30 tabs 01/27/22 01/04/23 Rx release furosemide 40 mg tablet 40 mg PO QAM 02/06/22 01/04/23 History umeclidinium 62.5 mcg/actuation 1 inh inhalation QAM #30 ea 02/23/22 01/04/23 Rx blister powder for inhalation (Incruse Ellipta) fluticasone propionate 230 2 puff inhalation QAM #12 grams 05/21/22 01/04/23 Rx mcg-salmeterol 21 mcg/actuation HFA inhaler (Advair HFA) albuterol sulfate 90 mcg/actuation 2 puff inhalation QID PRN 09/08/22 01/04/23 Rx aerosol inhaler shortness of breath or wheezing #8.5 grams cyanocobalamin (vitamin B-12) 1,000 mcg PO QAM #30 tabs 12/25/22 01/04/23 Rx 1,000 mcg tablet (Vitamin B-12) apixaban 5 mg tablet (Eliquis) 5 mg PO Q12HR #60 tabs 01/07/23 Rx Allergies Allergy/AdvReac Type Severity Reaction Status Date / Time sertraline AdvReac Severe loopy, Verified 12/21/22 19:35 tremors Exam Const: General: no acute distress Resp: Effort & Inspection: normal respiratory effort GI: Inspection: non-distended GI Palp: No abdominal tenderness and No Guarding due to palpation present (GI) Auscultation: normal bow
--- NOTE | 2023-01-16 12:29 | PC.NURSE ---
Report to the Outpatient Waiting Room, entrance under the green pavilion located off [facility], at time 7:30 on date 01/26/23. Planned Procedure Time: 9:30. Time changes happen often and if your time is changed the preop area will call you the afternoon before. - You and your visitor will be asked to self-screen and do not enter if you have any COVID symptoms. - A mask is optional within the hospital at this time. Patients may have clear liquids (water, carbonated beverages, clear teas, apple juice) until 3 hours prior to surgery (6:30) with a maximum of 20 ounces. - No food from midnight until time of surgery Take the following medications with a SIP of water the morning of surgery: INHALERS, METOPROLOL, ANTIBIOTIC (IF STILL TAKING) DO NOT STOP ANY OF YOUR OTHER PRESCRIPTION MEDICATIONS PRIOR TO SURGERY ?EXCEPT THE FOLLOWING Medications to discontinue per physician: VITAMINS/SUPPLEMENTS Date to take last dose: 01/21/23 LAST DOSE OF ELIQUIS 01/23/23 (PER PREVIOUS INSTRUCTIONS) Please no make-up, nail occitan, hairspray, perfume, deodorant, or body powder the day of surgery. No jewelry (including any body piercings) or valuables the day of surgery, leave them at home. Please take a shower or bath the night before, or the morning of, surgery with an antibacterial soap. Wear comfortable, loose fitting clothing. - Jewelry must be removed prior to entering the operating room. Rings and piercings that are not removed may be cut off. - The hospital will not accept responsibility for valuables. - Please leave all valuables, including medications, at home the day of surgery. If you are going home after surgery, a licensed straddle truck driver must drive you home. - NO public transportation without another adult if you receive anesthesia. - We recommend that an adult stay with you for 24 hours following discharge. - We also recommend that you do not drive, make important decision, drink alcoholic beverages, or take any drugs that were not prescribed by your health care provider for at least 24 hours after your discharge time. Follow any additional instructions given to you from your surgeon. If you or anyone in your household have experienced Covid symptoms in the past week, please notify your surgeon or the nurse liaison at the phone number below for possible testing. Telephone instructions given to PT - DUC DENNISON and asked if any additional questions and then verbalized understanding. Patient advised to call surgeon office or pre surgery nurse liaison [phone] if any additional questions.
--- NOTE | 2023-01-16 12:40 | PC.NURSE ---
Pt states no changes in health history since initial interview. Medication list updated. New pre-op instructions reviewed with pt. Pt denies further questions at this time.
--- NOTE | 2023-01-24 07:27 | PM.HPGS ---
History of Present Illness History of Present Illness Consent: Risks, benefits, and alternatives have been discussed and questions answered. Patient agrees to proceed with procedure. Chief complaint: right renal stones Narrative: Desiree Castorena is a 62 year old female who initially underwent cystoscopy with right ureteral stent placement for a septic, obstructing 10 mm stone in her right renal pelvis/proximal ureter in December 2021. She never followed up for ESWL, admitting that she simply forgot about the stone and stent. After discussion of options she now elects for right ESWL with stent exchange. She is aware the risks including, but not exclusively, need for additional procedures, ureteral injury, perinephric hematoma. Review of Systems Review of Systems: All systems reviewed & are unremarkable except as noted in HPI and below PMFSH Past Medical History Medical History Abnormal results of kidney function studies Anxiety COPD (chronic obstructive pulmonary disease) DVT (deep venous thrombosis) High body mass index Hypertension Pyuria Family History Family History Other Alcoholism Deep vein thrombophlebitis of right leg Diabetes mellitus Heart disease Hypertension Social History Social History Social History: Patient lives at home with her Smoking packs per day: 1 Smoking cigarettes per day: 20.0 Years smoked: 35 Smoking pack-years: 35.00 Smoking status: Former smoker Tobacco type: cigarettes Smoking end date: 12/27/21 Additional smoking assessment comments: RECENTLY QUIT Alcohol intake: former Drinks per week: 84 Substance use: former Substance use type: marijuana 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 Lack of Transportation: No Lack of Food: Never True Current Housing: I Have Housing Concerned About Future Housing: No Difficulty Paying Gas/Electric Bills: No Difficulty Paying for Meds: No Currently Unemployed: No Education: High School Diploma/GED Difficulty w/ Childcare or Family Care: No Living arrangements: with family Additional living arrangements comments: SPOUSE Spiritual care concerns: No Meds Home Medications and Allergies Home Medications Medication Instructions Recorded Confirmed Type hydrocodone 10 mg-acetaminophen 1 tablet PO Q8H PRN Pain (Scale 12/30/21 01/16/23 History 325 mg tablet Score 4-6) ipratropium 0.5 mg-albuterol 3 mg 3 ml inhalation QID PRN Shortness 12/30/21 01/16/23 History (2.5 mg base)/3 mL nebulization Of Breath Or Wheezing soln metoprolol tartrate 25 mg tablet 25 mg PO Q12HR #60 tabs 01/27/22 01/16/23 Rx pantoprazole 40 mg tablet,delayed 40 mg PO DAILY #30 tabs 01/27/22 01/16/23 Rx release furosemide 40 mg tablet 40 mg PO QAM 02/06/22 01/16/23 History umeclidinium 62.5 mcg/actuation 1 inh inhalation QAM #30 ea 02/23/22 01/16/23 Rx blister powder for inhalation (Incruse Ellipta) fluticasone propionate 230 2 puff inhalation QAM #12 grams 05/21/22 01/16/23 Rx mcg-salmeterol 21 mcg/actuation HFA inhaler (Advair HFA) albuterol sulfate 90 mcg/actuation 2 puff inhalation QID PRN 09/08/22 01/16/23 Rx aerosol inhaler shortness of breath or wheezing #8.5 grams cyanocobalamin (vitamin B-12) 1,000 mcg PO QAM #30 tabs 12/25/22 01/16/23 Rx 1,000 mcg tablet (Vitamin B-12) apixaban 5 mg tablet (Eliquis) 5 mg PO Q12HR #60 tabs 01/07/23 01/16/23 Rx sulfamethoxazole 800 1 tablet PO Q12H 01/16/23 01/16/23 History mg-trimethoprim 160 mg tablet Allergies Allergy/AdvReac Type Severity Reaction Status Date / Time sertraline AdvReac Severe loopy, Verified 01/16/23 12:26 tremors Exam Const: General: no acute distress Resp: Effort & Inspection: normal respiratory effort GI: Inspec
--- NOTE | 2023-01-25 16:03 | WPDANESEPPF ---
Anes - Initial Pre Proc Eval Procedure: Operation Date: 01/26/23 09:30 Proposed Procedures p Right Extracorporeal Shock Wave Lithotripsy, - Fred Guzman MD s Cystoscopy with Right Ureteral Stent Exchange - Fred Guzman MD Date/Time: 01/25/23 16:03 Surgeon: Fred Guzman MD Pre Op Diagnosis: right renal stones Patient Data Age: 62 Gender: F Height: 1.63 m Weight: 142 kg Allergies Allergy/AdvReac Type Severity Reaction Status Date / Time sertraline AdvReac Severe loopy, Verified 01/26/23 08:45 tremors Home Medications Medication Instructions Recorded Confirmed Type hydrocodone 10 mg-acetaminophen 1 tablet PO Q8H PRN Pain (Scale 12/30/21 01/16/23 History 325 mg tablet Score 4-6) ipratropium 0.5 mg-albuterol 3 mg 3 ml inhalation QID PRN Shortness 12/30/21 01/16/23 History (2.5 mg base)/3 mL nebulization Of Breath Or Wheezing soln metoprolol tartrate 25 mg tablet 25 mg PO Q12HR #60 tabs 01/27/22 01/16/23 Rx pantoprazole 40 mg tablet,delayed 40 mg PO DAILY #30 tabs 01/27/22 01/16/23 Rx release furosemide 40 mg tablet 40 mg PO QAM 02/06/22 01/16/23 History umeclidinium 62.5 mcg/actuation 1 inh inhalation QAM #30 ea 02/23/22 01/16/23 Rx blister powder for inhalation (Incruse Ellipta) fluticasone propionate 230 2 puff inhalation QAM #12 grams 05/21/22 01/16/23 Rx mcg-salmeterol 21 mcg/actuation HFA inhaler (Advair HFA) albuterol sulfate 90 mcg/actuation 2 puff inhalation QID PRN 09/08/22 01/16/23 Rx aerosol inhaler shortness of breath or wheezing #8.5 grams cyanocobalamin (vitamin B-12) 1,000 mcg PO QAM #30 tabs 12/25/22 01/16/23 Rx 1,000 mcg tablet (Vitamin B-12) apixaban 5 mg tablet (Eliquis) 5 mg PO Q12HR #60 tabs 01/07/23 01/16/23 Rx sulfamethoxazole 800 1 tablet PO Q12H 01/16/23 01/16/23 History mg-trimethoprim 160 mg tablet Patient hx anesthesia problems: none Family hx anesthesia problems: none Results Review: All pre-operative results and documents have been reviewed as part of the pre-operative evaluation. [facility] Past Medical History Medical History (Updated 01/26/23 @ 08:58 by Justin Celestin DO) Abnormal results of kidney function studies Anxiety CHF (congestive heart failure) EF 60-65% Chronic, continuous use of opioids COPD (chronic obstructive pulmonary disease) DVT (deep venous thrombosis) High body mass index Hypertension On home O2 Pyuria Family History Family History Other Alcoholism Deep vein thrombophlebitis of right leg Diabetes mellitus Heart disease Hypertension Social History Social History (Updated 01/26/23 @ 08:58 by Justin Celestin DO) Social History: Patient lives at home with her Smoking packs per day: 1 Smoking cigarettes per day: 20.0 Years smoked: 35 Smoking pack-years: 35.00 Smoking status: Former smoker Tobacco type: cigarettes Smoking end date: 12/27/21 Additional smoking assessment comments: RECENTLY QUIT Alcohol intake: never Substance use: former Substance use type: marijuana 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 Lack of Transportation: No Lack of Food: Never True Current Housing: I Have Housing Concerned About Future Housing: No Difficulty Paying Gas/Electric Bills: No Difficulty Paying for Meds: No Currently Unemployed: No Education: High School Diploma/GED Difficulty w/ Childcare or Family Care: No Living arrangements: with family Additional living arrangements comments: SPOUSE Spiritual care concerns: No Anes - Eval Final PreProcedure Day of Procedure 01/25/23 16:03 Patient weight: super morbidly obese Heart: regular rate and rhythm Lungs: clear to auscultation Airway: Mallampati scale class III and special considerations poor dentition Neurological: alert and oriented Last oral intake: >/= 8 hours ASA classification: IV E
[2023-01-26] VITALS (9 sets, daily range): BP systolic 149–201; BP diastolic 56–81; PULSE 73–85; RESP 12–18; TEMP 36.6–37.4; O2SAT 94–100
--- NOTE | ~2023-01-26 | XR_ITS ---
XR abdomen/kub 1V 01/26/2023 07:49 INDICATION: Preop ESWL TECHNIQUE: KUB COMPARISON: 01/01/2022 FINDINGS: Bowel gas pattern is normal. There is no evidence of free air, mass, organomegaly, ascites or obstruction. There is right internal ureteral stent present. There are multiple right renal stone s, largest residing adjacent to the proximal coil of the stent in the renal pelvis measuring approxim ately 1.6 cm. Bowel pattern nonobstructive. Moderate colonic fecal loading. There are cholecystectomy clips. There are pelvic phleboliths. The bones appear intact. IMPRESSION: 1: Right nephrolithiasis and the largest measuring approximately 1.6 cm. Right internal ureteral ashwin nt in expected position. Reviewed, dictated and finalized at location B. PEDDLER IMPRESSION: 1: Right nephrolithiasis and the largest measuring approximately 1.6 cm. Right internal ureteral stent in expected position.
--- NOTE | 2023-01-26 06:42 | WPDHPUPDATE1 ---
History and Physical Update Update Date/Time: 01/26/23 06:42 History and Physical has been reviewed, including an updated exam of the patient. There are NO changes in the patient's condition. Risks, benefits, and alternatives have been discussed and questions answered. Patient agrees to proceed with procedure.
[2023-01-26] MEDS: LACTATED RINGERS 1,000 ML 30 ML IV CONT (09:27)
[2023-01-26] MEDS: ceFAZolin 3 GM/D5W 100 ML 100 ML IVPB (09:32)
--- NOTE | 2023-01-26 10:06 | W.PM.PROC2 ---
Procedure Note - Detailed Date of Procedure 01/26/23 Pre-op Diagnosis Right renal stones Post-op Diagnosis Same Procedure Performed Cystoscopy, right ureteral stent exchange, right ESWL Surgeon Fred Guzman MD Anesthesia General Description of Procedure patient brought the op suite for she was 1st prepped and draped in routine sterile fashion while in a frog-leg position. Sixteen F flexible cystoscope was placed in her bladder. The indwelling ureteral stent is removed surprisingly easily and replaced with a new 4.8 F variable length stent positioned with the proximal coil in the renal pelvis and distal coil bladder. Was done over 0.03 in glidewire. Bladder shows mucosal other than hyperemia expected with an indwelling stent for a year. She was then positioned in supine position. The focal point of the Lithotripter was placed under 10 mm pelvic stone were a total of 2500 shocks were delivered at a power setting to 4. Drains No Packing No Pathology None sent Complications No immediate complications
[2023-01-26] MEDS: fentaNYL CITRATE INJ (*CRX) 100 MCG/2 ML VIAL 25 MCG IV PUSH ×8 (10:46→11:11)
[2023-01-26] MEDS: oxyCODONE HCL (*CRX) 5 MG TAB IR PO (11:44)
== END | disposition home or self-care (01) ==
PROVIDERS: PCP Family Medicine; Visit Provider Urology
PROC: (CPT 50590; principal; 2023-01-26 09:30)
PROC: (CPT 52310; 2023-01-26 09:30)
DX: N20.0 Calculus of kidney (principal); I10 Essential (primary) hypertension; Z86.718 Personal history of other venous thrombosis and embolism; Z87.891 Personal history of nicotine dependence
CPT/HCPCS: 50590; 52332; 74018; A9270; C1769; C2617; J0690; J1100; J2250; J2405; J2704; J3010; J7120

== ENCOUNTER 2023-04-08 09:47 | Inpatient (IN) | payer MEDICARE, MEDICAID, SELFPAY ==
[2023-04-08] VITALS (13 sets, daily range): BP systolic 152–235; BP diastolic 64–94; PULSE 58–69; RESP 16–18; TEMP 36.4–36.8; O2SAT 97–100; BMI 47.7
--- NOTE | 2023-04-08 | ECG_ITS ---
Measurements Intervals [place] Rate: P: TX: QRS: QRSD: T: QT: QTc: Interpretive Statements NORMAL SINUS RHYTHM NORMAL ELECTROCARDIOGRAM Electronically Signed On 04-16-2023 7:00:39 ASSOCIATE MEDIA DIRECTOR by Abdifatah Gaytan M.D.
--- NOTE | ~2023-04-08 | US_ITS ---
EXAMINATION: US abdomen limited DATE: 04/13/2023 20:17 INDICATION: elevated liver function panel, pain TECHNIQUE: Multiple grayscale and Doppler ultrasound images of limited portions of the abdomen were o btained. COMPARISON: CT abdomen pelvis 04/08/2023. FINDINGS: The visualized portions of the pancreas are normal. The liver is normal with normal echogen icity and echotexture. No surface nodularity. Normal hepatopetal flow in the main portal vein. The ga llbladder is surgically absent. The common bile duct measures 5 mm. There was no sonographic Kendrick s ign. IMPRESSION: Status post cholecystectomy. Otherwise normal limited abdominal ultrasound findings. Reviewed, dictated and finalized at location K. SERVICES SUPERVISOR IMPRESSION: Status post cholecystectomy. Otherwise normal limited abdominal ultrasound find ings.
--- NOTE | ~2023-04-08 | CT_ITS ---
EXAMINATION: CT abdomen pelvis wo con DATE: 04/08/2023 11:39 INDICATION: Right abdominal pain. TECHNIQUE: Computed tomography (CT) of the abdomen and pelvis was performed without intravenous contr ast. Automated exposure control and iterative reconstruction technique were employed. The dose-length product was 1344.80 mGy-cm. COMPARISON: CT abdomen and pelvis 12/21/2022 FINDINGS: The visualized portions of the lung bases demonstrate mild atelectasis. There are a few nod ules in left lower lobe measuring up to 3 mm, likely benign. No pleural effusion. Cardiomegaly is not ed. No pericardial effusion. The liver and spleen are normal. There are changes of cholecystectomy. T he adrenal glands, pancreas, and left kidney are normal. There are approximately 7 stones in right ki dney measuring up to 12 mm. There is a right internal ureteral stent in expected position. There is d iverticulosis of the colon without evidence of diverticulitis. There are no dilated loops of bowel. T he appendix is not visualized. There is calcified atherosclerosis of the aorta and many of the other arteries. There are no pathologically enlarged lymph nodes. There is no free intraperitoneal fluid. T here is severe lumbar spondylosis. There are bridging endplate osteophytes at multiple levels in the thoracic spine, consistent with diffuse idiopathic skeletal hyperostosis (DISH). IMPRESSION: 1. Nonobstructing right kidney stones. Right internal ureteral stent in expected position. Reviewed, dictated and finalized at location A. ATION INTERN IMPRESSION: 1. Nonobstructing right kidney stones. Right internal ureteral stent in expecte d position.
--- NOTE | ~2023-04-08 | XR_ITS ---
EXAMINATION: XR abdomen/kub 1V DATE: 04/08/2023 12:47 INDICATION: Ureterolithiasis. TECHNIQUE: A supine view of the abdomen on 2 radiographs was obtained. COMPARISON: Abdomen radiographs 01/26/2023, CT abdomen and pelvis 04/08/2023 FINDINGS: There are no dilated loops of bowel. There are stones in the right kidney and right renal p luz maria measuring up to 12 mm. There is a right internal ureteral stent in expected position. Surgical clips in the right upper quadrant are likely from cholecystectomy. IMPRESSION: 1. Stones in right kidney and right renal pelvis measuring up to 12 mm 2. Right internal ureteral stent in expected position. Reviewed, dictated and finalized at location A. CLOCK MECHANIC
--- NOTE | 2023-04-08 10:22 | ED.FEMALEGU ---
HPI - Female Genitourinary General Chief complaint: Urogenital-Female <Telma Najera PA-C - Last Filed: 04/08/23 13:29> Stated complaint: kidney stones <ISABEL Macdonald Last Filed: 04/08/23 13:29> Time Seen by Provider: 04/08/23 10:04 <ISABEL Macdonald Last Filed: 04/08/23 13:29> Source: patient <ISABEL Macdonald Last Filed: 04/08/23 13:29> Mode of arrival: ambulatory <ISABEL Macdonald Last Filed: 04/08/23 13:29> Limitations: no limitations <ISABEL Macdonald Last Filed: 04/08/23 13:29> History of Present Illness HPI Narrative: This is a 62-year-old female that presents to the emergency department for right-sided abdominal pain. Associated with nausea, vomiting and hematuria. Reports history of kidney stones in that her pain feels similar. Denies fevers. <ISABEL Macdonald Last Filed: 04/08/23 13:29> Related Data Home medications: Home Medications Medication Instructions Recorded Confirmed hydrocodone 10 mg-acetaminophen 1 tablet PO Q8H PRN Pain (Scale 12/30/21 04/08/23 325 mg tablet Score 4-6) ipratropium 0.5 mg-albuterol 3 mg 3 ml inhalation QID PRN Shortness 12/30/21 04/08/23 (2.5 mg base)/3 mL nebulization Of Breath Or Wheezing soln furosemide 40 mg tablet 40 mg PO QAM 02/06/22 04/08/23 <ISABEL Macdonald Last Filed: 04/08/23 13:29> Allergies/Adverse reactions: Allergies Allergy/AdvReac Type Severity Reaction Status Date / Time sertraline AdvReac Severe loopy, Verified 01/26/23 08:45 tremors <ISABEL Macdonald Last Filed: 04/08/23 13:29> Review of Systems Review of Systems: CONSTITUTIONAL: Denies fever GASTROINTESTINAL: Reports abdominal pain, nausea, vomiting GENITOURINARY: Reports hematuria and dysuria <Telma Najera PA-C - Last Filed: 04/08/23 13:29> All systems reviewed & are unremarkable except as noted in HPI and below <Telma Najera PA-C - Last Filed: 04/08/23 13:29> [facility] Past Medical History Medical History: Medical History (Updated 04/08/23 @ 13:44 by Haven Jerome PA-C) Anxiety Chronic anemia Chronic anticoagulation Chronic obstructive pulmonary disease Chronic respiratory failure with hypoxia, on home oxygen therapy Chronic, continuous use of opioids Deep venous thrombosis Degenerative disc disease Depression Gastroesophageal reflux disease Heart failure with preserved ejection fraction Echocardiogram in July 2022 showed normal LV chamber size and function with an estimated EF of 60 to 65% grade 1 diastolic dysfunction. Hypertension Infection due to ESBL-producing Escherichia coli Morbid obesity <Telam Najera PA-C - Last Filed: 04/08/23 13:29> Surgical History Surgical History: Surgical History (Updated 04/08/23 @ 13:39 by Haven Jerome PA-C) History of appendectomy History of section History of cholecystectomy History of cystoscopy History of endometrial ablation History of fusion of cervical spine History of lithotripsy History of ureter stent <Telma Najera PA-C - Last Filed: 04/08/23 13:29> Family History Family History: Family History Other Alcoholism Deep vein thrombophlebitis of right leg Diabetes mellitus Heart disease Hypertension <Telma Najera PA-C - Last Filed: 04/08/23 13:29> Social History Social History: Social History (Updated 04/08/23 @ 13:41 by Haven Jerome PA-C) Social History: Surrogate medical decision maker: Rudolph Raffaele, spouse. Code status: Full code. Smoking packs per day: 1 Smoking cigarettes per day: 20.0 Years smoked: 50 Smoking pack-years: 50.00 Smoking status: Current every day smoker Tobacco type: cigarettes Smoking end date: 12/27/21 Alcohol intake: former Substance use: never Last use: per pt she hasn't drank in 30 yrs Do You Feel Safe in your H
[2023-04-08 10:52] LABS: Basophils Percent Auto 0.5 % (0.2-1.2); Eosinophils Absolute Auto 0.5 K/mm3 (0-0.3); Hematocrit 34.9 % (37.0-47.0); Hemoglobin 10.7 g/dL (12.0-15.0); Immature Granulocyte Absolute 0.01 K/mm3 (0.00-0.031); Immature Granulocyte Percent A 0.1 % (0-0.5); Lymphocytes Absolute Auto 1.55 K/mm3 (0.9-3.2); Lymphocytes Percent Auto 20.5 % (18.3-44.2); Mean Corpuscular HGB Conc 30.7 g/dl (32-36); Mean Corpuscular Hemoglobin 27.6 pg (26-34); Mean Corpuscular Volume 89.9 fl (80-100); Mean Platelet Volume 9.2 fl (7.4-10.4); Monocytes Absolute Auto 0.4 K/mm3 (0.1-0.6); Monocytes Percent Auto 5.2 % (2.6-8.5); Neutrophils Absolute Auto 5.1 K/mm3 (1.3-6.7); Neutrophils Percent Auto 67.7 % (45.5-73.1); Platelet Count Result 213 k/mm3 (150-375); Red Blood Count 3.88 M/mm3 (4.2-5.4); Red Cell Distribution Width 15.1 % (11.5-14.5); White Blood Count 7.6 K/mm3 (4.5-10.0)
[2023-04-08 10:58] LABS: Appearance Urine Cloudy (Clear); Bacteria Urine 4+ /hpf; Bilirubin Urine Negative (Negative); Blood Urine 3+ (Negative); Color Urine Yellow (Yellow); Glucose Urine UA Negative (Negative); Ketones Urine Negative (Negative); Leukocyte Esterase Ur 3+ LEU/UL (Negative); Nitrate Urine Positive (Negative); Non Pathogenic Casts 0-2; Protein Urine 1+ mg/dL (Negative); RBC Urine 51-100 /hpf (0-2); Specific Grav Ur 1.007 (1.001-1.035); Squamous Epithelial Cell Urine None seen /hpf (Few); Urobilinogen Urine 0.2 mg/dL (<2.0); WBC Urine >100 /hpf; pH Urine 6.5 (5.0-9.0)
[2023-04-08 11:02] LABS: Alanine Aminotransferase 7 U/L (6-35); Albumin Level 4.2 g/dL (3.5-5.1); Alkaline Phosphatase 116 U/L (38-126); Anion Gap 6 mmol/L (8-16); Aspartate Amino Transferase 18 U/L (14-36); Bilirubin,Total 0.6 mg/dL (0.2-1.3); Blood Urea Nitrogen 20 mg/dL (7-17); Calcium 9.1 mg/dL (8.4-10.2); Carbon Dioxide 31 mmol/L (22-30); Chloride 101 mmol/L (98-107); Estimated Glomerular Filt Rate 56; Glucose 95 mg/dL (65-110); Lipase 55 U/L (23-300); Potassium 4.4 mmol/L (3.4-5.0); Sodium 138 mmol/L (137-145)
[2023-04-08 11:05] LABS: Add Urine Microscopic? YES
[2023-04-08] MEDS: ONDANSETRON INJ 4 MG/2 ML VIAL IV PUSH (11:13)
[2023-04-08] MEDS: MORPHINE SULFATE (*CRX) 4 MG/ML INJ IV PUSH ×2 (11:13→12:56)
[2023-04-08 11:43] LABS: Lactic Acid Reflex 0.6 mmol/L (0.7-2.0)
--- NOTE | 2023-04-08 12:38 | WPDURCON ---
Assessment and Plan Assessment and plan (1) Acute cystitis: Qualifiers: Hematuria presence: with hematuria Qualified Code(s): N30.01 - Acute cystitis with hematuria Code(s): N30.00 - Acute cystitis without hematuria Status: Acute (2) Right renal stone: Code(s): N20.0 - Calculus of kidney Status: Acute Plan 62 year old female with unchanged 12 mm right renal stone with stent in place and no obstruction presenting with UTI and nausea/vomiting - started meropenem; urine culture pending - admitting her to hospitalist for pain control and supportive care - stent currently in good position but unchanged right renal stone. Will have our PA speak with Dr. Guzman tomorrow about plan for right renal stone/right stent. I have emphasized to the patient that the ureteral stent is temporary and will need to be removed. Emphasized need for her to have close urologic follow up. Urology Consult Note HPI Date Seen: 04/08/23 Requesting Physician: HERON Lopez Primary Care Provider: Maria G Lantigua MD Consult Narrative Narrative: Desiree Castorena is a 62 year old female presenting to ER with 2 days of nausea, vomiting and right flank pain. Was initially diagnosed with 10 mm right UPJ stone in December 2021 s/p stent placement with Dr. Guzman. She did not follow up until she was admitted to [place] in November 2022 for pyelonephritis. The pyelonephritis was treated and she underwent cystoscopy, right stent exchange and right ESWL by Dr. Guzman on 01/26/23. She was unaware that she needed to follow up for stent removal. Over the last two days, has had nausea, vomiting, flank pain, and hematuria. CT in ER showed 12 mm right renal pelvis stone (unchanged from prior to ESWL) with right ureteral stent in position with no hydronephrosis. UA is positive for infection and ER staff has started meropenem based on prior urine culture results. Review of Systems Review of Systems: CONSTITUTIONAL: Denies fever GASTROINTESTINAL: Reports abdominal pain, nausea, vomiting GENITOURINARY: Reports hematuria. Denies dysuria All systems reviewed & are unremarkable except as noted in HPI and below PMFSH Past Medical History Medical History (Updated 04/08/23 @ 12:47 by Terri Castorena MD) Abnormal results of kidney function studies Anxiety CHF (congestive heart failure) EF 60-65% Chronic, continuous use of opioids COPD (chronic obstructive pulmonary disease) DVT (deep venous thrombosis) High body mass index Hypertension On home O2 Pyuria Family History Family History Other Alcoholism Deep vein thrombophlebitis of right leg Diabetes mellitus Heart disease Hypertension Social History Social History (Updated 01/26/23 @ 08:58 by Justin Celestin DO) Social History: Patient lives at home with her Smoking packs per day: 1 Smoking cigarettes per day: 20.0 Years smoked: 35 Smoking pack-years: 35.00 Smoking status: Former smoker Tobacco type: cigarettes Smoking end date: 12/27/21 Additional smoking assessment comments: RECENTLY QUIT Alcohol intake: never Substance use: former Substance use type: marijuana 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 Lack of Transportation: No Lack of Food: Never True Current Housing: I Have Housing Concerned About Future Housing: No Difficulty Paying Gas/Electric Bills: No Difficulty Paying for Meds: No Currently Unemployed: No Education: High School Diploma/GED Difficulty w/ Childcare or Family Care: No Living arrangements: with family Additional living arrangements comments: [place] Spiritual care concerns: No Meds Home Medications and Allergies Home Medications Medication Instructions Recorded Confirmed Type hydrocodone 10 mg-acetaminophen 1 tablet PO Q8H PRN Pain (Scale 12/30/21 01/26/23 History 325 mg tablet Score
[2023-04-08] MEDS: MEROPENEM 1 GM/NS 100 ML 1 GM/100 ML BAG IVPB ×2 (12:51→21:07)
--- NOTE | 2023-04-08 13:24 | PM.IMHP ---
H&P: HPI History of Present Illness Date/Time: 04/08/23 13:25 Chief Complaint: Right sided abdominal pain. Narrative: This is a 62-year-old female with history of kidney stones, ESBL E coli UTI, heart failure with preserved ejection fraction, hypertension, chronic obstructive pulmonary disease, deep venous thrombosis, rheumatoid arthritis, and other comorbidities who presented to the emergency department for evaluation of right-sided abdominal pain. The patient provides the following history. She presents with colicky right-sided abdominal pain associated with nausea, vomiting, and hematuria for a couple of days. These symptoms symptoms are similar to when she had prior kidney stones. She endorses sweats but has not had a fever to her knowledge. Denies diarrhea. In the ED: She was afebrile on arrival. Blood pressures had been running but are improving with IV pain medications. Labs were significant for normal WBC count, stable hemoglobin, BUN 20, creatinine 1.00. Urine was positive for blood, nitrates, leukocyte esterase, many white blood cells, and bacteria. CT of the abdomen pelvis showed nonobstructing right kidney stones and a right internal ureteral stent in expected position. It looks like the stent was exchanged 01/26/[address] Guzman. She is being admitted in this setting for IV antibiotics and urology consultation. Review of Systems Review of Systems: Twelve systems were reviewed and are negative except for as per HPI. [facility] Past Medical History Medical History Anxiety Chronic anemia Chronic anticoagulation Chronic obstructive pulmonary disease Chronic respiratory failure with hypoxia, on home oxygen therapy Chronic, continuous use of opioids Deep venous thrombosis Degenerative disc disease Depression Gastroesophageal reflux disease Heart failure with preserved ejection fraction Echocardiogram in July 2022 showed normal LV chamber size and function with an estimated EF of 60 to 65% grade 1 diastolic dysfunction. Hypertension Infection due to ESBL-producing Escherichia coli Morbid obesity Surgical History Surgical History History of appendectomy History of section History of cholecystectomy History of cystoscopy History of endometrial ablation History of fusion of cervical spine History of lithotripsy History of ureter stent Family History Family History Other Alcoholism Deep vein thrombophlebitis of right leg Diabetes mellitus Heart disease Hypertension Social History Social History Social History: Surrogate medical decision maker: Rudolph Castorena, spouse. Code status: Full code. Smoking packs per day: 1 Smoking cigarettes per day: 20.0 Years smoked: 50 Smoking pack-years: 50.00 Smoking status: Current every day smoker Tobacco type: cigarettes Smoking end date: 12/27/21 Alcohol intake: former Substance use: never Last use: per pt she hasn't drank in 30 yrs Do You Feel Safe in your Home?: Yes Lack of Transportation: No Lack of Food: Never True Current Housing: I Have Housing Concerned About Future Housing: No Difficulty Paying Gas/Electric Bills: No Difficulty Paying for Meds: No Currently Unemployed: No Education: Trade/Vocational Certificate Difficulty w/ Childcare or Family Care: No Living arrangements: with family Additional living arrangements comments: Lives with in [place]. Spiritual care concerns: No Meds Home Medications and Allergies Home Medications Medication Instructions Recorded Confirmed Type hydrocodone 10 mg-acetaminophen 1 tablet PO Q8H PRN Pain (Scale 12/30/21 04/08/23 History 325 mg tablet Score 4-6) ipratropium 0.5 mg-albuterol 3 mg 3 ml inhalation QID PRN Shor
--- NOTE | 2023-04-08 15:03 | PC.NURSE ---
This patient, Desiree Castorena, was admitted to Medical Room 257-01. Patient/family oriented to hospital policies and general routines including ID bracelet, bed and alarms, visiting hours, pain management, procedures, bathroom and other care routines, personal items, smoking policy, room service/diet, and visiting hours. Information on how to activate the Rapid Response Team has been discussed. Patient/Family are encouraged to report perceived risks to care and to ask questions if they do not understand what they are told or what they should do.
[2023-04-08] MEDS: MORPHINE SULFATE (*CRX) 2 MG/ML INJ IV PUSH (16:00)
[2023-04-08] MEDS: HYDROmorphone HCL INJ (*CRX) 1 MG/ML SYR IV PUSH ×2 (18:08→21:07)
[2023-04-08] MEDS: HYDROcodone/acetaminophen (*CRX) 5-325 MG TABLET 1 TAB PO (19:53)
[2023-04-08] MEDS: METOPROLOL TARTRATE 25 MG TABLET PO (22:38)
[2023-04-09] VITALS (14 sets, daily range): BP systolic 121–172; BP diastolic 50–62; PULSE 52–78; RESP 16–20; TEMP 35.7–36.6; O2SAT 90–100
[2023-04-09] MEDS: ALPRAZolam (*CRX) 0.25 MG TABLET PO (00:46)
[2023-04-09] MEDS: HYDROmorphone HCL INJ (*CRX) 1 MG/ML SYR IV PUSH ×5 (00:46→17:26)
[2023-04-09] MEDS: MEROPENEM 1 GM/NS 100 ML 1 GM/100 ML BAG IVPB ×3 (05:39→21:02)
[2023-04-09 05:41] LABS: Basophils Absolute Auto 0.1 K/mm3 (0.0-0.1); Basophils Percent Auto 0.8 % (0.2-1.2); Eosinophils Absolute Auto 0.4 K/mm3 (0-0.3); Hemoglobin 11.2 g/dL (12.0-15.0); Immature Granulocyte Absolute 0.02 K/mm3 (0.00-0.031); Immature Granulocyte Percent A 0.3 % (0-0.5); Lymphocytes Absolute Auto 1.79 K/mm3 (0.9-3.2); Lymphocytes Percent Auto 27.4 % (18.3-44.2); Mean Corpuscular HGB Conc 30.3 g/dl (32-36); Mean Corpuscular Hemoglobin 27.7 pg (26-34); Mean Corpuscular Volume 91.4 fl (80-100); Monocytes Absolute Auto 0.6 K/mm3 (0.1-0.6); Monocytes Percent Auto 9.2 % (2.6-8.5); Neutrophils Absolute Auto 3.7 K/mm3 (1.3-6.7); Neutrophils Percent Auto 56.3 % (45.5-73.1); Platelet Count Result 197 k/mm3 (150-375); Red Blood Count 4.05 M/mm3 (4.2-5.4); Red Cell Distribution Width 15.2 % (11.5-14.5); White Blood Count 6.5 K/mm3 (4.5-10.0)
[2023-04-09 05:54] LABS: Anion Gap 4 mmol/L (8-16); Blood Urea Nitrogen 19 mg/dL (7-17); Calcium 8.9 mg/dL (8.4-10.2); Carbon Dioxide 33 mmol/L (22-30); Chloride 101 mmol/L (98-107); Estimated CRCL calculation 62 ml/min; Estimated Glomerular Filt Rate 50; Glucose 92 mg/dL (65-110); Magnesium 2.3 mg/dL (1.6-2.3); Potassium 4.1 mmol/L (3.4-5.0); Sodium 138 mmol/L (137-145)
[2023-04-09] MEDS: FUROSEMIDE 40 MG TABLET PO (09:16)
[2023-04-09] MEDS: PANTOPRAZOLE 40 MG TABLET PO (09:16)
[2023-04-09] MEDS: METOPROLOL TARTRATE 25 MG TABLET PO ×2 (09:16→20:50)
--- NOTE | 2023-04-09 09:22 | WPDUROPN2 ---
Progress Note: A&P Assessment and Plan (1) Acute cystitis: Qualifiers: Hematuria presence: with hematuria Qualified Code(s): N30.01 - Acute cystitis with hematuria Code(s): N30.00 - Acute cystitis without hematuria Status: Acute (2) Right renal stone: Code(s): N20.0 - Calculus of kidney Status: Acute Plan 62 year old female with unchanged 12 mm right renal stone with stent in place and no obstruction presenting with UTI and nausea/vomiting - continue meropenem; urine culture pending - stent currently in good position but unchanged 12 mm right renal stone. Will arrange outpatient follow-up for definitive right renal stone treatment. Reinforced that stent is temporary in nature and she will require outpatient follow-up and stent removal at a later date following resolution of infection, she voiced understanding Subjective Subjective Date/Time Seen: 04/09/23 09:22 Interval history: Desiree is doing fairly well today. She endorses 7/10 right flank pain, though notes improvement from yesterday. She does endorse nausea but no vomiting. She is able to tolerate her diet. She complains of chills and sweats but denies fever. Her white blood cell count is within normal limits, 6.5. Creatinine is 1.1. She is afebrile and her vital signs are stable. Urine culture is pending. Review of Systems Review of Systems: All systems reviewed & are unremarkable except as noted in HPI and below Exam Narrative: General: Awake, alert, comfortable, no acute distress HEENT: Normocephalic, atraumatic, sclerae anicteric Respiratory: Normal respiratory effort, no accessory muscle use Abdomen: Nondistended, soft, nontender Skin: Normal coloration, warm and dry Neurologic: No focal neuro deficits noted Psychiatric: Appropriate mood and affect, judgment and insight intact Objective Data Vital Signs Vital Signs: Vital Signs - 24 hr 04/08/23 10:00 04/08/23 11:15 04/08/23 10:30 Temperature 98.3 F Pulse Rate 63 66 69 Respiratory Rate 16 16 18 Blood Pressure 235/94 H 191/91 H 212/78 H Pulse Oximetry 98 100 99 Oxygen Delivery Room Air Oxygen Flow Rate 04/08/23 13:00 04/08/23 12:00 04/08/23 14:00 Temperature Pulse Rate 66 66 60 Respiratory Rate 16 16 18 Blood Pressure 152/82 H 164/72 H 173/64 H Pulse Oximetry 97 100 100 Oxygen Delivery Oxygen Flow Rate 04/08/23 10:00 04/08/23 14:00 04/08/23 14:35 Temperature Pulse Rate 58 L 60 Respiratory Rate 18 16 Blood Pressure 173/64 H 169/68 H Pulse Oximetry 100 100 100 Oxygen Delivery Nasal Cannula Oxygen Flow Rate 3 04/08/23 15:42 04/08/23 15:15 04/08/23 16:01 Temperature 97.7 F Pulse Rate 60 62 Respiratory Rate 18 Blood Pressure 188/72 H Pulse Oximetry 100 100 Oxygen Delivery Nasal Cannula Oxygen Flow Rate 4 04/08/23 20:00 04/08/23 20:35 04/08/23 22:38 Temperature 97.6 F Pulse Rate 67 60 67 Respiratory Rate 16 Blood Pressure 156/70 H Pulse Oximetry 100 Oxygen Delivery Oxygen Flow Rate 04/08/23 20:00 04/09/23 00:00 04/09/23 01:02 Temperature 97.8 F Pulse Rate 67 53 L 60 Respiratory Rate 16 16 Blood Pressure 143/60 H Pulse Oximetry 100 100 Oxygen Delivery Nasal Cannula Oxygen Flow Rate 4 04/09/23 04:00 04/09/23 05:56 04/09/23 08:00 Temperature 97.7 F 97.6 F Pulse Rate 54 L 78 65 Respiratory Rate 16 16 Blood Pressure 121/50 L 172/51 H Pulse Oximetry 98 95 Oxygen Delivery Oxygen Flow Rate 04/09/23 09:16 Temperature Pulse Rate 61 Respiratory Rate Blood Pressure Pulse Oximetry Oxygen Delivery Oxygen Flow Rate Intake/Output Intake/Output: Intake & Output 04/06/23 04/07/23 04/08/23 04/09/23 23:59 23:59 23:59 23:59 Intake Total 250 600 Balance 250 600 Meds/Results Medications: Active Medications Generic Name Dose Route Start Last Admin Trade Name Freq PRN Reason Stop Dose Admin Acetaminophen
[2023-04-09] MEDS: UMECLIDINIUM BROMIDE 62.5 MCG ELLIPTA 1 PUFF INHALATION (09:55)
[2023-04-09] MEDS: FLUTICASONE/SALMETEROL 230-21 MCG INHALER 1 PUFF INHALATION ×2 (09:55→21:13)
--- NOTE | 2023-04-09 12:39 | PM.IMPN ---
Progress Note: A&P Assessment and Plan (1) Acute cystitis: Qualifiers: Hematuria presence: with hematuria Qualified Code(s): N30.01 - Acute cystitis with hematuria Code(s): N30.00 - Acute cystitis without hematuria Status: Acute (2) Right renal stone: Code(s): N20.0 - Calculus of kidney Status: Acute (3) Morbid obesity: Code(s): E66.01 - Morbid (severe) obesity due to excess calories Status: Acute (4) CHF (congestive heart failure): Qualifiers: Heart failure type: diastolic Heart failure chronicity: chronic Qualified Code(s): I50.32 - Chronic diastolic (congestive) heart failure Code(s): I50.9 - Heart failure, unspecified Status: Acute (5) Chronic anticoagulation: Code(s): Z79.01 - shelter (current) use of anticoagulants Status: Acute (6) Chronic respiratory failure with hypoxia, on home oxygen therapy: Code(s): J96.11 - Chronic respiratory failure with hypoxia; Z99.81 - Dependence on supplemental oxygen Status: Acute Plan Calculus of RT kidney -Urology following -12MM RT kidney non-obsturcting -Stent in place -slow gentle IV hydration due to HX of CHF -Monitor for fevers and WBC UTI -Urine cultures Pending -Continue IV hydration. -Monitor CBC, CMP watch for sepsis. -Monitor vital signs. -meropenem IV pending sensitivities HX of ESBL -Monitor for obstructive uropathy and pyelonephritis Chronic respiratory failure -stable -continue home supplemental oxygen -continue inhalers Chronic diastolic CHF -stable this time. Exacerbation -continue p.o. Lasix -gentle IV hydration monitor for overload Code status: Full code per patient DVT prophylaxis: Eliquis on hold/SCDs Stress ulcer prophylaxis: Protonix 40 daily PT/OT notes: Ambulatory Disposition: Patient to continue admission to the medical-surgical unit for further evaluation treatment of calculus with UTI pending cultures and sensitivities. Patient is ambulatory and plan will be to discharge back to home when medically stable Time Spent With Patient Time with patient: 25 - 35 minutes Subjective Date/time seen: 04/09/23 12:39 Interval history: Chief Complaint: Right sided abdominal pain. Narrative: This is a 62-year-old female with history of kidney stones, ESBL E coli UTI, heart failure with preserved ejection fraction, hypertension, chronic obstructive pulmonary disease, deep venous thrombosis, rheumatoid arthritis, and other comorbidities who presented to the emergency department for evaluation of right-sided abdominal pain. The patient provides the following history. She presents with colicky right-sided abdominal pain associated with nausea, vomiting, and hematuria for a couple of days. These symptoms symptoms are similar to when she had prior kidney stones. She endorses sweats but has not had a fever to her knowledge. Denies diarrhea. In the ED: She was afebrile on arrival. Blood pressures had been running but are improving with IV pain medications. Labs were significant for normal WBC count, stable hemoglobin, BUN 20, creatinine 1.00. Urine was positive for blood, nitrates, leukocyte esterase, many white blood cells, and bacteria. CT of the abdomen pelvis showed nonobstructing right kidney stones and a right internal ureteral stent in expected position. It looks like the stent was exchanged 01/26/[address] Guzman. She is being admitted in this setting for IV antibiotics and urology consultation. 04/09: Patient continues to have [id number] RT CVA pain and reports of intermittent anxiety. Remains afebrila but reports chills and night sweats. Normal WBC, previous UTI ECOLI resistant to cephalosporins will continue with IV meropenem pending culture sensitivities. 12MM stone right renal with stent in place non-obstructing will given gentle hydration due to patient history of CHF. Review of Systems Review of Systems:
[2023-04-09] MEDS: ALPRAZolam (*CRX) 0.5 MG TABLET PO (20:13)
[2023-04-09] MEDS: HYDROcodone/acetaminophen (*CRX) 5-325 MG TABLET 1 TAB PO (20:13)
[2023-04-10] VITALS (10 sets, daily range): BP systolic 148–183; BP diastolic 50–60; PULSE 56–66; RESP 18–20; TEMP 35.9–36.4; O2SAT 95–100
[2023-04-10] MEDS: HYDROcodone/acetaminophen (*CRX) 5-325 MG TABLET 1 TAB PO ×3 (03:24→18:45)
[2023-04-10] MEDS: MEROPENEM 1 GM/NS 100 ML 1 GM/100 ML BAG IVPB ×3 (05:06→22:27)
[2023-04-10 06:23] LABS: Hematocrit 33.5 % (37.0-47.0); Hemoglobin 10.1 g/dL (12.0-15.0); Mean Corpuscular HGB Conc 30.1 g/dl (32-36); Mean Corpuscular Hemoglobin 27.6 pg (26-34); Mean Corpuscular Volume 91.5 fl (80-100); Mean Platelet Volume 9.5 fl (7.4-10.4); Platelet Count Result 192 k/mm3 (150-375); Red Blood Count 3.66 M/mm3 (4.2-5.4); Red Cell Distribution Width 15.3 % (11.5-14.5); White Blood Count 5.9 K/mm3 (4.5-10.0)
[2023-04-10 06:42] LABS: Alanine Aminotransferase 6 U/L (6-35); Albumin Level 3.5 g/dL (3.5-5.1); Alkaline Phosphatase 76 U/L (38-126); Anion Gap 5 mmol/L (8-16); Aspartate Amino Transferase 15 U/L (14-36); Bilirubin,Total 0.5 mg/dL (0.2-1.3); Blood Urea Nitrogen 18 mg/dL (7-17); Calcium 8.6 mg/dL (8.4-10.2); Carbon Dioxide 34 mmol/L (22-30); Chloride 101 mmol/L (98-107); Estimated CRCL calculation 67 ml/min; Estimated Glomerular Filt Rate 56; Glucose 127 mg/dL (65-110); Potassium 3.5 mmol/L (3.4-5.0); Sodium 140 mmol/L (137-145)
[2023-04-10] MEDS: UMECLIDINIUM BROMIDE 62.5 MCG ELLIPTA 1 PUFF INHALATION (08:25)
[2023-04-10] MEDS: FLUTICASONE/SALMETEROL 230-21 MCG INHALER 1 PUFF INHALATION ×2 (08:25→20:53)
[2023-04-10] MEDS: ALPRAZolam (*CRX) 0.5 MG TABLET PO ×2 (08:35→22:28)
[2023-04-10] MEDS: PANTOPRAZOLE 40 MG TABLET PO (08:35)
[2023-04-10] MEDS: FUROSEMIDE 40 MG TABLET PO (08:35)
[2023-04-10] MEDS: METOPROLOL TARTRATE 25 MG TABLET PO ×2 (08:35→22:27)
--- NOTE | 2023-04-10 11:12 | PM.IMPN ---
Progress Note: A&P Assessment and Plan (1) Acute cystitis: Qualifiers: Hematuria presence: with hematuria Qualified Code(s): N30.01 - Acute cystitis with hematuria Code(s): N30.00 - Acute cystitis without hematuria Status: Acute (2) Right renal stone: Code(s): N20.0 - Calculus of kidney Status: Acute (3) Morbid obesity: Code(s): E66.01 - Morbid (severe) obesity due to excess calories Status: Acute (4) CHF (congestive heart failure): Qualifiers: Heart failure type: diastolic Heart failure chronicity: chronic Qualified Code(s): I50.32 - Chronic diastolic (congestive) heart failure Code(s): I50.9 - Heart failure, unspecified Status: Acute (5) Chronic anticoagulation: Code(s): Z79.01 - prison (current) use of anticoagulants Status: Acute (6) Chronic respiratory failure with hypoxia, on home oxygen therapy: Code(s): J96.11 - Chronic respiratory failure with hypoxia; Z99.81 - Dependence on supplemental oxygen Status: Acute Plan Calculus of RT kidney -Urology following -12MM RT kidney non-obsturcting -Stent in place -slow gentle IV hydration due to HX of CHF -Monitor for fevers and WBC UTI -Urine cultures ECOLI pending sensitivities -Monitor CBC, CMP watch for sepsis. -Monitor vital signs. -meropenem IV pending sensitivities HX of ESBL -Monitor for obstructive uropathy and pyelonephritis Chronic respiratory failure -stable -continue home supplemental oxygen -continue inhalers Chronic diastolic CHF -stable this time. Exacerbation -continue p.o. Lasix -gentle IV hydration monitor for overload Code status: Full code per patient DVT prophylaxis: Eliquis on hold/SCDs Stress ulcer prophylaxis: Protonix 40 daily PT/OT notes: Ambulatory Disposition: Patient to continue admission to the medical-surgical unit for further evaluation treatment of calculus with UTI pending cultures and sensitivities. Patient is ambulatory and plan will be to discharge back to home when medically stable Time Spent With Patient Time with patient: 15 - 25 minutes Subjective Date/time seen: 04/10/23 11:12 Interval history: Chief Complaint: Right sided abdominal pain. Narrative: This is a 62-year-old female with history of kidney stones, ESBL E coli UTI, heart failure with preserved ejection fraction, hypertension, chronic obstructive pulmonary disease, deep venous thrombosis, rheumatoid arthritis, and other comorbidities who presented to the emergency department for evaluation of right-sided abdominal pain. The patient provides the following history. She presents with colicky right-sided abdominal pain associated with nausea, vomiting, and hematuria for a couple of days. These symptoms symptoms are similar to when she had prior kidney stones. She endorses sweats but has not had a fever to her knowledge. Denies diarrhea. In the ED: She was afebrile on arrival. Blood pressures had been running but are improving with IV pain medications. Labs were significant for normal WBC count, stable hemoglobin, BUN 20, creatinine 1.00. Urine was positive for blood, nitrates, leukocyte esterase, many white blood cells, and bacteria. CT of the abdomen pelvis showed nonobstructing right kidney stones and a right internal ureteral stent in expected position. It looks like the stent was exchanged 01/26/[address] Guzman. She is being admitted in this setting for IV antibiotics and urology consultation. 04/09: Patient continues to have kjykrmzk-[id number]-nhpldh RT CVA pain and reports of intermittent anxiety. Remains afebrila but reports chills and night sweats. Normal WBC, previous UTI ECOLI resistant to cephalosporins will continue with IV meropenem pending culture sensitivities. 12MM stone right renal with stent in place non-obstructing will given gentle hydration due to patient history of CHF. 04/10: Patient reported mild improvement pain
--- NOTE | 2023-04-10 12:43 | WPDUROPN2 ---
Progress Note: A&P Assessment and Plan (1) Acute cystitis: Qualifiers: Hematuria presence: with hematuria Qualified Code(s): N30.01 - Acute cystitis with hematuria Code(s): N30.00 - Acute cystitis without hematuria Status: Acute (2) Right renal stone: Code(s): N20.0 - Calculus of kidney Status: Acute Plan 62 year old female with unchanged 12 mm right renal stone with stent in place and no obstruction presenting with UTI and nausea/vomiting - continue meropenem; preliminary urine culture with growth of E. coli, sensitivities are pending - stent currently in good position but unchanged 12 mm right renal stone. Will arrange outpatient follow-up for definitive right renal stone treatment. Reinforced that stent is temporary in nature and she will require outpatient follow-up and stent removal at a later date following resolution of infection Subjective Subjective Date/Time Seen: 04/10/23 12:43 Interval history: Desiree is feeling improved today. She reports her pain has improved. Denies nausea, vomiting, fever, or chills. Complains of poor appetite but is tolerating her diet. She remains afebrile. Review of Systems Review of Systems: All systems reviewed & are unremarkable except as noted in HPI and below Exam Narrative: General: Awake, alert, comfortable, no acute distress HEENT: Normocephalic, atraumatic, sclerae anicteric Respiratory: Normal respiratory effort, no accessory muscle use Abdomen: Nondistended, soft, nontender Skin: Normal coloration, warm and dry Neurologic: No focal neuro deficits noted Psychiatric: Appropriate mood and affect, judgment and insight intact Objective Data Vital Signs Vital Signs: Vital Signs - 24 hr 04/09/23 16:00 04/09/23 16:00 04/09/23 20:00 Temperature 97.7 F 96.3 F L Pulse Rate 56 L 62 59 L Respiratory Rate 16 20 Blood Pressure 164/54 H 149/62 H Pulse Oximetry 92 97 Oxygen Delivery Oxygen Flow Rate 04/09/23 20:00 04/09/23 20:50 04/09/23 21:14 Temperature Pulse Rate 56 L 64 Respiratory Rate Blood Pressure Pulse Oximetry 97 Oxygen Delivery Nasal Cannula Oxygen Flow Rate 4 04/09/23 20:00 04/09/23 23:48 04/10/23 00:00 Temperature 97.4 F L Pulse Rate 64 60 57 L Respiratory Rate 20 20 Blood Pressure 159/52 H Pulse Oximetry 97 95 Oxygen Delivery Nasal Cannula Oxygen Flow Rate 4 04/10/23 04:00 04/10/23 04:00 04/10/23 08:28 Temperature 96.7 F L Pulse Rate 61 60 Respiratory Rate 20 Blood Pressure 149/50 H Pulse Oximetry 95 95 Oxygen Delivery Nasal Cannula Oxygen Flow Rate 4 04/10/23 08:35 04/10/23 08:00 04/10/23 08:00 Temperature 97.5 F L Pulse Rate 66 60 Respiratory Rate 19 Blood Pressure 151/60 H Pulse Oximetry 98 95 Oxygen Delivery Nasal Cannula Oxygen Flow Rate 4 Intake/Output Intake/Output: Intake & Output 04/07/23 04/08/23 04/09/23 04/10/23 23:59 23:59 23:59 23:59 Intake Total 250 1748 1190 Output Total 2300 500 Balance 250 -552 690 Meds/Results Medications: Active Medications Generic Name Dose Route Start Last Admin Trade Name Freq PRN Reason Stop Dose Admin Acetaminophen 650 mg 04/08/23 13:50 Acetaminophen 325 Mg Tablet PO Q6H PRN Mild Pain (1-3) or Fever Hydrocodone Bitart/Acetaminophen 1 tab 04/08/23 13:50 04/10/23 09:06 Hydrocodone/Acetaminophen (*Crx) 5-325 Mg Tablet PO 1 tab Q6H PRN Administration Pain Rated 4-6 Albuterol 2 puff 04/08/23 21:42 Albuterol Sulfate (*Sp) Aerosol 1 Puff INHALATION QID PRN shortness of breath or wheezing Albuterol/Ipratropium 3 ml 04/08/23 21:42 Ipratropium 0.5 Mg/Albuterol Sulfate 2.5 Mg Ampul.Neb 3 Ml INHALATION QID PRN Shortness Of Breath Or Wheezing Alprazolam 0.5 mg 04/09/23 10:06 04/10/23 08:35 Alprazolam (*Crx) 0.5 Mg Tablet PO 0.5 mg BID PRN Administration Anxiety Furosemide 40 mg
[2023-04-10] MEDS: HYDROmorphone HCL INJ (*CRX) 1 MG/ML SYR IV PUSH (14:42)
[2023-04-10] MEDS: FLUCONAZOLE 150 MG TABLET PO (15:29)
[2023-04-11] VITALS (11 sets, daily range): BP systolic 148–187; BP diastolic 46–65; PULSE 52–77; RESP 14–20; TEMP 35.7–36.5; O2SAT 96–100
[2023-04-11] MEDS: HYDROcodone/acetaminophen (*CRX) 5-325 MG TABLET 1 TAB PO ×3 (04:26→17:12)
[2023-04-11 05:02] LABS: Hematocrit 33.2 % (37.0-47.0); Hemoglobin 10.3 g/dL (12.0-15.0); Mean Corpuscular Hemoglobin 27.6 pg (26-34); Platelet Count Result 189 k/mm3 (150-375); Red Blood Count 3.73 M/mm3 (4.2-5.4); Red Cell Distribution Width 15.2 % (11.5-14.5); White Blood Count 5.6 K/mm3 (4.5-10.0)
[2023-04-11 05:20] LABS: Alanine Aminotransferase 8 U/L (6-35); Albumin Level 3.6 g/dL (3.5-5.1); Alkaline Phosphatase 77 U/L (38-126); Anion Gap 2 mmol/L (8-16); Aspartate Amino Transferase 19 U/L (14-36); Bilirubin,Total 0.6 mg/dL (0.2-1.3); Blood Urea Nitrogen 17 mg/dL (7-17); Carbon Dioxide 38 mmol/L (22-30); Chloride 98 mmol/L (98-107); Estimated CRCL calculation 83 ml/min; Estimated Glomerular Filt Rate > 60; Glucose 100 mg/dL (65-110); Potassium 3.8 mmol/L (3.4-5.0); Sodium 138 mmol/L (137-145)
[2023-04-11] MEDS: FLUTICASONE/SALMETEROL 230-21 MCG INHALER 1 PUFF INHALATION ×2 (07:20→20:17)
[2023-04-11] MEDS: UMECLIDINIUM BROMIDE 62.5 MCG ELLIPTA 1 PUFF INHALATION (07:20)
[2023-04-11] MEDS: FUROSEMIDE 40 MG TABLET PO (08:39)
[2023-04-11] MEDS: METOPROLOL TARTRATE 25 MG TABLET PO ×2 (08:39→20:06)
[2023-04-11] MEDS: ALPRAZolam (*CRX) 0.5 MG TABLET PO ×2 (08:39→20:54)
[2023-04-11] MEDS: PANTOPRAZOLE 40 MG TABLET PO (08:39)
--- NOTE | 2023-04-11 09:05 | WPDUROPN2 ---
Progress Note: A&P Assessment and Plan (1) Acute cystitis: Qualifiers: Hematuria presence: with hematuria Qualified Code(s): N30.01 - Acute cystitis with hematuria Code(s): N30.00 - Acute cystitis without hematuria Status: Acute (2) Right renal stone: Code(s): N20.0 - Calculus of kidney Status: Acute Plan 62 year old female with unchanged 12 mm right renal stone with stent in place and no obstruction presenting with UTI and nausea/vomiting - urine culture with growth of resistant E. coli, continue meropenem - stent currently in good position but unchanged 12 mm right renal stone. She will be scheduled for definitive right renal stone management. She understands temporary nature of ureteral stent and need for appropriate follow up/treatment. Subjective Subjective Date/Time Seen: 04/11/23 09:05 Interval history: She is feeling well today. Reports minimal right flank discomfort. Endorses chills but no fever. Tolerating her diet. She remains afebrile her vital signs are stable. Review of Systems Review of Systems: All systems reviewed & are unremarkable except as noted in HPI and below Exam Narrative: General: Awake, alert, comfortable, no acute distress HEENT: Normocephalic, atraumatic, sclerae anicteric Respiratory: Normal respiratory effort, no accessory muscle use Abdomen: Nondistended, soft, nontender Skin: Normal coloration, warm and dry Neurologic: No focal neuro deficits noted Psychiatric: Appropriate mood and affect, judgment and insight intact Objective Data Vital Signs Vital Signs: Vital Signs - 24 hr 04/10/23 12:00 04/10/23 12:00 04/10/23 16:00 Temperature 96.6 F L Pulse Rate 60 60 58 L Respiratory Rate 18 Blood Pressure 150/60 H Pulse Oximetry 97 Oxygen Delivery Oxygen Flow Rate 04/10/23 16:00 04/10/23 20:00 04/10/23 20:50 Temperature 97.6 F 96.6 F L Pulse Rate 62 62 Respiratory Rate 18 20 Blood Pressure 148/58 H 183/60 H Pulse Oximetry 98 99 96 Oxygen Delivery Nasal Cannula Oxygen Flow Rate 4 04/10/23 22:27 04/11/23 00:00 04/10/23 20:00 Temperature 96.6 F L Pulse Rate 60 62 57 L Respiratory Rate 20 Blood Pressure 177/50 H Pulse Oximetry 100 Oxygen Delivery Oxygen Flow Rate 04/10/23 20:00 04/11/23 00:00 04/11/23 04:00 Temperature Pulse Rate 57 L 52 L Respiratory Rate Blood Pressure Pulse Oximetry 100 Oxygen Delivery Nasal Cannula Oxygen Flow Rate 4 04/11/23 04:00 04/11/23 07:20 04/11/23 07:20 Temperature 96.3 F L Pulse Rate 54 L 77 77 Respiratory Rate 20 18 18 Blood Pressure 184/48 H Pulse Oximetry 99 96 Oxygen Delivery Nasal Cannula Oxygen Flow Rate 4 04/11/23 08:00 04/11/23 08:39 04/11/23 08:40 Temperature 97.7 F Pulse Rate 53 L 57 L 52 L Respiratory Rate 14 Blood Pressure 187/49 H Pulse Oximetry 100 Oxygen Delivery Oxygen Flow Rate Intake/Output Intake/Output: Intake & Output 04/08/23 04/09/23 04/10/23 04/11/23 23:59 23:59 23:59 23:59 Intake Total 250 1748 2500 340 Output Total 2300 2000 200 Balance 250 -552 500 140 Meds/Results Medications: Active Medications Generic Name Dose Route Start Last Admin Trade Name Freq PRN Reason Stop Dose Admin Acetaminophen 650 mg 04/08/23 13:50 Acetaminophen 325 Mg Tablet PO Q6H PRN Mild Pain (1-3) or Fever Hydrocodone Bitart/Acetaminophen 1 tab 04/08/23 13:50 04/11/23 04:26 Hydrocodone/Acetaminophen (*Crx) 5-325 Mg Tablet PO 1 tab Q6H PRN Administration Pain Rated 4-6 Albuterol 2 puff 04/08/23 21:42 Albuterol Sulfate (*Sp) Aerosol 1 Puff INHALATION QID PRN shortness of breath or wheezing Albuterol/Ipratropium 3 ml 04/08/23 21:42 Ipratropium 0.5 Mg/Albuterol Sulfate 2.5 Mg Ampul.Neb 3 Ml INHALATION QID PRN Shortness Of Breath Or Wheezing Alprazolam 0.5 mg 04/09/23 10:06 04/11/23 08:39 Alpra
[2023-04-11] MEDS: LIDOCAINE HCL 1% LOCAL INJ 2 ML AMPUL 5 ML INFILTRATE (09:20)
[2023-04-11] MEDS: MEROPENEM 1 GM/NS 100 ML 1 GM/100 ML BAG IVPB ×3 (09:49→22:20)
--- NOTE | 2023-04-11 11:12 | PM.IMPN ---
Progress Note: A&P Assessment and Plan (1) Acute cystitis: Qualifiers: Hematuria presence: with hematuria Qualified Code(s): N30.01 - Acute cystitis with hematuria Code(s): N30.00 - Acute cystitis without hematuria Status: Acute Assessment and Plan: ESBL on culture, on IV meropenem which will be continued. (2) Right renal stone: Code(s): N20.0 - Calculus of kidney Status: Acute Assessment and Plan: 7 retained right renal stones, largest 12 mm. Urology now planning lithotripsy/retrieval in 2 days. Continue meropenum and continue to hold Eliquis (3) Retained ureteral stent: Code(s): Z96.0 - Presence of urogenital implants Status: Acute Assessment and Plan: Management per Urology, originally planned to discharge with stent in place and outpatient procedure for stone extraction and stent removal. However, now Urology is planning stone retrieval on 04/13, uncertain about status plan for stent at that time. Retention or retrieval will likely factor into ABX duration and choice of therapy. 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 Urology wants to keep pt on meropenem due to ESBL UTI. Ordered midline to plan for home infusions to complete course pending outpatient stone lithotripsy and stent removal after discharge. New line established. Urology later called patient and states to continue to hold Eliquis because they may now take her to OR in 2 days for definitive care while hospitalized. Eliquis has been on hold since admission. Patient reports RLQ tenderness and anxiety related to IV insertion but denies any other complaints. Review of Systems Review of Systems: Twelve systems were reviewed and are negative except for as per HPI. All systems reviewed & are unremarkable except as noted in HPI and below Exam Narrative: General: Awake, alert, comfortable, no acute distress HEENT: Normocephalic, atraumatic, sclerae anicteric Respiratory: Normal respiratory effort, no accessory muscle use Cardiovascular: slightly bradycardic, regular rhythm. Adequate peripheral pulses Abdomen: Nondistended, soft, mild RLQ/Right flank tenderness to palpation Skin: Normal coloration, warm and dry Neurologic: No focal neuro deficits noted Psychiatric: Appropriate mood and anxious affect just prior to midline insertion Objective Data Vital Signs Vital Signs: Vital Signs - 24 hr 04/10/23 12:00 04/10/23 12:00 04/10/23 16:00 Temperature 35.9 C L Pulse Rate 60 60 58 L Respiratory Rate 18 Blood Pressure 150/60 H Pulse Oximetry 97 Oxygen Delivery Oxygen Flow Rate 04/10/23 16:00 04/10/23 20:00 04/10/23 20:50 Temperature 36.4 C 35.9 C L Pulse Rate 62 62 Respiratory Rate 18 20 Blood Pressure 148/58 H 183/60 H Pulse Oximetry 98 99 96 Oxygen Delivery Nasal Cannula Oxygen Flow Rate 4 04/10/23 22:27 04/11/23 00:00 04/10/23 20:00 Temperature 35.9 C L Pulse Rate 60 62 57 L Respiratory Rate 20 Blood Pressure 177/50 H Pulse Oximetry 100 Oxygen Delivery Oxygen Flow Rate 04/10/23 20:00 04/11/23 00:00 04/11/23 04:00 Temperature Pulse Rate 57 L 52 L Respiratory Rate Blood Pressure Pulse Oximetry 100 Oxygen Deliver
[2023-04-11] MEDS: LOSARTAN POTASSIUM 50 MG TABLET PO (11:31)
[2023-04-11] MEDS: hydrALAZINE HCL 20 MG/ML VIAL 10 MG IV PUSH (11:31)
[2023-04-11] MEDS: SALINE LOCK FLUSH 10 ML IV PUSH ×2 (13:47→22:23)
[2023-04-11] MEDS: HYDROmorphone HCL INJ (*CRX) 1 MG/ML SYR IV PUSH (22:26)
[2023-04-12] VITALS (13 sets, daily range): BP systolic 137–184; BP diastolic 50–68; PULSE 56–69; RESP 14–20; TEMP 36–37.3; O2SAT 97–100
[2023-04-12] MEDS: HYDROcodone/acetaminophen (*CRX) 5-325 MG TABLET 1 TAB PO ×3 (02:25→17:17)
[2023-04-12] MEDS: ONDANSETRON INJ 4 MG/2 ML VIAL IV PUSH (03:06)
[2023-04-12] MEDS: HYDROmorphone HCL INJ (*CRX) 1 MG/ML SYR IV PUSH ×2 (03:19→11:03)
[2023-04-12 04:53] LABS: Hematocrit 32.1 % (37.0-47.0); Hemoglobin 9.9 g/dL (12.0-15.0); Mean Corpuscular HGB Conc 30.8 g/dl (32-36); Mean Corpuscular Hemoglobin 27.7 pg (26-34); Mean Corpuscular Volume 89.7 fl (80-100); Mean Platelet Volume 8.7 fl (7.4-10.4); Platelet Count Result 171 k/mm3 (150-375); Red Blood Count 3.58 M/mm3 (4.2-5.4); Red Cell Distribution Width 15.3 % (11.5-14.5); White Blood Count 5.4 K/mm3 (4.5-10.0)
[2023-04-12 05:05] LABS: Alanine Aminotransferase 40 U/L (6-35); Albumin Level 3.5 g/dL (3.5-5.1); Alkaline Phosphatase 132 U/L (38-126); Aspartate Amino Transferase 141 U/L (14-36); Bilirubin,Total 0.7 mg/dL (0.2-1.3); Blood Urea Nitrogen 17 mg/dL (7-17); Calcium 8.8 mg/dL (8.4-10.2); Carbon Dioxide > 40 mmol/L (22-30); Chloride 96 mmol/L (98-107); Estimated CRCL calculation 71 ml/min; Estimated Glomerular Filt Rate > 60; Glucose 115 mg/dL (65-110); Potassium 3.5 mmol/L (3.4-5.0); Sodium 137 mmol/L (137-145)
[2023-04-12] MEDS: SALINE LOCK FLUSH 20 ML IV PUSH (05:32)
[2023-04-12] MEDS: MEROPENEM 1 GM/NS 100 ML 1 GM/100 ML BAG IVPB ×3 (05:32→21:23)
[2023-04-12] MEDS: SALINE LOCK FLUSH 10 ML IV PUSH ×3 (05:33→21:23)
--- NOTE | 2023-04-12 07:56 | PM.IMPN ---
Progress Note: A&P Assessment and Plan (1) Acute cystitis: Qualifiers: Hematuria presence: with hematuria Qualified Code(s): N30.01 - Acute cystitis with hematuria Code(s): N30.00 - Acute cystitis without hematuria Status: Acute Assessment and Plan: ESBL on culture, on IV meropenem which will be continued. Consulting with Urology to see if they will want patient to go home on IV ertapenem or switch to oral Bactrim postprocedure. (2) Right renal stone: Code(s): N20.0 - Calculus of kidney Status: Acute Assessment and Plan: 7 retained right renal stones, largest 12 mm. Urology now planning lithotripsy/retrieval in 2 days. Continue meropenum and continue to hold Eliquis 04/12: planned procedure tomorrow morning. (3) Retained ureteral stent: Code(s): Z96.0 - Presence of urogenital implants Status: Acute Assessment and Plan: Management per Urology, originally planned to discharge with stent in place and outpatient procedure for stone extraction and stent removal. However, now Urology is planning stone retrieval on 04/13, uncertain about status plan for stent at that time. Retention or retrieval will likely factor into ABX duration and choice of therapy. 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 States it started last night and is persistent today. She also reports some nausea/vomiting. Denies vomiting, fever, chills. States she is urinating without difficulty. She is afebrile and her vital signs are stable. Creatinine stable at 0.9. Review of Systems Review of Systems: All systems reviewed & are unremarkable except as noted in HPI and below Exam Narrative: General: Awake, alert, Tearful and uncomfortable appearing HEENT: Normocephalic, atraumatic, sclerae anicteric Respiratory: Normal respiratory effort, no accessory muscle use Cardiovascular: Regular rate rhythm, normal peripheral pulses Abdomen: Nondistended, soft, right lower quadrant / flank tenderness to palpation Skin: Normal coloration, warm and dry Neurologic: No focal neuro deficits noted Psychiatric: tearful and anxious appearing Objective Data Vital Signs Vital Signs: Vital Signs - 24 hr 04/11/23 08:00 04/11/23 08:39 04/11/23 08:40 Temperature 36.5 C Pulse Rate 53 L 57 L 52 L Respiratory Rate 14 Blood Pressure 187/49 H Pulse Oximetry 100 Oxygen Delivery Oxygen Flow Rate 04/11/23 13:19 04/11/23 08:00 04/11/23 17:13 Temperature 36.4 C 35.9 C L Pulse Rate 53 L 54 L Respiratory Rate 16 18 Blood Pressure 153/46 H 151/65 H Pulse Oximetry 99 99 100 Oxygen Delivery Nasal Cannula Oxygen Flow Rate 4 04/11/23 20:06 04/11/23 20:22 04/11/23 20:00 Temperature 36.3 C L Pulse Rate 62 63 59 L Respiratory Rate 18 20 Blood Pressure 148/56 H Pulse Oximetry 98 100 Oxygen Delivery Nasal Cannula Oxygen Flow Rate 4 04/11/23 20:00 04/12/23 00:00 04/12/23 04:00 Temperature 36.0 C L 36.1 C L Pulse Rate 61 64 Respiratory Rate 20 20 Blood Pressure 166/53 H 151/50 H Pulse Oximetry 98 100 99 Oxygen Delivery Nasal Cannula Oxygen Flow Rate 4 Intake/Output Intake/Output: Intake & Output 04/09/23 04/10/2303/29
[2023-04-12] MEDS: FUROSEMIDE 40 MG TABLET PO (08:17)
[2023-04-12] MEDS: METOPROLOL TARTRATE 25 MG TABLET PO ×2 (08:17→20:32)
[2023-04-12] MEDS: LOSARTAN POTASSIUM 50 MG TABLET PO (08:17)
[2023-04-12] MEDS: PANTOPRAZOLE 40 MG TABLET PO (08:17)
[2023-04-12] MEDS: UMECLIDINIUM BROMIDE 62.5 MCG ELLIPTA 1 PUFF INHALATION (08:34)
[2023-04-12] MEDS: FLUTICASONE/SALMETEROL 230-21 MCG INHALER 1 PUFF INHALATION ×2 (08:38→20:19)
[2023-04-12] MEDS: diphenhydrAMINE HCl INJ 50 MG/ML VIAL 25 MG IV PUSH (09:10)
[2023-04-12] MEDS: PROCHLORPERAZINE EDISYLATE 10 MG/2 ML VIAL IV PUSH (09:11)
--- NOTE | 2023-04-12 09:48 | WPDUROPN2 ---
Progress Note: A&P Assessment and Plan (1) Acute cystitis: Qualifiers: Hematuria presence: with hematuria Qualified Code(s): N30.01 - Acute cystitis with hematuria Code(s): N30.00 - Acute cystitis without hematuria Status: Acute (2) Right renal stone: Code(s): N20.0 - Calculus of kidney Status: Acute Plan 62 year old female with unchanged 12 mm right renal stone with stent in place and no obstruction presenting with UTI and nausea/vomiting - urine culture with growth of resistant E. coli, continue meropenem - stent currently in good position but unchanged 12 mm right renal stone. - planning for right ESWL tomorrow with Dr. Martines. Discussed the procedure with the patient and she agrees to proceed. NPO at midnight. Subjective Subjective Date/Time Seen: 04/12/23 09:48 Interval history: Desiree is complaining of right flank pain this morning. States it started last night and is persistent today. She also reports some nausea. Denies vomiting, fever, chills. States she is urinating without difficulty. She is afebrile and her vital signs are stable. Creatinine stable at 0.9. Review of Systems Review of Systems: All systems reviewed & are unremarkable except as noted in HPI and below Exam Narrative: General: Awake, alert, comfortable, no acute distress HEENT: Normocephalic, atraumatic, sclerae anicteric Respiratory: Normal respiratory effort, no accessory muscle use Abdomen: Nondistended, soft, nontender Skin: Normal coloration, warm and dry Neurologic: No focal neuro deficits noted Psychiatric: Appropriate mood and affect, judgment and insight intact Objective Data Vital Signs Vital Signs: Vital Signs - 24 hr 04/11/23 13:19 04/11/23 17:13 04/11/23 20:06 Temperature 97.6 F 96.7 F L Pulse Rate 53 L 54 L 62 Respiratory Rate 16 18 Blood Pressure 153/46 H 151/65 H Pulse Oximetry 99 100 Oxygen Delivery Oxygen Flow Rate 04/11/23 20:22 04/11/23 20:00 04/11/23 20:00 Temperature 97.4 F L Pulse Rate 63 59 L Respiratory Rate 18 20 Blood Pressure 148/56 H Pulse Oximetry 98 100 98 Oxygen Delivery Nasal Cannula Nasal Cannula Oxygen Flow Rate 4 4 04/12/23 00:00 04/12/23 04:00 04/12/23 08:17 Temperature 96.8 F L 96.9 F L Pulse Rate 61 64 65 Respiratory Rate 20 20 Blood Pressure 166/53 H 151/50 H Pulse Oximetry 100 99 Oxygen Delivery Oxygen Flow Rate 04/12/23 08:17 04/12/23 08:37 04/12/23 08:40 Temperature 97.7 F 96.9 F L Pulse Rate 65 65 Respiratory Rate 18 16 Blood Pressure 181/55 H 184/68 H Pulse Oximetry 100 100 100 Oxygen Delivery Nasal Cannula Oxygen Flow Rate 4 Intake/Output Intake/Output: Intake & Output 04/09/23 04/10/23 04/11/23 04/12/23 23:59 23:59 23:59 23:59 Intake Total 1748 2500 1100 560 Output Total 2300 2000 1600 200 Balance -552 500 -500 360 Meds/Results Medications: Active Medications Generic Name Dose Route Start Last Admin Trade Name Freq PRN Reason Stop Dose Admin Acetaminophen 650 mg 04/08/23 13:50 Acetaminophen 325 Mg Tablet PO Q6H PRN Mild Pain (1-3) or Fever Hydrocodone Bitart/Acetaminophen 1 tab 04/08/23 13:50 04/12/23 08:16 Hydrocodone/Acetaminophen (*Crx) 5-325 Mg Tablet PO 1 tab Q6H PRN Administration Pain Rated 4-6 Albuterol 2 puff 04/08/23 21:42 Albuterol Sulfate (*Sp) Aerosol 1 Puff INHALATION QID PRN shortness of breath or wheezing Albuterol/Ipratropium 3 ml 04/08/23 21:42 Ipratropium 0.5 Mg/Albuterol Sulfate 2.5 Mg Ampul.Neb 3 Ml INHALATION QID PRN Shortness Of Breath Or Wheezing Alprazolam 0.5 mg 04/09/23 10:06 04/11/23 20:54 Alprazolam (*Crx) 0.5 Mg Tablet PO 0.5 mg BID PRN Administration Anxiety Furosemide 40 mg 04/09/23 09:00 04/12/23 08:17 Furosemide 40 Mg Tablet PO 40 mg QAM ALENA Administration Hydromorphone HCl 1 mg 04/08/23 17:19 04/12/23 03:19 [place]
[2023-04-12] MEDS: MICONAZOLE NITRATE 2% VAGINAL CREAM 45 GM TUBE 1 APPFUL VAGINAL (09:51)
--- NOTE | 2023-04-12 14:18 | PC.NURSE ---
On 04/12/23, the student, [Maria G Paul], provided care and completed [facility] documentation on this patient. I have reviewed the student's documentation and agree with the findings.
[2023-04-12] MEDS: ALPRAZolam (*CRX) 0.5 MG TABLET PO (20:32)
[2023-04-13] VITALS (20 sets, daily range): BP systolic 136–203; BP diastolic 42–69; PULSE 54–80; RESP 12–20; TEMP 36.1–37; O2SAT 91–100
[2023-04-13] MEDS: HYDROcodone/acetaminophen (*CRX) 5-325 MG TABLET 1 TAB PO ×3 (01:35→12:32)
[2023-04-13] MEDS: MEROPENEM 1 GM/NS 100 ML 1 GM/100 ML BAG IVPB ×2 (05:14→13:54)
[2023-04-13] MEDS: SALINE LOCK FLUSH 10 ML IV PUSH ×3 (05:14→21:03)
[2023-04-13 05:23] LABS: Hematocrit 31.8 % (37.0-47.0); Hemoglobin 9.8 g/dL (12.0-15.0); Mean Corpuscular HGB Conc 30.8 g/dl (32-36); Mean Corpuscular Hemoglobin 27.6 pg (26-34); Mean Corpuscular Volume 89.6 fl (80-100); Mean Platelet Volume 9.1 fl (7.4-10.4); Platelet Count Result 158 k/mm3 (150-375); Red Blood Count 3.55 M/mm3 (4.2-5.4); Red Cell Distribution Width 15.1 % (11.5-14.5); White Blood Count 3.5 K/mm3 (4.5-10.0)
[2023-04-13 05:34] LABS: Alanine Aminotransferase 510 U/L (6-35); Albumin Level 3.4 g/dL (3.5-5.1); Alkaline Phosphatase 438 U/L (38-126)
[2023-04-13 05:35] LABS: Blood Urea Nitrogen 16 mg/dL (7-17); Calcium 8.9 mg/dL (8.4-10.2); Carbon Dioxide > 40 mmol/L (22-30); Chloride 94 mmol/L (98-107); Estimated CRCL calculation 79 ml/min; Estimated Glomerular Filt Rate > 60; Glucose 111 mg/dL (65-110); Potassium 3.9 mmol/L (3.4-5.0); Sodium 136 mmol/L (137-145)
[2023-04-13 06:30] LABS: Aspartate Amino Transferase 753 U/L (14-36)
[2023-04-13] MEDS: UMECLIDINIUM BROMIDE 62.5 MCG ELLIPTA 1 PUFF INHALATION (07:41)
[2023-04-13] MEDS: FLUTICASONE/SALMETEROL 230-21 MCG INHALER 1 PUFF INHALATION ×2 (07:42→20:31)
[2023-04-13] MEDS: METOPROLOL TARTRATE 25 MG TABLET PO ×2 (08:01→20:57)
[2023-04-13] MEDS: ALPRAZolam (*CRX) 0.5 MG TABLET PO (08:01)
--- NOTE | 2023-04-13 08:24 | WPDHPUPDATE1 ---
History and Physical Update Update Date/Time: 04/13/23 08:24 History and Physical has been reviewed, including an updated exam of the patient. There are NO changes in the patient's condition. Risks, benefits, and alternatives have been discussed and questions answered. Patient agrees to proceed with procedure. Proceed with right renal eswl
--- NOTE | 2023-04-13 09:05 | PC.NURSE ---
To OR per stretcher.
[2023-04-13 09:50] LABS: INR 1.1; Prothrombin Time 14.3 Seconds (11.1-14.7)
[2023-04-13 09:51] LABS: Partial Thromboplastin Time 36.4 SECONDS (22.3-36.8)
--- NOTE | 2023-04-13 10:57 | P.OP_ITS ---
Procedure Note - Detailed Date of Procedure 04/13/23 Pre-op Diagnosis Right renal stone 12 mm Post-op Diagnosis Same Procedure Performed Lithotripsy of right renal stone Surgeon Mateo Martines MD Anesthesia General Description of Procedure Patient was taken the operative suite correctly identified. Once anesthesia was obtained she was positioned with the stone localized in both planes. Given her body habitus it was a difficult localization. She was given 2500 shocks. Difficult to tell the amount of fragmentation if any at this point. She is taken recovery stable condition. She will follow-up with Dr. Guzman in 7-10 days with KUB. This completes dictation. Please send a copy of op to my off ice. Estimated Blood Loss 0 Urine Output 600 Drains No Packing No Pathology None sent Complications No immediate complications Condition Stable Disposition PACU
[2023-04-13] MEDS: LACTATED RINGERS 1,000 ML 30 ML IV CONT (11:00)
[2023-04-13] MEDS: fentaNYL CITRATE INJ (*CRX) 100 MCG/2 ML VIAL 25 MCG IV PUSH ×8 (11:10→11:42)
--- NOTE | 2023-04-13 11:53 | PM.IMPN ---
Progress Note: A&P Assessment and Plan (1) Acute cystitis: Qualifiers: Hematuria presence: with hematuria Qualified Code(s): N30.01 - Acute cystitis with hematuria Code(s): N30.00 - Acute cystitis without hematuria Status: Acute Assessment and Plan: ESBL on culture, on IV meropenem which will be continued. Consulting with Urology to see if they will want patient to go home on IV ertapenem or switch to oral Bactrim postprocedure. 04/13: Switched to high dose Bactrim for 7 days. (2) Right renal stone: Code(s): N20.0 - Calculus of kidney Status: Acute Assessment and Plan: 7 retained right renal stones, largest 12 mm. Urology now planning lithotripsy/retrieval in 2 days. Continue meropenum and continue to hold Eliquis 04/12: planned procedure tomorrow morning. 04/13: Still significant pain RLQ post ESWL. Patient wants more pain meds and does not want to go home yet. (3) Retained ureteral stent: Code(s): Z96.0 - Presence of urogenital implants Status: Acute Assessment and Plan: Management per Urology, originally planned to discharge with stent in place and outpatient procedure for stone extraction and stent removal. However, now Urology is planning stone retrieval on 04/13, uncertain about status plan for stent at that time. Retention or retrieval will likely factor into ABX duration and choice of therapy. 04/13: Ureteral stent retained post ESWL. (4) Chronic respiratory failure with hypoxia, on home oxygen therapy: Code(s): J96.11 - Chronic respiratory failure with hypoxia; Z99.81 - Dependence on supplemental oxygen Status: Acute Assessment and Plan: Continue home oxygen, may wean to keep sats 90-94% (5) Chronic anticoagulation: Code(s): Z79.01 - FPC (current) use of anticoagulants Status: Acute Assessment and Plan: Hold due to plan for Urologic intervention 04/13 (6) Morbid obesity: Code(s): E66.01 - Morbid (severe) obesity due to excess calories Status: Acute Plan Time Spent With Patient Time with patient: 25 - 35 minutes Subjective Date/time seen: 04/13/23 14:53 Interval history: Patient continues to have significant Right flank/lower abdomen pain despite previously tolerating ESWL in January. Patient requesting more pain medication and she does not want to be discharged today. Per previous discussion with Urology, we will stop Meropenem and change to high dose Bactrim. Review of Systems Review of Systems: All systems reviewed & are unremarkable except as noted in HPI and below Exam Narrative: General: Awake, alert, uncomfortable appearing HEENT: Normocephalic, atraumatic, sclerae anicteric Respiratory: Normal respiratory effort, no accessory muscle use. Supplemental oxygenation remains in place Cardiovascular: Regular rate rhythm, normal peripheral pulses Abdomen: Nondistended, soft, right lower quadrant / flank tenderness to palpation Skin: Normal coloration, warm and dry Neurologic: No focal neuro deficits noted Psychiatric: Normal mood and affect, less anxious today Objective Data Vital Signs Vital Signs: Vital Signs - 24 hr 04/12/23 11:57 04/12/23 12:00 04/12/23 20:00 Temperature 37.3 C 36.2 C L Pulse Rate 62 56 L Respiratory Rate 14 20 Blood Pressure 145/59 H 137/51 L Pulse Oximetry 100 99 98 Oxygen Delivery Nasal Cannula Oxygen Flow Rate 4 04/12/23 20:20 04/12/23 20:32 04/12/23 20:30 Temperature Pulse Rate 69 Respiratory Rate Blood Pressure Pulse Oximetry 98 98 Oxygen Delivery Nasal Cannula Nasal Cannula Oxygen Flow Rate 4 3.5 04/12/23 23:34 04/13/23 03:55 04/13/23 07:42 Temperature 36.2 C L 36.2 C L Pulse Rate 58 L 54 L Respiratory Rate 20 20 Blood Pressure 150/51 H 170/61 H Pulse Oximetry 97 100 97 Oxygen Delivery Nasal Cannula Oxygen Flow Rate 4 04/13/23 07:42 04/13/23 08:01 04/13/23 08:23 Nadir
--- NOTE | 2023-04-13 12:10 | PC.NURSE ---
Return to room from OR per stretcher.
[2023-04-13] MEDS: LOSARTAN POTASSIUM 50 MG TABLET PO (12:23)
[2023-04-13] MEDS: PANTOPRAZOLE 40 MG TABLET PO (12:23)
[2023-04-13] MEDS: FUROSEMIDE 40 MG TABLET PO (12:23)
[2023-04-13] MEDS: HYDROmorphone HCL INJ (*CRX) 1 MG/ML SYR IV PUSH ×2 (13:58→21:00)
--- NOTE | 2023-04-13 17:45 | PC.NURSE ---
To US per wheelchair.
--- NOTE | 2023-04-13 18:10 | PC.NURSE ---
Returned to room from US per wheelchair.
[2023-04-13] MEDS: MICONAZOLE NITRATE 2% VAGINAL CREAM 45 GM TUBE 1 APPFUL VAGINAL (20:57)
[2023-04-13] MEDS: SULFAMETHOXAZOLE/TRIMETHOPRIM 800/160 MG DS TABLET 2 TAB PO (20:57)
[2023-04-14] MEDS: HYDROmorphone HCL INJ (*CRX) 1 MG/ML SYR IV PUSH (02:16)
[2023-04-14 03:30] VITALS: BP 128/40; PULSE 52; RESP 20; TEMP 36.4; O2SAT 98
[2023-04-14 05:31] LABS: Hematocrit 32.3 % (37.0-47.0); Hemoglobin 9.8 g/dL (12.0-15.0); Mean Corpuscular HGB Conc 30.3 g/dl (32-36); Mean Corpuscular Hemoglobin 27.3 pg (26-34); Mean Platelet Volume 9.2 fl (7.4-10.4); Platelet Count Result 179 k/mm3 (150-375); Red Blood Count 3.59 M/mm3 (4.2-5.4); Red Cell Distribution Width 14.9 % (11.5-14.5); White Blood Count 6.6 K/mm3 (4.5-10.0)
[2023-04-14 05:44] LABS: Alanine Aminotransferase 301 U/L (6-35); Albumin Level 3.6 g/dL (3.5-5.1); Alkaline Phosphatase 387 U/L (38-126); Aspartate Amino Transferase 253 U/L (14-36); Bilirubin,Total 0.7 mg/dL (0.2-1.3); Blood Urea Nitrogen 17 mg/dL (7-17); Calcium 8.9 mg/dL (8.4-10.2); Carbon Dioxide > 40 mmol/L (22-30); Chloride 93 mmol/L (98-107); Estimated CRCL calculation 65 ml/min; Estimated Glomerular Filt Rate 56; Glucose 104 mg/dL (65-110); Magnesium 1.9 mg/dL (1.6-2.3); Potassium 3.6 mmol/L (3.4-5.0); Sodium 136 mmol/L (137-145)
[2023-04-14] MEDS: SALINE LOCK FLUSH 10 ML IV PUSH ×2 (06:16→13:44)
[2023-04-14] MEDS: UMECLIDINIUM BROMIDE 62.5 MCG ELLIPTA 1 PUFF INHALATION (07:49)
[2023-04-14] MEDS: FLUTICASONE/SALMETEROL 230-21 MCG INHALER 1 PUFF INHALATION (07:49)
[2023-04-14 07:50] VITALS: O2SAT 97
[2023-04-14 08:00] VITALS: PULSE 53; O2SAT 98
[2023-04-14] MEDS: LOSARTAN POTASSIUM 50 MG TABLET PO (08:10)
[2023-04-14] MEDS: FUROSEMIDE 40 MG TABLET PO (08:11)
[2023-04-14] MEDS: SULFAMETHOXAZOLE/TRIMETHOPRIM 800/160 MG DS TABLET 2 TAB PO (08:11)
[2023-04-14] MEDS: PANTOPRAZOLE 40 MG TABLET PO (08:11)
[2023-04-14 08:12] VITALS: PULSE 53
[2023-04-14] MEDS: METOPROLOL TARTRATE 25 MG TABLET PO (08:12)
[2023-04-14] MEDS: HYDROcodone/acetaminophen (*CRX) 5-325 MG TABLET 1 TAB PO (08:17)
--- NOTE | 2023-04-14 10:31 | PM.DS ---
DS: Admitting Diagnosis Discharge Date 04/14/2023 Admitting Diagnosis Urinary tract infection, right renal stone, chronic anemia, hypertension, chronic anticoagulation, chronic respiratory failure with hypoxia on home oxygen therapy, chronic obstructive pulmonary disease, heart failure with preserved ejection fraction DS: Discharge Diagnosis Discharge Diagnosis (1) Acute cystitis: Qualifiers: Hematuria presence: with hematuria Qualified Code(s): N30.01 - Acute cystitis with hematuria Code(s): N30.00 - Acute cystitis without hematuria Status: Acute (2) Right renal stone: Code(s): N20.0 - Calculus of kidney Status: Acute (3) Retained ureteral stent: Code(s): Z96.0 - Presence of urogenital implants Status: Acute (4) Chronic respiratory failure with hypoxia, on home oxygen therapy: Code(s): J96.11 - Chronic respiratory failure with hypoxia; Z99.81 - Dependence on supplemental oxygen Status: Acute (5) Chronic anticoagulation: Code(s): Z79.01 - 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 Patient also be significantly hypertensive. She previously underwent right ureter stenting January 2023. She is admitted for treatment of ESBL E coli urine infection. Patient was still having considerable right-sided flank pain that she has experienced in the past. She also rise in liver function tests yesterday. She underwent electric shock wave lithotripsy initially without much improvement. She also had the right upper quadrant ultrasound which was unremarkable. Today patient is feeling much better states she is ready for discharge. Urology is okay with discharge home with office follow-up for stent retrieval. Initially patient was going to go home on IV antibiotics due to ESBL however urology was okay with her going home on Bactrim. Home health was set up due to plan for IV antibiotics however this was canceled as patient does want to received after discharge and she is going medication only. Midline catheter removed prior to discharge. Status at Discharge Cognitive/behavioral status at discharge: Awake alert oriented gruff but pleasant Functional status at discharge: uses cane/walker Overall status at discharge: patient is progressing back to baseline Time Spent with Patient Time attestation: Total time spent providing and/or coordinating discharge services: 35 minutes Time spent: Greater than 30 minutes Exam Narrative: General: Awake, alert, comfortable appearing HEENT: Normocephalic, atraumatic, sclerae anicteric Respiratory: Normal respiratory effort, no accessory muscle use. Supplemental oxygenation remains in place Cardiovascular: Regular rate rhythm, normal peripheral pulses Abdomen: Nondistended, soft, right lower quadrant / flank tenderness to palpation Skin: Normal coloration, warm and dry Neurologic: No focal neuro deficits noted Psychiatric: Normal mood and affect, less anxious today DS: Data Data Completed and Pending Completed studies during hospitalization: Abdomen pelvis CT, abdomen x-ray, right upper quadrant ultrasound Labs on day of discharge: Labs from last 24 hours 04/14/23 05:23 WBC 6.6 RBC 3.59 L Hgb 9.8 L Hct 32.3 L MCV 90.0 MCH 27.3 MCHC 30.3 L RDW 14.9 H Plt Count 179 MPV 9.2 Sodium 136 L Potassium 3.6 Chloride 93 L Carbon Dioxide > 40 H Ani
[2023-04-14 10:55] VITALS: BP 136/38; PULSE 49; RESP 16; TEMP 36.3; O2SAT 98
[2023-04-14] MEDS: NEOMYCIN/POLYMYXIN/BACITRACIN OINTMENT PACKET 1 PACKET (13:44)
== END 2023-04-14 13:45 | disposition home or self-care (01) | DRG 690 ==
LOC: ANHED 13:28 → ANH2MED 14:30
PROVIDERS: Nurse Practitioner Family; Physician Assistant; Urology; Admitting Provider General Practice; Emergency Provider Physician Assistant; PCP Family Medicine; Visit Provider Nurse Practitioner
PROC: 0TF3XZZ Fragmentation in Right Kidney Pelvis, External Approach (ICD-10-PCS; CPT 50590; principal; 2023-04-13 10:30)
DX: N30.01 Acute cystitis with hematuria (principal); I50.32 Chronic diastolic (congestive) heart failure; J96.11 Chronic respiratory failure with hypoxia; Z68.41 Body mass index [BMI] 40.0-44.9, adult; N20.0 Calculus of kidney; B96.20 Unspecified Escherichia coli [E. coli] as the cause of diseases classified elsewhere; J44.9 Chronic obstructive pulmonary disease, unspecified; I11.0 Hypertensive heart disease with heart failure; D64.9 Anemia, unspecified; K21.9 Gastro-esophageal reflux disease without esophagitis; M06.9 Rheumatoid arthritis, unspecified; E66.01 Morbid (severe) obesity due to excess calories; F32.A Depression, unspecified; F41.9 Anxiety disorder, unspecified; F17.210 Nicotine dependence, cigarettes, uncomplicated; Z96.0 Presence of urogenital implants; Z79.01 Long term (current) use of anticoagulants; Z79.891 Long term (current) use of opiate analgesic; Z99.81 Dependence on supplemental oxygen; Z87.442 Personal history of urinary calculi; Z86.718 Personal history of other venous thrombosis and embolism; Z98.1 Arthrodesis status
CPT/HCPCS: 36415; 36569; 74018; 74176; 76705; 80048; 80053; 81001; 83605; 83690; 83735; 85025; 85027; 85610; 85730; 87077; 87086; 87186; 93005; 94640; 96365; 96367; 96375; 96376; 99285; A9270; G0378; J0360; J0696; J0780; J1100; J1170; J1200; J2185; J2250; J2270; J2405; J2704; J3010; J7120

== ENCOUNTER 2023-06-06 16:07 | Inpatient (IN) | payer MEDICARE, MEDICAID, SELFPAY ==
[2023-06-06] VITALS (9 sets, daily range): BP systolic 150–181; BP diastolic 62–88; PULSE 80–97; RESP 17–32; TEMP 36.7; O2SAT 97–99
--- NOTE | ~2023-06-06 | XR_ITS ---
XR chest 1V portable 06/06/2023 17:18 Indication: Shortness of breath Procedure: AP portable chest Comparison: No prior studies for comparison. Findings: Cardiomegaly. Mild interstitial edema. No significant effusion or pneumothorax. Acute osseo us abnormality. Impression: 1: Cardiomegaly with mild interstitial edema. Reviewed, dictated and finalized at location A. Impression: 1: Cardiomegaly with mild interstitial edema.
--- NOTE | ~2023-06-06 | XR_ITS ---
EXAMINATION: XR hip RT 2V w AP pelvis DATE: 06/08/2023 14:55 INDICATION: Right hip pain TECHNIQUE: Anteroposterior view of the pelvis and anteroposterior and frog-leg lateral views of the r ight hip were obtained. COMPARISON: CT dated 06/06/2023 FINDINGS: Bone alignment is normal. No fracture or suspected osteonecrosis. Minimal osteoarthritis at the bilat eral hip and sacroiliac joints. Moderate lower lumbar spondylosis. Cholecystectomy clips in right upp er quadrant. No interval change in a few moderate to large renal stones at the mid to lower right kid opal. A right internal ureteral stent remains in unchanged position with loops formed at the bladder a nd the middle calyx of the right kidney. A few small atherosclerotic calcific lesions and phleboliths in the pelvis. No left-sided urolithiasis. IMPRESSION: 1. Moderate lower lumbar spondylosis. No acute osseous abnormality. 2. Right nephrolithiasis with right internal ureteral stent in expected position. Reviewed, dictated and finalized at location B. IMPRESSION: 1. Moderate lower lumbar spondylosis. No acute osseous abnormality. 2. Right nephrolithiasis with right internal ureteral stent in expected positio n.
--- NOTE | ~2023-06-06 | XR_ITS ---
EXAMINATION: XR knee RT 3V DATE: 06/09/2023 10:16 INDICATION: Severe right knee pain TECHNIQUE: Anteroposterior, oblique and crosstable lateral views of the right knee were obtained COMPARISON: None. FINDINGS: Alignment is normal. No fracture. Chondrocalcinosis at the medial and lateral compartments. Joint sp aces appear normal on nonweightbearing imaging with small to moderate size marginal osteophytes in al l 3 compartments consistent with at least mild tricompartmental osteoarthritis. The severity of joint space narrowing can however be underestimated on nonweightbearing imaging. No joint effusion/layerin g lipohemarthrosis. Soft tissues are unremarkable. IMPRESSION: 1. Chondrocalcinosis and at least mild tricompartmental osteoarthritis at the right knee. No acute os seous Reviewed, dictated and finalized at location A. IMPRESSION: 1. Chondrocalcinosis and at least mild tricompartmental osteoarthritis at the r ight knee. No acute osseous
--- NOTE | ~2023-06-06 | CT_ITS ---
EXAMINATION: CT abdomen pelvis wo con DATE: 06/06/2023 18:38 INDICATION: Right flank pain. Nausea, vomiting and hematuria. TECHNIQUE: Computed tomography (CT) of the abdomen and pelvis was performed without intravenous contr ast. The dose-length product was 1555.72 mGy-cm. Automated exposure control and iterative reconstruction technique were employed. COMPARISON: CT dated 04/08/2023 FINDINGS: There is mild interlobular septal thickening of the lower lungs which is more pronounced th an on prior examination, suspicious for interstitial edema. Cardiomegaly. No significant pleural or p ericardial effusion. Small hiatal hernia. Status post cholecystectomy. There is hepatosplenomegaly. T here is a right internal ureteral stent with the proximal coil in the renal pelvis and distal coil in the bladder. There are right renal stones in the renal collecting system. The pancreas, adrenal glan ds and left kidney are unremarkable. Nonobstructive bowel gas pattern. Small periumbilical hernia con taining nonobstructed bowel. No abnormal pelvic masses or fluid collections. Moderate lower thoracic and lumbar spondylosis. IMPRESSION: 1. Nonobstructing right nephrolithiasis. Right internal ureteral stent in expected position. No signi ficant hydronephrosis. 2: Increased prominence of mild interlobular septal thickening of the lung bases which may reflect m ild edema or developing fibrosis. 3: Cardiomegaly. 4: Hepatosplenomegaly. 5: Small periumbilical hernia containing nonobstructed bowel. Reviewed, dictated and finalized at location A. IMPRESSION: 1. Nonobstructing right nephrolithiasis. Right internal ureteral stent in expec hair position. No significant hydronephrosis. 2: Increased prominence of mild interlobular septal thickening of the lung bas es which may reflect mild edema or developing fibrosis. 3: Cardiomegaly. 4: Hepatosplenomegaly. 5: Small periumbilical hernia containing nonobstructed bowel.
--- NOTE | 2023-06-06 16:12 | ECG_ITS ---
Measurements Intervals [place] Rate: 95 P: 51 OK: 152 QRS: 62 QRSD: 98 T: 48 QT: 335 Avg RR: 629 QTc: 388 QTcB: 422 QTcF: 390 Interpretive Statements SINUS RHYTHM POSSIBLE LEFT ATRIAL ENLARGEMENT [-0.1mV P WAVE IN V1/V2] BORDERLINE ECG SEE SCANNED COPY FOR SIGNATURE MTDD
[2023-06-06 16:24] LABS: Basophils Absolute Auto 0.1 K/mm3 (0.0-0.1); Basophils Percent Auto 0.6 % (0.2-1.2); Eosinophils Absolute Auto 0.1 K/mm3 (0-0.3); Eosinophils Percent Auto 0.7 % (0-4.4); Hematocrit 34.4 % (37.0-47.0); Hemoglobin 10.3 g/dL (12.0-15.0); Immature Granulocyte Percent A 1.2 % (0-0.5); Lymphocytes Absolute Auto 1.43 K/mm3 (0.9-3.2); Lymphocytes Percent Auto 16.5 % (18.3-44.2); Mean Corpuscular HGB Conc 29.9 g/dl (32-36); Mean Corpuscular Hemoglobin 27.7 pg (26-34); Mean Corpuscular Volume 92.5 fl (80-100); Mean Platelet Volume 9.3 fl (7.4-10.4); Monocytes Absolute Auto 0.4 K/mm3 (0.1-0.6); Monocytes Percent Auto 4.4 % (2.6-8.5); Neutrophils Absolute Auto 6.7 K/mm3 (1.3-6.7); Neutrophils Percent Auto 76.6 % (45.5-73.1); Nucleated Red Blood Cells Perc 0.2 % (0.0-0.2); Platelet Count Result 216 k/mm3 (150-375); Red Blood Count 3.72 M/mm3 (4.2-5.4); Red Cell Distribution Width 14.6 % (11.5-14.5); White Blood Count 8.7 K/mm3 (4.5-10.0)
[2023-06-06 16:32] LABS: Alanine Aminotransferase 9 U/L (6-35); Albumin Level 4.3 g/dL (3.5-5.1); Alkaline Phosphatase 111 U/L (38-126); Anion Gap 4 mmol/L (4-12); Aspartate Amino Transferase 16 U/L (14-36); Bilirubin,Total 0.7 mg/dL (0.2-1.3); Blood Urea Nitrogen 15 mg/dL (7-17); Carbon Dioxide 34 mmol/L (22-30); Chloride 101 mmol/L (98-107); Estimated CRCL calculation 81 ml/min; Estimated Glomerular Filt Rate > 60; Glucose 115 mg/dL (65-110); Potassium 4.7 mmol/L (3.4-5.0); Sodium 139 mmol/L (137-145)
[2023-06-06 16:40] LABS: Lipase 31 U/L (23-300)
[2023-06-06 16:41] LABS: Lactic Acid Reflex 1.1 mmol/L (0.7-2.0)
[2023-06-06 16:44] LABS: NT Pro B Type Natriuretic Pept 5520 pg/mL (19.9-100); Troponin I < 0.012 ng/mL (0.000-0.034)
[2023-06-06 16:46] LABS: Alveolar/Arterial O2 Gradient 101.6 mmHg; Base Excess ABG 6.6 mEq/l (+/-2.0); Carboxyhemoglobin 2.1 % THb (0-2.0); Fractional Inspired Oxygen 36 %; HCO3 ABG 35.6 mEq/l (22.0-26.0); Methemoglobin ABG 0.3 %THb (0-1.5); Oxygen Content ABG 14.1 %vol (16.0-22.0); Oxyhemoglobin 89.4 % THb (90.0-100.0); PO2 ABG 64.8 mmHg (80.0-100.0); Reduced Hemoglobin 8.2 %THb (0-5.0); Total Hemoglobin 11.2 g/dL (12.0-18.0)
[2023-06-06 16:47] LABS: pH ABG 7.278 (7.350-7.450)
[2023-06-06 16:48] LABS: Device NASAL CANNULA; Modified Allen's Test Pass; PCO2 ABG 77.8 mmHg (35.0-45.0); Site Drawn RIGHT RADIAL
[2023-06-06] MEDS: IPRATROPIUM 0.5 MG/ALBUTEROL SULFATE 2.5 MG AMPUL.NEB 3 ML INHALATION ×2 (16:49→19:30)
[2023-06-06 17:07] LABS: Hypochromasia 1+; Platelet Estimate Adequate (Adequate); Schistocytes None Seen
[2023-06-06 17:08] LABS: Anisocytosis 1+
[2023-06-06] MEDS: ACETAMINOPHEN 325 MG TABLET 650 MG PO (17:14)
[2023-06-06] MEDS: LORazepam INJ (*CRX) 2 MG/ML VIAL 0.5 MG IV PUSH (17:21)
[2023-06-06 18:01] LABS: Appearance Urine Turbid (Clear); Bacteria Urine 4+ /hpf; Bilirubin Urine Negative (Negative); Blood Urine 3+ (Negative); Color Urine Yellow (Yellow); Glucose Urine UA Negative (Negative); Ketones Urine Negative (Negative); Leukocyte Esterase Ur 2+ LEU/UL (Negative); Nitrate Urine Positive (Negative); Non Pathogenic Casts 0-2; Protein Urine 2+ mg/dL (Negative); RBC Urine >100 /hpf (0-2); Specific Grav Ur 1.021 (1.001-1.035); Squamous Epithelial Cell Urine None Seen /hpf (Few); WBC Urine >100 /hpf (0-3)
[2023-06-06 18:10] LABS: Add Urine Microscopic? YES
--- NOTE | 2023-06-06 18:11 | ED.GENADULT ---
HPI - General Adult General Chief complaint: Shortness of Breath/Dyspnea Stated complaint: SOB, N/V, Hematuria Time Seen by Provider: 06/06/23 16:14 History of Present Illness HPI narrative: Patient is a 62-year-old female who presents ER for multiple issues. First issue shortness of breath. Patient is oxygen dependent currently on 4 L home O2. Cannot tell me what her typical home O2 requirement is however it appears to be around 4 L on chart review. Patient also is reporting that she has been having some new flank pain right and left-sided. Associated with some blood in her urine. Denies dysuria. No fevers or chills. Patient is on apixaban. Patient was admitted 2 months ago for kidney stones and has a ureteral stent. She reports she has not had it changed out because a family member was suicidal and she was dealing with family issues. Related Data Home Medications Medication Instructions Recorded Confirmed hydrocodone 10 mg-acetaminophen 1 tablet PO Q8H PRN Pain (Scale 12/30/21 04/08/23 325 mg tablet Score 4-6) ipratropium 0.5 mg-albuterol 3 mg 3 ml inhalation QID PRN Shortness 12/30/21 04/08/23 (2.5 mg base)/3 mL nebulization Of Breath Or Wheezing soln furosemide 40 mg tablet 40 mg PO QAM 02/06/22 04/08/23 Allergies Allergy/AdvReac Type Severity Reaction Status Date / Time sertraline AdvReac Severe loopy, Verified 01/26/23 08:45 tremors Review of Systems Review of Systems: All systems reviewed & are unremarkable except as noted in HPI and below Constitutional: Constitutional: Reports no additional constitutional complaints ENT: Reports system reviewed and no additional complaints, except as documented Cardiovascular: Cardiovascular: Reports no additional cardiovascular complaints Respiratory: Respiratory: Reports cough, Reports dyspnea and Reports wheezing Gastrointestinal: Gastrointestinal: Denies abdominal pain, Denies constipation, Denies diarrhea, Reports nausea and Reports vomiting Genitourinary: Genitourinary: Reports hematuria, Denies dysuria and Reports flank pain PMFSH Past Medical History Medical History Anxiety Chronic anemia Chronic anticoagulation Chronic obstructive pulmonary disease Chronic respiratory failure with hypoxia, on home oxygen therapy Chronic, continuous use of opioids Deep venous thrombosis Degenerative disc disease Depression Gastroesophageal reflux disease Heart failure with preserved ejection fraction Echocardiogram in July 2022 showed normal LV chamber size and function with an estimated EF of 60 to 65% grade 1 diastolic dysfunction. Hypertension Infection due to ESBL-producing Escherichia coli Morbid obesity Surgical History Surgical History History of appendectomy History of section History of cholecystectomy History of cystoscopy History of endometrial ablation History of fusion of cervical spine History of lithotripsy History of ureter stent Family History Family History Other Alcoholism Deep vein thrombophlebitis of right leg Diabetes mellitus Heart disease Hypertension Social History Social History Social History: Surrogate medical decision maker: Rudolph Raffaele, spouse. Code status: Full code. Smoking packs per day: 1 Smoking cigarettes per day: 20.0 Years smoked: 50 Smoking pack-years: 50.00 Smoking status: Current every day smoker Tobacco type: cigarettes Smoking end date: 12/27/21 Alcohol intake: former Substance use: never Last use: per pt she hasn't drank in 30 yrs Do You Feel Safe in your Home?: Yes Lack of Transportation: No Lack of Food: Never True Current Housing: I Have Housing Concerned About Future Housing: No Difficulty Paying Gas/Electric Ronald
[2023-06-06] MEDS: FUROSEMIDE INJ 40 MG/4 ML VIAL IV PUSH (18:49)
[2023-06-06 18:59] LABS: Alveolar/Arterial O2 Gradient 91.5 mmHg; Base Excess ABG 7.6 mEq/l (+/-2.0); Carboxyhemoglobin 1.7 % THb (0-2.0); Fractional Inspired Oxygen 35 %; HCO3 ABG 35.9 mEq/l (22.0-26.0); Methemoglobin ABG 0.3 %THb (0-1.5); Oxygen Content ABG 13.9 %vol (16.0-22.0); Oxygen Saturation ABG 92.5 % (95.0-100.0); Oxyhemoglobin 92.2 % THb (90.0-100.0); PO2 ABG 72.7 mmHg (80.0-100.0); PO2 FiO2 Ratio Arterial Blood 2.08 %; Reduced Hemoglobin 5.8 %THb (0-5.0); Total Hemoglobin 10.7 g/dL (12.0-18.0); pH ABG 7.307 (7.350-7.450)
[2023-06-06 19:01] LABS: Device BIPAP; Modified Allen's Test Pass; PCO2 ABG 73.4 mmHg (35.0-45.0); Site Drawn RIGHT RADIAL
[2023-06-06 19:02] LABS: Expiratory Pressure 8 cmH2O; Inspiratory Pressure 16 cmH2O
[2023-06-06] MEDS: LORazepam INJ (*CRX) 2 MG/ML VIAL 1 MG IV PUSH (20:28)
--- NOTE | 2023-06-06 21:53 | PM.IMHP ---
H&P: HPI History of Present Illness Date/Time: 06/06/23 21:53 Chief Complaint: altered mental status Narrative: This is a 62-year-old female with past medical history significant for chronic hypoxic respiratory failure, COPD/emphysema, morbid obesity, gastroesophageal reflux disease. patient was brought to the emergency room for evaluation due to altered mental status patient now is complaining of flank pain, has no other complaints has been her usual state of health, denies any fevers, rigors, chills, cough, nausea, vomiting. Preliminary workup was significant for urinalysis was numerous WBCs present, an ABG showed pH of 7.30, pCO2 of 73, PO2 of 72. at the time of my visit patient was on BiPAP limiting history taking. Patient has been admitted for further evaluation management and treatment. XR chest 1V portable 06/06/2023 17:18 Indication: Shortness of breath Procedure: AP portable chest Comparison: No prior studies for comparison. Findings: Cardiomegaly. Mild interstitial edema. No significant effusion or pneumothorax. Acute osseous abnormality. Impression: 1: Cardiomegaly with mild interstitial edema. EXAMINATION: CT abdomen pelvis wo con DATE: 06/06/2023 18:38 INDICATION: Right flank pain. Nausea, vomiting and hematuria. TECHNIQUE: Computed tomography (CT) of the abdomen and pelvis was performed without intravenous contrast. The dose-length product was 1555.72 mGy-cm. Automated exposure control and iterative reconstruction technique were employed. COMPARISON: CT dated 04/08/2023 FINDINGS: There is mild interlobular septal thickening of the lower lungs which is more pronounced than on prior examination, suspicious for interstitial edema. Cardiomegaly. No significant pleural or pericardial effusion. Small hiatal hernia. Status post cholecystectomy. There is hepatosplenomegaly. There is a right internal ureteral stent with the proximal coil in the renal pelvis and distal coil in the bladder. There are right renal stones in the renal collecting system. The pancreas, adrenal glands and left kidney are unremarkable. Nonobstructive bowel gas pattern. Small periumbilical hernia containing nonobstructed bowel. No abnormal pelvic masses or fluid collections. Moderate lower thoracic and lumbar spondylosis. IMPRESSION: 1. Nonobstructing right nephrolithiasis. Right internal ureteral stent in expected position. No significant hydronephrosis. 2:? Increased prominence of mild interlobular septal thickening of the lung bases which may reflect mild edema or developing fibrosis. 3:? Cardiomegaly. 4:? Hepatosplenomegaly. 5: Small periumbilical hernia containing nonobstructed bowel. Review of Systems Review of Systems: Altered mental status ROS unobtainable: Yes unobtainable due to medical condition ( patient has no recollection of events and denies any complaints) PMFSH Past Medical History Medical History Anxiety Chronic anemia Chronic anticoagulation Chronic obstructive pulmonary disease Chronic respiratory failure with hypoxia, on home oxygen therapy Chronic, continuous use of opioids Deep venous thrombosis Degenerative disc disease Depression Gastroesophageal reflux disease Heart failure with preserved ejection fraction Echocardiogram in July 2022 showed normal LV chamber size and function with an estimated EF of 60 to 65% grade 1 diastolic dysfunction. Hypertension Infection due to ESBL-producing Escherichia coli Morbid obesity Surgical History Surgical History History of appendectomy History of section History of cholecystectomy History of cystoscopy History of endometrial ablation History of fusion of cervical spine History of lithotripsy History of ureter stent Family History Family History Other Alcoholism Deep vein throm
[2023-06-06 22:48] LABS: Influenza A QL RT-PCR Negative (Negative); Influenza B QL RT-PCR Negative (Negative); RSV RNA, RT-PCR Negative (Negative); SARS-CoV-2 RNA PCR Negative (Negative)
--- NOTE | 2023-06-06 23:45 | ADMGEN ---
This patient, Desiree Castorena, was admitted to IMU Room 232-01. Patient/family oriented to hospital policies and general routines including ID bracelet, bed and alarms, visiting hours, pain management, procedures, bathroom and other care routines, personal items, smoking policy, room service/diet, and visiting hours. Information on how to activate the Rapid Response Team has been discussed. Patient/Family are encouraged to report perceived risks to care and to ask questions if they do not understand what they are told or what they should do.
[2023-06-07] VITALS (27 sets, daily range): BP systolic 149–191; BP diastolic 53–95; PULSE 69–113; RESP 12–28; TEMP 36.1–37.5; O2SAT 93–100; BMI 51.0
[2023-06-07] MEDS: IPRATROPIUM 0.5 MG/ALBUTEROL SULFATE 2.5 MG AMPUL.NEB 3 ML INHALATION ×4 (02:20→20:42)
[2023-06-07] MEDS: HYDROcodone/acetaminophen (*CRX) 5-325 MG TABLET 2 TAB PO (02:59)
[2023-06-07] MEDS: ONDANSETRON INJ 4 MG/2 ML VIAL IV PUSH ×2 (03:43→10:29)
--- NOTE | 2023-06-07 03:50 | PC.NURSE ---
Patient wanted off bipap, complaining of nausea. Placed on 4lpm and prn zofran given
[2023-06-07] MEDS: METOPROLOL TARTRATE 25 MG TABLET PO ×2 (06:27→21:45)
--- NOTE | 2023-06-07 06:59 | WPDURCON ---
Assessment and Plan Assessment and plan (1) Ureteral stent present: Code(s): Z96.0 - Presence of urogenital implants Status: Acute (2) Right renal stone: Code(s): N20.0 - Calculus of kidney Status: Acute (3) UTI (urinary tract infection): Code(s): N39.0 - Urinary tract infection, site not specified Status: Acute Assessment and Plan: Ceftriaxone pending urine culture completion I will plan cystoscopy with right ureteroscopy with laser lithotripsy stone extraction and stent replacement down the road, once this infection is cleared (approximately 2-3 weeks) Urology Consult Note HPI Date Seen: 06/07/23 Requesting Physician: Bill Clark MD Primary Care Provider: Maria G Lantigua MD Consult Narrative Narrative: Desiree Castorena is a 62 year old female who is well known to me with a history of recurrent urolithiasis. She has had lithotripsy twice in the last 4 months for a large right renal pelvic stone. She does not comply with outpatient follow-up in generally month follow-up is when she gets readmitted for some other reason. On this occasion she is back in with shortness of breath. Imaging demonstrated some ongoing fragment with persistent residual fragments in her right collecting system. Review of Systems Cardiovascular: Cardiovascular: Denies chest pain, Denies lightheadedness, Denies palpitations and Denies dyspnea Respiratory: Respiratory: Reports dyspnea Gastrointestinal: Gastrointestinal: Denies diarrhea, Denies nausea and Denies vomiting Genitourinary: Genitourinary: Denies hematuria and Denies dysuria Endocrine: Endocrine: Denies palpitations REPLACED BY [facility] Past Medical History Medical History Anxiety Chronic anemia Chronic anticoagulation Chronic obstructive pulmonary disease Chronic respiratory failure with hypoxia, on home oxygen therapy Chronic, continuous use of opioids Deep venous thrombosis Degenerative disc disease Depression Gastroesophageal reflux disease Heart failure with preserved ejection fraction Echocardiogram in July 2022 showed normal LV chamber size and function with an estimated EF of 60 to 65% grade 1 diastolic dysfunction. Hypertension Infection due to ESBL-producing Escherichia coli Morbid obesity Surgical History Surgical History History of appendectomy History of section History of cholecystectomy History of cystoscopy History of endometrial ablation History of fusion of cervical spine History of lithotripsy History of ureter stent Family History Family History Other Alcoholism Deep vein thrombophlebitis of right leg Diabetes mellitus Heart disease Hypertension Social History Social History Social History: Surrogate medical decision maker: Rudolph Castorena, spouse. Code status: Full code. Smoking packs per day: 1 Smoking cigarettes per day: 20.0 Years smoked: 30 Smoking pack-years: 30.00 Smoking status: Former smoker Tobacco type: cigarettes Smoking end date: 12/27/21 Alcohol intake: never Substance use: never Last use: per pt she hasn't drank in 30 yrs Do You Feel Safe in your Home?: Yes Lack of Transportation: YES Lack of Food: Never True Current Housing: I Have Housing Concerned About Future Housing: No Difficulty Paying Gas/Electric Bills: No Difficulty Paying for Meds: No Currently Unemployed: No Education: Trade/Vocational Certificate Difficulty w/ Childcare or Family Care: No Living arrangements: with family Additional living arrangements comments: Lives with in [place]. Spiritual care concerns: No Meds Home Medications and Allergies Home Medications Medication Instructions Recorded Confirmed T
[2023-06-07] MEDS: HYDROmorphone HCL INJ (*CRX) 1 MG/ML SYR IV PUSH ×2 (09:06→22:12)
[2023-06-07] MEDS: FUROSEMIDE INJ 40 MG/4 ML VIAL IV PUSH ×2 (09:08→21:45)
[2023-06-07] MEDS: PANTOPRAZOLE 40 MG TABLET PO (09:12)
[2023-06-07] MEDS: LOSARTAN POTASSIUM 50 MG TABLET PO (09:12)
[2023-06-07] MEDS: HYDROcodone/acetaminophen (*CRX) 5-325 MG TABLET 1 TAB PO (11:30)
--- NOTE | 2023-06-07 12:59 | PM.IMPN ---
Progress Note: A&P Assessment and Plan (1) Hypercapnia: Code(s): R06.89 - Other abnormalities of breathing Status: Acute (2) UTI (urinary tract infection): Code(s): N39.0 - Urinary tract infection, site not specified Status: Acute (3) CHF exacerbation: Code(s): I50.9 - Heart failure, unspecified Status: Acute (4) Ureteral stent present: Code(s): Z96.0 - Presence of urogenital implants Status: Acute (5) Status post laser lithotripsy of ureteral calculus: Code(s): Z98.890 - Other specified postprocedural states Status: Acute (6) Morbid obesity: Code(s): E66.01 - Morbid (severe) obesity due to excess calories Status: Acute (7) Chronic anticoagulation: Code(s): Z79.01 - retirement (current) use of anticoagulants Status: Acute (8) Urinary tract infection: Code(s): N39.0 - Urinary tract infection, site not specified Status: Acute Plan # urinary tract infection # nonobstructing nephrolithiasis - patient has UTI , pending cultures (UA >100 WBC, 4+ bacteria) - ABx: rocephin - abdominal scan shows nonobstructive right nephrolithiasis and right internal ureteral stent in expected position - patient already has ureteral stent in place, urology consult recommendation to continue IV antibiotics and follow-up for cystoscopy in 2-3 weeks - pain control p.r.n. [place], Dilaudid - no leukocytosis, labs are stable. lactic acid 1.1 # hypertensive urgency -May be secondary to pain, make sure patient has adequate pain control -Despite pain control patient is having persistent hypertension -continue home regimen metoprolol, losartan, Lasix -Added amlodipine, p.r.n. hydralazine # chronic hypoxic and hypercapnic respiratory failure -slightly acidotic 7.3, pCO2 up to 73.4 -continue BiPAP # chronic conditions - GERD: Protonix - essential hypertension: Metoprolol, losartan - COPD: DuoNebs q.6 hours - morbid obesity Diet: Heart healthy DVT prophylaxis: lovenox Code status: Full code Disposition: Likely home in greater than 3 days Subjective Date/time seen: 06/07/23 12:59 Interval history: patient seen and examined. Patient overnight with flank pain and UTI. Patient has a known ureteral stent in place. Current condition from Urology is for follow-up cystoscopy with right ureteroscopy and laser lithotripsy in 2-3 weeks. Patient has been hypertensive and in pain. We have adjusted pain regimen and blood pressure regimen. She endorses right flank pain, denies fever, chills, nausea, vomiting and diarrhea. Review of Systems Review of Systems: 10 point ROS complete, negative other than what is specified in HPI. Exam Narrative: - GENERAL: Pleasant woman in no acute distress. lethargic - EYES: EOMI. Anicteric. - HENT: Moist mucous membranes. - LUNGS: Clear to auscultation bilaterally, no wheezing, rhonchi, or rales. - CARDIOVASCULAR: Regular rate and rhythm. No murmur. - ABDOMEN: Soft, right abdominal pain present mostly in right flank. - EXTREMITIES: No edema. Peripheral pulses 2+. Non-tender. - NEUROLOGIC: No focal neurological deficits. CN II-XII grossly intact. answers questions appropriately - PSYCHIATRIC: Awake, Alert and oriented x 3. Appropriate mood and affect. - SKIN: No rashes or lesions. Warm. - LYMPH: No cervical lymphadenopathy. Objective Data Vital Signs Vital Signs: Vital Signs - 24 hr 06/06/23 16:05 06/06/23 16:13 06/06/23 17:05 Temperature 36.7 C Pulse Rate 97 96 88 Respiratory Rate 17 23 H Blood Pressure 181/88 H Pulse Oximetry 97 Oxygen Delivery Nasal Cannula Oxygen Flow Rate 4 Fraction of Inspired Oxygen 06/06/23 17:24 06/06/23 19:06 06/06/23 19:33 Temperature Pulse Rate 93 81 80 Respiratory Rate 21 H 32 H 26 H Blood Pressure Pulse Oximetry 97 98 Oxygen Delivery BiPAP BiPAP Oxygen Flow Rate Fraction of Inspired Oxygen 06/06/23 19:40 05/27
--- NOTE | 2023-06-07 13:17 | PCPTNOTE ---
Attempted PT evaluation, pt refused due to just getting back to bed. Will follow.
[2023-06-07] MEDS: ENOXAPARIN 40 MG/0.4 ML SYRINGE SUB-Q (13:34)
--- NOTE | 2023-06-07 14:33 | PC.NURSE ---
On 06/07/23, the student, [ Nikki Elliott], provided care and completed [employer] documentation on this patient. I have reviewed the student's documentation and agree with the findings.
[2023-06-07] MEDS: HYDROcodone/acetaminophen (*CRX) 10-325 MG TABLET 1 TAB PO (18:17)
[2023-06-07] MEDS: TOLNAFTATE 1% POWDER 45 GM BTL 1 APPLIC TOPICAL (21:56)
[2023-06-08] VITALS (28 sets, daily range): BP systolic 142–215; BP diastolic 48–81; PULSE 71–93; RESP 12–20; TEMP 36.2–37.1; O2SAT 91–100
[2023-06-08] MEDS: ONDANSETRON INJ 4 MG/2 ML VIAL IV PUSH ×3 (00:56→16:01)
[2023-06-08] MEDS: HYDROcodone/acetaminophen (*CRX) 10-325 MG TABLET 1 TAB PO ×3 (00:57→16:01)
[2023-06-08] MEDS: IPRATROPIUM 0.5 MG/ALBUTEROL SULFATE 2.5 MG AMPUL.NEB 3 ML INHALATION ×3 (02:45→21:36)
[2023-06-08] MEDS: HYDROmorphone HCL INJ (*CRX) 1 MG/ML SYR IV PUSH ×6 (03:15→23:05)
[2023-06-08 04:22] LABS: Basophils Absolute Auto 0.1 K/mm3 (0.0-0.1); Basophils Percent Auto 0.6 % (0.2-1.2); Eosinophils Absolute Auto 0.1 K/mm3 (0-0.3); Hematocrit 30.4 % (37.0-47.0); Hemoglobin 9.6 g/dL (12.0-15.0); Immature Granulocyte Absolute 0.04 K/mm3 (0.00-0.031); Immature Granulocyte Percent A 0.5 % (0-0.5); Immature Platelet Fraction Pct 2.9 % (0.9-11.2); Lymphocytes Absolute Auto 0.92 K/mm3 (0.9-3.2); Lymphocytes Percent Auto 11.4 % (18.3-44.2); Mean Corpuscular HGB Conc 31.6 g/dl (32-36); Mean Corpuscular Hemoglobin 27.7 pg (26-34); Mean Corpuscular Volume 87.9 fl (80-100); Mean Platelet Volume 9.9 fl (7.4-10.4); Monocytes Absolute Auto 0.4 K/mm3 (0.1-0.6); Neutrophils Absolute Auto 6.6 K/mm3 (1.3-6.7); Neutrophils Percent Auto 81.5 % (45.5-73.1); Platelet Count Result 205 k/mm3 (150-375); Red Blood Count 3.46 M/mm3 (4.2-5.4); Red Cell Distribution Width 13.9 % (11.5-14.5); White Blood Count 8.1 K/mm3 (4.5-10.0)
[2023-06-08 04:26] LABS: Blood Urea Nitrogen 19 mg/dL (7-17); Calcium 8.6 mg/dL (8.4-10.2); Carbon Dioxide > 40 mmol/L (22-30); Chloride 86 mmol/L (98-107); Estimated CRCL calculation 87 ml/min; Estimated Glomerular Filt Rate > 60; Glucose 102 mg/dL (65-110); Magnesium 1.8 mg/dL (1.6-2.3); Potassium 3.8 mmol/L (3.4-5.0); Sodium 131 mmol/L (137-145)
[2023-06-08 04:42] LABS: Platelet Estimate Adequate (Adequate)
[2023-06-08 04:47] LABS: Anisocytosis 1+; Large Platelets Present
[2023-06-08 04:53] LABS: Schistocytes None Seen; Stomatocytes 1+
[2023-06-08] MEDS: hydrALAZINE HCL 20 MG/ML VIAL 10 MG IV PUSH (07:32)
[2023-06-08] MEDS: amLODIPine BESYLATE 5 MG TABLET 10 MG PO (08:36)
[2023-06-08] MEDS: LOSARTAN POTASSIUM 50 MG TABLET PO (08:37)
[2023-06-08] MEDS: ENOXAPARIN 40 MG/0.4 ML SYRINGE SUB-Q (08:37)
[2023-06-08] MEDS: PANTOPRAZOLE 40 MG TABLET PO (08:37)
[2023-06-08] MEDS: METOPROLOL TARTRATE 25 MG TABLET PO ×2 (08:37→21:12)
[2023-06-08] MEDS: TOLNAFTATE 1% POWDER 45 GM BTL 1 APPLIC TOPICAL ×2 (08:39→21:13)
[2023-06-08] MEDS: hydrALAZINE HCL 20 MG/ML VIAL IV PUSH ×2 (08:55→21:19)
--- NOTE | 2023-06-08 11:47 | PM.IMPN ---
Progress Note: A&P Assessment and Plan (1) Hypercapnia: Code(s): R06.89 - Other abnormalities of breathing Status: Acute (2) UTI (urinary tract infection): Code(s): N39.0 - Urinary tract infection, site not specified Status: Acute (3) CHF exacerbation: Code(s): I50.9 - Heart failure, unspecified Status: Acute (4) Ureteral stent present: Code(s): Z96.0 - Presence of urogenital implants Status: Acute (5) Status post laser lithotripsy of ureteral calculus: Code(s): Z98.890 - Other specified postprocedural states Status: Acute (6) Morbid obesity: Code(s): E66.01 - Morbid (severe) obesity due to excess calories Status: Acute (7) Chronic anticoagulation: Code(s): 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 hydralazine increased to 20mg IVP -if BP rises again despite these measures we may need to start cardene drip # urinary tract infection # nonobstructing nephrolithiasis - patient has UTI , pending cultures (UA >100 WBC, 4+ bacteria) - ABx: rocephin - abdominal scan shows nonobstructive right nephrolithiasis and right internal ureteral stent in expected position - patient already has ureteral stent in place, urology consult recommendation to continue IV antibiotics and follow-up for cystoscopy in 2-3 weeks - pain control p.r.n. [place], Dilaudid - with some lethargy yesterday and O2 requirements, will not adjust pain control regimen - no leukocytosis, labs are stable. lactic acid 1.1 # combined respiratory alkalosis and contraction alkalosis - with diuretic patient is developing contraction alkalosis and hyponatremia, will hold off on Lasix # chronic hypoxic and hypercapnic respiratory failure -slightly acidotic 7.3, pCO2 up to 73.4 -continue BiPAP nightly # chronic conditions - GERD: Protonix - essential hypertension: Metoprolol, losartan - COPD: DuoNebs q.6 hours - morbid obesity Diet: Heart healthy DVT prophylaxis: lovenox Code status: Full code Disposition: home in 2-3 days Subjective Date/time seen: 06/08/23 11:47 Interval history: Patient seen and examined. patient has some right flank pain from her kidney stones also has some chronic neuropathy down the right lower extremity. she states the pain is very severe and whenever she has pain her blood pressure elevates. this morning blood pressure peaked at 215/81 prior to her having her home meds. with continued her metoprolol, losartan, amlodipine which was added yesterday and increase hydralazine to 20 mg IV push as needed. With contraction alkalosis and hyponatremia we are holding Lasix. If her blood pressure is persistently elevated then we may need to transfer to ICU for Cardene drip. We are holding off on Cardene for now. Patient denies fever, chills, nausea vomiting, diarrhea. She endorses right flank pain and right lower extremity pain. Review of Systems Review of Systems: 10 point ROS complete, negative other than what is specified in HPI. Exam Narrative: - GENERAL: Pleasant woman in no acute distress. no longer lethargic - EYES: EOMI. Anicteric. - HENT: Moist mucous membranes. - LUNGS: Clear to auscultation bilaterally, no wheezing, rhonchi, or rales. - CARDIOVASCULAR: Regular rate and rhythm. No murmur. - ABDOMEN: Soft, right abdominal pain present mostly in right flank. - EXTREMITIES: No edema. Peripheral pulses 2+. Non-tender. - NEUROLOGIC: No focal neurological deficits. CN II-XII grossly intact. answers questions appropriat
--- NOTE | 2023-06-08 13:21 | PCOTNOTE ---
Patient refused treatment this session due to being in to much pain.
--- NOTE | 2023-06-08 14:19 | PC.NURSE ---
The pt is requesting to have a Xray completed of her left hip which radiates to her right knee due to new onset pain of 10/. Dr. Brock given report et will enter new interventions for the pt
[2023-06-08] MEDS: LIDOCAINE 5% PATCH 1 PATCH TRANSDERM (16:18)
--- NOTE | 2023-06-08 16:21 | PC.NURSE ---
Education has been given on the current POC. The pt is rating pain 10/10 numeric pain scale et the pt is requesting for the Dr. Brock to come to the bedside et for c/o of uncontrolled pain.
--- NOTE | 2023-06-08 16:58 | PC.NURSE ---
The pt has been education on the current POC. New interventions. The pt requested MD to come to the bedside. Dr. Brock came to the pt bedside. Brit. Dr. Brock / This RN 1.) K Pad. The K Pad has been ordered per the nursing unit clerk et Enroute.
[2023-06-08] MEDS: HYDROcodone/acetaminophen (*CRX) 5-325 MG TABLET 1 TAB PO (21:11)
[2023-06-09] VITALS (19 sets, daily range): BP systolic 131–171; BP diastolic 49–65; PULSE 59–78; RESP 14–22; TEMP 35.9–36.8; O2SAT 91–100
[2023-06-09] MEDS: IPRATROPIUM 0.5 MG/ALBUTEROL SULFATE 2.5 MG AMPUL.NEB 3 ML INHALATION ×3 (02:32→13:47)
[2023-06-09] MEDS: HYDROcodone/acetaminophen (*CRX) 10-325 MG TABLET 1 TAB PO ×2 (03:33→10:28)
[2023-06-09 05:03] LABS: Hematocrit 33.2 % (37.0-47.0); Hemoglobin 10.8 g/dL (12.0-15.0); Mean Corpuscular HGB Conc 32.5 g/dl (32-36); Mean Corpuscular Hemoglobin 28.2 pg (26-34); Mean Corpuscular Volume 86.7 fl (80-100); Mean Platelet Volume 9.6 fl (7.4-10.4); Platelet Count Result 239 k/mm3 (150-375); Red Blood Count 3.83 M/mm3 (4.2-5.4); Red Cell Distribution Width 13.8 % (11.5-14.5)
[2023-06-09 05:15] LABS: Blood Urea Nitrogen 17 mg/dL (7-17); Calcium 9.2 mg/dL (8.4-10.2); Carbon Dioxide > 40 mmol/L (22-30); Chloride 86 mmol/L (98-107); Estimated CRCL calculation 97 ml/min; Estimated Glomerular Filt Rate > 60; Glucose 102 mg/dL (65-110); Potassium 3.4 mmol/L (3.4-5.0); Sodium 133 mmol/L (137-145)
[2023-06-09] MEDS: HYDROmorphone HCL INJ (*CRX) 1 MG/ML SYR IV PUSH (06:05)
[2023-06-09] MEDS: LIDOCAINE 5% PATCH 1 PATCH TRANSDERM (09:01)
[2023-06-09] MEDS: ENOXAPARIN 40 MG/0.4 ML SYRINGE SUB-Q (09:02)
[2023-06-09] MEDS: METOPROLOL TARTRATE 25 MG TABLET PO (09:02)
[2023-06-09] MEDS: LOSARTAN POTASSIUM 50 MG TABLET PO (09:02)
[2023-06-09] MEDS: PANTOPRAZOLE 40 MG TABLET PO (09:02)
[2023-06-09] MEDS: amLODIPine BESYLATE 5 MG TABLET 10 MG PO (09:02)
[2023-06-09] MEDS: TOLNAFTATE 1% POWDER 45 GM BTL 1 APPLIC TOPICAL (09:03)
--- NOTE | 2023-06-09 13:23 | PM.DS ---
DS: Admitting Diagnosis Discharge Date June 09, 2023 Admitting Diagnosis Abdominal pain DS: Discharge Diagnosis Discharge Diagnosis (1) UTI (urinary tract infection): Code(s): N39.0 - Urinary tract infection, site not specified Status: Acute (2) Ureteral stent present: Code(s): Z96.0 - Presence of urogenital implants Status: Acute (3) Status post laser lithotripsy of ureteral calculus: Code(s): Z98.890 - Other specified postprocedural states Status: Acute DS: Summary Hospital Course Hospital Course: Ms. Castorena is a 62-year-old female with past medical history nephrolithiasis, ESBL E coli UTI, obesity, heart failure preserved ejection fraction, hypertension, chronic obstructive pulmonary disease, DVT on apixaban, rheumatoid arthritis, chronic anemia, anxiety, chronic respiratory failure with hypoxia and hypercarbia, chronic opioid use, osteoarthritis, depression, GERD. She presents with right-sided abdominal pain. She was treated for UTI with Rocephin per sensitivities for E coli will be discharged on Augmentin for another 10 days. For a nonobstructing nephrolithiasis with right ureteral stent placed previously urology was consulted and plan is to perform right ureteroscopy with laser lithotripsy stone extraction and stent replacement after current UTI has resolved. She will be following up with Dr. Guzman in 2 weeks. Otherwise, the patient developed hypertensive urgency present part due to her pain which was better controlled by discharge and amlodipine was started. Lasix discontinued and use of this to be managed by PCP. She had contraction alkalosis. On 06/08 the patient is stable for discharge to home with 10 days of Augmentin as described above. Adverse effects risk and benefits of medications discussed with the patient. She is in understanding and amenable to the plan. The patient was full code during her admission. Addition to follow Dr. Guzman she will follow with her PCP Dr. Lantigua within 1 week. Time Spent with Patient Time attestation: Total time spent providing and/or coordinating discharge services: Exam Const: General: cooperative and no acute distress Resp: Effort & Inspection: normal respiratory effort Auscultation: clear to auscultation bilaterally Cardio: Rate: regular rate Rhythm: regular rhythm Heart sounds: S1 normal heart sound present and S2 normal heart sound present GI: GI Palp: No abdominal tenderness Auscultation: normal bowel sounds DS: Data Data Completed and Pending Labs on day of discharge: Labs from last 24 hours 06/09/23 04:19 WBC 7.0 RBC 3.83 L Hgb 10.8 L Hct 33.2 L MCV 86.7 MCH 28.2 MCHC 32.5 RDW 13.8 Plt Count 239 MPV 9.6 Sodium 133 L Potassium 3.4 Chloride 86 L Carbon Dioxide > 40 H Anion Gap BUN 17 Creatinine 0.70 Estim Creat Clear Calc 97 Estimated GFR > 60 Glucose 102 Calcium 9.2 Magnesium 2.0 Discharge Plan Discharge Attending physician on discharge: Marine Gregg Consulting providers: Fred Guzman Discharging Clinician: Marine Gregg Patient Disposition: Home, Self-Care Activity: june shower Diet: heart healthy Patient Instructions: Antibiotic Form, Apixaban (By mouth), Heart Failure (DC), Vale Catheter Placement and Care (DC), Urinary Tract Infection in Older Adults (GEN) Stand Alone Forms: General Discharge Information Follow-up/Referrals: Maria G Lantigua MD [Primary Care Provider] - 1 Week Fred Guzman MD [Physician] - 2 Weeks Discharge Medications: New amoxicillin-pot clavulanate 875-125 mg tablet 1 tablet PO Q12H 10 Days Qty: 20 0RF amlodipine [Norvasc] 5 mg Tablet 10 mg PO QAM Qty: 30 0RF lidocaine [Lidoderm] 5 % Adhesive Patch,Medicated 1 patch transdermal DAILY Qty: 30 0RF Continued diphenhydramine HCl [Benadryl] 50 mg Capsule 50 mg PO HS ibuprofen 400 mg Tablet 400 mg PO Q6H PRN (Reason: Pain)
--- NOTE | 2023-06-09 14:39 | PC.NURSE ---
d/c the pts Vale cath et start voiding trial per. Vale cath d/c et the pt tolerated well.
--- NOTE | 2023-06-09 15:37 | PC.NURSE ---
Discharge education has been given to the pt. The pt was able to void without distress. The amount of urine is unmeasured. Dr. Gregg given report. Per Dr Gregg bladder scan the pt. At that time The pt voided 100 mL et was Bladder scan was 0. Report was given to Cristino Aguayo with no further interventions needed at this time. The pt is reporting pain 7/10 Right hip to right knee. The pt denies the need for intervention prior to discharge for pain, et is reporting her pain level is adequate for discharge. No nonverbal manifestations of pain noted. Fall precautions noted et intact. The pt has been given education on CAUTIs et s/s to monitor for. The pt displays understanding through verbal demonstration. Education given on the Urinary Retention et the pt displays understanding through verbal demonstration. All belongings removed from the room per pt et family. No manifestations of distress noted at the time of discharge from the campus.
== END 2023-06-09 16:05 | disposition home or self-care (01) | DRG 698 ==
LOC: ANHED 18:47 → ANHIMU 22:56
PROVIDERS: Emergency Medicine; Student in an Organized Health Care Education/Training Program; Admitting Provider Internal Medicine; Emergency Provider Emergency Medicine; PCP Family Medicine; Visit Provider General Practice
DX: T83.592A Infection and inflammatory reaction due to indwelling ureteral stent, initial encounter (principal); I50.33 Acute on chronic diastolic (congestive) heart failure; N39.0 Urinary tract infection, site not specified; Z68.42 Body mass index [BMI] 45.0-49.9, adult; J96.11 Chronic respiratory failure with hypoxia; J96.12 Chronic respiratory failure with hypercapnia; E87.1 Hypo-osmolality and hyponatremia; B96.20 Unspecified Escherichia coli [E. coli] as the cause of diseases classified elsewhere; I11.0 Hypertensive heart disease with heart failure; J44.9 Chronic obstructive pulmonary disease, unspecified; N20.0 Calculus of kidney; Z20.822 Contact with and (suspected) exposure to COVID-19; I16.0 Hypertensive urgency; M06.9 Rheumatoid arthritis, unspecified; E66.01 Morbid (severe) obesity due to excess calories; M25.551 Pain in right hip; D64.9 Anemia, unspecified; K21.9 Gastro-esophageal reflux disease without esophagitis; Z99.81 Dependence on supplemental oxygen; Z79.01 Long term (current) use of anticoagulants; Z90.49 Acquired absence of other specified parts of digestive tract; Z98.1 Arthrodesis status; Z86.718 Personal history of other venous thrombosis and embolism; Z87.891 Personal history of nicotine dependence; Z96.0 Presence of urogenital implants; Z98.890 Other specified postprocedural states
CPT/HCPCS: 36415; 36600; 71045; 73502; 73562; 74176; 80048; 80053; 81001; 82375; 82805; 83050; 83605; 83690; 83735; 83880; 84484; 85025; 85027; 85055; 85610; 85730; 87077; 87086; 87088; 87186; 87637; 93005; 94002; 94640; 96365; 96375; 96376; 97161; 97165; 99285; A9270; G0378; J0360; J0696; J1170; J1650; J1940; J2060; J2405